=== PATIENT | female | born 1935 | race Caucasian/White ===

== ENCOUNTER 2018-06-19 13:06 | Outpatient (CLI) | payer MEDICARE ==
--- NOTE | 2018-06-19 16:00 | PET ---
PET CT: HISTORY: 82-year-old female with left breast cancer. Status post mastectomy 08/22/17. Exam requested for sami smyth. No history of chemo/radiation therapy. TECHNIQUE: PET scanning with CT attenuation correction was performed from the base of the brain through the prox imal thighs following the intravenous administration of 1 mCi [id number] in the right antecubital fossa. Imaging performed after an uptake interval of 50 minutes. COMPARISON: None. CORRELATION: None. CORRELATION: CT chest, abdomen, and pelvis of 06/13/17 and whole body bone scan of 01/03/17. FINDINGS: No aida hypermetabolism is seen in the neck, chest, axilla, abdomen, pelvis, or inguinal regions. No hypermetabolic pulmonary nodules, liver, adrenal, or skeletal lesions are identified. There is physiologic activity in the GI and tracts, and the visualized portions of the brain. A focal area of intense FDG localization is seen in the stomach with a SUV of 6.6. The CT scan used for attenuation correction demonstrates no evidence of pleural effusions or ascites. There is a left adrenal adenoma with attenuation values of 5.[address] on the [address] scan used for attenuation correction (noncontrast) and SUV of 2.2 on the PET scan. IMPRESSION: 1. No evidence of metastatic disease. 2. Focal hypermetabolic area in the stomach should be evaluated with endoscopy to exclude a second p rimary. POS: DEMETRI
== END 2018-06-19 13:07 | disposition home or self-care (01) ==
LOC: PET 13:06
PROVIDERS: ATTEND Internal Medicine Hematology & Oncology
DX: C50.912 Malignant neoplasm of unspecified site of left female breast (principal)
CPT/HCPCS: 78815; A9552

== ENCOUNTER 2019-07-06 11:54 | Observation (INO) | payer MEDICARE ==
[2019-07-06 12:33] LABS: #Eosinphils 0.1 thou/uL (0.0-0.7); #Lymphocytes 1.1 thou/uL (1.20-3.40); #Monocytes 0.6 thou/uL (0.11-0.59); %Basophils 0.2 % (0.0-1.0); %Eosinophils 1.2 % (0.0-10.0); %Lymphocytes 18.7 % (21.0-51.0); %Monocytes 10.6 % (0.0-10.0); %Neutrophils 69.1 % (42.0-75.0); Hemoglobin 7.9 g/dL (12.0-16.0); Mean Corpuscular HGB CONC 31.3 g/dL (32.0-36.0); Mean Corpuscular Hemoglobin 28.9 pg (27.0-31.0); Mean Corpuscular Volume 92.3 fL (78.0-98.0); Mean Platelet Volume 8.9 fL (7.4-10.4); Platelet Count 217 thou/uL (130-400); Red Blood Cell (RBC) Count 2.73 mill/uL (4.20-5.40); White Blood Cell (WBC) Count 5.8 thou/uL (4.8-10.8)
[2019-07-06 12:41] LABS: INR-International Normal Ratio 1.8
--- NOTE | 2019-07-06 12:41 | RAD ---
Portable frontal chest radiograph: 07/06/2019 COMPARISON: 02/14/2015 HISTORY: Low blood pressure, lethargy FINDINGS: Stable prominence of the cardiac silhouette. Stable multilead left-sided AICD. No focal con solidation or alveolar edema. IMPRESSION: Stable frontal chest radiograph.
--- NOTE | 2019-07-06 12:49 | CT ---
Head CT without contrast 07/06/2019: COMPARISON: 07/20/2015 HISTORY: Hypotension, lethargy TECHNIQUE: Axial CT imaging at 5 mm intervals from vertex through skull base without contrast FINDINGS: The visualized paranasal sinuses and mastoid air cells are well aerated. No displaced mary rial fracture. No intracranial hemorrhage, midline shift, or mass effect. White matter hypodensity again noted, evidence of small vessel disease. Associated moderate stable cerebral volume loss. IMPRESSION: Chronic findings as described above. No acute intracranial abnormality.
[2019-07-06 12:52] LABS: ALT (SGPT) 19 U/L (8-55); AST (SGOT) 31 U/L (5-34); Albumin 3.9 g/dL (3.4-4.8); Alkaline Phosphatase 80 U/L (40-110); Anion Gap 13 mmol/L (10-20); BUN (Urea Nitrogen) 36 mg/dL (9.8-20.1); Bilirubin, Total 1.2 mg/dL (0.2-1.2); CK (CPK) 377 U/L (29-168); Calc. Creatinine Clearance 0 mL/min (70-130); Calcium 9.1 mg/dL (7.8-10.44); Carbon Dioxide 29 mmol/L (23-31); Chloride 101 mmol/L (98-107); Estimated GFR-MDRD 32; Globulin 2.7 g/dL (2.4-3.5); Glucose 180 mg/dL (83-110); Potassium 3.3 mmol/L (3.5-5.1); Protein, Total 6.6 g/dL (6.0-8.3); Sodium 140 mmol/L (136-145)
[2019-07-06 13:38] LABS: Bacteria/HPF 2+ HPF (None Seen); Bilirubin Negative (Negative); Blood, Urine Negative (Negative); Clarity Clear (Clear); Glucose, Urine (Dipstick) Normal (Negative); Leukocyte 250 Leu/uL (Negative); Nitrite Negative (Negative); Protein, Urine (Dipstick) Negative (Neg-Trace); RBC/HPF 0-3 HPF (0-3); Squamous Epithelial 0-3 HPF (0-3); Urobilinogen Normal mg/dL (Less than 2)
--- NOTE | 2019-07-06 13:46 | ULT ---
LEFT LOWER EXTREMITY VENOUS DOPPLER: 07/06/2019 PROVIDED CLINICAL HISTORY: Left leg edema. FINDINGS: Ralph-scale and color Doppler sonography with spectral analysis was performed of the left common femor al, femoral, popliteal, posterior tibial, greater saphenous and profunda femoral veins, demonstrating a normal sonographic appearance to each. IMPRESSION: No sonographic evidence for left lower extremity deep venous thrombosis. POS: SWATHI
[2019-07-06] MEDS ORDERED: cefTRIAXone\\ROCEPHIN 1 GM VIAL ONE (15:34)
[2019-07-06] MEDS ORDERED: Ondansetron ODT 4 MG TAB PO PRN (16:00)
[2019-07-06] MEDS ORDERED: Acetaminophen 325 MG TAB PO PRN (16:00)
[2019-07-06 16:57] LABS: Troponin I Less than 0.010 ng/mL (< 0.028)
[2019-07-06 19:06] LABS: Troponin I 0.032 ng/mL (< 0.028)
[2019-07-06 19:40] VITALS: BMI 22.8
[2019-07-06] MEDS ORDERED: HumaLOG 300 UNITS/3 ML VIAL SC PRN (21:00)
[2019-07-06] MEDS ORDERED: Dextrose 50% Abboject 50 ML SYRINGE IVP PRN (21:00)
[2019-07-06] MEDS ORDERED: Dextrose 5% in Water 1,000 ML IV PRN (21:00)
[2019-07-06] MEDS: Apixaban 2.5 MG TAB PO SCH (21:10)
[2019-07-06] MEDS: Sodium Chloride 0.9% 1,000 ML IV SCH (21:12)
[2019-07-07 05:25] LABS: #Eosinphils 0.1 thou/uL (0.0-0.7); #Lymphocytes 1.4 thou/uL (1.20-3.40); #Monocytes 0.6 thou/uL (0.11-0.59); #Neutrophils 2.5 thou/uL (1.40-6.50); %Basophils 0.2 % (0.0-1.0); %Eosinophils 2.3 % (0.0-10.0); %Lymphocytes 31.5 % (21.0-51.0); Hemoglobin 6.9 g/dL (12.0-16.0); Mean Corpuscular HGB CONC 31.2 g/dL (32.0-36.0); Mean Platelet Volume 8.8 fL (7.4-10.4); Platelet Count 198 thou/uL (130-400); RBC Distribution Width 19.3 % (11.5-14.5); Red Blood Cell (RBC) Count 2.38 mill/uL (4.20-5.40); White Blood Cell (WBC) Count 4.6 thou/uL (4.8-10.8)
[2019-07-07 05:44] LABS: ALT (SGPT) 16 U/L (8-55); AST (SGOT) 24 U/L (5-34); Albumin 3.3 g/dL (3.4-4.8); Alkaline Phosphatase 62 U/L (40-110); Anion Gap 9 mmol/L (10-20); BUN (Urea Nitrogen) 30 mg/dL (9.8-20.1); Bilirubin, Total 0.7 mg/dL (0.2-1.2); Calc. Creatinine Clearance 34 mL/min (70-130); Calcium 8.5 mg/dL (7.8-10.44); Carbon Dioxide 30 mmol/L (23-31); Chloride 109 mmol/L (98-107); Estimated GFR-MDRD 44; Globulin 2.3 g/dL (2.4-3.5); Glucose 113 mg/dL (83-110); Magnesium 2.1 mg/dL (1.6-2.6); Protein, Total 5.6 g/dL (6.0-8.3); Sodium 145 mmol/L (136-145)
[2019-07-07] MEDS ORDERED: Potassium Chloride 20 MEQ TAB PO SCH ×2 (08:00→16:45)
[2019-07-07 08:15] LABS: Hemoglobin 7.1 g/dL (12.0-16.0)
[2019-07-07] MEDS ORDERED: Ferrous Sulfate 325 MG TAB PO SCH (09:00)
[2019-07-07] MEDS ORDERED: Digoxin 0.125 MG TAB PO SCH (09:00)
[2019-07-07] MEDS: Losartan 25 MG TAB PO SCH (09:34)
[2019-07-07] MEDS: Aspirin Chewable 81 MG TAB PO SCH (09:34)
[2019-07-07] MEDS: Apixaban 2.5 MG TAB PO SCH ×2 (09:34→20:28)
[2019-07-07] MEDS ORDERED: Docusate 100 MG CAP PO PRN (10:43)
[2019-07-07] MEDS: HumaLOG 300 UNITS/3 ML VIAL SC PRN ×2 (12:57→17:12)
[2019-07-07] MEDS ORDERED: Amiodarone 200 MG TAB PO SCH (14:45)
[2019-07-07] MEDS ORDERED: Polyethylene Glycol 3350 17 GM Packet PO SCH (16:00)
--- NOTE | 2019-07-07 16:41 | PDOC.HOSPP ---
- Subjective Encounter Date: 07/07/19 Subjective: afebrile and comfortably walking - Objective Vital Signs & Weight: Vital Signs (12 hours) Temp Pulse Resp BP BP Pulse Ox 07/07/19 16:28 98.3 F 60 16 131/62 95 07/07/19 12:14 97.5 F L 60 20 135/65 94 L 07/07/19 11:44 135/65 07/07/19 07:31 98.8 F 61 16 129/62 92 L Weight Weight 133 lb 8 oz I&O: 07/06/19 07/07/19 07/08/19 06:59 06:59 06:59 Intake Total 1109 960 Output Total 600 Balance 509 960 Result Diagrams: 07/07/19 08:06 07/07/19 04:51 Additional Labs: Accuchecks 07/07/19 07/07/19 07/06/19 13:56 12:32 20:17 POC Glucose 435 H 449 H 230 H EKG Reviewed by me: Yes Hospitalist ROS - Review of Systems Other: no c/o weakness - Medication Medications: Active Medications Generic Name Dose Route Start Last Admin Trade Name Freq PRN Reason Stop Dose Admin Amiodarone HCl 200 mg 07/07/19 14:45 07/07/19 15:23 Cordarone PO 07/07/19 16:45 200 mg NOW YANI Administration Apixaban 2.5 mg 07/06/19 21:00 07/07/19 09:34 Eliquis PO 2.5 mg BID YANI Administration Aspirin 81 mg 07/07/19 09:00 07/07/19 09:34 Aspirin Chewable PO 81 mg DAILY YANI Administration Digoxin 0.125 mg 07/07/19 09:00 07/07/19 09:35 Lanoxin PO Not Given DAILY YANI Ferrous Sulfate 325 mg 07/07/19 09:00 07/07/19 09:34 Feosol PO 325 mg DAILY YANI Administration Sodium Chloride 1,000 mls @ 50 mls/hr 07/06/19 16:00 07/06/19 21:12 Normal Saline 0.9% IV 1,000 mls .Q20H YANI Administration Insulin Human Lispro 0 units 07/06/19 21:00 07/07/19 12:57 Humalog SC 10 unit .MODERATE SLIDING SC PRN Administration MODERATE SLIDING SCALE Protocol Insulin Human Lispro 0 units 07/06/19 21:00 07/06/19 21:11 Humalog SC 2 unit .BEDTIME SLIDING SC PRN Administration BEDTIME SLIDING SCALE Protocol Losartan Potassium 25 mg 07/07/19 09:00 07/07/19 09:34 Cozaar PO 25 mg DAILY YANI Administration Sodium Chloride 10 ml 07/06/19 16:00 07/06/19 21:13 Flush - Normal Saline IVF 10 ml Q12H PRN Administration Saline Flush - Exam Eye: PERRL, anicteric sclera ENT: normocephalic atraumatic, no oropharyngeal lesions, moist mucosa Neck: supple, symmetric, no JVD, no thyromegaly, no lymphadenopathy, no carotid bruit Heart: RRR, no murmur, no gallops, no rubs, normal peripheral pulses Respiratory: CTAB, no wheezes, no rales, no ronchi, normal chest expansion, no tachypnea, normal percussion Gastrointestinal: soft, non-tender, non-distended, normal bowel sounds, no palpable masses, no hepatomegaly, no splenomegaly, no bruit Extremities: no cyanosis, no clubbing, no edema Skin: normal turgor, no lesions, no rashes Neurological: cranial nerve grossly intact, normal sensation to touch, no weakness, no focal deficits, no new deficit Musculoskeletal: normal tone, normal strength, no muscle wasting Psychiatric: normal affect, normal behavior, A&O x 3 Hosp A/P (1) HTN (hypertension) Code(s): I10 - ESSENTIAL (PRIMARY) HYPERTENSION Status: Acute Plan: well controlled. (2) Afib Code(s): I48.91 - UNSPECIFIED ATRIAL FIBRILLATION Status: Acute Plan: chronic with h/o pacemaker and aicd combo placement. (3) Anemia Code(s): D64.9 - ANEMIA, UNSPECIFIED Status: Acute Qualifiers: Anemia type: iron deficiency Iron deficiency anemia type: inadequate dietary iron intake Qualified Code(s): D50.8 - Other iron deficiency anemias Plan: will transfuse one dose of iv venofer today. (4) CHF (congestive heart failure) Code(s): I50.9 - HEART FAILURE, UNSPECIFIED Status: Acute Qualifiers: Heart failure type: systolic Plan: h/o aicd placement with eliquis use. (5) Diabetes 1.5, managed as type 2 Code(s): E13.9 - OTHER SPECIFIED DIABETES MELLITUS WITHOUT COMPLICATIONS Status: Acute - Plan old records reviewed/req, plan discussed w/ family, PT/OT 1.One episode of asymptomatic nsvt. 2.paced rhythm,patient ambulating well with out any fall risk. 3.h/o iron deficiency anemia will transfuse iv venofer once. 4.Discharge plan in am.
[2019-07-07] MEDS ORDERED: IRON SUCROSE COMPLEX 100 MG/5 ML SLOW IVP SCH (16:45)
[2019-07-07] MEDS: Sodium Chloride 0.9% 1,000 ML IV SCH (17:14)
[2019-07-07] MEDS ORDERED: Insulin Glargine 24 UNITS in Pre-Filled Syringe SC SCH (21:00)
[2019-07-07] MEDS ORDERED: Temazepam 15 MG CAP PO PRN (22:12)
[2019-07-08 05:22] LABS: #Eosinphils 0.1 thou/uL (0.0-0.7); #Lymphocytes 1.7 thou/uL (1.20-3.40); #Monocytes 0.6 thou/uL (0.11-0.59); #Neutrophils 3.2 thou/uL (1.40-6.50); %Basophils 0.8 % (0.0-1.0); %Eosinophils 2.6 % (0.0-10.0); %Lymphocytes 29.6 % (21.0-51.0); %Monocytes 10.9 % (0.0-10.0); %Neutrophils 56.1 % (42.0-75.0); Hemoglobin 7.5 g/dL (12.0-16.0); Mean Corpuscular HGB CONC 30.8 g/dL (32.0-36.0); Mean Corpuscular Hemoglobin 28.8 pg (27.0-31.0); Mean Corpuscular Volume 93.5 fL (78.0-98.0); Mean Platelet Volume 9.1 fL (7.4-10.4); Platelet Count 204 thou/uL (130-400); RBC Distribution Width 19.6 % (11.5-14.5); Red Blood Cell (RBC) Count 2.59 mill/uL (4.20-5.40); White Blood Cell (WBC) Count 5.6 thou/uL (4.8-10.8)
[2019-07-08 05:48] LABS: ALT (SGPT) 16 U/L (8-55); AST (SGOT) 23 U/L (5-34); Albumin 3.4 g/dL (3.4-4.8); Alkaline Phosphatase 66 U/L (40-110); Anion Gap 10 mmol/L (10-20); BUN (Urea Nitrogen) 23 mg/dL (9.8-20.1); Bilirubin, Total 0.8 mg/dL (0.2-1.2); Calc. Creatinine Clearance 35 mL/min (70-130); Calcium 8.5 mg/dL (7.8-10.44); Carbon Dioxide 27 mmol/L (23-31); Chloride 108 mmol/L (98-107); Estimated GFR-MDRD 44; Globulin 2.5 g/dL (2.4-3.5); Glucose 146 mg/dL (83-110); Potassium 4.1 mmol/L (3.5-5.1); Protein, Total 5.9 g/dL (6.0-8.3); Sodium 141 mmol/L (136-145)
[2019-07-08] MEDS ORDERED: Potassium Chloride 20 MEQ TAB PO SCH (08:00)
--- NOTE | 2019-07-08 08:37 | HP ---
REASON FOR ADMISSION: Confusion. HISTORY OF PRESENT ILLNESS: This is a very pleasant 83-year-old female, who was brought in by the patient's family members today with complaints of confusion, that was abrupt in nature, but generalized weakness since last 5 days. She was evaluated by the ER physician with CT of the head as well as lower- extremity Doppler to rule out any evidence of intracranial pathology or evidence of DVT. Evaluations by this radiology reports did not show any evidence of acuity. The patient on my evaluation at bedtime was more alert and oriented, though was complaining of generalized weakness. The patient lives alone at home, usually is active, but in the recent past, according to the patient's daughters, she has been complaining of generalized weakness with occasional confusion states. The patient's family did mention about possibility of memory care unit placement in the future with the possibility of dementia evaluation. At this point of time, their main concern would physical debility, and also at the same time, there was one episode of her systolic blood pressure being around 65 mmHg, but then on initial evaluation in the emergency room, the patient's blood pressure was 100/70 mmHg, and at this point of time, was absolutely normal at 136/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 PAST MEDICAL HISTORY: 1. Cardiomyopathy with an echocardiogram that was ordered for further evaluation of the same. The patient does have an AICD pacemaker combo. 2. Chronic atrial fibrillation with pacemaker placement. The patient is currently on Eliquis and rate-controlled medications with digoxin. 3. Benign essential hypertension. 4. Diabetes mellitus, type 2. ALLERGIES: NO KNOWN DRUG ALLERGIES. FAMILY HISTORY: No history of coronary artery disease or hypertension. SOCIAL HISTORY: The patient denies tobacco, alcohol or recreational drug abuse. HOME MEDICATIONS: 1. Eliquis 2.5 mg b.i.d. 2. Losartan 25 mg daily. 3. Digoxin 0.125 mg daily. 4. Ferrous sulfate 325 mg daily. 5. Aspirin 81 mg daily. 6. Pantoprazole 40 mg daily. IMMUNIZATION HISTORY: Up-to-date. REVIEW OF SYSTEMS: Except as documented, all systems reviewed are negative. PHYSICAL EXAMINATION: GENERAL: This is an 83-year-old female, lying in her hospital bed, not in acute distress. The patient is alert and oriented x3. No acute distress noted. VITAL SIGNS: Blood pressure 136/69 mmHg, heart rate of 85 per minute, respiratory rate of 16 per minute, and saturation 100% on room air, has an airway, which is clear. HEENT: Atraumatic and normocephalic. NECK: Supple. No bruits. No lymphadenopathy. CVS: S1 and S2. Paced rhythm. CHEST: Bilateral air entry present. No rhonchi. No wheeze. ABDOMEN: Soft and nontender. Bowel sounds are present. No organomegaly. EXTREMITIES: No cyanosis. No icterus. No pallor. NEUROLOGIC: The patient is alert and oriented x3. No focal motor or sensory deficits noted. HEMATOLOGIC: No ecchymosis or petechiae. PSYCHIATRIC: No depression or anxiety. DIAGNOSTIC STUDIES: WBCs 5.8, hemoglobin 7.9, hematocrit 25.2, and platelets 217. CT of the head has been reviewed. Volume loss has been noted. Other than that , no acute intracranial abnormality noted. Chest x-ray normal. Lower extremity Doppler does not show any evidence of DVT. Sodium 140, potassium 3.3, chloride 101, carbon dioxide 29, anion gap 13, creatinine 1.55, and calcium 9.1. AST 31 and ALT 19. Albumin 3.9. Urinalysis has been reviewed. Stool occult blood test negative. ASSESSMENT: 1. Single episode of hypotension, likely drug induced. At this point of time, the patient's blood pressure parameters are completely normal. We will hold the patient's antihypertensive medications at this point of time. 2. History of severe cardiomyopathy. Ejection fraction of 15% to 20% with automatic implantable cardioverter-defibrillator placement. 3. Chronic atrial fibrillation, on Eliquis and digoxin with history of pacemaker placement. 4. Osteoarthritis. 5. Physical debility. Physical therapy and occupation therapy have been activated. 6. Hypokalemia. We will supplement potassium. 7. Anemia of chronic disease with hemoglobin of 7.9. The patient's stool guaiac evaluation is negative. 8. History of chronic kidney disease, likely stage 2 to 3. We will further review CBC and CMP evaluations in a.m. 9. No evidence of urinary tract infection noted. 10. 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 PLAN: Discussed in detail about the diagnosis, treatment, and followup with the patient as well as the patient's family. I advised about alf facility placement after PT/OT evaluation based on recommendations. DVT and GI prophylaxis will be continued as the patient is currently on Eliquis. I have advised the patient's family regarding a long-term care. At this point of time, they would prefer the patient to be transitioned to alf facility if possible and long-term will be evaluated after family discussion. I advised about outpatient neurology evaluation for dementia. At this point of time, we will closely monitor though the patient is more alert and oriented. Advanced directives, she is a full code. Discharge planning will depend on further hospital course. At this point of time, I expect the patient will be admitted to the hospitalist service for less than 2 midnights. Job ID: [id number] [facility]PITALWolf
[2019-07-08] MEDS ORDERED: Polyethylene Glycol 3350 17 GM Packet PO SCH (09:00)
[2019-07-08] MEDS ORDERED: Latanoprost 0.005% Ophth Soln 2.5 ml Bottle EA EYE SCH (09:00)
[2019-07-08] MEDS ORDERED: Carvedilol 25 MG TAB PO SCH (09:00)
[2019-07-08] MEDS ORDERED: Insulin Glargine 24 UNITS in Pre-Filled Syringe 1 EACH SC SCH (09:00)
[2019-07-08] MEDS ORDERED: Multivit, Therapeutic 1 TAB PO SCH (09:00)
[2019-07-08] MEDS ORDERED: Non-Formulary Item 1 EACH (Insulin Glargine,Hum.Rec.Anlog [Lantus Solostar] 24 UNIT) SQ SCH (09:00)
[2019-07-08] MEDS ORDERED: Calcium Carbonate 600 MG TAB PO SCH (09:00)
[2019-07-08] MEDS ORDERED: Folic Acid 1 MG TAB PO SCH (09:00)
[2019-07-08] MEDS ORDERED: Amiodarone 200 MG TAB PO SCH (09:00)
[2019-07-08] MEDS ORDERED: Torsemide 100 MG TAB PO SCH (09:00)
[2019-07-08] MEDS ORDERED: Thiamine 100 MG TAB PO SCH (09:00)
[2019-07-08] MEDS: Aspirin Chewable 81 MG TAB PO SCH (09:41)
[2019-07-08] MEDS: Losartan 25 MG TAB PO SCH (09:41)
[2019-07-08] MEDS: Apixaban 2.5 MG TAB PO SCH (09:42)
--- NOTE | 2019-07-08 10:33 | DIS ---
DATE OF ADMISSION: 07/06/2019 DATE OF DISCHARGE: 07/08/2019 SIGNIFICANT DIAGNOSTICS: CT of the head chronic findings as described above. No acute intracranial abnormalities were noted. DISCHARGE DIAGNOSES: 1. Benign essential hypertension. 2. Chronic atrial fibrillation. 3. Anemia of chronic disease with iron deficiency. 4. Congestive heart failure with ejection fraction of 15% to 20% in 2014, currently preliminarily she has an ejection fraction of 30%. 5. Diabetes mellitus type 2. HOSPITAL COURSE: This is a very pleasant 83-year-old female who was brought in to the hospital at [place] with initial complaints of confusion that the patient has been experiencing since 5 days more so to the last 24 hours with abrupt incidence, was concerning, so the patient's family brought the patient to the emergency room at [facility]. The patient was evaluated with CT of the head which did not show any evidence of intracranial abnormalities except for evidence of volume loss. The patient does have chronic history of atrial fibrillation along with multiple comorbidities including benign essential hypertension, hyperlipidemia, iron-deficiency anemia, diabetes mellitus type 2. The patient was continued on her home medications and review on echocardiogram and 48-hour telemetry evaluation was done showing no evidence of acute EKG changes except for 1 episode of nonsustained ventricular tachycardia for over 1 to 2 seconds. The patient was asymptomatic. Hemodynamically, the patient was stable. There was an initial admission with possibility of hypertension at home. The patient does take antihypertensives, unfortunately does not monitor her blood pressure readings and have notified the patient's family regarding monitoring blood pressure prior to antihypertensive intake. The patient was advised followup with her primary director market intelligence as well as primary care physician as scheduled. The patient was given a dose of Venofer because of anemia, which looks more chronic. The patient unfortunately could not tolerate oral iron supplements and she had a history of significant irritation and then was given Venofer at this point of time. The patient has been advised to follow up with irrigation foreman as an outpatient for scheduled Venofer transfusions along with possibility of Procrit. The patient remained hemodynamically optimized without any episodes of confusion or any episodes of low blood pressure and was advised discharge planning. Hemodynamically optimized and discharged. DISPOSITION: Discharged to home. PHYSICAL EXAMINATION: CVS: S1 and S2. CHEST: Bilateral air entry present. ABDOMEN: Soft. EXTREMITIES: No cyanosis. ALLERGIES: SULFA. ACTIVITY: As tolerated to fall precautions. DISCHARGE MEDICATIONS: 1. Eliquis 2.5 mg b.i.d. 2. Amiodarone 200 mg daily. 3. Aspirin 81 mg daily. 4. Calcium carbonate 600 mg daily. 5. Coreg 12.5 mg daily. 6. Folic acid 1 mg daily. 7. Docusate 100 mg daily. 8. Latanoprost as scheduled. 9. Losartan 25 mg daily. 10. Multivitamin 1 tablet daily. 11. Pantoprazole 40 mg daily. 12. MiraLAX 17 g daily. 13. K-Dur 20 mEq daily. 14. Torsemide 100 mg daily. 15. Insulin glargine 24 units at bedtime. DISCHARGE PLAN: The patient has been advised and educated about the diagnosis, treatment, and followup. The patient has been advised about followup care with Hematology, primary care physician as well as Cardiology as scheduled. The whole discharge process including discharge coordination took me more than 35 minutes. Job ID: [id number]
[2019-07-08 11:57] VITALS: BP 129/62; TEMP 98.9
[2019-07-08] MEDS ORDERED: Cephalexin 250 MG CAP PO SCH (13:00)
[2019-07-08] MEDS ORDERED: Cephalexin 250 MG/5 ML Oral Suspension PO SCH (13:00)
[2019-07-08] MEDS: HumaLOG 300 UNITS/3 ML VIAL SC PRN (14:05)
== END 2019-07-08 16:59 | disposition home health service (06) ==
LOC: ERS 11:54 → 2SW 16:06
PROVIDERS: ADMIT Student in an Organized Health Care Education/Training Program; ATTEND Student in an Organized Health Care Education/Training Program
DX: R41.0 Disorientation, unspecified (principal); R53.1 Weakness; I95.9 Hypotension, unspecified; I42.9 Cardiomyopathy, unspecified; I48.20 Chronic atrial fibrillation, unspecified; I13.0 Hypertensive heart and chronic kidney disease with heart failure and stage 1 through stage 4 chronic kidney disease, or unspecified chronic kidney disease; E11.22 Type 2 diabetes mellitus with diabetic chronic kidney disease; N18.3 Chronic kidney disease, stage 3 (moderate); I50.21 Acute systolic (congestive) heart failure; E87.6 Hypokalemia; M19.90 Unspecified osteoarthritis, unspecified site; D50.8 Other iron deficiency anemias; Z79.01 Long term (current) use of anticoagulants; Z79.4 Long term (current) use of insulin; Z79.899 Other long term (current) drug therapy; Z88.2 Allergy status to sulfonamides; Z95.0 Presence of cardiac pacemaker; Z95.5 Presence of coronary angioplasty implant and graft
CPT/HCPCS: 70450; 71045; 80053 ×2; 82274; 82550; 82962 ×3; 83605; 83735 ×2; 84484 ×2; 85014; 85018; 85025 ×2; 85610; 85652; 85730; 87077; 87086; 87186; 93005; 93306; 93971; 96361 ×2; 96365; 96375; 97116; 97139 ×3; 99285; G0378 ×4; 36415; 36416; 81003; 81015; 84443; J0696; J1756; J1815

== ENCOUNTER 2020-03-03 14:31 | Inpatient (IN) | payer MEDICARE, OTHER ==
[~2020-03-03 14:31] MED LIST: Iopamidol-370 76% 500 ML 1 ML ONE
[2020-03-03 15:13] LABS: #Eosinphils 0.1 thou/uL (0.0-0.7); #Lymphocytes 1.4 thou/uL (1.20-3.40); #Monocytes 0.6 thou/uL (0.11-0.59); #Neutrophils 4.6 thou/uL (1.40-6.50); %Basophils 0.1 % (0.0-1.0); %Eosinophils 2.1 % (0.0-10.0); %Lymphocytes 20.8 % (21.0-51.0); %Monocytes 9.3 % (0.0-10.0); %Neutrophils 67.6 % (42.0-75.0); Hemoglobin 6.4 g/dL (12.0-16.0); Mean Corpuscular HGB CONC 31.1 g/dL (32.0-36.0); Mean Corpuscular Hemoglobin 30.6 pg (27.0-31.0); Mean Corpuscular Volume 98.7 fL (78.0-98.0); Mean Platelet Volume 8.6 fL (7.4-10.4); Platelet Count 359 thou/uL (130-400); RBC Distribution Width 22.9 % (11.5-14.5); Red Blood Cell (RBC) Count 2.09 mill/uL (4.20-5.40); White Blood Cell (WBC) Count 6.8 thou/uL (4.8-10.8)
[2020-03-03 15:30] LABS: Anisocytosis SLIGHT = 6-15 cells (100X) (0-5/hpf); Hypochromia SLIGHT = 6-15 cells (100X) (0-5/hpf); MDiff Complete? YES; Ovalocytes SLIGHT = 2-5 cells (100X) (0-1/hpf); Platelet Morphology Comment Appears Adequate; Polychromasia SLIGHT = 2-3 cells (100X) (0-2/hpf); Schistocytes SLIGHT = 2-5 cells (100X) (0-1/hpf); Target Cells SLIGHT = 2-5 cells (100X) (0-1/hpf); Tear Drops SLIGHT = 2-5 cells (100X) (0-1/hpf)
[2020-03-03 15:32] LABS: ALT (SGPT) 25 U/L (8-55); AST (SGOT) 27 U/L (5-34); Albumin 3.3 g/dL (3.4-4.8); Alkaline Phosphatase 98 U/L (40-110); Anion Gap 14 mmol/L (10-20); BUN (Urea Nitrogen) 43 mg/dL (9.8-20.1); Calc. Creatinine Clearance 0 mL/min (70-130); Calcium 8.3 mg/dL (7.8-10.44); Carbon Dioxide 24 mmol/L (23-31); Chloride 104 mmol/L (98-107); Estimated GFR-MDRD 33; Globulin 2.7 g/dL (2.4-3.5); Glucose 133 mg/dL (83-110); Potassium 3.5 mmol/L (3.5-5.1); Sodium 138 mmol/L (136-145)
--- NOTE | 2020-03-03 15:51 | RAD ---
EXAM: 2 views of the right elbow HISTORY: Weakness and fluid retention for 2 weeks. Elbow injury. COMPARISON: None FINDINGS: No elbow effusion is seen. There is no evidence of acute fracture or dislocation. No signi ficant degenerative changes are seen. There is a wound along the posterior aspect of the elbow with adjacent soft tissue swelling. No radiopaque foreign body is seen. IMPRESSION: No evidence of acute osseous abnormality.
--- NOTE | 2020-03-03 15:56 | CT ---
EXAM: CT brain without contrast HISTORY: Altered mental status COMPARISON: 07/06/2019 TECHNIQUE: Multiple contiguous axial images were obtained and a CT of the brain without contrast. FINDINGS: There are scattered hypodensities in the subcortical and periventricular white matter consi stent with small vessel ischemic disease. There is no evidence of hydrocephalus, intracranial hemorrhage, or extra-axial fluid collection. The calvarium and overlying soft tissues are unremarkable. The visualized paranasal sinuses and masto id air cells are well aerated. IMPRESSION: No evidence of acute intracranial abnormality
--- NOTE | 2020-03-03 15:59 | RAD ---
EXAM: ABDOMEN TWO VIEWS CHEST ONE VIEW: 03/03/20 HISTORY: Altered mental status, weakness. Fluid retention for two weeks. COMPARISON: Chest, abdomen and pelvic CT scan . FINDINGS: Left ICD. Cardiomegaly with bilateral vascular congestion and small bilateral pleural effusions. No e vidence for free intraperitoneal air. Solid fecal material throughout the colon including the rectum. Lumbar spine spondylosis. No overt calculus. No large or small bowel obstruction. IMPRESSION: Cardiomegaly with bilateral vascular congestion and small bilateral pleural effusions concerning for congestive heart failure. Solid fecal material in the colon including the rectum, evidence for constipation. POS: RRE
[2020-03-03] MEDS ORDERED: Furosemide 40 MG/4 ML VIAL ONE (16:24)
[2020-03-03] MEDS ORDERED: Vancomycin 1 GM/200 ML BAG ONE (16:24)
[2020-03-03 16:25] LABS: INR-International Normal Ratio 1.6; PTT 37.7 sec (22.9-36.1); Prothrombin Time 19.1 sec (12.0-14.7)
[2020-03-03 17:03] LABS: Lactic Acid 1.4 mmol/L (0.5-2.2)
[2020-03-03 17:29] LABS: Bilirubin Negative (Negative); Blood, Urine Negative (Negative); Clarity Clear (Clear); Glucose, Urine (Dipstick) Normal (Negative); Ketone, Urine Negative (Negative); Leukocyte Negative Leu/uL (Negative); Nitrite Negative (Negative); Protein, Urine (Dipstick) Negative (Neg-Trace); Urobilinogen Normal mg/dL (Less than 2)
--- NOTE | 2020-03-03 18:08 | CT ---
EXAM: CT Upper Ext Rt W Con PROVIDED CLINICAL HISTORY: Injury to right elbow. Evaluate for abscess. COMPARISON: None FINDINGS: There is a soft tissue defect seen involving the posterior medial aspect most proximal forearm likely related to patient's history of injury and wound/laceration in this region. A defined fluid collection is not appreciated. However, there is prominence of the soft tissues involving the medial aspect of the proximal right forearm distal to the soft tissue defect. Exact etiology for the significant soft tissue prominence in this region is uncertain, given the significant size of the sof t tissue defect/laceration, this could be retracted musculature and tendons secondary to laceration. Hemorrhage in this region is also a possibility. There is generalized heterogeneity throu ghout this area of soft tissue prominence, but there is significant artifact extending through this region which may account for this heterogeneity. While a defined fluid collection is not delineated t o suggest an abscess, myositis cannot be excluded based on this exam. A 5 mm osseous appearing density/calcification is seen just medial to the diaphysis of the ulna. Exac t etiology for this structure is uncertain. No definitive donor site is seen to suggest this represents an avulsion injury. Radiopaque foreign body is a possibility. Subcutaneous edema seen along the right lateral chest and involving the upper abdomen. No displaced fracture is seen involving the limited visualized elbow, and there is no dislocation. No osseous destruction is appreciated. IMPRESSION: 1. Soft tissue defect posteromedial proximal right forearm with soft tissue prominence distal to the area of soft tissue defect/presumed laceration and greater anteromedially. Fat planes within the musculature in this region is not able to be delineated, but findings may be related to retracted mus culature and tendons as well as associated hemorrhage. Myositis would not be able to be excluded based on provided images given significant heterogeneity and artifact through this region. 2. Small 5 mm radiopaque density/calcific density just medial to the mid diaphysis of the ulna. This could represent a calcification, but a tiny radiopaque foreign body is a possibility. There is no donor site in this region to suggest this represents and a bulging injury. 3. Above findings discussed with Dr. Odom in the emergency department on 03/03/2020 at 1303.
[2020-03-04] MEDS ORDERED: Dextrose 5% in Water 1,000 ML IV PRN (00:42)
[2020-03-04] MEDS ORDERED: hydrALAZINE 20 MG/ML VIAL SLOW IVP PRN (00:42)
[2020-03-04] MEDS ORDERED: Ondansetron ODT 4 MG TAB PO PRN (00:42)
[2020-03-04] MEDS ORDERED: Ondansetron PF 4 MG/2 ML Vial IVP PRN (00:42)
[2020-03-04] MEDS ORDERED: Vancomycin HCl 1 GM in Sodium Chloride 0.9% 250 ML 250 ML IVPB SCH (00:45)
--- NOTE | 2020-03-04 03:01 | CON ---
DATE OF CONSULTATION: 03/03/2020 CHIEF COMPLAINT: Status post fall with arm wound. HISTORY OF PRESENT ILLNESS: Ms. Damon is an 84-year-old female, whom I am seeing in the emergency department. She does not have family at the bedside. I was told she has had several falls recently in confusion as well as weakness. She presented to the emergency department tonight. She fell approximately one week ago during which she lacerated her arm. She had a large amount of swelling and bleeding at the time. She has improved somewhat since then, but has developed a chronic wound at this point. She has been found to have significant anemia and is going to come in to the hospital for transfusion and further monitoring and workup. I was consulted to evaluate the patient's wound. PAST MEDICAL HISTORY: Cardiomyopathy, atrial fibrillation with history of pacemaker placement, hypertension, diabetes, and anemia. ALLERGIES: NO KNOWN DRUG ALLERGIES. FAMILY MEDICAL HISTORY: I am unable to obtain. REVIEW OF SYSTEMS: Positive for mild right arm pain. Otherwise, she denies positive review of systems. No chest pain or shortness of breath. SOCIAL HISTORY: The patient denies tobacco, alcohol, or drug use. PHYSICAL EXAMINATION: VITAL SIGNS: Stable. The patient is normotensive, 98% on room air. HEENT: She is lying supine, in no apparent distress. She is talkative and answers questions appropriately. RESPIRATORY: Breathing comfortably. ABDOMEN: Soft, nontender, nondistended. MUSCULOSKELETAL: The patient's right arm has a deep skin tear and laceration down to the level of fascia. There is exposed subcutaneous tissue as well. The wound is approximately 4 cm x 4 cm in diameter. There is a large hematoma distal to the wound. There is no gross purulence, but there is some surrounding erythema. She is able to flex and extend the digits distally. She has a palpable radial pulse. IMAGING: X-rays of the right elbow are reviewed, which show a large soft tissue defect consistent with her open wound. There is no obvious fracture or other bony deformity. IMPRESSION: Right forearm hematoma and open wound in an elderly female with chronic anemia as well as other multiple medical problems. PLAN: At this point, the patient is going to be admitted to the hospital. She will have workup of her conditions and she is receiving a blood transfusion. She will need to go to the operating room tomorrow for irrigation and debridement of her forearm. I will need to evacuate the hematoma and clean the wound. At that point, I would like the wound care team to place a wound VAC on this patient's arm. She will have a hard time healing this large wound given her age and poor skin quality. She is aware, it will take quite some time to fully heal. She should be n.p.o. at midnight. I have reviewed our plan with her and she wants to proceed. Job ID: [id number]
[2020-03-04] MEDS: cefTRIAXone\\ROCEPHIN 2 GM in Sodium Chloride 0.9% 100 ML IVPB SCH (04:08)
[2020-03-04 04:44] LABS: Anion Gap 13 mmol/L (10-20); BUN (Urea Nitrogen) 39 mg/dL (9.8-20.1); Calc. Creatinine Clearance 33 mL/min (70-130); Calcium 8.3 mg/dL (7.8-10.44); Carbon Dioxide 25 mmol/L (23-31); Chloride 106 mmol/L (98-107); Estimated GFR-MDRD 34; Glucose 264 mg/dL (83-110); Potassium 3.6 mmol/L (3.5-5.1); Sodium 140 mmol/L (136-145)
[2020-03-04 05:10] LABS: Hemoglobin 7.4 g/dL (12.0-16.0); Mean Corpuscular HGB CONC 31.6 g/dL (32.0-36.0); Mean Corpuscular Hemoglobin 30.5 pg (27.0-31.0); Mean Corpuscular Volume 96.7 fL (78.0-98.0); Mean Platelet Volume 8.5 fL (7.4-10.4); Platelet Count 321 thou/uL (130-400); RBC Distribution Width 20.6 % (11.5-14.5); Red Blood Cell (RBC) Count 2.44 mill/uL (4.20-5.40); White Blood Cell (WBC) Count 6.8 thou/uL (4.8-10.8)
[2020-03-04 05:21] LABS: Anisocytosis MODERATE=16-30 cells (100X) (0-5/hpf); Band 17 % (5-11); Eosinophils 3 % (0-10); Lymphocytes 18 % (21-51); MDiff Complete? YES; Monocytes 6 % (0-10); Myelocyte 1 % (0-0); Neutrophil 55 % (42-75); Nucleated RBC 2 % (0); Platelet Morphology Comment Appears Adequate; Polychromasia MODERATE = 3-4 cells (100X) (0-2/hpf)
--- NOTE | 2020-03-04 07:22 | HP ---
PRIMARY CARE PROVIDER: Dr. Carlos Mai. CHIEF COMPLAINT: General weakness and right arm wound. HISTORY OF PRESENT ILLNESS: This is an 84-year-old female who presents to [facility] after family prompted her to seek medical attention due to a large wound on her right upper extremity. The patient apparently fell one week prior to this evaluation, resulting in laceration to the right upper extremity. The patient's [id number] had been taking care of the wound with compression bandages, however, noticed that the wound was enlarging and not healing. The family was also concerned of questionable altered mental status and confusion over the last 2 to 3 days and concerned about urinary tract infection. The history is obtained after review of electronic medical record and emergency room reports as the patient is unable to provide a coherent history. In the emergency room, the patient underwent general evaluation with large right upper extremity wound noted on exam. CT of the right upper extremity showed a soft tissue defect. The patient received vancomycin 1 g IV piggyback in addition to Lasix 40 mg x1. The patient was also typed and crossmatched, receiving 1 unit of packed red blood cells after initial hemoglobin at 6.4. PAST MEDICAL HISTORY: 1. Chronic macrocytic anemia. 2. Cardiomyopathy. 3. Chronic atrial fibrillation with pacemaker placement on chronic anticoagulation with Eliquis. 4. Hypertension. 5. Diabetes mellitus, type 2. 6. History of falls. PAST SURGICAL HISTORY: 1. Status post AICD placement. 2. Status post hysterectomy. 3. Status post colonoscopy with polypectomy. 4. Status post cardiac stent placement. CURRENT MEDICATIONS: 1. Amiodarone 100 mg p.o. daily. 2. Eliquis 2.5 mg p.o. b.i.d. 3. Calcium carbonate 600 mg p.o. daily. 4. Carvedilol 12.5 mg p.o. daily. 5. Cranberry extract 500 mg p.o. daily. 6. Glargine insulin 24 units subcutaneously q.a.m. 7. Xalatan 0.005% one drop to each eye daily. 8. Losartan 25 mg p.o. daily. 9. Multivitamin one tablet p.o. daily. 10. Protonix 40 mg p.o. daily. 11. MiraLAX 17 g p.o. daily. 12. Klor-Con 20 mEq p.o. daily. 13. Thiamine 100 mg p.o. daily. 14. Folic acid 1 mg p.o. daily. ALLERGIES: TO SULFA. FAMILY HISTORY: No inheritable disease per patient report. SOCIAL HISTORY: Resides in [place], [place]. No alcohol, tobacco, or illicit drug use. Ambulates with a rolling walker or cane. History of falls with right upper extremity laceration/wound. REVIEW OF SYSTEMS: CONSTITUTIONAL: Negative for weight loss or gain, ability to conduct usual activities. SKIN: Negative for rash, itching. EYES: Negative for double vision, pain. ENT/MOUTH: Negative for nose bleeding, neck stiffness, pain, tenderness. CARDIOVASCULAR: Negative for palpitations, dyspnea on exertion, orthopnea. RESPIRATORY: Negative for shortness of breath, wheezing, cough, hemoptysis, fever or night sweats. GASTROINTESTINAL: Negative for poor appetite, abdominal pain, heartburn, nausea , vomiting, constipation, or diarrhea. GENITOURINARY: Negative for urgency, frequency, dysuria, nocturia. MUSCULOSKELETAL: Negative for pain, swelling. NEUROLOGIC/PSYCHIATRIC: Negative for anxiety, depression. ALLERGY/IMMUNOLOGIC: Negative for skin rash, bleeding tendency. Otherwise, negative except as stated per HPI. PHYSICAL EXAMINATION: VITAL SIGNS: On admission, blood pressure 140/66, pulse 71, respiratory rate 20 , temperature 97.6 degrees Fahrenheit, and O2 saturation 99% on room air. GENERAL APPEARANCE: This is an 84-year-old female, alert and oriented x2, pleasant, responsive, in no acute distress. HEENT: Pupils are equal, round, reactive to light and accommodation. Extraocular muscles are intact. No scleral icterus. No conjunctival injection. Nares are patent. OP is clear. Teeth in fair repair. NECK: Supple. No cervical adenopathy. No thyromegaly. No carotid bruits. No JVD noted. Cervical spine with full active and passive range of motion. No meningeal signs noted. CHEST: Diminished breath sounds in the bases bilaterally. CARDIOVASCULAR EXAM: S1 and S2 with irregular rate and rhythm. ABDOMEN: Rounded, soft, nontender, and nondistended. Bowel sounds are positive in all 4 quadrants. There is no hepatosplenomegaly. No abdominal bruits. No rebound or guarding appreciated. EXTREMITIES: Warm and dry with fair turgor. No clubbing, cyanosis, or asymmetric edema appreciated. Pulses palpable distally at the dorsalis pedis, posterior tibial, and popliteal arteries bilaterally. Capillary refill less than 2 seconds. NEUROLOGIC: Cranial nerves 2 through 12 are grossly intact. No focal or lateralizing signs appreciated. SKIN: Right upper extremity with large wound to the proximal forearm distal to the olecranon with open ulceration with exposure of subcutaneous tissue and muscle layer. Large hematoma noted on the distal aspect of the forearm and distally to the wound. Approximate opening of the wound 3 x 3 cm. Neurovascularly intact distally of bilateral upper extremities. PERTINENT LABORATORY AND X-RAY FINDINGS: Sodium 138, potassium 3.5, chloride 104, CO2 of 24, BUN 43, creatinine 1.50, estimated GFR 33, glucose 133, lactic acid level 1.4, calcium 8.3. Total bilirubin 2.0, AST 27, ALT 25, alkaline phosphatase 98. Troponin I negative x1. BNP 1394 previously noted 1945 on 07/23/2015. Procalcitonin 0.09. CBC showed a white blood cell count of 6.8, hemoglobin 6.4, hematocrit 21, platelet count 359 with normal differential. PT is 19.1, INR 1.6 , PTT 38. Urinalysis negative. Acute abdominal series dated 03/03/2020, showed bilateral vascular prominence with small bilateral pleural effusions. Fecal material noted in the colon. Two views of the right elbow dated 03/03/2020, showed no acute osseous process. CT of the brain without contrast dated 03/03/2020, showed no acute intracranial process. CT of the right upper extremity dated 03/03/2020 , showed soft tissue defect in the proximal right forearm. Small 5 mm radiopaque density likely representing calcification. CT of the right upper extremity dated 03/03/2020, showed findings similar to previous radiologic studies. EKG dated 03/03/2020, by my interpretation shows electronic ventricular pacer in the 60s. ASSESSMENT AND PLAN: 1. Open wound to the right upper extremity, status post mechanical fall. We will continue local wound care and consult wound care services. Continue Rocephin 2 g IV q.24 hours with additional vancomycin 1 g IV q.12 hours. 2. Hematoma of the right upper extremity. Suspect multifactorial process including recent fall and direct trauma to the right upper extremity. Hold Eliquis. Orthopedic surgery consult pending. 3. Metabolic encephalopathy. Improved after supportive management and initiation of IV antibiotic therapy. Continue general supportive management. 4. Acute on chronic anemia. Status post 1 unit of packed red blood cells. Continue serial H and H monitoring. 5. Acute on chronic kidney disease. Avoid nephrotoxic agents and limit contrast exposure. Repeat creatinine in the a.m. 6. Prophylaxis. Sequential compression devices while in bed. Pepcid 20 mg p.o. b.i.d. PT evaluation pending. 7. Code status, full. Surrogate medical decision maker is the patient's son. Job ID: [id number] MTDD
[2020-03-04] MEDS ORDERED: Carvedilol 25 MG TAB PO SCH (08:00)
[2020-03-04] MEDS ORDERED: CRANBERRY 500 MG PO SCH (09:00)
[2020-03-04] MEDS ORDERED: Prevnar 13-Val Conj/PF 0.5 ML SYRINGE IM ONE (09:00)
[2020-03-04] MEDS ORDERED: Torsemide 100 MG TAB PO SCH (09:00)
[2020-03-04] MEDS: Famotidine 20 MG TAB PO SCH (10:08)
[2020-03-04] MEDS: Amiodarone 200 MG TAB PO SCH (10:09)
[2020-03-04] MEDS: Calcium Carbonate 600 MG TAB PO SCH (10:09)
[2020-03-04] MEDS: Multivit, Therapeutic 1 TAB PO SCH (10:09)
[2020-03-04] MEDS: Thiamine 100 MG TAB PO SCH (10:10)
[2020-03-04] MEDS: Latanoprost 0.005% Ophth Soln 2.5 ml Bottle EA EYE SCH (10:10)
[2020-03-04] MEDS: Folic Acid 1 MG TAB PO SCH (10:10)
[2020-03-04] MEDS: Losartan 25 MG TAB PO SCH (10:10)
[2020-03-04] MEDS: Polyethylene Glycol 3350 17 GM Packet PO SCH (10:11)
--- NOTE | 2020-03-04 10:11 | PDOC.HOSPP ---
- Subjective Encounter Date: 03/04/20 Encounter Time: 10:45 Subjective: Ms. Damon is an 84 y/o F who presented to ED due to large wound on right upper extremity. Patient was not a reliable historian and was unable to answer many questions during interview. Pain stated she was in a great deal of pain that comes and goes, but is unable to quantify a pain level. - Objective Vital Signs & Weight: Vital Signs (12 hours) Temp Pulse Resp BP Pulse Ox 03/04/20 08:47 98.4 F 61 16 137/63 97 03/04/20 04:06 97.6 F 70 20 141/63 H 96 03/03/20 22:40 99 03/03/20 22:22 99 Weight Weight 166 lb 9.6 oz Result Diagrams: 03/04/20 04:14 03/04/20 04:14 Hospitalist ROS - Review of Systems ROS unobtainable: due to mental status - Medication Medications: Active Medications Generic Name Dose Route Start Last Admin Trade Name Freq PRN Reason Stop Dose Admin Ceftriaxone Sodium 2 gm/ 100 mls @ 200 mls/hr 03/04/20 02:00 03/04/20 04:08 Sodium Chloride IVPB 100 mls 0200 YANI Administration - Exam General Appearance: awake alert Neck: supple, symmetric, no JVD, no carotid bruit Heart: RRR, no murmur, no gallops, no rubs, normal peripheral pulses Respiratory: CTAB, no wheezes, no rales, no ronchi Gastrointestinal: soft, non-tender, normal bowel sounds Extremities: no cyanosis, no clubbing, 1+ LE edema (Left leg edema worse than right) Psychiatric: normal behavior, not oriented Hosp A/P - Plan DVT proph w/SCDs Open wound right upper extremity Hematoma rightupper extremity metabolic encephalopathy Anemia acute on chronic kidney disease Open wound: provide continued wound care, continue vancomycin Hematoma: hold patient's eliquis Anemia: monitor patient's H and H Acute on chronic kidney disease: avoid nephrotoxic medications, monitor patient' s Creatinine and BUN Surgical prophylaxis: ceftriaxone and cefazolin
[2020-03-04 14:30] LABS: SARS-CoV-2 MS2 Positive; SARS-CoV-2 N Gene Negative; SARS-CoV-2 S Gene Negative; SARS-CoV-2 by NAA Not Detected (NotDetected); SARS-CoV-2 orf1ab Negative
[2020-03-04] MEDS ORDERED: CEFAZOLIN 2 GM in Premix Bag 1 BAG IVPB SCH (15:00)
[2020-03-04] MEDS ORDERED: Vancomycin 1 GM in Premix Bag 1 BAG IVPB SCH (17:00)
[2020-03-04] MEDS ORDERED: Fentanyl 100 MCG/2 ML VIAL ONE (17:02)
[2020-03-04 18:21] LABS: Hemoglobin 7.3 g/dL (12.0-16.0)
[2020-03-04] MEDS: HumaLOG 300 UNITS/3 ML VIAL SC PRN (20:50)
--- NOTE | 2020-03-04 21:52 | PRG ---
DATE OF SERVICE: 03/04/2020 SUBJECTIVE: Ms. Damon is an 84-year-old female, who is being consulted for her right arm wound. She has a deep tear of the lateral arm down to the fascia level. There is a large hematoma. I have planned to do a surgery today on the patient to washout this wound, evacuate the large hematoma, and place a wound VAC. I am seeing the patient in the preoperative area and after discussion with her family, they do not want her to have surgery. We have agreed to try bedside wound care. I will ask the wound care nursing team to see the patient tomorrow for this. I do think she may have a problem with this wound and is at high risk for infection and other complications without a surgical debridement, but we will stick with this plan. Job ID: [id number]
[2020-03-05] MEDS: cefTRIAXone\\ROCEPHIN 2 GM in Sodium Chloride 0.9% 100 ML IVPB SCH (02:44)
[2020-03-05 05:24] LABS: Band 10 % (5-11); Hemoglobin 7.1 g/dL (12.0-16.0); Hypochromia SLIGHT = 6-15 cells (100X) (0-5/hpf); Lymphocytes 13 % (21-51); MDiff Complete? YES; Mean Corpuscular HGB CONC 31.2 g/dL (32.0-36.0); Mean Corpuscular Hemoglobin 30.7 pg (27.0-31.0); Mean Corpuscular Volume 98.4 fL (78.0-98.0); Mean Platelet Volume 8.8 fL (7.4-10.4); Monocytes 4 % (0-10); Neutrophil 73 % (42-75); Platelet Count 291 thou/uL (130-400); Platelet Morphology Comment Appears Adequate; RBC Distribution Width 21.8 % (11.5-14.5); Red Blood Cell (RBC) Count 2.31 mill/uL (4.20-5.40); White Blood Cell (WBC) Count 6.6 thou/uL (4.8-10.8)
[2020-03-05 05:27] LABS: ALT (SGPT) 26 U/L (8-55); AST (SGOT) 29 U/L (5-34); Albumin 3.2 g/dL (3.4-4.8); Alkaline Phosphatase 83 U/L (40-110); Anion Gap 12 mmol/L (10-20); BUN (Urea Nitrogen) 27 mg/dL (9.8-20.1); Bilirubin, Total 1.3 mg/dL (0.2-1.2); Calc. Creatinine Clearance 36 mL/min (70-130); Calcium 8.1 mg/dL (7.8-10.44); Carbon Dioxide 26 mmol/L (23-31); Chloride 105 mmol/L (98-107); Estimated GFR-MDRD 37; Globulin 2.7 g/dL (2.4-3.5); Glucose 216 mg/dL (83-110); Potassium 3.2 mmol/L (3.5-5.1); Protein, Total 5.9 g/dL (6.0-8.3); Sodium 140 mmol/L (136-145)
[2020-03-05] MEDS: HumaLOG 300 UNITS/3 ML VIAL SC PRN ×3 (06:39→17:13)
[2020-03-05] MEDS: Amiodarone 200 MG TAB PO SCH (08:24)
[2020-03-05] MEDS: Carvedilol 6.25 MG TAB PO SCH ×2 (08:24→16:02)
[2020-03-05] MEDS: Folic Acid 1 MG TAB PO SCH (08:25)
[2020-03-05] MEDS: Famotidine 20 MG TAB PO SCH (08:25)
[2020-03-05] MEDS: Thiamine 100 MG TAB PO SCH (08:25)
[2020-03-05] MEDS: Calcium Carbonate 600 MG TAB PO SCH (08:25)
[2020-03-05] MEDS: Latanoprost 0.005% Ophth Soln 2.5 ml Bottle EA EYE SCH (08:25)
[2020-03-05] MEDS: Multivit, Therapeutic 1 TAB PO SCH (08:26)
[2020-03-05] MEDS: Polyethylene Glycol 3350 17 GM Packet PO SCH ×2 (08:26→22:08)
--- NOTE | 2020-03-05 08:55 | PDOC.HOSPP ---
- Subjective Encounter Date: 03/05/20 Encounter Time: 11:30 Subjective: Patient seen and examined for medical management throughout care of patient's right forearm wound. Patient was agitated and disoriented x3. No new complaints. No overnight events. - Objective Vital Signs & Weight: Vital Signs (12 hours) Temp Pulse Resp BP Pulse Ox 03/05/20 07:31 98.4 F 62 17 134/63 95 03/05/20 04:00 99.4 F 63 20 135/62 98 03/04/20 23:58 98.9 F 68 18 128/63 91 L Weight Admit Weight 166 lb 9.6 oz Weight 165 lb 3.2 oz I&O: 03/04/20 03/05/20 03/06/20 06:59 06:59 06:59 Intake Total 350 Output Total 2750 1700 Balance -2400 -1700 Result Diagrams: 03/05/20 15:55 03/05/20 04:23 Radiology Reviewed by me: Yes (KUB - constipation) EKG Reviewed by me: Yes (Tele Paced) Hospitalist ROS - Review of Systems ROS unobtainable: due to mental status - Medication Medications: Active Medications Generic Name Dose Route Start Last Admin Trade Name Freq PRN Reason Stop Dose Admin Amiodarone HCl 100 mg 03/04/20 09:00 03/05/20 08:24 Cordarone PO 100 mg DAILY YANI Administration Calcium Carbonate 600 mg 03/04/20 09:00 03/05/20 08:25 Caltrate PO 600 mg DAILY YANI Administration Carvedilol 6.25 mg 03/05/20 08:00 03/05/20 08:24 Coreg PO 6.25 mg BID-WM YANI Administration Famotidine 20 mg 03/04/20 09:00 03/05/20 08:25 Pepcid PO 20 mg DAILY YANI Administration Folic Acid 1 mg 03/04/20 09:00 03/05/20 08:25 Folvite PO 1 mg DAILY YANI Administration Ceftriaxone Sodium 2 gm/ 100 mls @ 200 mls/hr 03/04/20 02:00 03/05/20 02:44 Sodium Chloride IVPB 100 mls 0200 YANI Administration Vancomycin HCl 1 gm/ Device 200 mls @ 200 mls/hr 03/04/20 17:00 03/04/20 19: 57 IVPB 200 mls 1700 YANI Administration Insulin Human Lispro 0 units 03/04/20 00:42 03/05/20 06:39 Humalog SC 4 unit .MODERATE SLIDING SC PRN Administration Moderate Correctional Scale Insulin Human Lispro 0 units 03/04/20 00:42 03/04/20 20:50 Humalog SC 4 unit .BEDTIME SLIDING SC PRN Administration Bedtime Correctional Scale Latanoprost 1 drop 03/04/20 09:00 03/05/20 08:25 Xalatan 0.005% Ophth Soln EA EYE 1 drp DAILY YANI Administration Losartan Potassium 25 mg 03/04/20 09:00 03/04/20 10:10 Cozaar PO 25 mg DAILY YANI Administration Multivitamins 1 tab 03/04/20 09:00 03/05/20 08:26 Theragran PO 1 tab DAILY YANI Administration Polyethylene Glycol 8.5 gm 03/04/20 09:00 03/05/20 08:26 Miralax PO 8.5 gm DAILY YANI Administration Potassium Chloride 20 meq 03/04/20 08:00 03/05/20 08:24 Klor-Con PO 20 meq QAM-WM YANI Administration Thiamine HCl 100 mg 03/04/20 09:00 03/05/20 08:25 Thiamine PO 100 mg DAILY YANI Administration Torsemide 100 mg 03/04/20 09:00 03/04/20 10:11 Demadex PO 100 mg DAILY YANI Administration - Exam General Appearance: awake alert Neck: supple, symmetric, no JVD, no carotid bruit Heart: RRR, no murmur, no gallops, no rubs Respiratory: CTAB, no wheezes, no rales, no ronchi Extremities: no cyanosis, no clubbing, 2+ LE edema Psychiatric: not oriented Hosp A/P - Plan continue antibiotics, DVT proph w/SCDs Gen weakness/Near syncope causing fall vs Mech fall - POA Infected wound right upper extremity with Hematoma due to fall Toxic metabolic encephalopathy - POA Anemia prob due to acute blood loss -transfusing PRN -completed iron infusion x1 BHARAT on CKD 3 Hypokalemia Par Afib - Eliquis on hold Physical deconditioning DM2 Chronic systolic HF Anemia of chronic disease Constipation PLAN: Cont IV Ceftriaxone/Vancomycin Cont monitoring Vancomycin level Cont wound care - family declined gen anaesthesia Eliquis on hold due to Anemia Monitor patient's H and H - Transfuse PRN Completed x1 IV iron infusion Replace Potassium Restart Lantus at 10 units BID Cont moderate sliding scale Consult EP due to prob arrhythmia causing fall per family -awaiting EP recommendation Cont Torsemide Cont Losartan Avoid nephrotoxic medications Cont Julian at dc per family req PT recommended Inpt Rehab - awaiting CM recommendation Consult ID for concern of wound infection
[2020-03-05] MEDS ORDERED: Iron, Sodium Ferric Gluconate 250 MG in Sodium Chloride 0.9% 250 ML 250 ML IVPB SCH (10:45)
[2020-03-05] MEDS ORDERED: Losartan 25 MG TAB PO SCH (12:00)
[2020-03-05] MEDS: Lorazepam 2 MG/ML VIAL SLOW IVP PRN (12:46)
[2020-03-05] MEDS ORDERED: Insulin Glargine 10 UNITS in Pre-Filled Syringe 1 EACH SC SCH ×2 (14:00→21:00)
[2020-03-05] MEDS: Torsemide 20 MG TAB PO SCH (14:19)
[2020-03-05 16:09] LABS: Hemoglobin 7.7 g/dL (12.0-16.0)
[2020-03-05 16:26] LABS: Vancomycin, Trough 9.7 ug/mL
[2020-03-05] MEDS: Temazepam 15 MG CAP PO PRN (22:03)
[2020-03-05] MEDS: Senokot S 8.6-50 MG TAB PO SCH (22:03)
[2020-03-05] MEDS: Saccharomyces boulardii 250 MG CAP PO SCH (22:04)
[2020-03-06] MEDS: cefTRIAXone\\ROCEPHIN 2 GM in Sodium Chloride 0.9% 100 ML IVPB SCH (02:55)
[2020-03-06] MEDS: Lorazepam 2 MG/ML VIAL SLOW IVP PRN (02:55)
[2020-03-06 04:51] LABS: ALT (SGPT) 24 U/L (8-55); AST (SGOT) 26 U/L (5-34); Albumin 2.9 g/dL (3.4-4.8); Alkaline Phosphatase 73 U/L (40-110); Anion Gap 11 mmol/L (10-20); BUN (Urea Nitrogen) 20 mg/dL (9.8-20.1); Band 14 % (5-11); Bilirubin, Total 1.1 mg/dL (0.2-1.2); Calc. Creatinine Clearance 45 mL/min (70-130); Calcium 7.9 mg/dL (7.8-10.44); Carbon Dioxide 28 mmol/L (23-31); Chloride 108 mmol/L (98-107); Eosinophils 8 % (0-10); Estimated GFR-MDRD 49; Globulin 2.5 g/dL (2.4-3.5); Lymphocytes 25 % (21-51); MDiff Complete? YES; Mean Corpuscular HGB CONC 31.4 g/dL (32.0-36.0); Mean Corpuscular Hemoglobin 31.2 pg (27.0-31.0); Mean Corpuscular Volume 99.5 fL (78.0-98.0); Mean Platelet Volume 8.6 fL (7.4-10.4); Monocytes 7 % (0-10); Neutrophil 46 % (42-75); Platelet Count 250 thou/uL (130-400); Platelet Morphology Comment Appears Adequate; Protein, Total 5.4 g/dL (6.0-8.3); RBC Distribution Width 21.5 % (11.5-14.5); Red Blood Cell (RBC) Count 2.23 mill/uL (4.20-5.40); Sodium 144 mmol/L (136-145); White Blood Cell (WBC) Count 6.1 thou/uL (4.8-10.8)
[2020-03-06 04:56] LABS: Glucose 37 mg/dL (83-110); Potassium 2.8 mmol/L (3.5-5.1)
[2020-03-06] MEDS: Dextrose 50% Abboject 50 ML SYRINGE SLOW IVP PRN ×2 (05:00→11:36)
[2020-03-06] MEDS: Potassium Chloride 20 MEQ in Premix Bag 1 BAG IVPB SCH ×2 (05:36→09:39)
--- NOTE | 2020-03-06 06:52 | CON ---
DATE OF CONSULTATION: 03/05/2020 REASON FOR CONSULTATION: Right forearm wound with possible infection. HISTORY OF PRESENT ILLNESS: An 84-year-old with history of coronary artery disease with AICD, type 2 diabetes, and hypertension, who had fall episode about a week before admission in her home and she sustained a laceration to the right upper extremity. This was localized to the proximal forearm. The family members dressed the wound after cleaning it, but due to lack of improvement plus the development of some confusional state, she was brought in. In the emergency room, the patient had a BP 170/70, pulse 79, temperature 97.8, and O2 saturation 98% on room air and she had an irregular heart rate with a holosystolic murmur. She is described as oriented to self only. Other findings included a white cell count 6.8, hemoglobin 6.4, platelets 359, 67% neutrophils, and 20% lymphocytes. INR was 1.6. Sodium 138 and creatinine was 1.5, which is higher than baseline a bit, but not by much. Bilirubin 2.0. Transaminases and alkaline phosphatase were normal. BNP was high at 1300. Albumin 3.3. Procalcitonin 0.09. Urinalysis was essentially normal. COVID test was negative on 03/03. She had an upper extremity CT scan yesterday , which demonstrated a soft tissue defect posterior medial proximal right forearm with soft tissue prominence. Small 5-mm radiopaque density distal diaphysis of the ulna. The patient was evaluated by Dr. Lyn. His assessment was right forearm hematoma and open wound, chronic anemia, so supposed to take her to the OR today for irrigation, debridement, and a negative pressure dressing placement. I have not yet had a chance of reviewing his transcribed surgical report. The patient is awake. She is unable to provide any meaningful history due to delirium plus administration of Ativan. She is somnolent at the moment, had been quite agitated before they gave her Ativan. According to the nurse, there has been no reported seizure activity. No headaches. No pain. No diarrhea. No respiratory symptoms. PAST MEDICAL HISTORY: 1. Hypertension. 2. Atrial fibrillation. 3. CHF with low EF at 15% to 20% with AICD in place. 4. Type 2 diabetes. 5. Prior episodes of confusional state, which led to admission last year, with no specific etiology identified. 6. She has a history of iron deficiency in the past. 7. She has had endoscopies by Dr. Heart including an EGD, which showed gastrointestinal bleeding polypectomy of a large pedunculated gastric polyp. There was no active bleeding during evaluation. He also performed a colonoscopy, no significant findings were observed. ALLERGY HISTORY: Sulfa drugs. SOCIAL HISTORY: She is retired. Lives with family members. Never smoker. CURRENT MEDICATION LIST: 1. Amiodarone. 2. Coreg. 3. Rocephin. 4. Pepcid. 5. Glucagon. 6. Insulin. 7. Temazepam. 8. Vancomycin. PHYSICAL EXAMINATION: VITAL SIGNS: T-max 99.4, blood pressure 140/100, pulse 60, respirations 16, and O2 saturation 94% to 98%. SKIN: With the deep wound in the proximal forearm close to the elbow posterior aspect, oval-shaped irregular wound measuring about 3.5 cm with fresh surface at the bottom. No bone exposure, not much in terms of erythema surrounding this area. The patient has a peripheral IV access and she is voiding with an indwelling Julian catheter. HEENT: Ocular movements are conjugate. No nystagmus. Sclerae are white. Pupils are equal. Oral cavity with no [place] teeth, dry oral mucosa. NECK: Supple. No jugular vein distention. LUNGS: Symmetric, clear breath sounds. HEART: S1 and S2. Regular rate and rhythm. No S3 or S4. ABDOMEN: Soft, not distended, nontender. No bladder distention noted. EXTREMITIES: No joint inflammatory activity. Moves extremities equally. NEUROLOGIC: She does not follow commands very well. LABORATORY DATA: Followup labs: White cell count 6.6, hemoglobin 7.1, and platelets 291. INR 1.6. IMAGING STUDIES: Have been discussed above. Brain CT was repeated at this time , did not show any acute cranial abnormality. She had a chest, abdomen, and pelvis CT in October of this year, no major abnormalities, mild third spacing of fluid, cardiomegaly, small volume pericardial fluid. ASSESSMENT: 1. Ischemic cardiomyopathy with decreased ejection fraction and automatic implantable cardioverter-defibrillator. 2. Cognitive issues, possible chronic cognitive function decline 3. Type 2 diabetes. 4. Episode of fall with laceration in the right forearm without healing. DISCUSSION: The patient had culture submitted from that wound and revealed Staph aureus and Strep. The quantitation was many Staphylococcus aureus and moderate Alpha Streptococcus. The Staphylococcus aureus is a methicillin-susceptible organism. The wound itself is not very remarkably inflamed and no purulence is noted. We will wait for the report from Dr. Lyn, but does not look like she is going to require long-term antimicrobial therapy unless unexpected findings are described in the surgical procedure. We will discontinue vancomycin, just leave her on Rocephin for now. Job ID: [id number] MTDD
--- NOTE | 2020-03-06 07:04 | CON ---
DATE OF CONSULTATION: 03/05/2020 This is an electrophysiology consultation. HISTORY OF PRESENT ILLNESS: I am seeing Ms. Damon at our [facility] as an electrophysiology training consultant. Her problems are; 1. Episode of fall, possible syncope. a. ICD interrogation revealed ongoing atrial fibrillation with controlled ventricular rate. No ventricular tachyarrhythmias to suggest arrhythmic origin. 2. Chronic systolic congestive heart failure with ischemic cardiomyopathy. a. History of severely reduced LVEF of 25% to 30% on last echo on file from 07/07/2019 with more severe MR, structurally normal aortic valve, severe TR, [id number] PI. 3. History of Bi-V ICD implant, currently with a Medtronic Viva XT COURT COMMISSIONER-D device with implant date December 2015. 4. Chronic atrial fibrillation with controlled ventricular rates. 5. History of ventricular arrhythmias, on amiodarone suppression. 6. History of breast cancer with metastasis. 7. History of coronary artery disease with prior coronary intervention. ALLERGIES: SULFA. MEDICATIONS: At home included; 1. Pantoprazole. 2. Temazepam. 3. Losartan. 4. Insulin. 5. Carvedilol 12.5 mg daily. 6. Polyethylene glycol. 7. Amiodarone. 8. Apixaban. 9. Torsemide. 10. Multivitamin. 11. Calcium. 12. Latanoprost. 13. Folic acid. 14. Cranberry. 15. Insulin. 16. Potassium chloride. 17. Thiamine. SUBJECTIVE: Ms. Damon is here with episode of falls with significant right upper extremity laceration and hematoma, which happened about a week prior to admission. She also had some altered mental status and confusion in the last 2 to 3 days. In the ER, she underwent general evaluation. CT of the right upper extremity showed soft tissue defect. IV vancomycin was given and the patient received a unit of blood. Since then, she still remains weak, more coherent though. She denies angina. No CHF like symptoms. No fever, chills, or cough. Rest of 12-point system otherwise unremarkable. PAST MEDICAL HISTORY: As above. The patient is followed in our clinic for ICD implant. She is followed by a member of congress in [place] for Cardiology care. She has a history of chronic kidney disease, chronic anemia, hypertension, type 2 diabetes as well. PAST SURGICAL HISTORY: Significant for ICD placement, hysterectomy, colonoscopy with polypectomy, cardiac stent placement. SOCIAL HISTORY: The patient resides in [place], [place]. Denies smoking, EtOH, or drug abuse. Ambulates with a rolling walker. FAMILY HISTORY: Not contributory. OBJECTIVE DATA: VITAL SIGNS: Blood pressure is 137/63, heart rate 61, respiratory rate 16, temperature 98.1 degrees Fahrenheit. GENERAL: Reveals an alert and oriented elderly lady, in no apparent distress. Some pallor is noted. NECK: Supple. Jugular veins are somewhat distended. CHEST: Coarse without crackles. HEART: Sounds are regular to rate and rhythm without any murmur or gallop. Left precordial ICD insertion site is well healed. ABDOMEN: Benign. Bowel sounds positive. EXTREMITIES: Lower extremities are without edema, clubbing, or cyanosis. Pulses are adequate. NEUROLOGIC: The patient is nonfocal. MUSCULOSKELETAL: No joint swelling or deformity, except for the right upper extremity hematoma. SKIN: Without rash with senile changes. DATABASE: ICD interrogation reviewed revealing a Medtronic Viva XT COURT COMMISSIONER-D device, longevity of 16 months. Lead impedances in normal range. Sensing 0.1 mV in the atrial fibrillatory waves and 7.1 mV R waves are noted. LV threshold is 1.375 V at 0.5 milliseconds. program is VVIR beats per minute. Chronic atrial fibrillation with intermittent undersensing is seen. Ventricular pacing though is 91.8%. No ventricular tachyarrhythmia noted of significance. Ventricular rates mostly controlled throughout the atrial fibrillation. measurements revealed an upward trend. Fluid overload episodes noted, most recently in December, improving by January 2020. The EKG reveals atrial fibrillation, ventricular pacing. atrial fibrillation. No ventricular tachyarrhythmia episodes. LABORATORY DATA: White cell count 6.6, hemoglobin 7.1, and platelet count is 291. Sodium 140, potassium 3.2, BUN is 27, and creatinine 1.35. ASSESSMENT AND PLAN: 1. Ms. Damon is a pleasant 84-year-old woman with prior history of congestive heart failure and ischemic cardiomyopathy, status post COURT COMMISSIONER ICD implant, who had a history of ventricular tachyarrhythmias as well, currently good suppression with low-dose amiodarone therapy, . She is here with recurrent falls and significant hematoma. 2. Regarding her falls, no ventricular tachyarrhythmias are seen and well controlled ventricular rates with her chronic atrial fibrillation is noted. I doubt arrhythmia as a likely contributor to her falls. The severe anemia though on the other hand is more likely to be a part of the cause. Origin of the anemia is unclear, possibly related to anemia of chronic disease; to some degree, the hematoma in the right upper extremity could be also contributing to it. Correction of anemia, possibly evaluating the bleeding sources might be considered. 3. Bi-V ICD, otherwise adequate function with adequate ventricular pacing. 4. History of congestive heart failure with severely reduced left ventricular ejection fraction, mild fluid overload trend. Optimize the volume status with diuretics if necessary. Monitor for orthostatic hypotension. 5. Elevated CHADS-VASc score with age, gender, congestive heart failure, cardiovascular disease, and hypertension. 6. High risk for stroke, questionable long-term anticoagulation candidate, hence falls. She may be considered for Watchman device implant in near future if recovers. These issues were discussed with her and her [id number] being present. We will continue to monitor her tomorrow. Thank you again for allowing me to participate in the care of this patient. Job ID: [id number]
[2020-03-06] MEDS ORDERED: EPOETIN ALFA-EPBX (ESRD) 40,000 UNIT/ML VIAL SC SCH (08:45)
--- NOTE | 2020-03-06 09:06 | PDOC.EP ---
- Subjective Date: 03/06/20 Time: 14:18 - Review of Systems Constitutional: reports: fever, malaise, weakness. denies: chills, sweats Respiratory: reports: SOB with excertion. denies: cough, sputum Cardiology: denies: chest pain, edema, heart racing Gastrointestinal: denies: abdominal pain, nausea, vomitting Musculoskeletal: denies: unstable gait - Objective Allergies/Adverse Reactions: Allergies Allergy/AdvReac Type Severity Reaction Status Date / Time Sulfa (Sulfonamide Allergy Verified 11/01/19 19:03 Antibiotics) Current Medications Acetaminophen (Tylenol) 1,000 mg PO Q6H PRN PRN Reason: Mild Pain (1-3) Amiodarone HCl (Cordarone) 100 mg PO DAILY [facility] Last Admin: 03/05/20 08:24 Dose: 100 mg Calcium Carbonate (Caltrate) 600 mg PO DAILY [facility] Last Admin: 03/05/20 08:25 Dose: 600 mg Carvedilol (Coreg) 6.25 mg PO BID-[facility] Last Admin: 03/05/20 16:02 Dose: 6.25 mg Dextrose/Water (Dextrose 50%) 25 gm SLOW IVP PRN PRN PRN Reason: Hypoglycemia Last Admin: 03/06/20 05:00 Dose: 25 gm Epoetin Rhys-epbx (Retacrit) 40,000 unit SC NOW [facility] Stop: 03/06/20 14:00 Famotidine (Pepcid) 20 mg PO DAILY [facility] Last Admin: 03/05/20 08:25 Dose: 20 mg Folic Acid (Folvite) 1 mg PO DAILY [facility] Last Admin: 03/05/20 08:25 Dose: 1 mg Glucagon (Glucagon) 1 mg IM PRN PRN PRN Reason: Hypoglycemia Hydralazine HCl (Apresoline) 10 mg SLOW IVP Q4H PRN PRN Reason: SBP > 180 and HR < 70 Ceftriaxone Sodium 2 gm/ (Sodium Chloride) 100 mls @ 200 mls/hr IVPB 0200 [facility] Last Admin: 03/06/20 02:55 Dose: 100 mls Dextrose/Water (D5w) 1,000 mls @ 0 mls/hr IV .Q0M PRN PRN Reason: Hypoglycemia Potassium Chloride 20 meq/ (Device) 100 mls @ 50 mls/hr IVPB Q2H [facility] Stop: 03/06/20 09:29 Last Admin: 03/06/20 05:36 Dose: 100 mls Insulin Human Lispro (Humalog) 0 units SC .BEDTIME SLIDING SC PRN PRN Reason: Bedtime Correctional Scale Last Admin: 03/04/20 20:50 Dose: 4 unit Insulin Human Lispro (Humalog) 0 units SC .MILD SLIDING SCALE PRN PRN Reason: Mild Correctional Scale Latanoprost (Xalatan 0.005% Ophth Soln) 1 drop EA EYE DAILY [facility] Last Admin: 03/05/20 08:25 Dose: 1 drp Lorazepam (Ativan) 0.25 mg SLOW IVP Q6H PRN PRN Reason: Anxiety/Agitation Last Admin: 03/06/20 02:55 Dose: 0.25 mg Losartan Potassium (Cozaar) 25 mg PO DAILY [facility] Last Admin: 03/04/20 10:10 Dose: 25 mg Multivitamins (Theragran) 1 tab PO DAILY [facility] Last Admin: 03/05/20 08:26 Dose: 1 tab Ondansetron HCl (Zofran Odt) 4 mg PO Q6H PRN PRN Reason: Nausea/Vomiting Ondansetron HCl (Zofran) 4 mg IVP Q6H PRN PRN Reason: Nausea/Vomiting Polyethylene Glycol (Miralax) 17 gm PO BID [facility] Last Admin: 03/05/20 22:08 Dose: Not Given Potassium Chloride (Klor-Con) 20 meq PO TID-WM [facility] Last Admin: 03/05/20 16:04 Dose: 20 meq Saccharomyces Boulardii (Florastor) 250 mg PO HS [facility] Last Admin: 03/05/20 22:04 Dose: 250 mg Senna/Docusate Sodium (Senokot S) 2 tab PO BID [facility] Last Admin: 03/05/20 22:03 Dose: 2 tab Sodium Chloride (Flush - Normal Saline) 10 ml IVF Q12HR [facility] Last Admin: 03/05/20 22:03 Dose: 10 ml Sodium Chloride (Flush - Normal Saline) 10 ml IVF PRN PRN PRN Reason: Saline Flush Temazepam (Restoril) 15 mg PO HSPRN PRN PRN Reason: Insomnia Last Admin: 03/05/20 22:03 Dose: 15 mg Thiamine HCl (Thiamine) 100 mg PO DAILY [facility] Last Admin: 03/05/20 08:25 Dose: 100 mg Torsemide (Demadex) 40 mg PO BID@0900,1400 [facility] Last Admin: 03/05/20 14:19 Dose: 40 mg Vital Signs & Weight: Vital Signs Temp Pulse Resp BP Pulse Ox 03/06/20 05:08 94 L 03/06/20 04:47 97.3 F L 60 13 124/61 87 L 03/05/20 21:56 97.4 F L 61 15 140/66 97 Admit Weight 166 lb 9.6 oz Weight 165 lb 3.2 oz I/O: I/O 03/05/20 03/06/20 03/07/20 06:59 06:59 06:59 Intake Total 350 1660 Output Total 2750 4700 Balance -2400 -3040 - Medication Contraindications No Anticoagulant reason: Medical contraindication (UE bleed) - Physical Exam General: appears well, no apparent distress, speech clear, affect appropriate Neck: supple neck, no JVD/HJR Cardiology: regular rate and rhythm Lungs: clear to auscultation, no wheezes, no rales, no rhonchi Neurology: grossly intact Abdomen: unremarkable, active bowel sounds, soft Extremities: warm Skin: device site stable w/o swelling Musculoskeletal: other (Right upper extremity hemaoma site in bandages.) - Chadsvasc Risk factors Congestive heart failure: 1 Hypertension: 1 Age >75: 2 Diabetes mellitus: 1 Vascular disease: 1 Female: 1 Risk Score: 7 - Labs Result Diagrams: 03/06/20 04:03 03/06/20 04:03 - EKG Interpretation EKG shows: Atrial fibrillation (BiV pacing) - Device Device: biventricular, defibrillator Device Result: Medtronic - Assessment/Plan Assessment/Plan: Ms. Damon is a pleasant 84-year-old woman with prior history of congestive heart failure and ischemic cardiomyopathy, status post FIRE SPRINKLER FITTER ICD implant, who had a history of ventricular tachyarrhythmias as well, currently good suppression with low-dose amiodarone therapy. She is here with recurrent falls and significant UE hematoma. 1. Episode of fall, possible syncope. a. ICD interrogation revealed ongoing atrial fibrillation with controlled ventricular rate. No ventricular tachyarrhythmias to suggest arrhythmic origin. 2. Chronic systolic congestive heart failure with ischemic cardiomyopathy. a. History of severely reduced LVEF of 25% to 30% on last echo on file from 07/07/2019 with more severe MR, structurally normal aortic valve, severe TR, [id number] PI. 3. History of Bi-V ICD implant, currently with a Medtronic Viva XT FIRE SPRINKLER FITTER-D device with implant date December 2015. 4. Chronic atrial fibrillation with controlled ventricular rates. 5. History of ventricular arrhythmias, on amiodarone suppression. 6. History of breast cancer with metastasis. 7. History of coronary artery disease with pr Plan:. 1.Regarding her falls, no ventricular tachyarrhythmias are seen and well controlled ventricular rates with her chronic atrial fibrillation is noted. I doubt arrhythmia as a likely contributor to her falls. The severe anemia though on the other hand is more likely to be a part of the cause. Origin of the anemia is unclear, possibly related to anemia of chronic disease; to some degree, the hematoma in the right upper extremity could be also contributing to it. Correction of anemia, possibly evaluating the bleeding sources might be considered. 2. Bi-V ICD, otherwise adequate function with adequate ventricular pacing. 3. History of congestive heart failure with severely reduced left ventricular ejection fraction, mild fluid overload trend. Optimize the volume status with diuretics if necessary. Monitor for orthostatic hypotension. 4. Elevated CHADS-VASc score with age, gender, congestive heart failure, cardiovascular disease, and hypertension. 6. High risk for stroke, questionable long-term anticoagulation candidate, hence falls. She may be considered for Watchman device implant in near future if recovers. 03/06/20 No new events. Contious to improve. EP/device-Arrhythmia status stable. Would sign off. Will follow in office regarding possible outpt Watchman device. Call if qustions.
[2020-03-06] MEDS: Carvedilol 6.25 MG TAB PO SCH ×2 (09:40→15:42)
[2020-03-06] MEDS: Amiodarone 200 MG TAB PO SCH (09:40)
[2020-03-06] MEDS: Polyethylene Glycol 3350 17 GM Packet PO SCH (09:41)
[2020-03-06] MEDS: Losartan 25 MG TAB PO SCH (09:41)
[2020-03-06] MEDS: Folic Acid 1 MG TAB PO SCH (09:41)
[2020-03-06] MEDS: Calcium Carbonate 600 MG TAB PO SCH (09:41)
[2020-03-06] MEDS: Multivit, Therapeutic 1 TAB PO SCH (09:41)
[2020-03-06] MEDS: Famotidine 20 MG TAB PO SCH (09:42)
[2020-03-06] MEDS: Thiamine 100 MG TAB PO SCH (09:42)
[2020-03-06] MEDS: Senokot S 8.6-50 MG TAB PO SCH ×2 (09:42→20:33)
[2020-03-06] MEDS: Latanoprost 0.005% Ophth Soln 2.5 ml Bottle EA EYE SCH (10:00)
[2020-03-06] MEDS: Torsemide 20 MG TAB PO SCH (10:03)
--- NOTE | 2020-03-06 10:44 | PDOC.HOSPP ---
- Subjective Encounter Date: 03/06/20 Encounter Time: 13:00 Subjective: Patient seen and examined for wound infection. Events noted. Mentation improving. No CP/SOB. Had BM. No new complaints. No overnight events - Objective Vital Signs & Weight: Vital Signs (12 hours) Temp Pulse Resp BP Pulse Ox 03/06/20 09:31 97.7 F 60 12 132/71 97 03/06/20 05:08 94 L 03/06/20 04:47 97.3 F L 60 13 124/61 87 L Weight Admit Weight 166 lb 9.6 oz Weight 165 lb 3.2 oz I&O: 03/05/20 03/06/20 03/07/20 06:59 06:59 06:59 Intake Total 350 1660 Output Total 2750 4700 Balance -2400 -3040 Result Diagrams: 03/06/20 16:49 03/06/20 16:49 Additional Labs: Accuchecks 03/06/20 03/05/20 03/05/20 05:41 20:37 16:27 POC Glucose 145 H 269 H 316 H 03/05/20 03/05/20 03/04/20 10:59 06:01 20:52 POC Glucose 306 H 224 H 320 H 03/04/20 03/04/20 11:07 06:15 POC Glucose 277 H 255 H EKG Reviewed by me: Yes (Tele paced) Hospitalist ROS - Review of Systems Respiratory: denies: cough, dry, shortness of breath, hemoptysis, SOB with excertion, pleuritic pain, sputum, wheezing, other Cardiovascular: denies: chest pain, palpitations, orthopnea, paroxysmal noc. dyspnea, edema, light headedness, other - Medication Medications: Active Medications Generic Name Dose Route Start Last Admin Trade Name Freq PRN Reason Stop Dose Admin Amiodarone HCl 100 mg 03/04/20 09:00 03/06/20 09:40 Cordarone PO 100 mg DAILY [facility] Administration Calcium Carbonate 600 mg 03/04/20 09:00 03/06/20 09:41 Caltrate PO 600 mg DAILY [facility] Administration Carvedilol 6.25 mg 03/05/20 08:00 03/06/20 09:40 Coreg PO 6.25 mg BID-WM [facility] Administration Dextrose/Water 25 gm 03/04/20 00:42 03/06/20 05:00 Dextrose 50% SLOW IVP 25 gm PRN PRN Administration Hypoglycemia Epoetin Rhys-epbx 40,000 unit 03/06/20 08:45 03/06/20 09:58 Retacrit SC 03/06/20 14:00 40,000 unit NOW [facility] Administration Famotidine 20 mg 03/04/20 09:00 03/06/20 09:42 Pepcid PO 20 mg DAILY [facility] Administration Folic Acid 1 mg 03/04/20 09:00 03/06/20 09:41 Folvite PO 1 mg DAILY [facility] Administration Ceftriaxone Sodium 2 gm/ 100 mls @ 200 mls/hr 03/04/20 02:00 03/06/20 02:55 Sodium Chloride IVPB 100 mls 0200 [facility] Administration Insulin Human Lispro 0 units 03/04/20 00:42 03/04/20 20:50 Humalog SC 4 unit .BEDTIME SLIDING SC PRN Administration Bedtime Correctional Scale Latanoprost 1 drop 03/04/20 09:00 03/06/20 10:00 Xalatan 0.005% Ophth Soln EA EYE 1 drp DAILY [facility] Administration Lorazepam 0.25 mg 03/05/20 12:41 03/06/20 02:55 Ativan SLOW IVP 0.25 mg Q6H PRN Administration Anxiety/Agitation Losartan Potassium 25 mg 03/04/20 09:00 03/06/20 09:41 Cozaar PO 25 mg DAILY [facility] Administration Multivitamins 1 tab 03/04/20 09:00 03/06/20 09:41 Theragran PO 1 tab DAILY [facility] Administration Polyethylene Glycol 17 gm 03/05/20 21:00 03/06/20 09:41 Miralax PO 17 gm BID [facility] Administration Potassium Chloride 20 meq 03/05/20 12:00 03/06/20 09:40 Klor-Con PO 20 meq TID-WM [facility] Administration Saccharomyces Boulardii 250 mg 03/05/20 21:00 03/05/20 22:04 Florastor PO 250 mg HS [facility] Administration Senna/Docusate Sodium 2 tab 03/05/20 21:00 03/06/20 09:42 Senokot S PO 2 tab BID [facility] Administration Sodium Chloride 10 ml 03/05/20 21:00 03/06/20 09:43 Flush - Normal Saline IVF 10 ml Q12HR [facility] Administration Temazepam 15 mg 03/04/20 00:42 03/05/20 22:03 Restoril PO 15 mg HSPRN PRN Administration Insomnia Thiamine HCl 100 mg 03/04/20 09:00 03/06/20 09:42 Thiamine PO 100 mg DAILY [facility] Administration Torsemide 40 mg 03/05/20 14:00 03/06/20 10:03 Demadex PO 40 mg BID@0900,1400 [facility] Administration - Exam General Appearance: NAD Neck: supple, no JVD Heart: RRR, no gallops Respiratory: no wheezes, no ronchi Gastrointestinal: non-tender, normal bowel sounds Extremities: no cyanosis Hosp A/P - Plan DVT proph w/SCDs Gen weakness/Near syncope causing fall vs Mech fall - POA Infected wound right upper extremity with Hematoma due to fall Toxic metabolic encephalopathy - POA Anemia prob due to acute blood loss -transfusing PRN -completed iron infusion x1 -Eliquis on hold due to Anemia -s/p IV iron infusion BHARAT on CKD 3 Hypokalemia Par Afib - Eliquis on hold Physical deconditioning DM2 - labile Chronic systolic HF Anemia of chronic disease Constipation PLAN: Cont IV Atbx - Ceftriaxone Vancomycin dced per ID ID input appreciated Cont wound care Monitor patient's H and H - Transfuse PRN Replace Potassium Hold Lantus Change sliding scale to mild EP input appreciated Hold Torsemide for now due to significant hypokalemia - restart in AM if repeat Potassium stable Cont Losartan Avoid nephrotoxic medications DC Julian Cont PT
[2020-03-06] MEDS ORDERED: Potassium Chloride 20 MEQ in Premix Bag 1 BAG IVPB SCH (13:30)
[2020-03-06] MEDS ORDERED: Potassium Chloride 20 MEQ/100 ML PREMIX BAG IVPB SCH (13:30)
--- NOTE | 2020-03-06 15:39 | PDOC.PALPN ---
Palliative Progress Note - Subjective Sleepy but arousable. Klwjbiqt-tv-eyl at bedside. Poor historian in relation to Review of systems, declines complaints other than right arm discomfort. - Objective Vital Signs: Vital Signs - Most Recent Temp Pulse Resp BP Pulse Ox 97.3 F L 62 18 128/61 99 03/06/20 15:14 03/06/20 15:14 03/06/20 15:14 03/06/20 15:14 03/06/20 15:14 - Physical Exam Constitutional: confusion, ill appearing HEENT: EOMI, moist MMs, PERRLA, sclera anicteric Respiratory: no wheezing, unlabored breathing, diminished lung sound Cardiovascular: RRR Gastrointestinal: soft, positive bowel sounds Genitourinary: salmeron catheter Musculoskeletal: diffuse muscle atrophy Deviation from normal: hematoma to right forearm Neurology: moves all 4 limbs, no focal deficits Skin: cap refill <2 seconds, bruising, fragile Deviation from normal: hematoma/ wound right forearm, mottled lower extrmities Deviation from normal: alert and oriented to self and place, delay in memory. Confusion - Assessment (1) Metabolic encephalopathy Code(s): G93.41 - METABOLIC ENCEPHALOPATHY Current Visit: Yes Status: Acute (2) Chronic kidney disease Code(s): N18.9 - CHRONIC KIDNEY DISEASE, UNSPECIFIED Current Visit: Yes Status: Acute (3) Palliative care encounter Code(s): Z51.5 - ENCOUNTER FOR PALLIATIVE CARE Current Visit: Yes Status: Acute (4) Anemia Code(s): D64.9 - ANEMIA, UNSPECIFIED Current Visit: No Status: Acute Qualifiers: Anemia type: iron deficiency Iron deficiency anemia type: inadequate dietary iron intake Qualified Code(s): D50.8 - Other iron deficiency anemias (5) CHF (congestive heart failure) Code(s): I50.9 - HEART FAILURE, UNSPECIFIED Current Visit: No Status: Acute Qualifiers: Heart failure type: systolic (6) Diabetes 1.5, managed as type 2 Code(s): E13.9 - OTHER SPECIFIED DIABETES MELLITUS WITHOUT COMPLICATIONS Current Visit: No Status: Acute (7) HTN (hypertension) Code(s): I10 - ESSENTIAL (PRIMARY) HYPERTENSION Current Visit: No Status: Acute - Plan Plan: Patient cheerful but confused. Visited with patient akomcqxs-ut-nbr at bedside. Patient lives in home close to her son and gwwsnaix-ll-hfj. Daughter stated that patient ate lunch today but required assistance and "took longer to eat". Goal: return to home setting as independently as possible. Discussed that to do this patient may need to have skilled care with pt/ot, discussed that she may not be strong enough for inpatient rehab. Further discussed that after rehab in a skilled setting that transition home with Home Health that has a PT/ OT component will be essential (They have used Home Health in the past / believes it was [facility]) also discussed that paid caregivers may be a consideration as patient continues to have weakness and falls. Discussed slow decline. Multiple safety measures have been put in place in home setting including safety bars in bathroom, walkers and canes in home, removal of rugs. Palliative Care will continue to assist with Patient and Family Goal of Care in hopes it is parallel with multiple morbidities and disease trajectory. Please also refer to Estee Zhang RNlinotypist notes in note section. [35] minutes spent on this encounter with >50% of the time in counseling and coordination of care. - ROS Non Response: due to mental status
--- NOTE | 2020-03-06 15:55 | PDOC.FMACP ---
Advance Care Planning - Problem (1) Metabolic encephalopathy Status: Acute Code(s): G93.41 - METABOLIC ENCEPHALOPATHY (2) Chronic kidney disease Status: Acute Code(s): N18.9 - CHRONIC KIDNEY DISEASE, UNSPECIFIED (3) Palliative care encounter Status: Acute Code(s): Z51.5 - ENCOUNTER FOR PALLIATIVE CARE (4) Anemia Status: Acute Code(s): D64.9 - ANEMIA, UNSPECIFIED Qualifiers: Anemia type: iron deficiency Iron deficiency anemia type: inadequate dietary iron intake Qualified Code(s): D50.8 - Other iron deficiency anemias (5) CHF (congestive heart failure) Status: Acute Code(s): I50.9 - HEART FAILURE, UNSPECIFIED Qualifiers: Heart failure type: systolic (6) Diabetes 1.5, managed as type 2 Status: Acute Code(s): E13.9 - OTHER SPECIFIED DIABETES MELLITUS WITHOUT COMPLICATIONS (7) HTN (hypertension) Status: Acute Code(s): I10 - ESSENTIAL (PRIMARY) HYPERTENSION - Note Participants: surrogate decision-maker, palliative care Summary: Palliative Care discussed Advanced Care Planning with daughter in law and patient. Patient was not able to participate fully secondary to confusion and lethargy. The diagnosis, prognosis and goals of care were discussed. Appropriate forms and documentation to accomplish the goals of care were discussed. All questions were answered. The bgnlxpor-yv-web states that Ms Damon has a MPOA and she will bring to the hospital next week. States that is lists her (Patient son and herself/uvsomxvi-mx-uzf as alternate) she is uncertain if Directive to Physicians is also with MPOA. Discussed resuscitation status and for now the family wishes for Ms Damon to remain with full resuscitative measures. The Palliative Care Team will assist with completion of any outstanding forms that are identified. Time Spent (mins): 20
[2020-03-06] MEDS: HumaLOG 300 UNITS/3 ML VIAL SC PRN ×2 (16:40→20:41)
[2020-03-06 16:57] LABS: Hemoglobin 8.4 g/dL (12.0-16.0)
[2020-03-06 17:32] LABS: Anion Gap 15 mmol/L (10-20); BUN (Urea Nitrogen) 17 mg/dL (9.8-20.1); Calc. Creatinine Clearance 39 mL/min (70-130); Calcium 8.5 mg/dL (7.8-10.44); Carbon Dioxide 22 mmol/L (23-31); Chloride 107 mmol/L (98-107); Estimated GFR-MDRD 42; Glucose 238 mg/dL (83-110); Potassium 4.4 mmol/L (3.5-5.1); Sodium 140 mmol/L (136-145)
--- NOTE | 2020-03-06 18:34 | CON ---
DATE OF CONSULTATION: REASON FOR CONSULTATION: Anemia. HISTORY OF PRESENT ILLNESS: Ms. 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 She had a mastectomy and axillary lymph node dissection. She refused any adjuvant treatment and has been monitored by Dr. Ramos for the past several years. She had a recent scan in October, which showed no evidence of cancer. In late 2018, she had acute onset of anemia with probable GI bleed. She required blood transfusions. She also has anemia of chronic renal insufficiency. She was started on Procrit injections, receiving 40,000 units every month. Her last injection, however, was in September. Her hemoglobin has been hovering around 10 or 11. She presented to the emergency room on this visit with complaints of a wound to her right upper extremity after a fall. She was also having confusion. In the emergency room, she had a brain CT, which was negative for any acute process. Her CBC showed a hemoglobin of 6.4. She was transfused 1 unit of packed RBC and has been in the low 7s since that time. She has been seen by Dr. Vázquez and Dr. Moreau and is on appropriate antibiotics. She remains pleasantly confused at this time. She was seen at bedside with her [id number] present. PAST MEDICAL HISTORY: 1. Triple-negative invasive ductal carcinoma of the breast. 2. Anemia of chronic renal insufficiency. 3. History of UTIs. 4. Congestive heart failure. 5. Atrial fibrillation. 6. Diabetes mellitus. 7. Hypertension. 8. Arthritis. PAST SURGICAL HISTORY: 1. Mastectomy. 2. Pacemaker placement. 3. Hysterectomy. 4. Cardiac stent. ALLERGIES: NO KNOWN DRUG ALLERGIES. HOME MEDICATIONS: 1. Amiodarone. 2. Eliquis. 3. Calcium. 4. Carvedilol. 5. Insulin. 6. Losartan. 7. Protonix. 8. MiraLAX. 9. Potassium. 10. Temazepam. 11. Thiamin. 12. Furosemide. 13. Folic acid. FAMILY HISTORY: Noncontributory. SOCIAL HISTORY: . Has two children. No alcohol, tobacco, or illicit drug use. REVIEW OF SYSTEMS: A 10-point review of systems is negative except for noted in HPI. PHYSICAL EXAMINATION: VITAL SIGNS: Temperature 96.2, pulse is 62, respiratory rate 14, blood pressure is 130/60. She is 98% on room air. GENERAL: This is a well-developed, well-nourished female, in no acute distress. HEENT: Normocephalic, atraumatic. Pupils are equal and reactive to light. NECK: Supple. CV: Regular rate and rhythm. LUNGS: Clear. ABDOMEN: Soft and nontender. EXTREMITIES: No clubbing or cyanosis. NEUROLOGIC: Nonfocal. PSYCH: She is confused and oriented to person only. PERTINENT LABS AND X-RAYS: Current WBCs are 6.1, hemoglobin 7, hematocrit 22.2, platelet count 250,000. She has 46% neutrophils, 14% bands, 15% lymphocytes. PT is 19.1, INR is 1.6, and PTT is 37.7. Sodium 144, potassium 2.8, chloride 108, CO2 is 28, BUN is 20, creatinine 1.06, calcium 7.9, magnesium 2, ferritin 116, total bilirubin is 1.1, AST is 26, ALT is 24, alkaline phosphatase is 73, serum total protein is 5.4, albumin 2.9, globulin 2.5. Urine was negative for bacteria. COVID was negative. Radiology, per HPI. ASSESSMENT: 1. Acute on chronic anemia. 2. History of triple-negative breast cancer. 3. Toxic metabolic encephalopathy. DISCUSSION: The patient has been seen by Infectious Disease and is on appropriate antibiotics. Wound care is being done. She has been transfused 1 unit, but has been hovering around 7 since admission. She is due for her 40,000 units of Procrit that was ordered and has been given today. Should see improvement over the next several days of her hemoglobin. She has also been given a dose of IV iron, which should help her hemoglobin rise as well. We would recommend a daily CBC and we will continue to monitor her values remotely. Thank you for the consult. Job ID: [id number]
[2020-03-06] MEDS: Saccharomyces boulardii 250 MG CAP PO SCH (20:32)
[2020-03-07] MEDS ORDERED: Lorazepam 2 MG/ML VIAL SLOW IVP SCH (02:15)
[2020-03-07] MEDS: cefTRIAXone\\ROCEPHIN 2 GM in Sodium Chloride 0.9% 100 ML IVPB SCH (02:16)
[2020-03-07] MEDS: HumaLOG 300 UNITS/3 ML VIAL SC PRN ×4 (02:26→22:57)
[2020-03-07 04:41] LABS: #Eosinphils 0.5 thou/uL (0.0-0.7); #Lymphocytes 1.7 thou/uL (1.20-3.40); #Monocytes 0.6 thou/uL (0.11-0.59); #Neutrophils 5.1 thou/uL (1.40-6.50); %Basophils 0.1 % (0.0-1.0); %Eosinophils 6.7 % (0.0-10.0); %Lymphocytes 21.6 % (21.0-51.0); %Monocytes 7.4 % (0.0-10.0); %Neutrophils 64.2 % (42.0-75.0); Hemoglobin 8.2 g/dL (12.0-16.0); Mean Corpuscular HGB CONC 29.5 g/dL (32.0-36.0); Mean Corpuscular Hemoglobin 29.8 pg (27.0-31.0); Mean Platelet Volume 8.9 fL (7.4-10.4); Platelet Count 291 thou/uL (130-400); RBC Distribution Width 21.9 % (11.5-14.5); Red Blood Cell (RBC) Count 2.74 mill/uL (4.20-5.40); White Blood Cell (WBC) Count 7.9 thou/uL (4.8-10.8)
[2020-03-07 04:58] LABS: ALT (SGPT) 26 U/L (8-55); AST (SGOT) 27 U/L (5-34); Albumin 3.2 g/dL (3.4-4.8); Alkaline Phosphatase 87 U/L (40-110); Anion Gap 11 mmol/L (10-20); BUN (Urea Nitrogen) 18 mg/dL (9.8-20.1); Bilirubin, Total 1.2 mg/dL (0.2-1.2); Calc. Creatinine Clearance 38 mL/min (70-130); Calcium 8.8 mg/dL (7.8-10.44); Carbon Dioxide 28 mmol/L (23-31); Chloride 106 mmol/L (98-107); Estimated GFR-MDRD 41; Globulin 2.8 g/dL (2.4-3.5); Glucose 160 mg/dL (83-110); Potassium 4.2 mmol/L (3.5-5.1); Sodium 141 mmol/L (136-145)
--- NOTE | 2020-03-07 07:28 | PDOC.HOSPP ---
- Subjective Encounter Date: 03/07/20 Encounter Time: 09:45 Subjective: Patient seen and examined for gen weakness and RUE wound. Didn't sleep well last night. No new complaints. No overnight events - Objective Vital Signs & Weight: Vital Signs (12 hours) Temp Pulse Resp BP Pulse Ox 03/07/20 04:45 97.5 F L 62 14 126/60 98 03/06/20 20:00 97.8 F 91 14 118/61 97 Weight Admit Weight 166 lb 9.6 oz Weight 165 lb 3.2 oz I&O: 03/06/20 03/07/20 03/08/20 06:59 06:59 06:59 Intake Total 1660 1200 Output Total 4700 1400 Balance -3040 -200 Result Diagrams: 03/07/20 04:18 03/07/20 04:18 Additional Labs: Accuchecks 03/07/20 03/07/20 03/06/20 05:47 02:29 20:36 POC Glucose 165 H 202 H 287 H 03/06/20 03/06/20 03/06/20 16:06 13:50 12:06 POC Glucose 255 H 197 H 156 H 03/06/20 03/06/20 11:34 10:41 POC Glucose 62 L 50 L* Microbiology 03/03/20 17:15 Urine salmeron catheter Urine Culture - Final NO GROWTH AT 48 HOURS 03/03/20 16:33 Arm - Pending Bacterial Culture - Final Staphylococcus aureus 03/03/20 16:35 Venous blood - Left Hand Blood Culture - Preliminary NO GROWTH AT 48 HOURS 03/03/20 16:06 Venous blood - Left Hand Blood Culture - Preliminary NO GROWTH AT 48 HOURS EKG Reviewed by me: Yes (biventricular pacing) Hospitalist ROS - Review of Systems ROS unobtainable: due to mental status - Medication Medications: Active Medications Generic Name Dose Route Start Last Admin Trade Name Freq PRN Reason Stop Dose Admin Amiodarone HCl 100 mg 03/04/20 09:00 03/06/20 09:40 Cordarone PO 100 mg DAILY YANI Administration Calcium Carbonate 600 mg 03/04/20 09:00 03/06/20 09:41 Caltrate PO 600 mg DAILY YANI Administration Carvedilol 6.25 mg 03/05/20 08:00 03/06/20 15:42 Coreg PO 6.25 mg BID-WM YANI Administration Dextrose/Water 25 gm 03/04/20 00:42 03/06/20 11:36 Dextrose 50% SLOW IVP 25 gm PRN PRN Administration Hypoglycemia Famotidine 20 mg 03/04/20 09:00 03/06/20 09:42 Pepcid PO 20 mg DAILY YANI Administration Folic Acid 1 mg 03/04/20 09:00 03/06/20 09:41 Folvite PO 1 mg DAILY YANI Administration Ceftriaxone Sodium 2 gm/ 100 mls @ 200 mls/hr 03/04/20 02:00 03/07/20 02:16 Sodium Chloride IVPB 100 mls 0200 YANI Administration Insulin Human Lispro 0 units 03/04/20 00:42 03/07/20 02:26 Humalog SC 2 unit .BEDTIME SLIDING SC PRN Administration Bedtime Correctional Scale Insulin Human Lispro 0 units 03/06/20 08:29 03/07/20 06:11 Humalog SC 2 unit .MILD SLIDING SCALE PRN Administration Mild Correctional Scale Latanoprost 1 drop 03/04/20 09:00 03/06/20 10:00 Xalatan 0.005% Ophth Soln EA EYE 1 drp DAILY YANI Administration Losartan Potassium 25 mg 03/04/20 09:00 03/06/20 09:41 Cozaar PO 25 mg DAILY YANI Administration Multivitamins 1 tab 03/04/20 09:00 03/06/20 09:41 Theragran PO 1 tab DAILY YANI Administration Potassium Chloride 20 meq 03/05/20 12:00 03/06/20 15:42 Klor-Con PO 20 meq TID-WM YANI Administration Saccharomyces Boulardii 250 mg 03/05/20 21:00 03/06/20 20:32 Florastor PO 250 mg HS YANI Administration Senna/Docusate Sodium 1 tab 03/06/20 21:00 03/06/20 20:33 Senokot S PO 1 tab BID YANI Administration Sodium Chloride 10 ml 03/05/20 21:00 03/06/20 20:33 Flush - Normal Saline IVF 10 ml Q12HR YANI Administration Temazepam 15 mg 03/04/20 00:42 03/05/20 22:03 Restoril PO 15 mg HSPRN PRN Administration Insomnia Thiamine HCl 100 mg 03/04/20 09:00 07/24/20 09:42 Thiamine PO 100 mg DAILY YANI Administration - Exam Neck: no JVD Heart: RRR, no murmur, no gallops, no rubs, normal peripheral pulses Respiratory: CTAB, no wheezes, no rales, no ronchi, normal chest expansion, no tachypnea, normal percussion Gastrointestinal: soft, non-tender, non-distended, normal bowel sounds, no palpable masses, no hepatomegaly, no splenomegaly, no bruit Hosp A/P - Plan DVT proph w/SCDs Gen weakness/Near syncope causing fall vs Mech fall - POA MSSA Staph infection of RUE wound with Hematoma (due to fall) Toxic metabolic encephalopathy - POA Anemia prob due to acute blood loss -transfusing PRN -completed iron infusion x1 -Eliquis on hold due to Anemia -s/p IV iron infusion BHARAT on CKD 3 Hypokalemia Par Afib - Eliquis on hold -Evaluated by EP this admission - no new recs Physical deconditioning DM2 - labile -Lantus on hold Chronic systolic HF -compensated Anemia of chronic disease Constipation PLAN: Cont IV Ceftriaxone Cont wound care Change sliding scale to mild Restart Torsemide at 20 mg BID Cont fluid restriction Cont Potassium replacement Cont Losartan Avoid nephrotoxic medications Cont PT AM labs
[2020-03-07] MEDS: Amiodarone 200 MG TAB PO SCH (08:46)
[2020-03-07] MEDS: Calcium Carbonate 600 MG TAB PO SCH (08:46)
[2020-03-07] MEDS: Thiamine 100 MG TAB PO SCH (08:46)
[2020-03-07] MEDS: Latanoprost 0.005% Ophth Soln 2.5 ml Bottle EA EYE SCH (08:46)
[2020-03-07] MEDS: Multivit, Therapeutic 1 TAB PO SCH (08:46)
[2020-03-07] MEDS: Famotidine 20 MG TAB PO SCH (08:46)
[2020-03-07] MEDS: Folic Acid 1 MG TAB PO SCH (08:46)
[2020-03-07] MEDS: Polyethylene Glycol 3350 17 GM Packet PO SCH (08:47)
[2020-03-07] MEDS: Losartan 25 MG TAB PO SCH (08:47)
[2020-03-07] MEDS: Senokot S 8.6-50 MG TAB PO SCH ×2 (08:47→21:55)
[2020-03-07] MEDS: Carvedilol 6.25 MG TAB PO SCH ×2 (08:47→15:27)
[2020-03-07] MEDS: Torsemide 20 MG TAB PO SCH ×2 (08:49→15:27)
[2020-03-07] MEDS: Temazepam 15 MG CAP PO PRN (21:55)
[2020-03-07] MEDS: Saccharomyces boulardii 250 MG CAP PO SCH (21:55)
[2020-03-08] MEDS: cefTRIAXone\\ROCEPHIN 2 GM in Sodium Chloride 0.9% 100 ML IVPB SCH (02:32)
[2020-03-08 04:52] LABS: #Basophils 0.1 thou/uL (0.0-0.2); #Eosinphils 0.5 thou/uL (0.0-0.7); #Lymphocytes 1.8 thou/uL (1.20-3.40); #Monocytes 0.6 thou/uL (0.11-0.59); #Neutrophils 3.7 thou/uL (1.40-6.50); %Basophils 0.8 % (0.0-1.0); %Eosinophils 7.7 % (0.0-10.0); %Lymphocytes 27.2 % (21.0-51.0); %Monocytes 8.9 % (0.0-10.0); %Neutrophils 55.4 % (42.0-75.0); Hemoglobin 8.2 g/dL (12.0-16.0); Mean Corpuscular HGB CONC 30.9 g/dL (32.0-36.0); Mean Platelet Volume 9.4 fL (7.4-10.4); Platelet Count 267 thou/uL (130-400); RBC Distribution Width 22.1 % (11.5-14.5); Red Blood Cell (RBC) Count 2.65 mill/uL (4.20-5.40); White Blood Cell (WBC) Count 6.6 thou/uL (4.8-10.8)
[2020-03-08 05:13] LABS: Albumin 3.4 g/dL (3.4-4.8); Anion Gap 15 mmol/L (10-20); BUN (Urea Nitrogen) 21 mg/dL (9.8-20.1); BUN/Creatinine Ratio 16.94; Calc. Creatinine Clearance 39 mL/min (70-130); Calcium 9.2 mg/dL (7.8-10.44); Carbon Dioxide 26 mmol/L (23-31); Chloride 105 mmol/L (98-107); Estimated GFR-MDRD 41; Glucose 221 mg/dL (83-110); Phosphorus 3.5 mg/dL (2.3-4.7); Potassium 3.9 mmol/L (3.5-5.1); Sodium 142 mmol/L (136-145)
[2020-03-08] MEDS: HumaLOG 300 UNITS/3 ML VIAL SC PRN ×4 (06:23→20:56)
[2020-03-08] MEDS: Carvedilol 6.25 MG TAB PO SCH ×2 (08:45→16:24)
[2020-03-08] MEDS: Amiodarone 200 MG TAB PO SCH (08:46)
[2020-03-08] MEDS: Calcium Carbonate 600 MG TAB PO SCH (08:46)
[2020-03-08] MEDS: Losartan 25 MG TAB PO SCH (08:47)
[2020-03-08] MEDS: Senokot S 8.6-50 MG TAB PO SCH ×2 (08:47→20:45)
[2020-03-08] MEDS: Thiamine 100 MG TAB PO SCH (08:47)
[2020-03-08] MEDS: Folic Acid 1 MG TAB PO SCH (08:47)
[2020-03-08] MEDS: Polyethylene Glycol 3350 17 GM Packet PO SCH (08:47)
[2020-03-08] MEDS: Famotidine 20 MG TAB PO SCH (08:47)
[2020-03-08] MEDS: Multivit, Therapeutic 1 TAB PO SCH (08:47)
[2020-03-08] MEDS: Torsemide 20 MG TAB PO SCH ×2 (08:48→13:12)
[2020-03-08] MEDS: Latanoprost 0.005% Ophth Soln 2.5 ml Bottle EA EYE SCH (08:55)
--- NOTE | 2020-03-08 09:16 | PDOC.HOSPP ---
- Subjective Encounter Date: 03/08/20 Encounter Time: 12:30 Subjective: Patient seen and examined for Anemia and RUE infection/hematoma. Some RUE discomfort. No CP/SOB. No new complaints. No overnight events - Objective Vital Signs & Weight: Vital Signs (12 hours) Temp Pulse Resp BP Pulse Ox 03/08/20 07:19 97.9 F 60 18 131/65 98 03/08/20 03:01 97.6 F 65 18 150/65 H 96 Weight Admit Weight 166 lb 9.6 oz Weight 165 lb 3.2 oz I&O: 03/07/20 03/08/20 03/09/20 06:59 06:59 06:59 Intake Total 1200 880 Output Total 1400 Balance -200 880 Result Diagrams: 03/08/20 04:12 03/08/20 04:12 Additional Labs: Accuchecks 03/08/20 03/07/20 03/07/20 06:11 20:34 17:58 POC Glucose 270 H 243 H 151 H 03/07/20 12:36 POC Glucose 254 H Microbiology 03/03/20 17:15 Urine salmeron catheter Urine Culture - Final NO GROWTH AT 48 HOURS 03/03/20 16:33 Arm - Pending Bacterial Culture - Final Staphylococcus aureus 03/03/20 16:35 Venous blood - Left Hand Blood Culture - Preliminary NO GROWTH AT 48 HOURS 03/03/20 16:06 Venous blood - Left Hand Blood Culture - Preliminary NO GROWTH AT 48 HOURS EKG Reviewed by me: Yes (Tele paced) Hospitalist ROS - Review of Systems Respiratory: denies: cough, dry, shortness of breath, hemoptysis, SOB with excertion, pleuritic pain, sputum, wheezing, other Cardiovascular: denies: chest pain, palpitations, orthopnea, paroxysmal noc. dyspnea, edema, light headedness, other - Medication Medications: Active Medications Generic Name Dose Route Start Last Admin Trade Name Freq PRN Reason Stop Dose Admin Amiodarone HCl 100 mg 03/04/20 09:00 03/08/20 08:46 Cordarone PO 100 mg DAILY YANI Administration Calcium Carbonate 600 mg 03/04/20 09:00 03/08/20 08:46 Caltrate PO 600 mg DAILY YANI Administration Carvedilol 6.25 mg 03/05/20 08:00 03/08/20 08:45 Coreg PO 6.25 mg BID-WM YANI Administration Dextrose/Water 25 gm 03/04/20 00:42 03/06/20 11:36 Dextrose 50% SLOW IVP 25 gm PRN PRN Administration Hypoglycemia Famotidine 20 mg 03/04/20 09:00 03/08/20 08:47 Pepcid PO 20 mg DAILY YANI Administration Folic Acid 1 mg 03/04/20 09:00 03/08/20 08:47 Folvite PO 1 mg DAILY YANI Administration Ceftriaxone Sodium 2 gm/ 100 mls @ 200 mls/hr 03/04/20 02:00 03/08/20 02:32 Sodium Chloride IVPB 100 mls 0200 YANI Administration Insulin Human Lispro 0 units 03/04/20 00:42 03/07/20 22:57 Humalog SC 2 unit .BEDTIME SLIDING SC PRN Administration Bedtime Correctional Scale Insulin Human Lispro 0 units 03/06/20 08:29 03/08/20 06:23 Humalog SC 4 unit .MILD SLIDING SCALE PRN Administration Mild Correctional Scale Latanoprost 1 drop 03/04/20 09:00 03/08/20 08:55 Xalatan 0.005% Ophth Soln EA EYE 1 drp DAILY YANI Administration Losartan Potassium 25 mg 03/04/20 09:00 03/08/20 08:47 Cozaar PO 25 mg DAILY YANI Administration Multivitamins 1 tab 03/04/20 09:00 03/08/20 08:47 Theragran PO 1 tab DAILY YANI Administration Polyethylene Glycol 17 gm 03/07/20 09:00 03/08/20 08:47 Miralax PO 17 gm DAILY YANI Administration Potassium Chloride 20 meq 03/05/20 12:00 03/08/20 08:45 Klor-Con PO 20 meq TID-WM YANI Administration Saccharomyces Boulardii 250 mg 03/05/20 21:00 03/07/20 21:55 Florastor PO 250 mg HS YANI Administration Senna/Docusate Sodium 1 tab 03/06/20 21:00 03/08/20 08:47 Senokot S PO 1 tab BID YANI Administration Sodium Chloride 10 ml 03/05/20 21:00 03/08/20 08:47 Flush - Normal Saline IVF 10 ml Q12HR YANI Administration Temazepam 15 mg 03/04/20 00:42 03/07/20 21:55 Restoril PO 15 mg HSPRN PRN Administration Insomnia Thiamine HCl 100 mg 03/04/20 09:00 03/08/20 08:47 Thiamine PO 100 mg DAILY YANI Administration Torsemide 20 mg 03/07/20 09:00 03/08/20 08:48 Demadex PO 20 mg BID@0900,1400 YANI Administration - Exam General Appearance: NAD Neck: supple, no JVD Heart: no gallops, no rubs Respiratory: no wheezes, no rales Gastrointestinal: non-tender, normal bowel sounds Extremities: no cyanosis Neurological: no new deficit Hosp A/P - Plan Gen weakness/Near syncope causing fall vs Mech fall MSSA Staph infection of RUE wound with Hematoma (due to fall) -on IV Ceftriaxone Toxic metabolic encephalopathy - multifactorial Anemia prob due to acute blood loss -s/p 1 unit PRBC -completed iron infusion x1 -Eliquis on hold due to Anemia -s/p IV iron infusion BHARAT on CKD 3 Hypokalemia -replaced Par Afib - Eliquis on hold -Evaluated by EP this admission - no new recs Physical deconditioning DM2 - labile -Lantus on hold Chronic systolic HF -compensated Anemia of chronic disease Constipation PLAN: 03/08 Cont IV Atbx Cont wound care Cont Torsemide with fluid restriction Cont Potassium Cont other meds as above Restart Eliquis when ok with Ortho/HH stable AM labs [facility] eval 03/07 Cont IV Ceftriaxone Cont wound care Change sliding scale to mild Restart Torsemide at 20 mg BID Cont fluid restriction Cont Potassium replacement Cont Losartan Avoid nephrotoxic medications Cont PT AM labs
[2020-03-08] MEDS: Saccharomyces boulardii 250 MG CAP PO SCH (20:45)
[2020-03-08] MEDS: Temazepam 15 MG CAP PO PRN (20:45)
[2020-03-09] MEDS: cefTRIAXone\\ROCEPHIN 2 GM in Sodium Chloride 0.9% 100 ML IVPB SCH (01:43)
[2020-03-09 04:04] LABS: #Eosinphils 0.6 thou/uL (0.0-0.7); #Lymphocytes 1.9 thou/uL (1.20-3.40); #Monocytes 0.6 thou/uL (0.11-0.59); #Neutrophils 4.6 thou/uL (1.40-6.50); %Basophils 0.4 % (0.0-1.0); %Eosinophils 7.6 % (0.0-10.0); %Lymphocytes 24.7 % (21.0-51.0); %Monocytes 7.2 % (0.0-10.0); %Neutrophils 60.1 % (42.0-75.0); Hemoglobin 8.2 g/dL (12.0-16.0); Mean Corpuscular Hemoglobin 31.1 pg (27.0-31.0); Mean Platelet Volume 9.6 fL (7.4-10.4); Platelet Count 250 thou/uL (130-400); RBC Distribution Width 22.7 % (11.5-14.5); Red Blood Cell (RBC) Count 2.65 mill/uL (4.20-5.40); White Blood Cell (WBC) Count 7.7 thou/uL (4.8-10.8)
[2020-03-09 04:22] LABS: Albumin 3.2 g/dL (3.4-4.8); Anion Gap 15 mmol/L (10-20); BUN (Urea Nitrogen) 21 mg/dL (9.8-20.1); BUN/Creatinine Ratio 18.92; Calc. Creatinine Clearance 37 mL/min (70-130); Calcium 8.6 mg/dL (7.8-10.44); Carbon Dioxide 24 mmol/L (23-31); Chloride 102 mmol/L (98-107); Estimated GFR-MDRD 47; Glucose 162 mg/dL (83-110); Magnesium 1.8 mg/dL (1.6-2.6); Phosphorus 3.7 mg/dL (2.3-4.7); Potassium 3.9 mmol/L (3.5-5.1); Sodium 137 mmol/L (136-145)
[2020-03-09] MEDS: HumaLOG 300 UNITS/3 ML VIAL SC PRN ×2 (05:30→17:50)
[2020-03-09] MEDS ORDERED: Magnesium 2 GM/50 ML 2 GM in Premix Bag 1 BAG IVPB SCH (08:45)
--- NOTE | 2020-03-09 09:54 | PDOC.HOSPP ---
- Subjective Encounter Date: 03/09/20 Encounter Time: 11:50 Subjective: Patient was assessed for wound of the right arm. Some confusion earlier - better now. Family at bedside. No overnight events. - Objective Vital Signs & Weight: Vital Signs (12 hours) Temp Pulse Resp BP Pulse Ox 03/09/20 08:30 97.2 F L 65 17 151/71 H 98 03/09/20 03:55 97.5 F L 65 16 121/57 L 98 03/09/20 00:00 61 Weight Admit Weight 166 lb 9.6 oz Weight 143 lb 6.4 oz I&O: 03/08/20 03/09/20 03/10/20 06:59 06:59 06:59 Intake Total 880 1320 Balance 880 1320 Result Diagrams: 03/09/20 03:48 03/09/20 03:48 Additional Labs: Accuchecks 03/09/20 03/09/20 03/08/20 05:32 02:11 20:48 POC Glucose 179 H 170 H 348 H 03/08/20 03/08/20 17:32 10:48 POC Glucose 296 H 268 H EKG Reviewed by me: Yes (Ventricular paced) Hospitalist ROS - Review of Systems ROS unobtainable: due to mental status - Medication Medications: Active Medications Generic Name Dose Route Start Last Admin Trade Name Freq PRN Reason Stop Dose Admin Amiodarone HCl 100 mg 03/04/20 09:00 03/08/20 08:46 Cordarone PO 100 mg DAILY YANI Administration Calcium Carbonate 600 mg 03/04/20 09:00 03/08/20 08:46 Caltrate PO 600 mg DAILY YANI Administration Carvedilol 6.25 mg 03/05/20 08:00 03/08/20 16:24 Coreg PO 6.25 mg BID-WM YANI Administration Dextrose/Water 25 gm 03/04/20 00:42 03/06/20 11:36 Dextrose 50% SLOW IVP 25 gm PRN PRN Administration Hypoglycemia Famotidine 20 mg 03/04/20 09:00 03/08/20 08:47 Pepcid PO 20 mg DAILY YANI Administration Folic Acid 1 mg 03/04/20 09:00 03/08/20 08:47 Folvite PO 1 mg DAILY YANI Administration Ceftriaxone Sodium 2 gm/ 100 mls @ 200 mls/hr 03/04/20 02:00 07/27/20 01:43 Sodium Chloride IVPB 100 mls 0200 YANI Administration Insulin Human Lispro 0 units 03/04/20 00:42 03/08/20 20:56 Humalog SC 4 unit .BEDTIME SLIDING SC PRN Administration Bedtime Correctional Scale Insulin Human Lispro 0 units 03/06/20 08:29 03/09/20 05:30 Humalog SC 2 unit .MILD SLIDING SCALE PRN Administration Mild Correctional Scale Latanoprost 1 drop 03/04/20 09:00 03/08/20 08:55 Xalatan 0.005% Ophth Soln EA EYE 1 drp DAILY YANI Administration Losartan Potassium 25 mg 03/04/20 09:00 03/08/20 08:47 Cozaar PO 25 mg DAILY YANI Administration Multivitamins 1 tab 03/04/20 09:00 03/08/20 08:47 Theragran PO 1 tab DAILY YANI Administration Polyethylene Glycol 17 gm 03/07/20 09:00 03/08/20 08:47 Miralax PO 17 gm DAILY YANI Administration Potassium Chloride 20 meq 03/05/20 12:00 03/08/20 16:24 Klor-Con PO 20 meq TID-WM YANI Administration Saccharomyces Boulardii 250 mg 03/05/20 21:00 03/08/20 20:45 Florastor PO 250 mg HS YANI Administration Senna/Docusate Sodium 1 tab 03/06/20 21:00 03/08/20 20:45 Senokot S PO 1 tab BID YANI Administration Sodium Chloride 10 ml 03/05/20 21:00 03/08/20 20:45 Flush - Normal Saline IVF 10 ml Q12HR YANI Administration Temazepam 15 mg 03/04/20 00:42 03/08/20 20:45 Restoril PO 15 mg HSPRN PRN Administration Insomnia Thiamine HCl 100 mg 03/04/20 09:00 03/08/20 08:47 Thiamine PO 100 mg DAILY YANI Administration Torsemide 20 mg 03/07/20 09:00 03/08/20 13:12 Demadex PO 20 mg BID@0900,1400 YANI Administration - Exam General Appearance: awake alert Heart: RRR, no murmur, no gallops, no rubs, normal peripheral pulses Respiratory: CTAB, no wheezes, no rales, no ronchi, normal chest expansion, no tachypnea, normal percussion Gastrointestinal: soft, non-tender, non-distended, normal bowel sounds, no palpable masses, no hepatomegaly, no splenomegaly, no bruit, no guarding, no rigidity Extremities: no cyanosis, no clubbing Extremities - other findings: RUE dressing + Hosp A/P - Plan DVT proph w/SCDs Gen weakness/Near syncope causing fall vs Mech fall MSSA Staph infection of RUE wound with Hematoma (due to fall) -on IV Ceftriaxone Toxic metabolic encephalopathy - multifactorial Anemia prob due to acute blood loss -s/p 1 unit PRBC -completed iron infusion x1 -Eliquis on hold due to Anemia -s/p IV iron infusion BHARAT on CKD 3 Hypokalemia -replaced Par Afib - Eliquis on hold -Evaluated by EP this admission - no new recs Physical deconditioning DM2 - labile -Lantus on hold Chronic systolic HF -compensated Anemia of chronic disease Constipation Hypomagnesemia PLAN: 03/09 Cont IV Atbx for wound infection Change Atbx to Keflex 500 mg PO TID x 2 weeks per ID Mentation improving Replace Magnesium Hb stable Restart Eliquis when ok with Ortho/HH stable Add Lantus 10 units daily Await response from [facility] regarding Inpt Rehab 03/08 Cont IV Atbx Cont wound care Cont Torsemide with fluid restriction Cont Potassium Cont other meds as above Restart Eliquis when ok with Ortho/HH stable AM labs SNF eval 03/07 Cont IV Ceftriaxone Cont wound care Change sliding scale to mild Restart Torsemide at 20 mg BID Cont fluid restriction Cont Potassium replacement Cont Losartan Avoid nephrotoxic medications Cont PT AM labs
[2020-03-09] MEDS: Carvedilol 6.25 MG TAB PO SCH ×2 (09:58→16:22)
[2020-03-09] MEDS: Famotidine 20 MG TAB PO SCH (09:59)
[2020-03-09] MEDS: Calcium Carbonate 600 MG TAB PO SCH (09:59)
[2020-03-09] MEDS: Amiodarone 200 MG TAB PO SCH (09:59)
[2020-03-09] MEDS: Losartan 25 MG TAB PO SCH (10:00)
[2020-03-09] MEDS: Latanoprost 0.005% Ophth Soln 2.5 ml Bottle EA EYE SCH (10:00)
[2020-03-09] MEDS ORDERED: Insulin Glargine 10 UNITS in Pre-Filled Syringe 1 EACH SC SCH (10:00)
[2020-03-09] MEDS: Polyethylene Glycol 3350 17 GM Packet PO SCH (10:00)
[2020-03-09] MEDS: Folic Acid 1 MG TAB PO SCH (10:00)
[2020-03-09] MEDS: Torsemide 20 MG TAB PO SCH ×2 (10:00→13:23)
[2020-03-09] MEDS: Multivit, Therapeutic 1 TAB PO SCH (10:00)
[2020-03-09] MEDS: Senokot S 8.6-50 MG TAB PO SCH ×2 (10:00→20:58)
[2020-03-09] MEDS: Thiamine 100 MG TAB PO SCH (10:00)
[2020-03-09] MEDS: Acetaminophen 500 MG TAB PO PRN (11:53)
[2020-03-09] MEDS: Saccharomyces boulardii 250 MG CAP PO SCH (20:58)
[2020-03-10] MEDS: cefTRIAXone\\ROCEPHIN 2 GM in Sodium Chloride 0.9% 100 ML IVPB SCH (01:05)
[2020-03-10] MEDS: Temazepam 15 MG CAP PO PRN ×2 (02:00→21:09)
[2020-03-10 05:55] LABS: #Basophils 0.1 thou/uL (0.0-0.2); #Eosinphils 0.5 thou/uL (0.0-0.7); #Lymphocytes 1.8 thou/uL (1.20-3.40); #Monocytes 0.5 thou/uL (0.11-0.59); #Neutrophils 4.6 thou/uL (1.40-6.50); %Basophils 0.8 % (0.0-1.0); %Eosinophils 6.4 % (0.0-10.0); %Lymphocytes 24.5 % (21.0-51.0); %Monocytes 6.5 % (0.0-10.0); %Neutrophils 61.8 % (42.0-75.0); Hemoglobin 8.1 g/dL (12.0-16.0); Mean Corpuscular HGB CONC 30.9 g/dL (32.0-36.0); Mean Corpuscular Hemoglobin 30.7 pg (27.0-31.0); Mean Corpuscular Volume 99.2 fL (78.0-98.0); Mean Platelet Volume 9.3 fL (7.4-10.4); Platelet Count 250 thou/uL (130-400); RBC Distribution Width 22.5 % (11.5-14.5); Red Blood Cell (RBC) Count 2.65 mill/uL (4.20-5.40); White Blood Cell (WBC) Count 7.4 thou/uL (4.8-10.8)
[2020-03-10 06:17] LABS: Albumin 2.9 g/dL (3.4-4.8); Anion Gap 12 mmol/L (10-20); BUN (Urea Nitrogen) 19 mg/dL (9.8-20.1); BUN/Creatinine Ratio 15.57; Calc. Creatinine Clearance 34 mL/min (70-130); Calcium 8.2 mg/dL (7.8-10.44); Carbon Dioxide 28 mmol/L (23-31); Chloride 103 mmol/L (98-107); Estimated GFR-MDRD 42; Glucose 166 mg/dL (83-110); Magnesium 2.1 mg/dL (1.6-2.6); Phosphorus 3.3 mg/dL (2.3-4.7); Potassium 3.6 mmol/L (3.5-5.1); Sodium 139 mmol/L (136-145)
[2020-03-10] MEDS: Insulin Glargine 10 UNITS in Pre-Filled Syringe 1 EACH SC SCH (08:56)
[2020-03-10] MEDS: Carvedilol 6.25 MG TAB PO SCH ×2 (08:56→16:40)
[2020-03-10] MEDS: Amiodarone 200 MG TAB PO SCH (08:58)
[2020-03-10] MEDS: Folic Acid 1 MG TAB PO SCH (09:00)
[2020-03-10] MEDS: Calcium Carbonate 600 MG TAB PO SCH (09:00)
[2020-03-10] MEDS: Multivit, Therapeutic 1 TAB PO SCH (09:01)
[2020-03-10] MEDS: Cyanocobalamin (Vitamin B-12) 1,000 MCG TAB PO SCH (09:01)
[2020-03-10] MEDS: Latanoprost 0.005% Ophth Soln 2.5 ml Bottle EA EYE SCH (09:01)
[2020-03-10] MEDS: Losartan 25 MG TAB PO SCH (09:01)
[2020-03-10] MEDS: Famotidine 20 MG TAB PO SCH (09:01)
[2020-03-10] MEDS: Senokot S 8.6-50 MG TAB PO SCH ×2 (09:02→21:09)
[2020-03-10] MEDS: Torsemide 20 MG TAB PO SCH ×2 (09:02→14:16)
[2020-03-10] MEDS: Thiamine 100 MG TAB PO SCH (09:02)
[2020-03-10] MEDS: Polyethylene Glycol 3350 17 GM Packet PO SCH (09:02)
[2020-03-10] MEDS: Cephalexin 250 MG CAP PO SCH ×2 (14:16→21:09)
--- NOTE | 2020-03-10 15:18 | PDOC.HOSPP ---
- Subjective Encounter Date: 03/10/20 Encounter Time: 14:15 Subjective: Patient seen and examined for RUE infection. No new complaints. No overnight events - Objective Vital Signs & Weight: Vital Signs (12 hours) Temp Pulse Resp BP BP Pulse Ox 03/10/20 12:00 98.4 F 68 18 148/68 H 97 03/10/20 08:56 156/66 H 03/10/20 08:50 97.6 F 62 16 156/66 H 96 03/10/20 08:00 96 Weight Admit Weight 166 lb 9.6 oz Weight 143 lb 6.4 oz I&O: 03/09/20 03/10/20 03/11/20 06:59 06:59 06:59 Intake Total 1320 470 Output Total 220 Balance 1320 250 Result Diagrams: 03/10/20 05:30 03/10/20 05:30 Additional Labs: Accuchecks 03/10/20 03/10/20 03/09/20 11:10 08:08 21:01 POC Glucose 210 H 168 H 195 H 03/09/20 17:12 POC Glucose 247 H Hospitalist ROS - Review of Systems Respiratory: denies: cough, dry, shortness of breath, hemoptysis, SOB with excertion, pleuritic pain, sputum, wheezing, other Cardiovascular: denies: chest pain, palpitations, orthopnea, paroxysmal noc. dyspnea, edema, light headedness, other - Medication Medications: Active Medications Generic Name Dose Route Start Last Admin Trade Name Freq PRN Reason Stop Dose Admin Acetaminophen 1,000 mg 03/04/20 00:42 03/09/20 11:53 Tylenol PO 1,000 mg Q6H PRN Administration Mild Pain (1-3) Amiodarone HCl 100 mg 03/04/20 09:00 03/10/20 08:58 Cordarone PO 100 mg DAILY YANI Administration Calcium Carbonate 600 mg 03/04/20 09:00 03/10/20 09:00 Caltrate PO 600 mg DAILY YANI Administration Carvedilol 6.25 mg 03/05/20 08:00 03/10/20 08:56 Coreg PO 6.25 mg BID-WM YANI Administration Cephalexin 500 mg 03/10/20 15:00 03/10/20 14:16 Keflex PO 500 mg TID YANI Administration Cyanocobalamin 1,000 mcg 03/10/20 09:00 03/10/20 09:01 Vitamin B-12 PO 1,000 mcg DAILY YANI Administration Dextrose/Water 25 gm 03/04/20 00:42 03/06/20 11:36 Dextrose 50% SLOW IVP 25 gm PRN PRN Administration Hypoglycemia Folic Acid 1 mg 03/04/20 09:00 03/10/20 09:00 Folvite PO 1 mg DAILY YANI Administration Insulin Glargine 10 units/ 0.1 mls @ 0 mls/hr 03/10/20 09:00 03/10/20 08:56 Miscellaneous Medication SC 0.1 mls QAM YANI Administration Insulin Human Lispro 0 units 03/04/20 00:42 03/08/20 20:56 Humalog SC 4 unit .BEDTIME SLIDING SC PRN Administration Bedtime Correctional Scale Latanoprost 1 drop 03/04/20 09:00 03/10/20 09:01 Xalatan 0.005% Ophth Soln EA EYE 1 drp DAILY YANI Administration Losartan Potassium 25 mg 03/04/20 09:00 03/10/20 09:01 Cozaar PO 25 mg DAILY YANI Administration Multivitamins 1 tab 03/04/20 09:00 03/10/20 09:01 Theragran PO 1 tab DAILY YANI Administration Polyethylene Glycol 17 gm 03/07/20 09:00 03/10/20 09:02 Miralax PO 17 gm DAILY YANI Administration Potassium Chloride 20 meq 03/05/20 12:00 03/10/20 11:56 Klor-Con PO 20 meq TID-WM YANI Administration Saccharomyces Boulardii 250 mg 03/05/20 21:00 03/09/20 20:58 Florastor PO 250 mg HS YANI Administration Senna/Docusate Sodium 1 tab 03/06/20 21:00 03/10/20 09:02 Senokot S PO 1 tab BID YANI Administration Sodium Chloride 10 ml 03/05/20 21:00 03/10/20 09:02 Flush - Normal Saline IVF 10 ml Q12HR YANI Administration Temazepam 15 mg 03/04/20 00:42 03/10/20 02:00 Restoril PO 15 mg HSPRN PRN Administration Insomnia Thiamine HCl 100 mg 03/04/20 09:00 03/10/20 09:02 Thiamine PO 100 mg DAILY YANI Administration Torsemide 20 mg 03/07/20 09:00 03/10/20 14:16 Demadex PO 20 mg BID@0900,1400 YANI Administration - Exam General Appearance: NAD Neck: supple, no JVD Heart: no gallops, no rubs Respiratory: no wheezes, no ronchi Gastrointestinal: soft, non-distended Extremities: no cyanosis Hosp A/P - Plan plan discussed w/ family Gen weakness/Near syncope causing fall vs Mech fall MSSA Staph infection of RUE wound with Hematoma (due to fall) -on IV Ceftriaxone Toxic metabolic encephalopathy - multifactorial Anemia prob due to acute blood loss -s/p 1 unit PRBC -completed iron infusion x1 -s/p IV iron infusion BHARAT on CKD 3 Hypokalemia -replaced Par Afib -Evaluated by EP this admission - no new recs Physical deconditioning DM2 - labile -Lantus on hold Chronic systolic HF -compensated Anemia of chronic disease Constipation Hypomagnesemia PLAN: 03/10 Will continue oral Keflex Await residential facility placement Resume anticoagulation for atrial fibrillation - I verified with orthopedic service Continue other medications as above Recheck hemoglobin and hematocrit in a.m. 03/09 Cont IV Atbx for wound infection Change Atbx to Keflex 500 mg PO TID x 2 weeks per ID Mentation improving Replace Magnesium Hb stable Restart Eliquis when ok with Ortho/HH stable Add Lantus 10 units daily Await response from [facility] regarding Inpt Rehab 03/08 Cont IV Atbx Cont wound care Cont Torsemide with fluid restriction Cont Potassium Cont other meds as above Restart Eliquis when ok with Ortho/HH stable AM labs SNF eval 03/07 Cont IV Ceftriaxone Cont wound care Change sliding scale to mild Restart Torsemide at 20 mg BID Cont fluid restriction Cont Potassium replacement Cont Losartan Avoid nephrotoxic medications Cont PT AM labs
[2020-03-10] MEDS: HumaLOG 300 UNITS/3 ML VIAL SC PRN (16:46)
[2020-03-10] MEDS: Acetaminophen 500 MG TAB PO PRN (18:00)
[2020-03-10] MEDS ORDERED: Insulin Glargine 10 UNITS in Pre-Filled Syringe 1 EACH SC SCH (21:00)
[2020-03-10] MEDS: Apixaban 2.5 MG TAB PO SCH (21:09)
[2020-03-10] MEDS: Saccharomyces boulardii 250 MG CAP PO SCH (21:09)
[2020-03-11 04:05] LABS: Hemoglobin 7.9 g/dL (12.0-16.0); Platelet Count 246 thou/uL (130-400)
[2020-03-11] MEDS: Acetaminophen 500 MG TAB PO PRN (05:06)
[2020-03-11] MEDS: Polyethylene Glycol 3350 17 GM Packet PO SCH (09:08)
[2020-03-11] MEDS: Insulin Glargine 10 UNITS in Pre-Filled Syringe 1 EACH SC SCH ×2 (09:09→09:24)
[2020-03-11] MEDS: Senokot S 8.6-50 MG TAB PO SCH ×2 (09:09→20:44)
[2020-03-11] MEDS: Folic Acid 1 MG TAB PO SCH (09:10)
[2020-03-11] MEDS: Amiodarone 200 MG TAB PO SCH (09:10)
[2020-03-11] MEDS: Multivit, Therapeutic 1 TAB PO SCH (09:10)
[2020-03-11] MEDS: Carvedilol 6.25 MG TAB PO SCH ×2 (09:10→19:19)
[2020-03-11] MEDS: Cyanocobalamin (Vitamin B-12) 1,000 MCG TAB PO SCH (09:10)
[2020-03-11] MEDS: Losartan 25 MG TAB PO SCH (09:11)
[2020-03-11] MEDS: Thiamine 100 MG TAB PO SCH (09:12)
[2020-03-11] MEDS: Torsemide 20 MG TAB PO SCH ×2 (09:13→14:51)
[2020-03-11] MEDS: Cephalexin 250 MG CAP PO SCH ×3 (09:13→20:44)
[2020-03-11] MEDS: Apixaban 2.5 MG TAB PO SCH ×2 (09:13→20:45)
[2020-03-11] MEDS: Calcium Carbonate 600 MG TAB PO SCH (09:14)
[2020-03-11] MEDS: Latanoprost 0.005% Ophth Soln 2.5 ml Bottle EA EYE SCH (09:27)
--- NOTE | 2020-03-11 11:26 | RAD ---
Abdomen 2 views INDICATION: History of abdominal pain Comparison prior exam dated March 03, 2020 FINDINGS: There is a fluid and gas filled loop of small bowel within the central abdomen with a small air-fluid level. There is a moderate amount of retained stool within the colon. No suspicious calcifications evident. There is an AICD in place. There is scattered degenerative and osteoarthritic change. IMPRESSION: Mildly prominent fluid and gas filled loops small bowel within the central abdomen is non specific and may reflect sequela of a regional ileus or a mild partial small bowel obstruction. There is a moderate amount retained stool within the colon.
[2020-03-11] MEDS ORDERED: Fleet Enema 133 ML BOT PR PRN (11:39)
[2020-03-11] MEDS ORDERED: Bisacodyl 10 MG SUPP PR SCH (11:45)
[2020-03-11] MEDS ORDERED: Magnesium Citrate 300 ML BOT PO SCH (11:45)
[2020-03-11] MEDS: HumaLOG 300 UNITS/3 ML VIAL SC PRN ×2 (12:01→16:08)
--- NOTE | 2020-03-11 12:27 | PDOC.HOSPP ---
- Subjective Encounter Date: 03/11/20 Encounter Time: 08:00 Subjective: Patient was seen and examined for right upper extremity wound. She is complaining of right lower quadrant abdominal pain. No nausea or vomiting. Had a small bowel movement earlier - Objective Vital Signs & Weight: Vital Signs (12 hours) Temp Pulse Resp BP BP Pulse Ox 03/11/20 09:10 121/60 03/11/20 08:00 97.4 F L 60 20 136/61 93 L Weight Admit Weight 166 lb 9.6 oz Weight 143 lb 6.4 oz I&O: 03/10/20 03/11/20 03/12/20 06:59 06:59 06:59 Intake Total 470 1450 550 Output Total 220 Balance 250 1450 550 Result Diagrams: 03/11/20 03:45 03/10/20 05:30 Additional Labs: Accuchecks 03/11/20 03/11/20 03/10/20 11:15 08:03 21:13 POC Glucose 275 H 235 H 247 H 03/10/20 16:28 POC Glucose 313 H Radiology Reviewed by me: Yes (KUB showed constipation with ileus) Hospitalist ROS - Review of Systems Cardiovascular: denies: chest pain, palpitations, orthopnea, paroxysmal noc. dyspnea, edema, light headedness, other Gastrointestinal: reports: abdominal pain, constipation. denies: nausea, vomiting, diarrhea, melena, hematochezia, other - Medication Medications: Active Medications Generic Name Dose Route Start Last Admin Trade Name Freq PRN Reason Stop Dose Admin Acetaminophen 1,000 mg 03/04/20 00:42 03/10/20 18:00 Tylenol PO 1,000 mg Q6H PRN Administration Mild Pain (1-3) Apixaban 2.5 mg 03/10/20 21:00 03/11/20 09:13 Eliquis PO 2.5 mg BID YANI Administration Calcium Carbonate 600 mg 03/04/20 09:00 03/11/20 09:14 Caltrate PO 600 mg DAILY YANI Administration Carvedilol 6.25 mg 03/05/20 08:00 03/11/20 09:10 Coreg PO 6.25 mg BID-WM YANI Administration Cephalexin 500 mg 03/10/20 15:00 03/11/20 09:13 Keflex PO 500 mg TID YANI Administration Cyanocobalamin 1,000 mcg 03/10/20 09:00 03/11/20 09:10 Vitamin B-12 PO 1,000 mcg DAILY YANI Administration Dextrose/Water 25 gm 03/04/20 00:42 03/06/20 11:36 Dextrose 50% SLOW IVP 25 gm PRN PRN Administration Hypoglycemia Folic Acid 1 mg 03/04/20 09:00 03/11/20 09:10 Folvite PO 1 mg DAILY YANI Administration Insulin Glargine 10 units/ 0.1 mls @ 0 mls/hr 03/10/20 09:00 03/11/20 09:24 Miscellaneous Medication SC 0.1 mls QAM YANI Administration Insulin Glargine 10 units/ 0.1 mls @ 0 mls/hr 03/10/20 21:00 03/10/20 21:09 Miscellaneous Medication SC 0.1 mls HS YANI Administration Insulin Human Lispro 0 units 03/04/20 00:42 03/08/20 20:56 Humalog SC 4 unit .BEDTIME SLIDING SC PRN Administration Bedtime Correctional Scale Insulin Human Lispro 0 units 03/10/20 11:24 03/11/20 12:01 Humalog SC 4 unit .MILD SLIDING SCALE PRN Administration Mild Correctional Scale Latanoprost 1 drop 03/04/20 09:00 03/11/20 09:27 Xalatan 0.005% Oph Soln EA EYE 1 drp DAILY YANI Administration Losartan Potassium 25 mg 03/04/20 09:00 03/11/20 09:11 Cozaar PO 25 mg DAILY YANI Administration Multivitamins 1 tab 03/04/20 09:00 03/11/20 09:10 Theragran PO 1 tab DAILY YANI Administration Pantoprazole Sodium 40 mg 03/10/20 21:00 03/10/20 21:09 Protonix PO 40 mg HS YANI Administration Polyethylene Glycol 17 gm 03/07/20 09:00 03/11/20 09:08 Miralax PO 17 gm DAILY YANI Administration Potassium Chloride 20 meq 03/05/20 12:00 03/11/20 09:09 Klor-Con PO 20 meq TID-WM YANI Administration Saccharomyces Boulardii 250 mg 03/05/20 21:00 03/10/20 21:09 Florastor PO 250 mg HS YANI Administration Senna/Docusate Sodium 1 tab 03/06/20 21:00 03/11/20 09:09 Senokot S PO 1 tab BID YANI Administration Sodium Chloride 10 ml 03/05/20 21:00 03/11/20 09:12 Flush - Normal Saline IVF 10 ml Q12HR YANI Administration Temazepam 15 mg 03/04/20 00:42 03/10/20 21:09 Restoril PO 15 mg HSPRN PRN Administration Insomnia Thiamine HCl 100 mg 03/04/20 09:00 03/11/20 09:12 Thiamine PO 100 mg DAILY YANI Administration Torsemide 20 mg 03/07/20 09:00 03/11/20 09:13 Demadex PO 20 mg BID@0900,1400 YANI Administration - Exam General Appearance: NAD Neck: supple, no JVD Heart: RRR, no gallops Respiratory: no rales, no ronchi Gastrointestinal: soft, non-distended, no guarding, no rigidity, tender to palpation (Mainly in the right lower quadrant) Extremities: no cyanosis, no clubbing Neurological: no new deficit Hosp A/P - Plan plan discussed w/ family (afshin) Gen weakness/Near syncope causing fall vs Mech fall MSSA Staph infection of RUE wound with Hematoma (due to fall) -Completed IV Ceftriaxone. Now on Keflex Toxic metabolic encephalopathy - multifactorial Anemia prob due to acute blood loss -s/p 1 unit PRBC -s/p IV iron infusion BHARAT on CKD 3 Hypokalemia -replaced Par Afib -Evaluated by EP this admission - no new recs Physical deconditioning DM2 - labile Chronic systolic HF -compensated Anemia of chronic disease Constipation with ileus Hypomagnesemia PLAN: 03/11 KUB reviewed. The abdominal pain is probably due to constipation. Will add mag citrate with Dulcolax suppository. Will discontinue amiodarone per electrophysiology. I discussed with electrophysiology earlier today. Continue Keflex. Lantus restarted yesterday. Await insurance approval for correction facility. Continue other medications as above AM labs 03/10 Will continue oral Keflex Await correction facility placement Resume anticoagulation for atrial fibrillation - I verified with orthopedic service Continue other medications as above Increase Lantus to 15 units HS Recheck hemoglobin and hematocrit in a.m. 03/09 Cont IV Atbx for wound infection Change Atbx to Keflex 500 mg PO TID x 2 weeks per ID Mentation improving Replace Magnesium Hb stable Restart Eliquis when ok with Ortho/HH stable Add Lantus 10 units daily Await response from [employer] regarding Inpt Rehab 03/08 Cont IV Atbx Cont wound care Cont Torsemide with fluid restriction Cont Potassium Cont other meds as above Restart Eliquis when ok with Ortho/HH stable AM labs SNF eval 03/07 Cont IV Ceftriaxone Cont wound care Change sliding scale to mild Restart Torsemide at 20 mg BID Cont fluid restriction Cont Potassium replacement Cont Losartan Avoid nephrotoxic medications Cont PT AM labs
[2020-03-11 12:58] VITALS: BMI 22.4
--- NOTE | 2020-03-11 15:54 | PDOC.PALPN ---
Palliative Progress Note - Subjective Complains of abdominal discomfort. Mild lethargy, weakness. - Objective Vital Signs: Vital Signs - Most Recent Temp Pulse Resp BP Pulse Ox 97.4 F L 60 20 121/60 93 L 03/11/20 08:00 03/11/20 08:00 03/11/20 08:00 03/11/20 09:10 03/11/20 08:00 - Physical Exam Constitutional: ill appearing HEENT: moist MMs Respiratory: no wheezing, unlabored breathing Cardiovascular: RRR Gastrointestinal: soft Genitourinary: incontinent Musculoskeletal: no cyanosis, diffuse muscle atrophy Neurology: moves all 4 limbs Skin: cap refill <2 seconds, fragile Psychiatric: normal mood - Assessment (1) Metabolic encephalopathy Code(s): G93.41 - METABOLIC ENCEPHALOPATHY Current Visit: Yes Status: Acute (2) Chronic kidney disease Code(s): N18.9 - CHRONIC KIDNEY DISEASE, UNSPECIFIED Current Visit: Yes Status: Acute (3) Palliative care encounter Code(s): Z51.5 - ENCOUNTER FOR PALLIATIVE CARE Current Visit: Yes Status: Acute (4) Anemia Code(s): D64.9 - ANEMIA, UNSPECIFIED Current Visit: No Status: Acute Qualifiers: Anemia type: iron deficiency Iron deficiency anemia type: inadequate dietary iron intake Qualified Code(s): D50.8 - Other iron deficiency anemias (5) CHF (congestive heart failure) Code(s): I50.9 - HEART FAILURE, UNSPECIFIED Current Visit: No Status: Acute Qualifiers: Heart failure type: systolic (6) Diabetes 1.5, managed as type 2 Code(s): E13.9 - OTHER SPECIFIED DIABETES MELLITUS WITHOUT COMPLICATIONS Current Visit: No Status: Acute (7) HTN (hypertension) Code(s): I10 - ESSENTIAL (PRIMARY) HYPERTENSION Current Visit: No Status: Acute - Plan Plan: Advanced directives addressed. Discussed Goal of care with patient family, Gabriella has been main point of contact. Family hopeful for eventual transition back to independent home setting. Discussed once home having home health with paid caregivers. Initial goal to transition to Rehab/Skilled setting to gain strength. Reviewed multiple morbidities and disease trajectory. Discussed "Hope for the best, plan for the worst" and to consider options if patient does not return to baseline and not able to safely return to independent home setting after skilled stay. Please also refer to Palliative Care notes in note section. Palliative care will sign off as Goal of Care identified and Directives addressed. If we can be of assistance in the future to readdress Goals, additional family support or assistance with Disease Trajectory, Complex Decision making please reconsult. [25] minutes spent on this encounter with >50% of the time in counseling and coordination of care. - ROS ENT: dry mouth Respiratory: shortness of breath with extertion Cardiology: other (denies chest pain or palpitations) Gastrointestinal: other (denies nausea or vomiting) Musculoskeletal: arthritis/arthralgias
--- NOTE | 2020-03-11 18:23 | PRG ---
DATE OF SERVICE: 03/11/2020 SUBJECTIVE: Ms. Damon is complaining of abdominal pain. She has been complaining of this abdominal pain for the past 2 days. She was treated with laxatives without improvement. The pain is centered around mid abdomen to lower. She also has back pain. She has no respiratory symptoms. No chest pain. She feels the bladder somewhat full, but she was able to void earlier. OBJECTIVE: VITAL SIGNS: She has been afebrile, O2 sats ranged from 93 to 95, and BP 120/60. GENERAL: She keeps her eyes closed, will open intermittently. She is able to answer questions, but keeps repeating "my belly hurts." LUNGS: Symmetric air entry. HEART: S1 and S2. Regular rate. ABDOMEN: Soft, mildly distended, did not have any guarding when I was palpating her abdomen. EXTREMITIES: No joint symptoms. No edema. Pulses 1+ in dorsalis pedis. Able to move extremities. LABORATORY DATA: Sodium 139 and creatinine 1.22, which is average over her admission. Albumin 2.9. White cell count 7.4, hemoglobin 8.1, and platelets 250. Abdominal x-ray with mildly prominent fluid and gas-filled loops of small bowel. ASSESSMENT AND DISCUSSION: 1. Ischemic cardiomyopathy. 2. Decreased ejection fraction. 3. Automatic implantable cardioverter-defibrillator. 4. Cognitive issues. 5. Type 2 diabetes. 6. Fall with laceration in the right forearm with hematoma, either colonization by Staph aureus or early cutaneous infection. 7. Now abdominal pain, which is somewhat diffuse. She does have a previous CT of abdomen in October of this year, which showed some pancreatic masses, so we will go ahead and repeat the CT abdomen and pelvis with contrast. Job ID: [id number]
[2020-03-11] MEDS: Saccharomyces boulardii 250 MG CAP PO SCH (20:45)
[2020-03-11] MEDS ORDERED: Insulin Glargine 15 UNITS in Pre-Filled Syringe 1 EACH SC SCH (21:00)
[2020-03-12 04:47] LABS: Hemoglobin 7.8 g/dL (12.0-16.0); Platelet Count 236 thou/uL (130-400)
[2020-03-12 05:14] LABS: Anion Gap 10 mmol/L (10-20); BUN (Urea Nitrogen) 21 mg/dL (9.8-20.1); Calc. Creatinine Clearance 42 mL/min (70-130); Calcium 9.1 mg/dL (7.8-10.44); Carbon Dioxide 30 mmol/L (23-31); Chloride 105 mmol/L (98-107); Estimated GFR-MDRD 54; Magnesium 2.3 mg/dL (1.6-2.6); Potassium 3.3 mmol/L (3.5-5.1); Sodium 142 mmol/L (136-145)
[2020-03-12 05:19] LABS: Glucose 53 mg/dL (83-110)
[2020-03-12] MEDS: Dextrose 50% Abboject 50 ML SYRINGE SLOW IVP PRN (05:25)
[2020-03-12 07:52] VITALS: TEMP 97.3
[2020-03-12] MEDS: Acetaminophen 500 MG TAB PO PRN (07:56)
[2020-03-12] MEDS: Carvedilol 6.25 MG TAB PO SCH (07:56)
[2020-03-12] MEDS: Apixaban 2.5 MG TAB PO SCH (08:02)
[2020-03-12] MEDS: Calcium Carbonate 600 MG TAB PO SCH (08:03)
[2020-03-12] MEDS: Cephalexin 250 MG CAP PO SCH (08:04)
[2020-03-12] MEDS: Cyanocobalamin (Vitamin B-12) 1,000 MCG TAB PO SCH (08:05)
[2020-03-12] MEDS: Losartan 25 MG TAB PO SCH (08:05)
[2020-03-12] MEDS: Latanoprost 0.005% Ophth Soln 2.5 ml Bottle EA EYE SCH (08:05)
[2020-03-12] MEDS: Multivit, Therapeutic 1 TAB PO SCH (08:05)
[2020-03-12] MEDS: Folic Acid 1 MG TAB PO SCH (08:05)
[2020-03-12] MEDS: Thiamine 100 MG TAB PO SCH (08:06)
[2020-03-12] MEDS: Senokot S 8.6-50 MG TAB PO SCH (08:07)
[2020-03-12] MEDS: Polyethylene Glycol 3350 17 GM Packet PO SCH (08:07)
[2020-03-12 08:08] VITALS: BP 121/60
[2020-03-12] MEDS: Torsemide 20 MG TAB PO SCH (08:08)
[2020-03-12] MEDS ORDERED: Potassium Chloride 20 MEQ/100 ML PREMIX BAG IVPB SCH (08:30)
--- NOTE | 2020-03-12 09:11 | CT ---
CT Abdomen Pelvis W WO con History: Pancreatic mass. History of breast cancer. Comparison: CT October 2019 Findings: Moderate bilateral layering pleural effusions are new from the comparison exam. Heart size is enlarged. There is enlarged. Numerous calcified granulomas. The appendix is normal. Increased length of the liver causes mild downward displacement of the right kidney. Aortic contour is nonaneurysmal. Moderate presacral edema likely third spacing. No dilated loops of large or small bowel. Calcified granulomas of the spleen. Mild hypertrophy of both adrenal glands with a fat-containing mas s left adrenal gland. No intrahepatic or extra hepatic biliary dilatation. Pancreas: Lobular hypodense mass of the pancreatic head/body junction has not increased in size. No s olid component. No internal septations. In the pancreatic tail is a second mass which is also cystic without internal enhancement measuring u p to 1.7 cm in size. No pancreatic ductal dilatation. No new suspicious pancreatic solid enhancing mass. Multilevel disc degeneration of the lumbar spine. Impression: Unchanged pancreatic tail and pancreatic body/tail pancreatic cysts without any solid com ponent, internal enhancement, or suspicious features. Per ACR white paper recommendations for patient's with pancreatic cystic structures greater than 80 years of presentation, a 2 year follow-up CT/MRI is recommended.
--- NOTE | 2020-03-12 10:05 | PDOC.MOPN ---
Interval History: ambulating in hallway with walker - Vital Signs Vital Signs: Vital Signs (12 hours) Temp Pulse Resp BP BP Pulse Ox 03/12/20 07:56 121/60 03/12/20 07:52 97.3 F L 65 18 127/71 96 03/12/20 04:00 97.6 F 62 16 107/64 96 03/11/20 23:51 97.7 F 58 L 16 124/60 97 Weight Admit Weight 166 lb 9.6 oz Weight 143 lb 6.4 oz - Physical Exam General: Alert Neurological: Normal gait (with walker), Normal speech - Labs Result Diagrams: 03/12/20 04:15 03/12/20 04:15 Lab results: Laboratory Results - last 24 hr 03/12/20 08:13: POC Glucose 120 H 03/12/20 06:00: POC Glucose 150 H 03/12/20 04:15: Hgb 7.8 L, Hct 25.6 L, Plt Count 236 03/12/20 04:15: Sodium 142, Potassium 3.3 L, Chloride 105, Carbon Dioxide 30, Anion Gap 10, BUN 21 H, Creatinine 0.98, Estimated GFR (MDRD) 54, Glucose 53 L* , Calcium 9.1, Magnesium 2.3 03/11/20 20:52: POC Glucose 266 H 03/11/20 15:34: POC Glucose 312 H 03/11/20 11:15: POC Glucose 275 H Status: lab reviewed by me A/P - Problem (1) Anemia Current Visit: Yes Code(s): D64.9 - ANEMIA, UNSPECIFIED Status: Chronic Qualifiers: - Plan Plan: continue weekly retacrit 40,000 units SC. due tomorrow CBC before retacrit, hold for hgb > 11.
[2020-03-12] MEDS ORDERED: Iopamidol 370 76% 100 ML VIAL ONE (10:45)
--- NOTE | 2020-03-12 13:29 | DIS ---
DATE OF ADMISSION: 03/03/2020 DATE OF DISCHARGE: 03/12/2020 [facility]GE DISPOSITION: [facility] FOLLOWUP: 1. With primary care physician, Dr. Carlos Mai in [place] in 1 week. 2. With Electrophysiology, Dr. Vázquez as scheduled. 3. With Orthopedic, Dr. Lyn. ALLERGIES: THE PATIENT IS ALLERGIC TO SULFA. THE PATIENT WAS SEEN AND EXAMINED ON THE DAY OF DISCHARGE. DENIES ANY NEW COMPLAINTS. NO CHEST PAIN, SHORTNESS OF BREATH, OR PALPITATIONS. MEDICATIONS: Discontinued this admission is amiodarone. Torsemide dose was reduced to 20 mg b.i.d. The patient will complete Keflex 500 mg 3 times daily for 2 weeks per Infectious Disease. The patient will continue carvedilol 6.25 mg b.i.d. All other home medications were left unchanged. BRIEF HOSPITAL COURSE: The patient is an 84-year-old female with atrial fibrillation, on anticoagulation, presented to the emergency room with generalized weakness along with altered mentation. The patient had a fall approximately 1 week prior to admission. She had a laceration to the right upper extremity. She was found to have a wound infection along with hematoma. The patient was evaluated by orthopedic surgeon who recommended surgical debridement. However, the family declined consent for anesthesia. For this reason, the wound was managed conservatively. The patient received wound care during this hospital stay. The patient was also evaluated by Infectious Disease who recommended to continue ceftriaxone while inpatient and to switch to Keflex 500 mg 3 times daily for 2 weeks at discharge. The patient had altered mentation that have significantly improved. The patient was found to have anemia probably secondary to acute blood loss from hematoma. She received blood transfusion along with IV iron this hospitalization. She was evaluated by Oncology Service and was also started on Procrit. The patient was found to have acute kidney injury with creatinine of 1.5 on admission that has improved to 0.98 at discharge. She also had some electrolyte abnormalities, which has been replaced. The patient was evaluated by Electrophysiology due to possible near syncope. Her device was interrogated and was functioning appropriately. Amiodarone was discontinued this admission. Torsemide dose has been reduced to 20 mg b.i.d. She will benefit from monitoring chemistries every 3 to 4 days. Overall, the patient has done well during this hospital stay. She had a delay in discharge due to insurance approval for inpatient rehab. However, the rehab was declined by insurance. She was approved at shelter facility today. FINAL DIAGNOSES: 1. Generalized weakness/near syncope causing recurrent falls. 2. Methicillin-sensitive Staphylococcus aureus infection in the right upper extremity with hematoma due to fall. The patient will continue Keflex for 2 weeks. She completed ceftriaxone during this hospital stay. 3. Toxic metabolic encephalopathy, improving. 4. Anemia due to acute blood loss, status post 1 unit of PRBC. She also received IV iron and Procrit. 5. History of pancreatic mass. The patient had a repeat CT scan of the abdomen that showed stable pancreatic mass. She will require a CT scan or MRI of the abdomen every 2 years. 6. Acute kidney injury on chronic kidney disease stage 3, improved. 7. Hypokalemia, replaced. 8. Paroxysmal atrial fibrillation. Anticoagulation was held initially due to hematoma. This has been restarted more than 48 hours ago without any new complications. 9. Physical deconditioning. 10. Labile diabetes mellitus type 2. 11. Chronic systolic heart failure, compensated. 12. Anemia of chronic disease. 13. Constipation with ileus, resolved. 14. Hypomagnesemia, replaced. TIME SPENT: Time coordinating the discharge of this patient was 37 minutes. Job ID: [id number]
[2020-03-13] MEDS ORDERED: EPOETIN ALFA-EPBX (ESRD) 40,000 UNIT/ML VIAL SC SCH (09:00)
== END 2020-03-12 16:00 | disposition swing bed (61) | DRG 604 ==
LOC: ERS 14:31 → ERHOLD 18:20 → 2NO 22:11 → ONC 03-09 16:45
PROVIDERS: ADMIT Internal Medicine; ATTEND Internal Medicine
PROC: 30233N1 Transfusion of Nonautologous Red Blood Cells into Peripheral Vein, Percutaneous Approach (ICD-10-PCS; principal; 2020-03-03)
PROC: 4B02XTZ Measurement of Cardiac Defibrillator, External Approach (ICD-10-PCS; 2020-03-05)
DX: S51.811A Laceration without foreign body of right forearm, initial encounter (principal); G92 Toxic encephalopathy; D62 Acute posthemorrhagic anemia; N17.9 Acute kidney failure, unspecified; I13.0 Hypertensive heart and chronic kidney disease with heart failure and stage 1 through stage 4 chronic kidney disease, or unspecified chronic kidney disease; I50.22 Chronic systolic (congestive) heart failure; K56.7 Ileus, unspecified; I42.9 Cardiomyopathy, unspecified; Z11.59 Encounter for screening for other viral diseases; S40.021A Contusion of right upper arm, initial encounter; B95.61 Methicillin susceptible Staphylococcus aureus infection as the cause of diseases classified elsewhere; K86.89 Other specified diseases of pancreas; N18.3 Chronic kidney disease, stage 3 (moderate); E87.6 Hypokalemia; I48.0 Paroxysmal atrial fibrillation; E11.22 Type 2 diabetes mellitus with diabetic chronic kidney disease; K59.00 Constipation, unspecified; D63.1 Anemia in chronic kidney disease; E83.42 Hypomagnesemia; I25.10 Atherosclerotic heart disease of native coronary artery without angina pectoris; I25.5 Ischemic cardiomyopathy; M19.90 Unspecified osteoarthritis, unspecified site; W18.30XA Fall on same level, unspecified, initial encounter; R29.6 Repeated falls; Z91.81 History of falling; Z79.899 Other long term (current) drug therapy; Z79.4 Long term (current) use of insulin; Z95.810 Presence of automatic (implantable) cardiac defibrillator; Z95.5 Presence of coronary angioplasty implant and graft; Z90.12 Acquired absence of left breast and nipple; Z79.01 Long term (current) use of anticoagulants; Z85.3 Personal history of malignant neoplasm of breast; Z88.2 Allergy status to sulfonamides; Z53.8 Procedure and treatment not carried out for other reasons
CPT/HCPCS: 36415; 36416; 36430; 51702; 70450; 74019; 74022; 74178; 80048; 80053; 80069; 80202; 81003; 83605; 83735; 83880; 84145; 84484; 85014; 85018; 85025; 85049; 85610; 85730; 86850; 86900; 86901; 87040; 87070; 87077; 87086; 87186; 87205; 87635; 93005; 96365; 96375; J0690; J0696; J1815; J1940; J2060; J2916; J3010; J3370; J3475; J3480; J3490; J7050; P9016; Q5105; Q9967; U0003

== ENCOUNTER 2020-05-11 15:31 | Inpatient (IN) | payer MEDICARE, OTHER ==
--- NOTE | 2020-05-11 16:38 | ULT ---
EXAM: Bilateral lower extremity venous ultrasound HISTORY: Evaluate for thrombus. Edema. COMPARISON: None TECHNIQUE: Multiplanar grayscale and color Doppler images were obtained in a bilateral lower extremit y venous ultrasound. Spectral analysis of the Doppler waveforms were performed. FINDINGS: The bilateral common femoral vein, profunda femoral veins, superficial femoral veins, and p opliteal veins are normal in appearance without visible thrombus. These vessels demonstrate normal compression, flow, and augmentation. The left posterior tibial veins, bilateral profunda femoral veins and bilateral greater saphenous vei ns are patent without evidence of DVT. The proximal right posterior tibial vein is patent. Mid and distal right posterior tibial vein are not visualized on the exam. There is soft tissue swelling in the distal left lower extremity. IMPRESSION: 1. No evidence of DVT in the visualized left or right lower extremity. 2. Soft tissue swelling the distal left lower extremity.
--- NOTE | 2020-05-11 17:26 | PDOC.HHP ---
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 She was recently admitted on 03/13/2020 and discharged on 03/26/2020 on account of multiple conditions including open wound on right elbow, ischemic cardiomyopathy. She lives alone with family nearby. This morning her daughter found her on the floor unresponsive and EMS was activated. She is unsure when she fell or how long she was on the ground. Her blood sugar was found to be 40 and she was given dextrose which restored her sugars. She was sent to [facility] ED where she was initially managed for sepsis with vancomycin and cefepime and IV fluids. She was transferred here for higher level care. Patient complains of general weakness. She also complains of bilateral leg wounds 1 noted a month ago on the right and the left occurred a week ago after she fell down. She also complains of pain in her left elbow. She denies any fevers or chills. She has mild hyponatremia of 147, BNP elevated at thousand 209 dropped from a previous level of 3000. Chest x-ray shows vascular congestion with small pleural effusions. CT scan of the head and neck showed no acute events There is air increased density in the right hilar region of unclear significance. Her urine had only 4+ bacteria however nitrate was positive digoxin level was 1.28 Hospitalist team was consulted to admit the patient. Hospitalist ROS - Review of Systems Constitutional: reports: weakness. denies: fever, chills, sweats Cardiovascular: denies: chest pain, palpitations, orthopnea, paroxysmal noc. dyspnea Gastrointestinal: denies: nausea, vomiting, abdominal pain Genitourinary: denies: dysuria, frequency, incontinence Neurological: denies: weakness, numbness, incoordination - Exam General Appearance: awake alert Heart - other findings: S1-S2 present. No murmurs gallops or rubs. Respiratory - other findings: Entry adequate bilaterally Gastrointestinal - other findings: Soft, nontender. Bowel sounds present normal. Extremities - other findings: Bilateral erythema of legs worse on the right. Neurological: cranial nerve grossly intact, no focal deficits Psychiatric: A&O x 3 Hospitalist H&P A/P - Plan Plan: 84-year-old female with history of breast cancer status post left mastectomy, type 2 diabetes mellitus, heart failure, A. fib presenting after she was found on the floor with hypoglycemic. She will be admitted on account of sepsis of possible urinary lung origin. Possible sepsis And hypothermia at initial presentation, altered mental status Cellulitis/UTI She received IV fluids and Vanco and cefepime in the outside facility. We will continue with antibiotics Hold IV fluids for now given history of heart failure and congestion on x-ray Follow-up on culturesurine and blood Close monitoring. Acute encephalopathy Likely secondary to hypoglycemia Currently resolved We will monitor. Urinary tract infection Mildly increased WBCs however nitrates positive as well. This will be covered on Vanco and cefepime Will await cultures. Bilateral lower limb cellulitis Continue antibiotics as above Wound care Right lung hilar infiltrate Noted on chest x-ray of unclear significance We will monitor this. Acute heart failure BNP elevated at thousand 209 from 3000 Mild hyponatremia Sodium 147 Possible hepatitis Alkaline phosphatase 112, AST 47 next UTI Hyponatremia Mild we will monitor Atrial fibrillation Continue apixaban History of breast cancer Anemia Hemoglobin stable above 11 Hypoglycemia Resolved Monitor glucose Generally poor clinical state. Physical therapy ordered Palliative care to reassesswas assessed on last admission DVT prophylaxistherapeutic on apixaban CODE STATUS full code
[2020-05-11] MEDS ORDERED: Acetaminophen 650 MG Suppository PR PRN (17:53)
[2020-05-11] MEDS ORDERED: Dextrose 5% in Water 1,000 ML IV PRN (17:53)
[2020-05-11] MEDS ORDERED: Dextrose 50% Abboject 50 ML SYRINGE SLOW IVP PRN (17:53)
[2020-05-11] MEDS: Sodium Chloride 0.9% 1,000 ML IV SCH (20:06)
[2020-05-11 20:40] VITALS: BMI 24.7
[2020-05-11] MEDS ORDERED: Vancomycin HCl 500 MG in Sodium Chloride 0.9% 100 ML IVPB SCH (21:30)
[2020-05-12] MEDS: diphenhydrAMINE 25 MG CAP PO PRN (00:12)
[2020-05-12] MEDS ORDERED: Vancomycin 1 GM in Premix Bag 1 BAG IVPB SCH ×2 (02:00→15:00)
[2020-05-12] MEDS: Cefepime 1 GM in Sodium Chloride 0.9% 100 ML IVPB SCH ×2 (02:39→14:14)
[2020-05-12] MEDS: Acetaminophen 325 MG TAB PO PRN (02:49)
[2020-05-12] MEDS ORDERED: hydrOXYzine 25 MG TAB PO PRN (03:54)
[2020-05-12 06:16] LABS: Anisocytosis MODERATE=16-30 cells (100X) (0-5/hpf); Band 17 % (5-11); Elliptocytes SLIGHT = 2-5 cells (100X) (0-1/hpf); Eosinophils 11 % (0-10); Hemoglobin 10.4 g/dL (12.0-16.0); Lymphocytes 16 % (21-51); MDiff Complete? YES; Macrocytosis SLIGHT = 6-15 cells (100X) (0-5/hpf); Mean Corpuscular HGB CONC 29.9 g/dL (32.0-36.0); Mean Corpuscular Hemoglobin 34.1 pg (27.0-31.0); Mean Platelet Volume 9.7 fL (7.4-10.4); Monocytes 5 % (0-10); Neutrophil 51 % (42-75); Platelet Count 195 thou/uL (130-400); RBC Distribution Width 24.7 % (11.5-14.5); Red Blood Cell (RBC) Count 3.06 mill/uL (4.20-5.40); White Blood Cell (WBC) Count 5.4 thou/uL (4.8-10.8)
[2020-05-12 06:23] LABS: Anion Gap 15 mmol/L (10-20); BUN (Urea Nitrogen) 26 mg/dL (9.8-20.1); Calc. Creatinine Clearance 36 mL/min (70-130); Calcium 8.3 mg/dL (7.8-10.44); Carbon Dioxide 22 mmol/L (23-31); Chloride 110 mmol/L (98-107); Estimated GFR-MDRD 42; Glucose 238 mg/dL (83-110); Potassium 3.8 mmol/L (3.5-5.1); Sodium 143 mmol/L (136-145)
[2020-05-12] MEDS: Sodium Chloride 0.9% 1,000 ML IV SCH ×2 (08:45→21:11)
[2020-05-12] MEDS ORDERED: Temazepam 15 MG CAP PO PRN (12:09)
[2020-05-12] MEDS: HumaLOG 300 UNITS/3 ML VIAL SC PRN ×2 (12:38→16:41)
[2020-05-12] MEDS ORDERED: Torsemide 20 MG TAB PO SCH (14:00)
--- NOTE | 2020-05-12 14:55 | PDOC.HOSPP ---
- Subjective Encounter Date: 05/12/20 Encounter Time: 14:51 Subjective: Patient was seen and examined in bed. She was noted to have some hallucinations overnight. She denies any chest pain or shortness of breath. Complains of bugs crawling on his skin. - Objective Vital Signs & Weight: Vital Signs (12 hours) Temp Pulse Resp BP BP Pulse Ox 05/12/20 12:00 97.4 F L 69 18 136/74 92 L 05/12/20 08:00 93 L 05/12/20 07:23 97.3 F L 66 20 146/77 H 92 L 05/12/20 04:00 98.2 F 61 20 152/74 H 93 L Weight Admit Weight 148 lb 8.96 oz Weight 148 lb 9 oz Result Diagrams: 05/12/20 05:20 05/12/20 05:20 Additional Labs: Accuchecks 05/12/20 11:48 POC Glucose 301 H Hospitalist ROS - Medication Medications: Active Medications Generic Name Dose Route Start Last Admin Trade Name Freq PRN Reason Stop Dose Admin Acetaminophen 650 mg 05/12/20 02:46 05/12/20 02:49 Acetaminophen 325 Mg Tab PO 650 mg Q4H PRN Administration Headache/Fever or Pain Diphenhydramine HCl 25 mg 05/12/20 00:02 05/12/20 00:12 Diphenhydramine 25 Mg Cap PO 25 mg Q6H PRN Administration Itching & Insomnia Sodium Chloride 1,000 mls @ 75 mls/hr 05/11/20 18:30 05/12/20 08:45 Normal Saline 0.9% IV 1,000 mls .[id number] YANI Administration Cefepime HCl 1 gm/ Sodium 100 mls @ 200 mls/hr 05/12/20 02:00 05/12/20 14:14 Chloride IVPB 100 mls 0200,1400 YANI Administration Insulin Human Lispro 0 units 05/11/20 17:53 05/12/20 12:38 Humalog 300 Units/3 Ml Vial SC 5 unit .MILD SLIDING SCALE PRN Administration Mild Correctional Scale - Exam General - other findings: Patient in bed, no acute distress Heart: RRR, no murmur, no gallops, no rubs Respiratory: no wheezes, no rales, no ronchi, normal chest expansion Gastrointestinal: soft, non-tender, non-distended, normal bowel sounds Extremities: no cyanosis, no clubbing, 1+ LE edema Extremities - other findings: Bilateral leg erythema worse on the right. Wound on right leg Psychiatric - other findings: Oriented to self but not place and time. Generally confused. Hosp A/P - Plan 84-year-old female with history of breast cancer status post left mastectomy, type 2 diabetes mellitus, dementia, heart failure, A. fib presenting after she was found on the floor with hypoglycemic. She will be admitted on account of sepsis of possible urinary lung origin or cellulitis source. Cellulitis significantly improved today. Urine growing presumptive Klebsiella/enterococcus. I had a discussion with her daughter who request oncology to come about her mother's management today given ongoing treatment. Possible sepsis And hypothermia at initial presentation, altered mental status Cellulitis/UTI Urine growing presumptive Klebsiella/enterococcus She received IV fluids and Vanco and cefepime in the outside facility. We will continue with antibiotics Will await failure susceptibility/characterization of cultures Close monitoring. Acute encephalopathy Likely secondary to hypoglycemia/sepsis Currently resolved We will monitor. Urinary tract infection Possible enterococcus/Klebsiella Mildly increased WBCs however nitrates positive as well. This will be covered on Vanco and cefepime Will await cultures. Bilateral lower limb cellulitis Continue antibiotics as above Wound care Right lung hilar infiltrate Noted on chest x-ray of unclear significance We will monitor this. Acute heart failure BNP elevated at 1209 from 3000 This may be significant improvement from previous Started home torsemide We will change to IV Lasix 40 mg daily Monitor urine output Monitor electrolytes Mild hypernatremia Sodium 147 at presentation [id number] today Continue monitor Possible hepatitis Alkaline phosphatase 112, AST 47 next Atrial fibrillation Continue apixaban History of breast cancer Status post left mastectomy Consult oncology Left arm edema Secondary to mastectomy Stable Anemia Hemoglobin stable above 11 Today 10.4 Continue monitoring Hypoglycemia Resolved Monitor glucose Delirium Likely secondary to sepsis/hospital stay Monitor closelyencourage orientation Consider Zyprexa patient cannot agitated. Dementia Having confusion and hallucinations We will monitor Generally poor clinical state. Physical therapy ordered Palliative care to reassesswas assessed on last admission DVT prophylaxistherapeutic on apixaban CODE STATUS full code
[2020-05-12 15:03] LABS: SARS-CoV-2 MS2 Positive; SARS-CoV-2 N Gene Negative; SARS-CoV-2 S Gene Negative; SARS-CoV-2 by NAA Not Detected (NotDetected); SARS-CoV-2 orf1ab Negative
[2020-05-12] MEDS ORDERED: Furosemide 40 MG/4 ML VIAL SLOW IVP SCH (16:00)
[2020-05-12] MEDS: Carvedilol 6.25 MG TAB PO SCH (16:40)
[2020-05-12] MEDS: Senokot S 8.6-50 MG TAB PO SCH (20:24)
[2020-05-12] MEDS: Apixaban 2.5 MG TAB PO SCH (20:24)
--- NOTE | 2020-05-12 20:42 | CON ---
DATE OF CONSULTATION: REASON FOR CONSULT: Breast cancer. HISTORY OF PRESENT ILLNESS: Ms. Damon is an 84-year-old female, who has a past medical history of triple-negative breast cancer, status post mastectomy, who presented to the emergency room for a fall and altered mental status. She underwent a brain and cervical spine CT, which showed no acute finding. She had 4+ bacteria in her urine with positive nitrite. She was admitted for altered mental status, started on empiric antibiotics. Patient was diagnosed with breast cancer in 2016. She underwent mastectomy with axillary lymph node dissection. She continues to have left lymphedema. She has been followed by our clinic for several years. She has a history of a chronic kidney disease and congestive heart failure with pacemaker placement. She receives Procrit injections every two weeks. Her last injection was on April 29. On admission, her hemoglobin was 11.7. She was seen at bedside and remains confused. She is oriented to person only. She has no complaints, except for lymphedema in her left arm. PAST MEDICAL HISTORY: 1. Triple negative breast cancer, status post bilateral mastectomy. 2. Congestive heart failure with pacemaker placement. 3. Atrial fibrillation. 4. Diabetes mellitus 2. 5. Anemia of chronic renal insufficiency. 6. History of urinary tract infections. 7. Arthritis. 8. Hypertension. PAST SURGICAL HISTORY: Bilateral mastectomy, hysterectomy, cardiac stent placement, and pacemaker placement. ALLERGIES: SULFA. HOME MEDICATIONS: 1. Potassium. 2. Lantus. 3. Losartan. 4. Temazepam. 5. Coreg. 6. Demadex. 7. Eliquis. 8. Folvite. 9. MiraLAX. 10. Protonix. 11. Retacrit. 12. B12. FAMILY HISTORY: Noncontributory. SOCIAL HISTORY: She is , has 2 children. Lives alone but close to a daughter. No alcohol, tobacco, or illicit drug use. REVIEW OF SYSTEMS: A 10-point review of systems is negative, except for noted in the HPI. PHYSICAL EXAMINATION: VITAL SIGNS: Temperature 97.4, pulse is 69, respiratory rate 18, BP is 136/74, and she is 92% on room air. GENERAL: A well-developed, well-nourished female, in no acute distress. HEENT: Normocephalic and atraumatic. Pupils are equal and reactive to light. NECK: Supple. CVS: Regular rate and rhythm. LUNGS: Clear. ABDOMEN: Soft and nontender. Bowel sounds are positive. EXTREMITIES: She has left upper extremity lymph edema. SKIN: She has edematous wounds on her bilateral lower extremities with dressings intact. NEUROLOGIC: Nonfocal. PSYCH: She is oriented to person only. PERTINENT LABS AND X-RAYS: Current WBCs are 5.4, hemoglobin 10.4, hematocrit 34.8, platelet count is 195,000, she has 51% neutrophils, 17% bands, and 16% lymphocytes. PT is 15.9, INR is 1.3. Sodium 143, potassium 3.8, chloride 110, CO2 is 22, BUN is 26, creatinine 1.21, calcium is 8.3, bilirubin is 1.6, AST is 47, ALT is 34, and alk phos is 112. Serum total protein is 6.7, albumin 3.9, globulin 2.8, and lipase 24. TSH is normal. Urine shows 4+ bacteria with positive nitrite. Radiology: Per HPI. ASSESSMENT: 1. Urinary tract infection. 2. Toxic metabolic encephalopathy. 3. History of triple-negative breast cancer. 4. Congestive heart failure. DISCUSSION: Patient has been treated with appropriate antibiotics and is receiving IV fluids. She had a Procrit shot on April 29. Her hemoglobin today is 10.4. We will recheck her CBC tomorrow and if needed can give her Procrit here. No further recommendations. Thank you for the consult. Job ID: [id number]
[2020-05-12] MEDS ORDERED: Insulin Glargine 12 UNITS in Pre-Filled Syringe 1 EACH SC SCH (21:00)
[2020-05-13] MEDS: Cefepime 1 GM in Sodium Chloride 0.9% 100 ML IVPB SCH ×2 (01:33→13:38)
[2020-05-13] MEDS: Acetaminophen 325 MG TAB PO PRN ×2 (01:34→21:47)
[2020-05-13] MEDS: diphenhydrAMINE 25 MG CAP PO PRN (01:34)
[2020-05-13] MEDS: Sodium Chloride 0.9% 1,000 ML IV SCH (06:07)
[2020-05-13 06:33] LABS: Anion Gap 19 mmol/L (10-20); BUN (Urea Nitrogen) 21 mg/dL (9.8-20.1); Calc. Creatinine Clearance 43 mL/min (70-130); Calcium 8.3 mg/dL (7.8-10.44); Carbon Dioxide 17 mmol/L (23-31); Chloride 111 mmol/L (98-107); Estimated GFR-MDRD 53; Glucose 176 mg/dL (83-110); Potassium 3.5 mmol/L (3.5-5.1); Sodium 143 mmol/L (136-145)
[2020-05-13 06:43] LABS: #Eosinphils 0.6 thou/uL (0.0-0.7); #Lymphocytes 1.5 thou/uL (1.20-3.40); #Monocytes 0.4 thou/uL (0.11-0.59); #Neutrophils 3.8 thou/uL (1.40-6.50); %Basophils 0.1 % (0.0-1.0); %Lymphocytes 23.3 % (21.0-51.0); %Monocytes 6.7 % (0.0-10.0); %Neutrophils 59.9 % (42.0-75.0); Anisocytosis MODERATE=16-30 cells (100X) (0-5/hpf); Hemoglobin 11.6 g/dL (12.0-16.0); MDiff Complete? YES; Macrocytosis SLIGHT = 6-15 cells (100X) (0-5/hpf); Mean Corpuscular HGB CONC 31.2 g/dL (32.0-36.0); Mean Corpuscular Hemoglobin 35.9 pg (27.0-31.0); Mean Platelet Volume 10.2 fL (7.4-10.4); Platelet Count 189 thou/uL (130-400); RBC Distribution Width 24.5 % (11.5-14.5); Red Blood Cell (RBC) Count 3.24 mill/uL (4.20-5.40); White Blood Cell (WBC) Count 6.4 thou/uL (4.8-10.8)
[2020-05-13] MEDS: Folic Acid 1 MG TAB PO SCH (08:01)
[2020-05-13] MEDS: Carvedilol 6.25 MG TAB PO SCH ×2 (08:01→16:30)
[2020-05-13] MEDS: Thiamine 100 MG TAB PO SCH (08:02)
[2020-05-13] MEDS: Polyethylene Glycol 3350 17 GM Packet PO SCH (08:02)
[2020-05-13] MEDS: Senokot S 8.6-50 MG TAB PO SCH ×2 (08:02→20:32)
[2020-05-13] MEDS: Apixaban 2.5 MG TAB PO SCH ×2 (08:02→20:33)
[2020-05-13] MEDS: Latanoprost 0.005% Ophth Soln 2.5 ml Bottle EA EYE SCH (09:43)
[2020-05-13] MEDS ORDERED: Sodium Chloride 0.9% 1,000 ML IV SCH (12:04)
[2020-05-13] MEDS: HumaLOG 300 UNITS/3 ML VIAL SC PRN ×2 (12:07→16:36)
[2020-05-13 14:31] LABS: Vancomycin, Trough 9.4 ug/mL
--- NOTE | 2020-05-13 14:35 | PDOC.HOSPP ---
- Subjective Encounter Date: 05/13/20 Encounter Time: 12:00 Subjective: Patient seen and examined for altered mentation due to UTI with cellulitis. Mentation slowly improving. No overnight events. No fever or chills reported. - Objective Vital Signs & Weight: Vital Signs (12 hours) Temp Pulse Resp BP BP BP Pulse Ox 05/13/20 08:01 168/78 H 05/13/20 08:00 94 L 05/13/20 07:18 96.9 F L 73 18 168/78 H 92 L 05/13/20 04:00 97.4 F L 62 20 135/80 92 L Weight Admit Weight 148 lb 8.96 oz Weight 148 lb 9 oz I&O: 05/12/20 05/13/20 05/14/20 06:59 06:59 06:59 Intake Total 1380 Balance 1380 Result Diagrams: 05/13/20 05:56 05/13/20 05:56 Additional Labs: Accuchecks 05/13/20 05/13/20 05/13/20 11:24 04:27 00:44 POC Glucose 245 H 172 H 175 H 05/12/20 05/12/20 05/11/20 19:02 16:20 20:42 POC Glucose 208 H 204 H 230 H Microbiology 05/11/20 14:23 Urine voided Urine Culture - Preliminary Klebsiella pneumoniae ssp pneu 05/11/20 13:30 Venous blood - Neck Blood Culture - Preliminary NO GROWTH AT 48 HOURS 05/11/20 13:05 Venous blood - Right Hand Blood Culture - Preliminary NO GROWTH AT 48 HOURS Radiology Reviewed by me: Yes (Chest x-raynegative for infiltrate) Hospitalist ROS - Review of Systems ROS unobtainable: due to mental status - Medication Medications: Active Medications Generic Name Dose Route Start Last Admin Trade Name Freq PRN Reason Stop Dose Admin Acetaminophen 650 mg 05/12/20 02:46 05/13/20 01:34 Acetaminophen 325 Mg Tab PO 650 mg Q4H PRN Administration Headache/Fever or Pain Apixaban 2.5 mg 05/12/20 21:00 05/13/20 08:02 Apixaban 2.5 Mg Tab PO 2.5 mg BID YANI Administration Carvedilol 6.25 mg 05/12/20 17:00 05/13/20 08:01 Carvedilol 6.25 Mg Tab PO 6.25 mg BID-WM YANI Administration Folic Acid 1 mg 05/13/20 09:00 05/13/20 08:01 Folic Acid 1 Mg Tab PO 1 mg DAILY YANI Administration Cefepime HCl 1 gm/ Sodium 100 mls @ 200 mls/hr 05/12/20 02:00 05/13/20 13:38 Chloride IVPB 100 mls 0200,1400 YANI Administration Vancomycin HCl 1 gm/ Device 200 mls @ 200 mls/hr 05/12/20 15:00 05/12/20 15:0 7 IVPB 200 mls 1500 YANI Administration Insulin Human Lispro 0 units 05/11/20 17:53 05/13/20 12:07 Humalog 300 Units/3 Ml Vial SC 3 unit .MILD SLIDING SCALE PRN Administration Mild Correctional Scale Latanoprost 1 drop 05/13/20 09:00 05/13/20 09:43 Latanoprost 0.005% Ophth Soln 2.5 Ml Bottle EA EYE 1 drp DAILY YANI Administration Pantoprazole Sodium 40 mg 05/13/20 09:00 05/13/20 08:01 Pantoprazole 40 Mg Tab PO 40 mg DAILY YANI Administration Polyethylene Glycol 17 gm 05/13/20 09:00 05/13/20 08:02 Polyethylene Glycol 3350 17 Gm Packet PO 17 gm DAILY YANI Administration Senna/Docusate Sodium 1 tab 05/12/20 21:00 05/13/20 08:02 Senokot S 8.6-50 Mg Tab PO 1 tab BID YANI Administration Sodium Chloride 10 ml 05/12/20 21:00 05/13/20 08:02 Flush - Normal Saline 10 Ml Syringe IVF 10 ml Q12HR YANI Administration Thiamine HCl 100 mg 05/13/20 09:00 05/13/20 08:02 Thiamine 100 Mg Tab PO 100 mg DAILY YANI Administration - Exam General Appearance: ill appearing Neck: supple, no JVD Heart: no gallops, no rubs Respiratory: no rales, no ronchi Gastrointestinal: non-tender, normal bowel sounds, no guarding Extremities: no cyanosis, no clubbing Extremities - other findings: Improving erythema in bilateral lower extremity Neurological: no new deficit Musculoskeletal: generalized weakness Hosp A/P (1) Toxic metabolic encephalopathy Code(s): G92 - TOXIC ENCEPHALOPATHY Status: Acute (2) Hypoglycemia associated with type 2 diabetes mellitus Code(s): E11.649 - TYPE 2 DIABETES MELLITUS WITH HYPOGLYCEMIA WITHOUT COMA Status: Acute (3) Sepsis Code(s): A41.9 - SEPSIS, UNSPECIFIED ORGANISM Status: Acute (4) UTI due to Klebsiella species Code(s): N39.0 - URINARY TRACT INFECTION, SITE NOT SPECIFIED; B96.89 - OTH BACTERIAL AGENTS THE CAUSE OF DISEASES CLASSD ELSWHR Status: Acute (5) Cellulitis of both lower extremities Code(s): L03.115 - CELLULITIS OF RIGHT LOWER LIMB; L03.116 - CELLULITIS OF LEFT LOWER LIMB Status: Acute (6) Anemia Code(s): D64.9 - ANEMIA, UNSPECIFIED Status: Chronic Qualifiers: Iron deficiency anemia type: inadequate dietary iron intake (7) CHF (congestive heart failure) Code(s): I50.9 - HEART FAILURE, UNSPECIFIED Status: Chronic Qualifiers: Heart failure type: systolic (8) DM2 (diabetes mellitus, type 2) Status: Chronic Qualifiers: Chronic kidney disease stage: stage 3 (moderate) (9) HTN (hypertension) Code(s): I10 - ESSENTIAL (PRIMARY) HYPERTENSION Status: Chronic (10) Afib Code(s): I48.91 - UNSPECIFIED ATRIAL FIBRILLATION Status: Acute - Plan plan discussed w/ family (Daughter) 05/13 Discussed extensively with patient's daughter over. Patient had blood sugar of 40 at home prior to admission. Lower extremity erythema is improving. Continue IV vancomycin with cefepime. Urine culture positive for Klebsiella. Continue wound care. Skilled facility evaluation. Continue other medications as above. Will discontinue IV Lasix and IV fluids. Continue physical therapy. Patient was probably not in acute congestive heart failure exacerbation on admission.
[2020-05-13] MEDS: Vancomycin 1.5 GRAM/300 ML BAG 1.5 GM in Premix Bag 1 BAG IVPB SCH (15:00)
[2020-05-13] MEDS ORDERED: Insulin Glargine 5 UNITS in Pre-Filled Syringe SC SCH (19:45)
[2020-05-14] MEDS: Acetaminophen 325 MG TAB PO PRN (01:47)
[2020-05-14] MEDS: Cefepime 1 GM in Sodium Chloride 0.9% 100 ML IVPB SCH ×2 (01:47→14:16)
[2020-05-14 06:14] LABS: Anion Gap 15 mmol/L (10-20); BUN (Urea Nitrogen) 20 mg/dL (9.8-20.1); Calc. Creatinine Clearance 46 mL/min (70-130); Calcium 8.7 mg/dL (7.8-10.44); Carbon Dioxide 22 mmol/L (23-31); Chloride 112 mmol/L (98-107); Estimated GFR-MDRD 57; Glucose 121 mg/dL (83-110); Magnesium 2.2 mg/dL (1.6-2.6); Phosphorus 2.7 mg/dL (2.3-4.7); Potassium 3.6 mmol/L (3.5-5.1); Sodium 145 mmol/L (136-145)
[2020-05-14 06:24] LABS: Band 12 % (5-11); Eosinophils 6 % (0-10); Hemoglobin 12.2 g/dL (12.0-16.0); Lymphocytes 26 % (21-51); MDiff Complete? YES; Mean Corpuscular HGB CONC 31.4 g/dL (32.0-36.0); Mean Corpuscular Hemoglobin 35.8 pg (27.0-31.0); Mean Platelet Volume 9.9 fL (7.4-10.4); Monocytes 12 % (0-10); Neutrophil 44 % (42-75); Platelet Count 217 thou/uL (130-400); RBC Distribution Width 24.4 % (11.5-14.5); Red Blood Cell (RBC) Count 3.42 mill/uL (4.20-5.40); White Blood Cell (WBC) Count 6.2 thou/uL (4.8-10.8)
[2020-05-14] MEDS: Carvedilol 6.25 MG TAB PO SCH ×2 (09:26→16:52)
[2020-05-14] MEDS: Cyanocobalamin (Vitamin B-12) 1,000 MCG TAB PO SCH (09:28)
[2020-05-14] MEDS: Saccharomyces boulardii 250 MG CAP PO SCH (09:28)
[2020-05-14] MEDS: Folic Acid 1 MG TAB PO SCH (09:28)
[2020-05-14] MEDS: Thiamine 100 MG TAB PO SCH (09:29)
[2020-05-14] MEDS: Multivit, Therapeutic 1 TAB PO SCH (09:29)
[2020-05-14] MEDS: Senokot S 8.6-50 MG TAB PO SCH ×2 (09:29→19:57)
[2020-05-14] MEDS: Latanoprost 0.005% Ophth Soln 2.5 ml Bottle EA EYE SCH (09:31)
[2020-05-14] MEDS: Apixaban 2.5 MG TAB PO SCH ×2 (09:43→20:13)
[2020-05-14] MEDS: Insulin Glargine 12 UNITS in Pre-Filled Syringe 1 EACH SC SCH (09:43)
[2020-05-14] MEDS: Polyethylene Glycol 3350 17 GM Packet PO SCH (10:13)
[2020-05-14] MEDS: HumaLOG 300 UNITS/3 ML VIAL SC PRN (13:12)
[2020-05-14] MEDS: Vancomycin 1.5 GRAM/300 ML BAG 1.5 GM in Premix Bag 1 BAG IVPB SCH (15:38)
--- NOTE | 2020-05-14 17:27 | CON ---
DATE OF CONSULTATION: 05/14/2020 REASON FOR CONSULTATION: Possible sepsis. HISTORY OF PRESENT ILLNESS: An 84-year-old whom I had seen in February of this year when she presented with a history of coronary artery disease with AICD in place, type 2 diabetes, hypertension, and a fall episode with a right forearm wound and some laceration. She had evidence of decreased ejection fraction and cognitive issues with dementia. Cultures were positive for Staph aureus or strep, but there is not a lot of inflammatory activity noted. She had some abdominal pain at the end of this stay in the hospital, but she had pancreatic cysts, which were unchanged on CT scan. Did not have any suspicious features. The patient was discharged on 03/26. She underwent AICD interrogation, which revealed ongoing atrial fibrillation, and no ventricular tachyarrhythmias were felt to contribute to her fall or confusional state. Consideration for long-term care was given, but the family preferred to bring her back home. She was discharged on Eliquis, losartan, temazepam, Coreg, MiraLAX, Retacrit, torsemide, latanoprost, pantoprazole, B12, and thiamine, so now she comes back, brought to the emergency room when she was found at home on the floor. The EMS was called and her glucose was 40. CT of head and spine did not show any fractures. Her urinalysis was abnormal. She was given IV broad-spectrum antimicrobial coverage with IV fluids and transferred. On arrival, BP 100/80, pulse 64, respirations 17, and O2 saturation 95. The exam showed clear breath sounds. The heart examination was not particularly remarkable. The abdomen exam was unremarkable. She had what is described as cellulitis of the shins, which actually do not agree with that statement as noted in my exam. Currently, Ms. Damon is in the hospital in the 4th floor. She keeps her eyes closed during the exam unless I asked her to open them. She is disoriented, thought that she was in [place] and quite a bit of delusional thinking process going on, very poor recollection of events. She denied any headaches. No sore throat, odynophagia, or dysphagia. No chest pain. No abdominal pain. No genitourinary symptoms. No joint symptoms. MEDICAL HISTORY: 1. Ischemic cardiomyopathy with AICD, EF 15% to 20%. 2. Recurrent falls. 3. Type 2 diabetes. 4. Confusional state. 5. Dementia. 6. Iron deficiency. 7. Hypertension. 8. AFib. 9. Endoscopies with GI bleed. 10. Polypectomy, pedunculated gastric polyp. 11. Pancreatic cysts. ALLERGY HISTORY: Sulfa drugs. SOCIAL HISTORY: Lives with family members. Never smoker. Retired. CURRENT MEDICATIONS: 1. Cefepime. 2. Insulin. 3. Latanoprost. 4. Pantoprazole. 5. Vancomycin. PHYSICAL EXAMINATION: VITAL SIGNS: Temperature normal in the hospital. BP 120/80, pulse 72, respirations 20, and O2 saturation 96 on room air. SKIN: Area of abrasion in the right leg anterior aspect and posterior aspect of the right forearm, probably from the fall. She has a shallow ulceration in the anterior chest area, probably from contusion in the home setting. Peripheral IV access. She is voiding in the diaper. No lymphadenopathy. HEENT: Keeps her eyes closed, but her sclerae appear normal. Pupils are about 1.5 mm, symmetric and reactive. Oral cavity not remarkable. NECK: Supple. No jugular vein distention. BACK: No back tenderness. LUNGS: Symmetric, clear breath sounds. HEART: Diminished heart sounds. S1 and S2 with irregular rate. ABDOMEN: Soft and not distended. No ascites. Question of bladder distention. No organomegaly. EXTREMITIES: No joint inflammatory activity. Pulses 1+ in dorsalis pedis. No edema. She is able to move extremities equally. NEUROLOGIC: She is awake, knows her name, but did not know where she was. She thought she was in [place] and overall the history taking is very limited because of her dementia. LABORATORY DATA: White cell count was 5.4 and now 6.2, hemoglobin 10.4, and platelets 195 with 17% bands, now 12% bands. Creatinine 0.99. The vancomycin trough 9.4. COVID was not detected. Urinalysis with 0 to 3 wbc's, Klebsiella pneumoniae in the urine, voided 75 to 1000 CFUs with a broad susceptibility profile. Chest x-ray, congestive heart failure. Venogram without any evidence of deep vein thrombosis. ASSESSMENT: 1. Ischemic cardiomyopathy with low EF with Automatic implantable cardioverter-defibrillator. 2. Dementia. 3. Type 2 diabetes. 4. Recurrent falls. 5. Bandemia. 6. Hypoglycemia. DISCUSSION: Differential diagnosis includes bacteremia associated with AICD or an alternate process. The urinary tract does not seem to have features that would suggest an invasive process. Monitor blood cultures. If they remain negative, discontinue antimicrobial therapy. Check postvoid residual of urinary bladder. If blood cultures are positive, then we will have to consider AICD colonization. If she does have urinary retention, we will have to be addressed accordingly. Job ID: [id number]
--- NOTE | 2020-05-14 18:15 | PDOC.HOSPP ---
- Subjective Encounter Date: 05/14/20 Encounter Time: 08:30 Subjective: Patient seen and examined for altered mentation. Remains confused. No significant change in clinical condition from yesterday. - Objective Vital Signs & Weight: Vital Signs (12 hours) Temp Pulse Resp BP BP Pulse Ox 05/14/20 16:52 149/80 H 05/14/20 09:26 125/87 05/14/20 08:00 96 05/14/20 07:11 97.6 F 72 20 125/87 96 Weight Admit Weight 148 lb 8.96 oz Weight 148 lb 9 oz I&O: 05/13/20 05/14/20 05/15/20 06:59 06:59 06:59 Intake Total 1380 1100 980 Balance 1380 1100 980 Result Diagrams: 05/14/20 05:33 05/14/20 05:33 Additional Labs: Accuchecks 05/14/20 05/14/20 05/14/20 15:46 11:22 06:05 POC Glucose 167 H 185 H 113 H 05/13/20 20:06 POC Glucose 207 H Microbiology 05/11/20 14:23 Urine voided Urine Culture - Final Klebsiella pneumoniae ssp pneu 05/11/20 13:30 Venous blood - Neck Blood Culture - Preliminary NO GROWTH AT 48 HOURS 05/11/20 13:05 Venous blood - Right Hand Blood Culture - Preliminary NO GROWTH AT 48 HOURS Laboratory Tests 05/12/20 05/14/20 05:20 05:33 Band Neuts % (Manual) 17 H 12 H Radiology Reviewed by me: Yes (Chest x-rayno infiltrate) Hospitalist ROS - Review of Systems ROS unobtainable: due to mental status - Medication Medications: Active Medications Generic Name Dose Route Start Last Admin Trade Name Freq PRN Reason Stop Dose Admin Acetaminophen 650 mg 05/12/20 02:46 05/14/20 01:47 Acetaminophen 325 Mg Tab PO 650 mg Q4H PRN Administration Headache/Fever or Pain Apixaban 2.5 mg 05/12/20 21:00 05/14/20 09:43 Apixaban 2.5 Mg Tab PO 2.5 mg BID YANI Administration Carvedilol 6.25 mg 05/12/20 17:00 05/14/20 16:52 Carvedilol 6.25 Mg Tab PO 6.25 mg BID-WM YANI Administration Cyanocobalamin 1,000 mcg 05/14/20 09:00 05/14/20 09:28 Cyanocobalamin (Vitamin B-12) 1,000 Mcg Tab PO 1,000 mcg DAILY YANI Administration Folic Acid 1 mg 05/13/20 09:00 05/14/20 09:28 Folic Acid 1 Mg Tab PO 1 mg DAILY YANI Administration Insulin Glargine 12 units/ 0.12 mls @ 0 mls/hr 05/14/20 09:00 05/14/20 09:43 Miscellaneous Medication SC 0.12 mls QAM YANI Administration Insulin Human Lispro 0 units 05/11/20 17:53 05/14/20 13:12 Humalog 300 Units/3 Ml Vial SC 2 unit .MILD SLIDING SCALE PRN Administration Mild Correctional Scale Latanoprost 1 drop 05/13/20 09:00 05/14/20 09:31 Latanoprost 0.005% Ophth Soln 2.5 Ml Bottle EA EYE 1 drp DAILY YANI Administration Multivitamins 1 tab 05/14/20 09:00 05/14/20 09:29 Multivit, Therapeutic 1 Tab PO 1 tab DAILY YANI Administration Pantoprazole Sodium 40 mg 05/13/20 09:00 05/14/20 09:28 Pantoprazole 40 Mg Tab PO 40 mg DAILY YANI Administration Polyethylene Glycol 17 gm 05/13/20 09:00 05/14/20 10:13 Polyethylene Glycol 3350 17 Gm Packet PO Not Given DAILY YANI Saccharomyces Boulardii 250 mg 05/14/20 09:00 05/14/20 09:28 Saccharomyces Boulardii 250 Mg Cap PO 250 mg DAILY YANI Administration Senna/Docusate Sodium 1 tab 05/12/20 21:00 05/14/20 09:29 Senokot S 8.6-50 Mg Tab PO 1 tab BID YANI Administration Sodium Chloride 10 ml 05/12/20 21:00 05/14/20 10:14 Flush - Normal Saline 10 Ml Syringe IVF 10 ml Q12HR YANI Administration Thiamine HCl 100 mg 05/13/20 09:00 05/14/20 09:29 Thiamine 100 Mg Tab PO 100 mg DAILY YANI Administration - Exam General Appearance: ill appearing Heart: RRR, no gallops Respiratory: no wheezes, no rales Gastrointestinal: non-tender, non-distended, no guarding, no rigidity Extremities: no cyanosis, no clubbing Neurological: no new deficit Hosp A/P (1) Toxic metabolic encephalopathy Code(s): G92 - TOXIC ENCEPHALOPATHY Status: Acute (2) Hypoglycemia associated with type 2 diabetes mellitus Code(s): E11.649 - TYPE 2 DIABETES MELLITUS WITH HYPOGLYCEMIA WITHOUT COMA Status: Acute (3) Sepsis Code(s): A41.9 - SEPSIS, UNSPECIFIED ORGANISM Status: Acute (4) UTI due to Klebsiella species Code(s): N39.0 - URINARY TRACT INFECTION, SITE NOT SPECIFIED; B96.89 - OTH BACTERIAL AGENTS THE CAUSE OF DISEASES CLASSD ELSWHR Status: Acute (5) Cellulitis of both lower extremities Code(s): L03.115 - CELLULITIS OF RIGHT LOWER LIMB; L03.116 - CELLULITIS OF LEFT LOWER LIMB Status: Acute (6) Anemia Code(s): D64.9 - ANEMIA, UNSPECIFIED Status: Chronic Qualifiers: Iron deficiency anemia type: inadequate dietary iron intake (7) CHF (congestive heart failure) Code(s): I50.9 - HEART FAILURE, UNSPECIFIED Status: Chronic Qualifiers: Heart failure type: systolic (8) DM2 (diabetes mellitus, type 2) Status: Chronic Qualifiers: Chronic kidney disease stage: stage 3 (moderate) (9) HTN (hypertension) Code(s): I10 - ESSENTIAL (PRIMARY) HYPERTENSION Status: Chronic (10) Afib Code(s): I48.91 - UNSPECIFIED ATRIAL FIBRILLATION Status: Acute - Plan 05/14 Discontinue IV vancomycin and cefepime. Start IV ceftriaxone 1 g daily. Continue Lantus 12 units daily. IV fluids discontinued. Will consider starting IV fluids if patient has poor appetite we will start her on gentle IV hydration. Continue carvedilol, Eliquis and other medications as above. Patient is not on KRISTY inhibitor or ARB due to mild acute renal failure/dehydration on admission. Recheck labs including LFTs in a.m. Await long term facility placement. Infectious disease consult appreciated. 05/13 Discussed extensively with patient's daughter over. Patient had blood sugar of 40 at home prior to admission. Lower extremity erythema is improving. Continue IV vancomycin with cefepime. Urine culture positive for Klebsiella. Continue wound care. Skilled facility evaluation. Continue other medications as above. Will discontinue IV Lasix and IV fluids. Continue physical therapy. Patient was probably not in acute congestive heart failure exacerbation on admission. Other problems: History of pancreatic mass, history of AICD, physical deconditioning, history of MS SA right upper extremity infection in February 2020,
[2020-05-14] MEDS ORDERED: cefTRIAXone\\ROCEPHIN 1 GM in Sodium Chloride 0.9% 100 ML IVPB SCH ×2 (18:30→21:00)
[2020-05-14] MEDS: Sodium Chloride 0.9% 1,000 ML IV SCH (19:55)
[2020-05-15 05:48] LABS: ALT (SGPT) 28 U/L (8-55); AST (SGOT) 31 U/L (5-34); Albumin 3.4 g/dL (3.4-4.8); Alkaline Phosphatase 93 U/L (40-110); Anion Gap 15 mmol/L (10-20); BUN (Urea Nitrogen) 17 mg/dL (9.8-20.1); Bilirubin, Total 1.4 mg/dL (0.2-1.2); Calc. Creatinine Clearance 47 mL/min (70-130); Calcium 8.7 mg/dL (7.8-10.44); Carbon Dioxide 19 mmol/L (23-31); Chloride 114 mmol/L (98-107); Estimated GFR-MDRD 59; Glucose 122 mg/dL (83-110); Phosphorus 2.1 mg/dL (2.3-4.7); Potassium 3.2 mmol/L (3.5-5.1); Protein, Total 6.4 g/dL (6.0-8.3); Sodium 145 mmol/L (136-145)
[2020-05-15 05:52] LABS: Band 2 % (5-11); Eosinophils 5 % (0-10); Hemoglobin 12.8 g/dL (12.0-16.0); Hypochromia SLIGHT = 6-15 cells (100X) (0-5/hpf); Lymphocytes 13 % (21-51); MDiff Complete? YES; Mean Corpuscular HGB CONC 28.5 g/dL (32.0-36.0); Mean Platelet Volume 9.7 fL (7.4-10.4); Monocytes 11 % (0-10); Neutrophil 69 % (42-75); Nucleated RBC 1 % (0); Platelet Count 182 thou/uL (130-400); Platelet Morphology Comment Appears Adequate; RBC Distribution Width 24.4 % (11.5-14.5); Red Blood Cell (RBC) Count 3.89 mill/uL (4.20-5.40); White Blood Cell (WBC) Count 5.9 thou/uL (4.8-10.8)
[2020-05-15] MEDS: Latanoprost 0.005% Ophth Soln 2.5 ml Bottle EA EYE SCH (09:27)
[2020-05-15] MEDS: Carvedilol 6.25 MG TAB PO SCH ×2 (09:28→17:29)
[2020-05-15] MEDS: Apixaban 2.5 MG TAB PO SCH ×2 (09:28→21:36)
[2020-05-15] MEDS: Thiamine 100 MG TAB PO SCH (09:29)
[2020-05-15] MEDS: Polyethylene Glycol 3350 17 GM Packet PO SCH (09:29)
[2020-05-15] MEDS: Senokot S 8.6-50 MG TAB PO SCH ×2 (09:29→21:36)
[2020-05-15] MEDS: Insulin Glargine 12 UNITS in Pre-Filled Syringe 1 EACH SC SCH (09:29)
[2020-05-15] MEDS: Cyanocobalamin (Vitamin B-12) 1,000 MCG TAB PO SCH (09:29)
[2020-05-15] MEDS: Folic Acid 1 MG TAB PO SCH (09:29)
[2020-05-15] MEDS: Multivit, Therapeutic 1 TAB PO SCH (09:29)
[2020-05-15] MEDS: Saccharomyces boulardii 250 MG CAP PO SCH (09:29)
[2020-05-15] MEDS: HumaLOG 300 UNITS/3 ML VIAL SC PRN (11:51)
--- NOTE | 2020-05-15 13:55 | PRG ---
DATE OF SERVICE: 05/15/2020 SUBJECTIVE: Quite delusional as always talking to herself. Denies any respiratory symptoms or abdominal pain. No genitourinary symptoms. No diarrhea. OBJECTIVE: VITAL SIGNS: She has been afebrile here, BP 150/75, heart rate 64, O2 saturation 94%. GENERAL: Mumbling to herself with obvious delusional content. LUNGS: Clear. HEART: S1 and S2, regular rate. ABDOMEN: Soft. EXTREMITIES: Stasis dermatitis in lower extremities, but no evidence of cellulitis. Ulcer in the right anterior leg. LABORATORY DATA: Sodium 145, creatinine 0.91, phosphorus 2.1, bilirubin 1.4. Transaminases and alkaline phosphatase normal. CRP 2.35. White cell count 5.9, hemoglobin 12.8, platelets 182. MCV is quite high at 114 and 116. This is something new, which was not present before. The cultures are negative thus far. There is a urine culture with Klebsiella pneumoniae, but I do not think that this is meaningful for her presentation, particularly in the face of a fairly normal urinalysis except for some bacteriuria, but there is no pyuria. ASSESSMENT AND DISCUSSION: Automatic implantable cardioverter defibrillator, cardiomyopathy, dementia, type 2 diabetes, recurrent falls, bandemia, hypoglycemia, and macrocytosis. With negative blood cultures, we will go ahead and discontinue antimicrobial therapy. We need to workup the macrocytosis, which can be either megaloblastic or not. Check her copper, B12, and folate again. There is no evidence of hemolysis and liver disease does not seem to be an issue right now. Job ID: [id number]
--- NOTE | 2020-05-15 14:53 | PDOC.HOSPP ---
- Subjective Encounter Date: 05/15/20 Encounter Time: 10:15 Subjective: Patient seen and examined for altered mentation. Remains confused. No other overnight events. No fever or chills reported. - Objective Vital Signs & Weight: Vital Signs (12 hours) Temp Pulse Resp BP BP Pulse Ox 05/15/20 11:48 98.1 F 67 18 148/68 H 94 L 05/15/20 09:28 158/75 H 05/15/20 07:43 94 L 05/15/20 07:07 97.5 F L 64 22 H 158/75 H 94 L Weight Admit Weight 148 lb 8.96 oz Weight 148 lb 9 oz I&O: 05/14/20 05/15/20 05/16/20 06:59 06:59 06:59 Intake Total 1100 1580 Balance 1100 1580 Result Diagrams: 05/15/20 05:11 05/15/20 05:11 Additional Labs: Accuchecks 05/15/20 05/15/20 05/14/20 10:44 04:10 19:04 POC Glucose 226 H 108 H 162 H 05/14/20 15:46 POC Glucose 167 H Hospitalist ROS - Review of Systems ROS unobtainable: due to mental status - Medication Medications: Active Medications Generic Name Dose Route Start Last Admin Trade Name Freq PRN Reason Stop Dose Admin Acetaminophen 650 mg 05/12/20 02:46 05/14/20 01:47 Acetaminophen 325 Mg Tab PO 650 mg Q4H PRN Administration Headache/Fever or Pain Apixaban 2.5 mg 05/12/20 21:00 05/15/20 09:28 Apixaban 2.5 Mg Tab PO 2.5 mg BID YANI Administration Carvedilol 6.25 mg 05/12/20 17:00 05/15/20 09:28 Carvedilol 6.25 Mg Tab PO 6.25 mg BID-WM YANI Administration Cyanocobalamin 1,000 mcg 05/14/20 09:00 05/15/20 09:29 Cyanocobalamin (Vitamin B-12) 1,000 Mcg Tab PO 1,000 mcg DAILY YANI Administration Folic Acid 1 mg 05/13/20 09:00 05/15/20 09:29 Folic Acid 1 Mg Tab PO 1 mg DAILY YANI Administration Insulin Glargine 12 units/ 0.12 mls @ 0 mls/hr 05/14/20 09:00 05/15/20 09:29 Miscellaneous Medication SC 0.12 mls QAM YANI Administration Sodium Chloride 1,000 mls @ 30 mls/hr 05/14/20 18:30 05/14/20 19:55 Normal Saline 0.9% IV 1,000 mls .Q24H YANI Administration Insulin Human Lispro 0 units 05/11/20 17:53 05/15/20 11:51 Humalog 300 Units/3 Ml Vial SC 3 unit .MILD SLIDING SCALE PRN Administration Mild Correctional Scale Latanoprost 1 drop 05/13/20 09:00 05/15/20 09:27 Latanoprost 0.005% Ophth Soln 2.5 Ml Bottle EA EYE 1 drp DAILY YANI Administration Multivitamins 1 tab 05/14/20 09:00 05/15/20 09:29 Multivit, Therapeutic 1 Tab PO 1 tab DAILY YANI Administration Pantoprazole Sodium 40 mg 05/13/20 09:00 05/15/20 09:29 Pantoprazole 40 Mg Tab PO 40 mg DAILY YANI Administration Polyethylene Glycol 17 gm 05/13/20 09:00 05/15/20 09:29 Polyethylene Glycol 3350 17 Gm Packet PO 17 gm DAILY YANI Administration Saccharomyces Boulardii 250 mg 05/14/20 09:00 05/15/20 09:29 Saccharomyces Boulardii 250 Mg Cap PO 250 mg DAILY YANI Administration Senna/Docusate Sodium 1 tab 05/12/20 21:00 05/15/20 09:29 Senokot S 8.6-50 Mg Tab PO 1 tab BID YANI Administration Sodium Chloride 10 ml 05/12/20 21:00 05/15/20 09:33 Flush - Normal Saline 10 Ml Syringe IVF 10 ml Q12HR YANI Administration Thiamine HCl 100 mg 05/13/20 09:00 05/15/20 09:29 Thiamine 100 Mg Tab PO 100 mg DAILY YANI Administration - Exam General Appearance: ill appearing Heart: RRR, no gallops Respiratory: no wheezes, no ronchi Gastrointestinal: non-tender, non-distended, normal bowel sounds, no guarding, no rigidity Extremities: no cyanosis, no clubbing Hosp A/P (1) Toxic metabolic encephalopathy Code(s): G92 - TOXIC ENCEPHALOPATHY Status: Acute (2) Hypoglycemia associated with type 2 diabetes mellitus Code(s): E11.649 - TYPE 2 DIABETES MELLITUS WITH HYPOGLYCEMIA WITHOUT COMA Status: Acute (3) Sepsis Code(s): A41.9 - SEPSIS, UNSPECIFIED ORGANISM Status: Acute (4) UTI due to Klebsiella species Code(s): N39.0 - URINARY TRACT INFECTION, SITE NOT SPECIFIED; B96.89 - OTH BACTERIAL AGENTS THE CAUSE OF DISEASES CLASSD [id number] Status: Acute (5) Cellulitis of both lower extremities Code(s): L03.115 - CELLULITIS OF RIGHT LOWER LIMB; L03.116 - CELLULITIS OF LEFT LOWER LIMB Status: Acute (6) Anemia Code(s): D64.9 - ANEMIA, UNSPECIFIED Status: Chronic Qualifiers: Iron deficiency anemia type: inadequate dietary iron intake (7) CHF (congestive heart failure) Code(s): I50.9 - HEART FAILURE, UNSPECIFIED Status: Chronic Qualifiers: Heart failure type: systolic (8) DM2 (diabetes mellitus, type 2) Status: Chronic Qualifiers: Chronic kidney disease stage: stage 3 (moderate) (9) HTN (hypertension) Code(s): I10 - ESSENTIAL (PRIMARY) HYPERTENSION Status: Chronic (10) Afib Code(s): I48.91 - UNSPECIFIED ATRIAL FIBRILLATION Status: Chronic - Plan 05/15 Remains confused. Continue IV ceftriaxone with wound care. CT brain was negative on admission. Encephalopathy appears to be metabolic continue close monitoring infectious disease input appreciated. Replace potassium and phosphorus. CRP was 2.35. Continue carvedilol, Eliquis. Await [facility] facility [facility]. Attempted to call family with no response (Gabriella [phone]) 05/14 Discontinue IV vancomycin and cefepime. Start IV ceftriaxone 1 g daily. Continue Lantus 12 units daily. IV fluids discontinued. Will consider starting IV fluids if patient has poor appetite we will start her on gentle IV hydration. Continue carvedilol, Eliquis and other medications as above. Patient is not on KRISTY inhibitor or ARB due to mild acute renal failure/dehydration on admission. Recheck labs including LFTs in a.m. Await [facility] facility placement. Infectious disease consult appreciated. 05/13 Discussed extensively with patient's daughter over. Patient had blood sugar of 40 at home prior to admission. Lower extremity erythema is improving. Continue IV vancomycin with cefepime. Urine culture positive for Klebsiella. Continue wound care. Skilled facility evaluation. Continue other medications as above. Will discontinue IV Lasix and IV fluids. Continue physical therapy. Patient was probably not in acute congestive heart failure exacerbation on admission. Other problems: History of pancreatic mass, history of AICD, physical deconditioning, history of MSSA right upper extremity infection in February 2020,
[2020-05-15] MEDS: Sodium Chloride 0.9% 1,000 ML IV SCH (17:52)
[2020-05-16 06:27] LABS: Phosphorus 2.6 mg/dL (2.3-4.7)
[2020-05-16 06:34] LABS: ALT (SGPT) 22 U/L (8-55); AST (SGOT) 25 U/L (5-34); Albumin 3.3 g/dL (3.4-4.8); Alkaline Phosphatase 98 U/L (40-110); Anion Gap 11 mmol/L (10-20); BUN (Urea Nitrogen) 16 mg/dL (9.8-20.1); Bilirubin, Total 1.3 mg/dL (0.2-1.2); Calc. Creatinine Clearance 52 mL/min (70-130); Calcium 8.8 mg/dL (7.8-10.44); Carbon Dioxide 24 mmol/L (23-31); Chloride 112 mmol/L (98-107); Estimated GFR-MDRD 65; Globulin 2.8 g/dL (2.4-3.5); Glucose 108 mg/dL (83-110); Magnesium 2.1 mg/dL (1.6-2.6); Potassium 3.4 mmol/L (3.5-5.1); Protein, Total 6.1 g/dL (6.0-8.3); Sodium 144 mmol/L (136-145)
[2020-05-16] MEDS: Apixaban 2.5 MG TAB PO SCH ×2 (08:06→21:04)
[2020-05-16] MEDS: Saccharomyces boulardii 250 MG CAP PO SCH (08:06)
[2020-05-16] MEDS: Carvedilol 6.25 MG TAB PO SCH ×2 (08:06→17:22)
[2020-05-16] MEDS: Thiamine 100 MG TAB PO SCH (08:06)
[2020-05-16] MEDS: Senokot S 8.6-50 MG TAB PO SCH ×2 (08:07→21:04)
[2020-05-16] MEDS: Multivit, Therapeutic 1 TAB PO SCH (08:07)
[2020-05-16] MEDS: Polyethylene Glycol 3350 17 GM Packet PO SCH (08:07)
[2020-05-16] MEDS: Folic Acid 1 MG TAB PO SCH (08:07)
[2020-05-16] MEDS: Cyanocobalamin (Vitamin B-12) 1,000 MCG TAB PO SCH (08:07)
[2020-05-16] MEDS: Latanoprost 0.005% Ophth Soln 2.5 ml Bottle EA EYE SCH (08:08)
[2020-05-16] MEDS: HumaLOG 300 UNITS/3 ML VIAL SC PRN ×3 (11:36→21:05)
[2020-05-16] MEDS: Insulin Glargine 12 UNITS in Pre-Filled Syringe 1 EACH SC SCH (11:37)
--- NOTE | 2020-05-16 15:35 | PDOC.HOSPP ---
- Subjective Encounter Date: 05/16/20 Encounter Time: 11:10 Subjective: Patient is quite confused she is talking to herself. Not retaining with any meaningful conversation. - Objective Vital Signs & Weight: Vital Signs (12 hours) Temp Pulse Resp BP BP Pulse Ox 05/16/20 11:14 97.4 F L 59 L 16 166/75 H 96 05/16/20 08:06 152/80 H 05/16/20 08:00 95 05/16/20 07:26 97.2 F L 60 16 152/80 H 95 Weight Admit Weight 148 lb 8.96 oz Weight 148 lb 9 oz I&O: 05/15/20 05/16/20 05/17/20 06:59 06:59 06:59 Intake Total 1580 Balance 1580 Result Diagrams: 05/15/20 05:11 05/16/20 05:58 Additional Labs: Accuchecks 05/16/20 05/16/20 05/16/20 11:19 06:57 04:29 POC Glucose 199 H 93 66 L 05/15/20 05/15/20 20:24 16:21 POC Glucose 150 H 173 H Hospitalist ROS - Medication Medications: Active Medications Generic Name Dose Route Start Last Admin Trade Name Freq PRN Reason Stop Dose Admin Acetaminophen 650 mg 05/12/20 02:46 05/14/20 01:47 Acetaminophen 325 Mg Tab PO 650 mg Q4H PRN Administration Headache/Fever or Pain Apixaban 2.5 mg 05/12/20 21:00 05/16/20 08:06 Apixaban 2.5 Mg Tab PO 2.5 mg BID YANI Administration Carvedilol 6.25 mg 05/12/20 17:00 05/16/20 08:06 Carvedilol 6.25 Mg Tab PO 6.25 mg BID-WM YANI Administration Cyanocobalamin 1,000 mcg 05/14/20 09:00 05/16/20 08:07 Cyanocobalamin (Vitamin B-12) 1,000 Mcg Tab PO 1,000 mcg DAILY YANI Administration Folic Acid 1 mg 05/13/20 09:00 05/16/20 08:07 Folic Acid 1 Mg Tab PO 1 mg DAILY YANI Administration Insulin Glargine 12 units/ 0.12 mls @ 0 mls/hr 05/14/20 09:00 05/16/20 11:37 Miscellaneous Medication SC 0.12 mls QAM YANI Administration Sodium Chloride 1,000 mls @ 30 mls/hr 05/14/20 18:30 05/15/20 17:52 Normal Saline 0.9% IV Not Given .Q24H YANI Insulin Human Lispro 0 units 05/11/20 17:53 05/16/20 11:36 Humalog 300 Units/3 Ml Vial SC 2 unit .MILD SLIDING SCALE PRN Administration Mild Correctional Scale Latanoprost 1 drop 05/13/20 09:00 05/16/20 08:08 Latanoprost 0.005% Ophth Soln 2.5 Ml Bottle EA EYE 1 drp DAILY YANI Administration Multivitamins 1 tab 05/14/20 09:00 05/16/20 08:07 Multivit, Therapeutic 1 Tab PO 1 tab DAILY YANI Administration Pantoprazole Sodium 40 mg 05/13/20 09:00 05/16/20 08:07 Pantoprazole 40 Mg Tab PO 40 mg DAILY YANI Administration Polyethylene Glycol 17 gm 05/13/20 09:00 05/16/20 08:07 Polyethylene Glycol 3350 17 Gm Packet PO 17 gm DAILY YANI Administration Potassium Chloride 20 meq 05/16/20 08:00 05/16/20 08:07 Potassium Chloride 20 Meq Packet PO 20 meq QAM-WM YANI Administration Saccharomyces Boulardii 250 mg 05/14/20 09:00 05/16/20 08:06 Saccharomyces Boulardii 250 Mg Cap PO 250 mg DAILY YANI Administration Senna/Docusate Sodium 1 tab 05/12/20 21:00 05/16/20 08:07 Senokot S 8.6-50 Mg Tab PO 1 tab BID YANI Administration Sodium Chloride 10 ml 05/12/20 21:00 05/16/20 08:08 Flush - Normal Saline 10 Ml Syringe IVF Not Given Q12HR YANI Thiamine HCl 100 mg 05/13/20 09:00 05/16/20 08:06 Thiamine 100 Mg Tab PO 100 mg DAILY YANI Administration - Exam General Appearance: NAD General - other findings: Confused Eye: PERRL ENT: normocephalic atraumatic Neck: supple Heart: RRR Respiratory: CTAB Gastrointestinal: soft, normal bowel sounds Extremities: no edema Psychiatric: not oriented Hosp A/P - Plan (1) Toxic metabolic encephalopathy Code(s): G92 - TOXIC ENCEPHALOPATHY Status: Acute (2) Hypoglycemia associated with type 2 diabetes mellitus Code(s): E11.649 - TYPE 2 DIABETES MELLITUS WITH HYPOGLYCEMIA WITHOUT COMA Status: Acute (3) Sepsis due to UTI and present on admission. (5) Cellulitis of both lower extremities --Ceftriaxone (6) Anemia Code(s): D64.9 - ANEMIA, UNSPECIFIED Status: Chronic Qualifiers: Iron deficiency anemia type: inadequate dietary iron intake (7) CHF (congestive heart failure) Code(s): I50.9 - HEART FAILURE, UNSPECIFIED Status: Chronic Qualifiers: Heart failure type: systolic (8) DM2 (diabetes mellitus, type 2) Status: Chronic Qualifiers: Chronic kidney disease stage: stage 3 (moderate) (9) HTN (hypertension) Code(s): I10 - ESSENTIAL (PRIMARY) HYPERTENSION Status: Chronic (10) Afib Code(s): I48.91 - UNSPECIFIED ATRIAL FIBRILLATION Status: Chronic hx of pancreatic mass, history of AICD, physical deconditioning, history of MSSA right upper extremity infection in February 2020, Patient had blood sugar of 40 at home prior to admission. Lower extremity erythema is improving. Continue IV vancomycin with cefepime. Urine culture positive for Klebsiella. Continue wound care. -IV ceftriaxone will switch to p.o. antibiotics when ready to be discharged. Patient has ongoing confusion so may not be amenable for p.o. antibiotic right now. IV antibiotic both for urinary tract infection and cellulitis. long term facility placement.
[2020-05-16] MEDS ORDERED: Potassium Citrate 10 MEQ TAB PO SCH (15:45)
[2020-05-16] MEDS ORDERED: cefTRIAXone\\ROCEPHIN 1 GM in Sodium Chloride 0.9% 100 ML IVPB SCH (16:00)
[2020-05-16] MEDS: Sodium Chloride 0.9% 1,000 ML IV SCH (17:22)
[2020-05-16] MEDS: Acetaminophen 325 MG TAB PO PRN (21:04)
[2020-05-16] MEDS: Amoxicillin/Potassium Clav 500 MG TAB PO SCH (21:04)
[2020-05-17] MEDS: Latanoprost 0.005% Ophth Soln 2.5 ml Bottle EA EYE SCH (08:28)
[2020-05-17] MEDS: Folic Acid 1 MG TAB PO SCH (08:29)
[2020-05-17] MEDS: Polyethylene Glycol 3350 17 GM Packet PO SCH (08:29)
[2020-05-17] MEDS: Saccharomyces boulardii 250 MG CAP PO SCH (08:29)
[2020-05-17] MEDS: Amoxicillin/Potassium Clav 500 MG TAB PO SCH ×2 (08:29→21:17)
[2020-05-17] MEDS: Thiamine 100 MG TAB PO SCH (08:29)
[2020-05-17] MEDS: Apixaban 2.5 MG TAB PO SCH ×2 (08:29→21:17)
[2020-05-17] MEDS: Senokot S 8.6-50 MG TAB PO SCH ×2 (08:30→21:17)
[2020-05-17] MEDS: Multivit, Therapeutic 1 TAB PO SCH (08:30)
[2020-05-17] MEDS: Carvedilol 6.25 MG TAB PO SCH ×2 (08:30→16:43)
[2020-05-17] MEDS: Cyanocobalamin (Vitamin B-12) 1,000 MCG TAB PO SCH (08:38)
[2020-05-17] MEDS: Insulin Glargine 12 UNITS in Pre-Filled Syringe 1 EACH SC SCH (09:34)
[2020-05-17] MEDS ORDERED: cloNIDine 0.1 MG TAB PO PRN (13:29)
--- NOTE | 2020-05-17 13:31 | PDOC.HOSPP ---
- Subjective Encounter Date: 05/17/20 Encounter Time: 10:50 Subjective: Patient is sleeping. Her lower extremity cellulitis seems improved on preexisting chronic venous stasis related changes right more so than on the left leg. - Objective Vital Signs & Weight: Vital Signs (12 hours) Temp Pulse Resp BP BP BP Pulse Ox 05/17/20 08:30 153/76 H 05/17/20 08:11 97.5 F L 61 20 153/76 H 93 L 05/17/20 08:00 93 L 05/17/20 04:00 18 146/81 H Weight Admit Weight 148 lb 8.96 oz Weight 148 lb 9 oz I&O: 05/16/20 05/17/20 05/18/20 06:59 06:59 06:59 Intake Total 720 Balance 720 Result Diagrams: 05/15/20 05:11 05/16/20 05:58 Additional Labs: Accuchecks 05/17/20 05/16/20 05/16/20 04:43 20:22 15:34 POC Glucose 100 209 H 201 H Hospitalist ROS - Medication Medications: Active Medications Generic Name Dose Route Start Last Admin Trade Name Freq PRN Reason Stop Dose Admin Acetaminophen 650 mg 05/12/20 02:46 05/16/20 21:04 Acetaminophen 325 Mg Tab PO 650 mg Q4H PRN Administration Headache/Fever or Pain Amoxicillin/Clavulanate Potassium 500 mg 05/16/20 21:00 05/17/20 08:29 Amoxicillin/Potassium Clav 500 Mg Tab PO 500 mg Q12HR YANI Administration Apixaban 2.5 mg 05/12/20 21:00 05/17/20 08:29 Apixaban 2.5 Mg Tab PO 2.5 mg BID YANI Administration Carvedilol 6.25 mg 05/12/20 17:00 05/17/20 08:30 Carvedilol 6.25 Mg Tab PO 6.25 mg BID-WM YANI Administration Cyanocobalamin 1,000 mcg 05/14/20 09:00 05/17/20 08:38 Cyanocobalamin (Vitamin B-12) 1,000 Mcg Tab PO Not Given DAILY YANI Folic Acid 1 mg 05/13/20 09:00 05/17/20 08:29 Folic Acid 1 Mg Tab PO Not Given DAILY [facility] Insulin Glargine 12 units/ 0.12 mls @ 0 mls/hr 05/14/20 09:00 05/17/20 09:34 Miscellaneous Medication SC 0.12 mls QAM YANI Administration Sodium Chloride 1,000 mls @ 30 mls/hr 05/14/20 18:30 05/16/20 17:22 Normal Saline 0.9% IV Not Given .Q24H YANI Insulin Human Lispro 0 units 05/11/20 17:53 05/16/20 21:05 Humalog 300 Units/3 Ml Vial SC 3 unit .MILD SLIDING SCALE PRN Administration Mild Correctional Scale Latanoprost 1 drop 05/13/20 09:00 05/17/20 08:28 Latanoprost 0.005% Ophth Soln 2.5 Ml Bottle EA EYE 1 drp DAILY YANI Administration Multivitamins 1 tab 05/14/20 09:00 05/17/20 08:30 Multivit, Therapeutic 1 Tab PO Not Given DAILY YANI Pantoprazole Sodium 40 mg 05/13/20 09:00 05/17/20 08:30 Pantoprazole 40 Mg Tab PO Not Given DAILY YANI Polyethylene Glycol 17 gm 05/13/20 09:00 05/17/20 08:29 Polyethylene Glycol 3350 17 Gm Packet PO 17 gm DAILY YANI Administration Potassium Chloride 20 meq 05/16/20 08:00 05/17/20 08:29 Potassium Chloride 20 Meq Packet PO 20 meq QAM-WM YANI Administration Saccharomyces Boulardii 250 mg 05/14/20 09:00 05/17/20 08:29 Saccharomyces Boulardii 250 Mg Cap PO 250 mg DAILY YANI Administration Senna/Docusate Sodium 1 tab 05/12/20 21:00 05/17/20 08:30 Senokot S 8.6-50 Mg Tab PO 1 tab BID YANI Administration Sodium Chloride 10 ml 05/12/20 21:00 05/17/20 08:30 Flush - Normal Saline 10 Ml Syringe IVF Not Given Q12HR YANI Thiamine HCl 100 mg 05/13/20 09:00 05/17/20 08:29 Thiamine 100 Mg Tab PO 100 mg DAILY YANI Administration - Exam General Appearance: NAD, awake alert Eye: PERRL ENT: normocephalic atraumatic Neck: supple Heart: RRR Respiratory: CTAB, normal chest expansion Gastrointestinal: soft, normal bowel sounds Extremities - other findings: Her lower extremity cellulitis seems improved on preexisting chronic venous Skin: normal turgor Neurological: no new deficit Hosp A/P - Plan (1) Toxic metabolic encephalopathy Code(s): G92 - TOXIC ENCEPHALOPATHY Status: Acute (2) Hypoglycemia associated with type 2 diabetes mellitus Code(s): E11.649 - TYPE 2 DIABETES MELLITUS WITH HYPOGLYCEMIA WITHOUT COMA Status: Acute (3) Sepsis due to UTI and present on admission. (5) Cellulitis of both lower extremities --Ceftriaxone (6) Anemia Code(s): D64.9 - ANEMIA, UNSPECIFIED Status: Chronic Qualifiers: Iron deficiency anemia type: inadequate dietary iron intake (7) CHF (congestive heart failure) Code(s): I50.9 - HEART FAILURE, UNSPECIFIED Status: Chronic Qualifiers: Heart failure type: systolic (8) DM2 (diabetes mellitus, type 2) Status: Chronic Qualifiers: Chronic kidney disease stage: stage 3 (moderate) (9) HTN (hypertension) Code(s): I10 - ESSENTIAL (PRIMARY) HYPERTENSION Status: Chronic (10) Afib Code(s): I48.91 - UNSPECIFIED ATRIAL FIBRILLATION Status: Chronic hx of pancreatic mass, history of AICD, physical deconditioning, history of MSSA right upper extremity infection in February 2020, Patient had blood sugar of 40 at home prior to admission. Lower extremity erythema is improving. Continue IV vancomycin with cefepime. Urine culture positive for Klebsiella. Continue wound care. -IV ceftriaxone will switch to p.o. antibiotics when ready to be discharged. Patient has ongoing confusion so may not be amenable for p.o. antibiotic right now. IV antibiotic both for urinary tract infection and cellulitis. Her lower extremity cellulitis seems improved on preexisting chronic venous stasis related changes right more so than on the left leg. nursing home facility placement.
[2020-05-17] MEDS: Sodium Chloride 0.9% 1,000 ML IV SCH (16:44)
[2020-05-17] MEDS ORDERED: diphenhydrAMINE 25 MG CAP PO SCH (21:30)
[2020-05-18] MEDS: HumaLOG 300 UNITS/3 ML VIAL SC PRN ×2 (06:04→13:05)
[2020-05-18] MEDS: Acetaminophen 325 MG TAB PO PRN (06:12)
[2020-05-18] MEDS: Carvedilol 6.25 MG TAB PO SCH ×2 (09:31→16:02)
[2020-05-18] MEDS: Amoxicillin/Potassium Clav 500 MG TAB PO SCH ×2 (09:32→21:29)
[2020-05-18] MEDS: Apixaban 2.5 MG TAB PO SCH ×2 (09:32→21:27)
[2020-05-18] MEDS: Saccharomyces boulardii 250 MG CAP PO SCH (09:39)
[2020-05-18] MEDS: Polyethylene Glycol 3350 17 GM Packet PO SCH (09:42)
[2020-05-18] MEDS: Senokot S 8.6-50 MG TAB PO SCH ×2 (09:44→21:27)
[2020-05-18] MEDS: Cyanocobalamin (Vitamin B-12) 1,000 MCG TAB PO SCH (09:45)
[2020-05-18] MEDS: Folic Acid 1 MG TAB PO SCH (09:46)
[2020-05-18] MEDS: Thiamine 100 MG TAB PO SCH (09:49)
[2020-05-18] MEDS: Multivit, Therapeutic 1 TAB PO SCH (09:49)
[2020-05-18] MEDS: Insulin Glargine 12 UNITS in Pre-Filled Syringe 1 EACH SC SCH (09:50)
[2020-05-18] MEDS: Latanoprost 0.005% Ophth Soln 2.5 ml Bottle EA EYE SCH (09:50)
--- NOTE | 2020-05-18 12:28 | PDOC.HOSPP ---
- Subjective Encounter Date: 05/18/20 Encounter Time: 11:00 Subjective: Patient doing well. She is slightly better. Would still she is very confused she does not even remember her name. She is having her meals. More alert but not oriented at all. - Objective Vital Signs & Weight: Vital Signs (12 hours) Temp Pulse Resp BP Pulse Ox 05/18/20 09:45 96 05/18/20 07:58 97.3 F L 60 18 163/90 H 96 Weight Admit Weight 148 lb 8.96 oz Weight 148 lb 9 oz I&O: 05/17/20 05/18/20 05/19/20 06:59 06:59 06:59 Intake Total 720 1360 Balance 720 1360 Result Diagrams: 05/15/20 05:11 05/16/20 05:58 Additional Labs: Accuchecks 05/18/20 05/18/20 05/17/20 10:47 03:56 21:42 POC Glucose 186 H 163 H 196 H 05/17/20 05/17/20 15:57 11:53 POC Glucose 180 H 147 H Hospitalist ROS - Medication Medications: Active Medications Generic Name Dose Route Start Last Admin Trade Name Freq PRN Reason Stop Dose Admin Acetaminophen 650 mg 05/12/20 02:46 05/18/20 06:12 Acetaminophen 325 Mg Tab PO 650 mg Q4H PRN Administration Headache/Fever or Pain Amoxicillin/Clavulanate Potassium 500 mg 05/16/20 21:00 05/18/20 09:32 Amoxicillin/Potassium Clav 500 Mg Tab PO 500 mg Q12HR YANI Administration Apixaban 2.5 mg 05/12/20 21:00 05/18/20 09:32 Apixaban 2.5 Mg Tab PO 2.5 mg BID YANI Administration Carvedilol 6.25 mg 05/12/20 17:00 05/18/20 09:31 Carvedilol 6.25 Mg Tab PO 6.25 mg BID-WM YANI Administration Cyanocobalamin 1,000 mcg 05/14/20 09:00 05/18/20 09:45 Cyanocobalamin (Vitamin B-12) 1,000 Mcg Tab PO 1,000 mcg DAILY YANI Administration Folic Acid 1 mg 05/13/20 09:00 05/18/20 09:46 Folic Acid 1 Mg Tab PO 1 mg DAILY YANI Administration Insulin Glargine 12 units/ 0.12 mls @ 0 mls/hr 05/14/20 09:00 05/18/20 09:50 Miscellaneous Medication SC 0.12 mls QAM YANI Administration Sodium Chloride 1,000 mls @ 30 mls/hr 05/14/20 18:30 05/17/20 16:44 Normal Saline 0.9% IV Not Given .Q24H YANI Insulin Human Lispro 0 units 05/11/20 17:53 05/18/20 06:04 Humalog 300 Units/3 Ml Vial SC 2 unit .MILD SLIDING SCALE PRN Administration Mild Correctional Scale Latanoprost 1 drop 05/13/20 09:00 05/18/20 09:50 Latanoprost 0.005% Ophth Soln 2.5 Ml Bottle EA EYE 1 drp DAILY YANI Administration Multivitamins 1 tab 05/14/20 09:00 05/18/20 09:49 Multivit, Therapeutic 1 Tab PO Not Given DAILY YANI Pantoprazole Sodium 40 mg 05/13/20 09:00 05/18/20 09:39 Pantoprazole 40 Mg Tab PO 40 mg DAILY YANI Administration Polyethylene Glycol 17 gm 05/13/20 09:00 05/18/20 09:42 Polyethylene Glycol 3350 17 Gm Packet PO 17 gm DAILY YANI Administration Potassium Chloride 20 meq 05/16/20 08:00 05/18/20 09:32 Potassium Chloride 20 Meq Packet PO 20 meq QAM-WM YANI Administration Saccharomyces Boulardii 250 mg 05/14/20 09:00 05/18/20 09:39 Saccharomyces Boulardii 250 Mg Cap PO 250 mg DAILY YANI Administration Senna/Docusate Sodium 1 tab 05/12/20 21:00 05/18/20 09:44 Senokot S 8.6-50 Mg Tab PO 1 tab BID YANI Administration Sodium Chloride 10 ml 05/12/20 21:00 05/18/20 09:49 Flush - Normal Saline 10 Ml Syringe IVF Not Given Q12HR YANI Thiamine HCl 100 mg 05/13/20 09:00 05/18/20 09:49 Thiamine 100 Mg Tab PO Not Given DAILY YANI - Exam General Appearance: NAD, awake alert General - other findings: Quite confused still. But alert. Eye: PERRL ENT: normocephalic atraumatic Neck: supple Heart: RRR, normal peripheral pulses Respiratory: CTAB Gastrointestinal: soft, normal bowel sounds Neurological: no focal deficits Psychiatric: not oriented Hosp A/P - Plan (1) Toxic metabolic encephalopathy Code(s): G92 - TOXIC ENCEPHALOPATHY Status: Acute (2) Hypoglycemia associated with type 2 diabetes mellitus Code(s): E11.649 - TYPE 2 DIABETES MELLITUS WITH HYPOGLYCEMIA WITHOUT COMA Status: Acute (3) Sepsis due to UTI and present on admission. (5) Cellulitis of both lower extremities --Ceftriaxone (6) Anemia Code(s): D64.9 - ANEMIA, UNSPECIFIED Status: Chronic Qualifiers: Iron deficiency anemia type: inadequate dietary iron intake (7) CHF (congestive heart failure) Code(s): I50.9 - HEART FAILURE, UNSPECIFIED Status: Chronic Qualifiers: Heart failure type: systolic (8) DM2 (diabetes mellitus, type 2) Status: Chronic Qualifiers: Chronic kidney disease stage: stage 3 (moderate) (9) HTN (hypertension) Code(s): I10 - ESSENTIAL (PRIMARY) HYPERTENSION Status: Chronic (10) Afib Code(s): I48.91 - UNSPECIFIED ATRIAL FIBRILLATION Status: Chronic hx of pancreatic mass, history of AICD, physical deconditioning, history of MSSA right upper extremity infection in February 2020, Patient had blood sugar of 40 at home prior to admission. Lower extremity erythema is improving. Continue IV vancomycin with cefepime. Urine culture positive for Klebsiella. Continue wound care. -IV ceftriaxone will switch to p.o. antibiotics when ready to be discharged. Patient has ongoing confusion so may not be amenable for p.o. antibiotic right now. IV antibiotic both for urinary tract infection and cellulitis. Her lower extremity cellulitis seems improved on preexisting chronic venous stasis related changes right more so than on the left leg. custodial facility placement. No change from the above mgmt, other than the fact that she is more alert but still very confused and she cannot even recall her name. Her folate in the normal range however her vitamin B12 around 1999. Will check TSH and vitamin D hydroxy level.
[2020-05-18 14:05] LABS: Thyroid Stimulating Hormone 6.782 uIU/mL (0.35-4.94); Vitamin D, 25 Hydroxy 33.3 ng/ml (> 30.0)
[2020-05-18] MEDS ORDERED: diphenhydrAMINE 25 MG CAP PO SCH (20:30)
[2020-05-19 06:15] LABS: Hemoglobin 12.7 g/dL (12.0-16.0); Platelet Count 202 thou/uL (130-400)
[2020-05-19] MEDS: Cyanocobalamin (Vitamin B-12) 1,000 MCG TAB PO SCH (08:09)
[2020-05-19] MEDS: Multivit, Therapeutic 1 TAB PO SCH (08:09)
[2020-05-19] MEDS: Thiamine 100 MG TAB PO SCH (08:09)
[2020-05-19] MEDS: Senokot S 8.6-50 MG TAB PO SCH ×2 (08:09→20:49)
[2020-05-19] MEDS: Polyethylene Glycol 3350 17 GM Packet PO SCH (08:09)
[2020-05-19] MEDS: Saccharomyces boulardii 250 MG CAP PO SCH (08:09)
[2020-05-19] MEDS: Carvedilol 6.25 MG TAB PO SCH ×2 (08:10→16:56)
[2020-05-19] MEDS: Folic Acid 1 MG TAB PO SCH (08:10)
[2020-05-19] MEDS: Insulin Glargine 12 UNITS in Pre-Filled Syringe 1 EACH SC SCH (08:12)
[2020-05-19] MEDS: Amoxicillin/Potassium Clav 500 MG TAB PO SCH ×2 (08:51→20:50)
[2020-05-19] MEDS: Latanoprost 0.005% Ophth Soln 2.5 ml Bottle EA EYE SCH (08:52)
[2020-05-19] MEDS: Apixaban 2.5 MG TAB PO SCH ×2 (11:14→20:49)
--- NOTE | 2020-05-19 12:51 | PDOC.HOSPP ---
- Subjective Encounter Date: 05/19/20 Encounter Time: 11:10 Subjective: Patient is talking over the phone. She is not very comprehensible. Little bit gibberish. She does not have IV access. That I have addressed last evening with the evening nurse, that patient should have IV access while inpatient.. Patient is a hard stick- It appears they tried. - Objective Vital Signs & Weight: Vital Signs (12 hours) Temp Pulse Resp BP BP Pulse Ox 05/19/20 08:10 135/95 H 05/19/20 08:00 94 L 05/19/20 07:18 97.4 F L 66 22 H 135/98 H 94 L Weight Admit Weight 148 lb 8.96 oz Weight 148 lb 9 oz I&O: 05/18/20 05/19/20 05/20/20 06:59 06:59 06:59 Intake Total 1360 240 240 Balance 1360 240 240 Result Diagrams: 05/19/20 05:24 05/19/20 05:24 Additional Labs: Accuchecks 05/19/20 05/19/20 05/18/20 11:10 05:24 21:05 POC Glucose 174 H 114 H 204 H 05/18/20 16:14 POC Glucose 112 H Hospitalist ROS - Medication Medications: Active Medications Generic Name Dose Route Start Last Admin Trade Name Freq PRN Reason Stop Dose Admin Acetaminophen 650 mg 05/12/20 02:46 05/18/20 06:12 Acetaminophen 325 Mg Tab PO 650 mg Q4H PRN Administration Headache/Fever or Pain Amoxicillin/Clavulanate Potassium 500 mg 05/16/20 21:00 05/19/20 08:51 Amoxicillin/Potassium Clav 500 Mg Tab PO 500 mg Q12HR YANI Administration Apixaban 2.5 mg 05/12/20 21:00 05/19/20 11:14 Apixaban 2.5 Mg Tab PO 2.5 mg BID YANI Administration Carvedilol 6.25 mg 05/12/20 17:00 05/19/20 08:10 Carvedilol 6.25 Mg Tab PO 6.25 mg BID-WM YANI Administration Clonidine 0.1 mg 05/17/20 13:29 05/18/20 16:02 Clonidine 0.1 Mg Tab PO 0.1 mg Q4H PRN Administration SBP >150 Cyanocobalamin 1,000 mcg 05/14/20 09:00 05/19/20 08:09 Cyanocobalamin (Vitamin B-12) 1,000 Mcg Tab PO 1,000 mcg DAILY YANI Administration Folic Acid 1 mg 05/13/20 09:00 05/19/20 08:10 Folic Acid 1 Mg Tab PO 1 mg DAILY YANI Administration Insulin Glargine 12 units/ 0.12 mls @ 0 mls/hr 05/14/20 09:00 05/19/20 08:12 Miscellaneous Medication SC 0.12 mls QAM YANI Administration Insulin Human Lispro 0 units 05/11/20 17:53 05/18/20 13:05 Humalog 300 Units/3 Ml Vial SC 2 unit .MILD SLIDING SCALE PRN Administration Mild Correctional Scale Latanoprost 1 drop 05/13/20 09:00 05/19/20 08:52 Latanoprost 0.005% Ophth Soln 2.5 Ml Bottle EA EYE 1 drp DAILY YANI Administration Multivitamins 1 tab 05/14/20 09:00 05/19/20 08:09 Multivit, Therapeutic 1 Tab PO 1 tab DAILY YANI Administration Pantoprazole Sodium 40 mg 05/13/20 09:00 05/19/20 08:09 Pantoprazole 40 Mg Tab PO 40 mg DAILY YANI Administration Polyethylene Glycol 17 gm 05/13/20 09:00 05/19/20 08:09 Polyethylene Glycol 3350 17 Gm Packet PO 17 gm DAILY YANI Administration Potassium Chloride 20 meq 05/16/20 08:00 05/19/20 08:09 Potassium Chloride 20 Meq Packet PO 20 meq QAM-WM YANI Administration Saccharomyces Boulardii 250 mg 05/14/20 09:00 05/19/20 08:09 Saccharomyces Boulardii 250 Mg Cap PO 250 mg DAILY YANI Administration Senna/Docusate Sodium 1 tab 05/12/20 21:00 05/19/20 08:09 Senokot S 8.6-50 Mg Tab PO 1 tab BID YANI Administration Sodium Chloride 10 ml 05/12/20 21:00 05/19/20 08:52 Flush - Normal Saline 10 Ml Syringe IVF Not Given Q12HR YANI Thiamine HCl 100 mg 05/13/20 09:00 05/19/20 08:09 Thiamine 100 Mg Tab PO 100 mg DAILY YANI Administration - Exam General Appearance: NAD, awake alert General - other findings: Not oriented Eye: PERRL ENT: normocephalic atraumatic Neck: supple Heart: RRR Respiratory: CTAB, normal chest expansion Gastrointestinal: soft, normal bowel sounds Neurological: no focal deficits Psychiatric: not oriented Hosp A/P - Plan (1) Toxic metabolic encephalopathy Code(s): G92 - TOXIC ENCEPHALOPATHY Status: Acute (2) Hypoglycemia associated with type 2 diabetes mellitus Code(s): E11.649 - TYPE 2 DIABETES MELLITUS WITH HYPOGLYCEMIA WITHOUT COMA Status: Acute (3) Sepsis due to UTI and present on admission. (5) Cellulitis of both lower extremities --Ceftriaxone (6) Anemia Code(s): D64.9 - ANEMIA, UNSPECIFIED Status: Chronic Qualifiers: Iron deficiency anemia type: inadequate dietary iron intake (7) CHF (congestive heart failure) Code(s): I50.9 - HEART FAILURE, UNSPECIFIED Status: Chronic Qualifiers: Heart failure type: systolic (8) DM2 (diabetes mellitus, type 2) Status: Chronic Qualifiers: Chronic kidney disease stage: stage 3 (moderate) (9) HTN (hypertension) Code(s): I10 - ESSENTIAL (PRIMARY) HYPERTENSION Status: Chronic (10) Afib Code(s): I48.91 - UNSPECIFIED ATRIAL FIBRILLATION Status: Chronic hx of pancreatic mass, history of AICD, physical deconditioning, history of MSSA right upper extremity infection in February 2020, Patient had blood sugar of 40 at home prior to admission. Lower extremity erythema is improving. Continue IV vancomycin with cefepime. Urine culture positive for Klebsiella. Continue wound care. -IV ceftriaxone will switch to p.o. antibiotics when ready to be discharged. Patient has ongoing confusion so may not be amenable for p.o. antibiotic right now. IV antibiotic both for urinary tract infection and cellulitis. Her lower extremity cellulitis seems improved on preexisting chronic venous stasis related changes right more so than on the left leg. long term facility placement. No change from the above mgmt, other than the fact that she is more alert but still very confused and she cannot even recall her name. Her folate in the normal range however her vitamin B12 around 1999. Will check TSH and vitamin D hydroxy level.
--- NOTE | 2020-05-19 15:20 | PDOC.FMACP ---
Advance Care Planning - Problem (1) Cellulitis of both lower extremities Status: Acute Code(s): L03.115 - CELLULITIS OF RIGHT LOWER LIMB; L03.116 - CELLULITIS OF LEFT LOWER LIMB (2) Toxic metabolic encephalopathy Status: Acute Code(s): G92 - TOXIC ENCEPHALOPATHY (3) CHF (congestive heart failure) Status: Chronic Code(s): I50.9 - HEART FAILURE, UNSPECIFIED Qualifiers: Heart failure type: systolic (4) CKD (chronic kidney disease) stage 3, GFR 30-59 ml/min Status: Chronic Code(s): N18.3 - CHRONIC KIDNEY DISEASE, STAGE 3 (MODERATE) * DO NOT USE * (5) HTN (hypertension) Status: Chronic Code(s): I10 - ESSENTIAL (PRIMARY) HYPERTENSION (6) Palliative care encounter Status: Acute Code(s): Z51.5 - ENCOUNTER FOR PALLIATIVE CARE - Note Participants: family, surrogate decision-maker, palliative care Summary: Palliative Care has addressed Advanced Care Planning with patient family as patient is not decisional. The diagnosis, prognosis and goals of care were discussed. Appropriate forms and documentation to accomplish the goals of care were discussed. All questions were answered. *Addressed resuscitation status, daughter in law is requesting to revisit. *Daughter in law Gabriella is requesting Hospice for in home care, Case Management has sent referral. Please refer to Palliative Care notes in note section. Palliative Care will sign off as Goal of Care have been addressed and identified. If we can assist in the future please re consult our team. Time Spent (mins): 15
[2020-05-20] MEDS: Amoxicillin/Potassium Clav 500 MG TAB PO SCH ×2 (07:59→21:46)
[2020-05-20] MEDS: Latanoprost 0.005% Ophth Soln 2.5 ml Bottle EA EYE SCH (07:59)
[2020-05-20] MEDS: Carvedilol 6.25 MG TAB PO SCH ×2 (08:54→16:45)
[2020-05-20] MEDS: Thiamine 100 MG TAB PO SCH (08:55)
[2020-05-20] MEDS: Cyanocobalamin (Vitamin B-12) 1,000 MCG TAB PO SCH (08:56)
[2020-05-20] MEDS: Apixaban 2.5 MG TAB PO SCH ×2 (08:56→21:46)
[2020-05-20] MEDS: Senokot S 8.6-50 MG TAB PO SCH ×2 (08:56→21:46)
[2020-05-20] MEDS: Folic Acid 1 MG TAB PO SCH (08:56)
[2020-05-20] MEDS: Saccharomyces boulardii 250 MG CAP PO SCH (08:56)
[2020-05-20] MEDS: Multivit, Therapeutic 1 TAB PO SCH (08:56)
[2020-05-20] MEDS: Polyethylene Glycol 3350 17 GM Packet PO SCH (08:59)
[2020-05-20] MEDS: Insulin Glargine 12 UNITS in Pre-Filled Syringe 1 EACH SC SCH (09:06)
--- NOTE | 2020-05-20 12:35 | PDOC.HOSPP ---
- Subjective Encounter Date: 05/20/20 Encounter Time: 11:10 Subjective: Patient is sleeping. She is not arousable at this time. I talked to the caseworker intake. Palliative note reviewed. Plan to send her home with home hospice. being set up today. Probably discharge home tomorrow - Objective Vital Signs & Weight: Vital Signs (12 hours) Temp Pulse Resp BP BP BP Pulse Ox 05/20/20 08:54 137/69 05/20/20 08:00 93 L 05/20/20 07:49 97.4 F L 60 16 137/69 93 L 05/20/20 04:55 97.4 F L 60 16 142/80 H 95 05/20/20 04:00 97.4 F L 60 16 142/80 H 95 05/20/20 00:40 97.5 F L 68 16 139/83 94 L Weight Admit Weight 148 lb 8.96 oz Weight 148 lb 9 oz I&O: 05/19/20 05/20/20 05/21/20 06:59 06:59 06:59 Intake Total 240 720 Balance 240 720 Result Diagrams: 05/19/20 05:24 05/19/20 05:24 Additional Labs: Accuchecks 05/20/20 05/19/20 05/19/20 11:49 19:07 15:37 POC Glucose 110 H 179 H 167 H Hospitalist ROS - Medication Medications: Active Medications Generic Name Dose Route Start Last Admin Trade Name Freq PRN Reason Stop Dose Admin Acetaminophen 650 mg 05/12/20 02:46 05/18/20 06:12 Acetaminophen 325 Mg Tab PO 650 mg Q4H PRN Administration Headache/Fever or Pain Amoxicillin/Clavulanate Potassium 500 mg 05/16/20 21:00 05/20/20 07:59 Amoxicillin/Potassium Clav 500 Mg Tab PO 500 mg Q12HR YANI Administration Apixaban 2.5 mg 05/12/20 21:00 05/20/20 08:56 Apixaban 2.5 Mg Tab PO 2.5 mg BID YANI Administration Carvedilol 6.25 mg 05/12/20 17:00 05/20/20 08:54 Carvedilol 6.25 Mg Tab PO 6.25 mg BID-WM YANI Administration Clonidine 0.1 mg 05/17/20 13:29 05/18/20 16:02 Clonidine 0.1 Mg Tab PO 0.1 mg Q4H PRN Administration SBP >150 Cyanocobalamin 1,000 mcg 05/14/20 09:00 05/20/20 08:56 Cyanocobalamin (Vitamin B-12) 1,000 Mcg Tab PO 1,000 mcg DAILY YANI Administration Folic Acid 1 mg 05/13/20 09:00 05/20/20 08:56 Folic Acid 1 Mg Tab PO 1 mg DAILY YANI Administration Insulin Glargine 12 units/ 0.12 mls @ 0 mls/hr 05/14/20 09:00 05/20/20 09:06 Miscellaneous Medication SC 0.12 mls QAM YANI Administration Insulin Human Lispro 0 units 05/11/20 17:53 05/18/20 13:05 Humalog 300 Units/3 Ml Vial SC 2 unit .MILD SLIDING SCALE PRN Administration Mild Correctional Scale Latanoprost 1 drop 05/13/20 09:00 05/20/20 07:59 Latanoprost 0.005% Ophth Soln 2.5 Ml Bottle EA EYE 1 drp DAILY YANI Administration Multivitamins 1 tab 05/14/20 09:00 05/20/20 08:56 Multivit, Therapeutic 1 Tab PO 1 tab DAILY YANI Administration Pantoprazole Sodium 40 mg 05/13/20 09:00 05/20/20 08:56 Pantoprazole 40 Mg Tab PO 40 mg DAILY YANI Administration Polyethylene Glycol 17 gm 05/13/20 09:00 05/20/20 08:59 Polyethylene Glycol 3350 17 Gm Packet PO 17 gm DAILY YANI Administration Potassium Chloride 20 meq 05/16/20 08:00 05/20/20 08:57 Potassium Chloride 20 Meq Packet PO 20 meq QAM-WM YANI Administration Saccharomyces Boulardii 250 mg 05/14/20 09:00 05/20/20 08:56 Saccharomyces Boulardii 250 Mg Cap PO 250 mg DAILY YNAI Administration Senna/Docusate Sodium 1 tab 05/12/20 21:00 05/20/20 08:56 Senokot S 8.6-50 Mg Tab PO 1 tab BID YANI Administration Sodium Chloride 10 ml 05/12/20 21:00 05/20/20 08:57 Flush - Normal Saline 10 Ml Syringe IVF Not Given Q12HR YANI Thiamine HCl 100 mg 05/13/20 09:00 05/20/20 08:55 Thiamine 100 Mg Tab PO 100 mg DAILY YANI Administration - Exam General - other findings: Sleeping Eye: PERRL ENT: normocephalic atraumatic Neck: supple Heart: RRR, normal peripheral pulses Respiratory: CTAB, normal chest expansion Gastrointestinal: soft, normal bowel sounds Neurological: cranial nerve grossly intact, no focal deficits Hosp A/P - Plan (1) Toxic metabolic encephalopathy Code(s): G92 - TOXIC ENCEPHALOPATHY Status: Acute (2) Hypoglycemia associated with type 2 diabetes mellitus Code(s): E11.649 - TYPE 2 DIABETES MELLITUS WITH HYPOGLYCEMIA WITHOUT COMA Status: Acute (3) Sepsis due to UTI and present on admission. (5) Cellulitis of both lower extremities --Ceftriaxone (6) Anemia Code(s): D64.9 - ANEMIA, UNSPECIFIED Status: Chronic Qualifiers: Iron deficiency anemia type: inadequate dietary iron intake (7) CHF (congestive heart failure) Code(s): I50.9 - HEART FAILURE, UNSPECIFIED Status: Chronic Qualifiers: Heart failure type: systolic (8) DM2 (diabetes mellitus, type 2) Status: Chronic Qualifiers: Chronic kidney disease stage: stage 3 (moderate) (9) HTN (hypertension) Code(s): I10 - ESSENTIAL (PRIMARY) HYPERTENSION Status: Chronic (10) Afib Code(s): I48.91 - UNSPECIFIED ATRIAL FIBRILLATION Status: Chronic hx of pancreatic mass, history of AICD, physical deconditioning, history of MSSA right upper extremity infection in February 2020, Patient had blood sugar of 40 at home prior to admission. Lower extremity erythema is improving. Continue IV vancomycin with cefepime. Urine culture positive for Klebsiella. Continue wound care. -IV ceftriaxone will switch to p.o. antibiotics when ready to be discharged. Patient has ongoing confusion so may not be amenable for p.o. antibiotic right now. IV antibiotic both for urinary tract infection and cellulitis. Her lower extremity cellulitis seems improved on preexisting chronic venous stasis related changes right more so than on the left leg. [facility] facility placement. No change from the above mgmt, other than the fact that she is more alert but still very confused and she cannot even recall her name. Her folate in the normal range however her vitamin B12 around 1999. Will check TSH and vitamin D hydroxy level. 7th Hypothyroidism -Since her TSH is almost close to 7 I will start her on low-dose thyroxine supplement. Patient does not have any home regimen of thyroxine supplement in the past. Vitamin D level in the normal range; folate in the normal range however her vitamin B12 around 1999. talked to the caseworker intake. Palliative note reviewed. Plan to send her home with home hospice. being set up today. Probably discharge home tomorrow.
--- NOTE | 2020-05-20 16:54 | EKG ---
Test Reason : SEPSIS Blood Pressure : / mmHG Vent. Rate : 062 BPM Atrial Rate : 416 BPM P-R Int : 000 ms QRS Dur : 172 ms QT Int : 554 ms P-R-T Axes : 000 -07 118 degrees QTc Int : 562 ms Ventricular-paced rhythm with frequent Premature ventricular complexes Abnormal ECG Confirmed by TAYLOR MAHARAJ, ARNIE ([id number]), newspaper editor managing JUAN MIGUEL BARAHONA ([id number]) on 05/20/2020 4:53:43 PM Referred By: TAYLOR Confirmed By:ARNIE VAZQUEZ MD
[2020-05-21] MEDS: Levothyroxine Sodium 50 MCG TAB PO SCH (06:52)
[2020-05-21] MEDS ORDERED: Nortriptyline HCl 25 MG CAP ONE (07:31)
[2020-05-21] MEDS: Latanoprost 0.005% Ophth Soln 2.5 ml Bottle EA EYE SCH (08:16)
[2020-05-21] MEDS: Apixaban 2.5 MG TAB PO SCH ×2 (08:16→20:39)
[2020-05-21] MEDS: Polyethylene Glycol 3350 17 GM Packet PO SCH (08:16)
[2020-05-21] MEDS: Carvedilol 6.25 MG TAB PO SCH ×2 (08:17→16:08)
[2020-05-21] MEDS: Amoxicillin/Potassium Clav 500 MG TAB PO SCH ×2 (08:17→20:39)
[2020-05-21] MEDS: Saccharomyces boulardii 250 MG CAP PO SCH (08:17)
[2020-05-21] MEDS: Cyanocobalamin (Vitamin B-12) 1,000 MCG TAB PO SCH (08:24)
[2020-05-21] MEDS: Folic Acid 1 MG TAB PO SCH (08:24)
[2020-05-21] MEDS: Multivit, Therapeutic 1 TAB PO SCH (08:25)
[2020-05-21] MEDS: Senokot S 8.6-50 MG TAB PO SCH ×2 (08:25→20:39)
[2020-05-21] MEDS: Thiamine 100 MG TAB PO SCH (08:25)
[2020-05-21] MEDS: Insulin Glargine 12 UNITS in Pre-Filled Syringe 1 EACH SC SCH (12:04)
--- NOTE | 2020-05-21 14:09 | PDOC.HOSPP ---
- Subjective Encounter Date: 05/21/20 Encounter Time: 11:10 Subjective: Patient is remained in the same condition not much conversation. She is still confused. Family does not want to take her home with home hospice set up. They want her to go to the jail facility. 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 - Objective Vital Signs & Weight: Vital Signs (12 hours) Temp Pulse Resp BP BP Pulse Ox 05/21/20 08:17 155/80 H 05/21/20 08:00 97.4 F L 65 20 155/80 H 96 Weight Admit Weight 148 lb 8.96 oz Weight 148 lb 9 oz I&O: 05/20/20 05/21/20 05/22/20 06:59 06:59 06:59 Intake Total 720 720 Balance 720 720 Result Diagrams: 05/19/20 05:24 05/19/20 05:24 Additional Labs: Accuchecks 05/21/20 05/20/20 05/20/20 11:36 20:56 15:50 POC Glucose 86 166 H 91 05/20/20 09:10 POC Glucose 119 H Hospitalist ROS - Medication Medications: Active Medications Generic Name Dose Route Start Last Admin Trade Name Freq PRN Reason Stop Dose Admin Acetaminophen 650 mg 05/12/20 02:46 05/18/20 06:12 Acetaminophen 325 Mg Tab PO 650 mg Q4H PRN Administration Headache/Fever or Pain Amoxicillin/Clavulanate Potassium 500 mg 05/16/20 21:00 05/21/20 08:17 Amoxicillin/Potassium Clav 500 Mg Tab PO 500 mg Q12HR YANI Administration Apixaban 2.5 mg 05/12/20 21:00 05/21/20 08:16 Apixaban 2.5 Mg Tab PO 2.5 mg BID YAIN Administration Carvedilol 6.25 mg 05/12/20 17:00 05/21/20 08:17 Carvedilol 6.25 Mg Tab PO 6.25 mg BID-WM YANI Administration Clonidine 0.1 mg 05/17/20 13:29 05/18/20 16:02 Clonidine 0.1 Mg Tab PO 0.1 mg Q4H PRN Administration SBP >150 Cyanocobalamin 1,000 mcg 05/14/20 09:00 05/21/20 08:24 Cyanocobalamin (Vitamin B-12) 1,000 Mcg Tab PO Not Given DAILY YANI Folic Acid 1 mg 05/13/20 09:00 05/21/20 08:24 Folic Acid 1 Mg Tab PO Not Given DAILY [facility] Insulin Glargine 12 units/ 0.12 mls @ 0 mls/hr 05/14/20 09:00 05/21/20 12:04 Miscellaneous Medication SC Not Given QAM YANI Insulin Human Lispro 0 units 05/11/20 17:53 05/18/20 13:05 Humalog 300 Units/3 Ml Vial SC 2 unit .MILD SLIDING SCALE PRN Administration Mild Correctional Scale Latanoprost 1 drop 05/13/20 09:00 05/21/20 08:16 Latanoprost 0.005% Ophth Soln 2.5 Ml Bottle EA EYE 1 drp DAILY YANI Administration Levothyroxine Sodium 50 mcg 05/21/20 06:00 05/21/20 06:52 Levothyroxine Sodium 50 Mcg Tab PO Not Given 0600 [facility] Multivitamins 1 tab 05/14/20 09:00 05/21/20 08:25 Multivit, Therapeutic 1 Tab PO Not Given DAILY YANI Pantoprazole Sodium 40 mg 05/13/20 09:00 05/21/20 08:25 Pantoprazole 40 Mg Tab PO Not Given DAILY [facility] Polyethylene Glycol 17 gm 05/13/20 09:00 05/21/20 08:16 Polyethylene Glycol 3350 17 Gm Packet PO 17 gm DAILY YANI Administration Potassium Chloride 20 meq 05/16/20 08:00 05/21/20 08:16 Potassium Chloride 20 Meq Packet PO 20 meq QAM-WM YANI Administration Saccharomyces Boulardii 250 mg 05/14/20 09:00 05/21/20 08:17 Saccharomyces Boulardii 250 Mg Cap PO Not Given DAILY YANI Senna/Docusate Sodium 1 tab 05/12/20 21:00 05/21/20 08:25 Senokot S 8.6-50 Mg Tab PO Not Given BID [facility] Sodium Chloride 10 ml 05/12/20 21:00 05/21/20 08:25 Flush - Normal Saline 10 Ml Syringe IVF Not Given Q12HR YANI Thiamine HCl 100 mg 05/13/20 09:00 05/21/20 08:25 Thiamine 100 Mg Tab PO Not Given DAILY YANI - Exam General Appearance: ill appearing General - other findings: Not oriented sleepy Eye: PERRL ENT: normocephalic atraumatic Neck: supple Heart: RRR Respiratory: CTAB, normal chest expansion Gastrointestinal: soft, normal bowel sounds Neurological: no new deficit Psychiatric: not oriented Hosp A/P - Plan (1) Toxic metabolic encephalopathy Code(s): G92 - TOXIC ENCEPHALOPATHY Status: Acute (2) Hypoglycemia associated with type 2 diabetes mellitus Code(s): E11.649 - TYPE 2 DIABETES MELLITUS WITH HYPOGLYCEMIA WITHOUT COMA Status: Acute (3) Sepsis due to UTI and present on admission. (5) Cellulitis of both lower extremities --Ceftriaxone (6) Anemia Code(s): D64.9 - ANEMIA, UNSPECIFIED Status: Chronic Qualifiers: Iron deficiency anemia type: inadequate dietary iron intake (7) CHF (congestive heart failure) Code(s): I50.9 - HEART FAILURE, UNSPECIFIED Status: Chronic Qualifiers: Heart failure type: systolic (8) DM2 (diabetes mellitus, type 2) Status: Chronic Qualifiers: Chronic kidney disease stage: stage 3 (moderate) (9) HTN (hypertension) Code(s): I10 - ESSENTIAL (PRIMARY) HYPERTENSION Status: Chronic (10) Afib Code(s): I48.91 - UNSPECIFIED ATRIAL FIBRILLATION Status: Chronic hx of pancreatic mass, history of AICD, physical deconditioning, history of MSSA right upper extremity infection in February 2020, Patient had blood sugar of 40 at home prior to admission. Lower extremity erythema is improving. Continue IV vancomycin with cefepime. Urine culture positive for Klebsiella. Continue wound care. -IV ceftriaxone will switch to p.o. antibiotics when ready to be discharged. Patient has ongoing confusion so may not be amenable for p.o. antibiotic right now. IV antibiotic both for urinary tract infection and cellulitis. Her lower extremity cellulitis seems improved on preexisting chronic venous stasis related changes right more so than on the left leg. assisted facility placement. No change from the above mgmt, other than the fact that she is more alert but still very confused and she cannot even recall her name. Her folate in the normal range however her vitamin B12 around 1999. Will check TSH and vitamin D hydroxy level. 7th Hypothyroidism -Since her TSH is almost close to 7 I will start her on low-dose thyroxine supplement. Patient does not have any home regimen of thyroxine supplement in the past. Vitamin D level in the normal range; folate in the normal range however her vitamin B12 around 1999. talked to the adult protective caseworker. Palliative note reviewed. Plan to send her home with home hospice. being set up today. Probably discharge home tomorrow. 8th Family does not want to take her home with home hospice set up. They want her to go to the jail facility. 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
[2020-05-22] MEDS: Levothyroxine Sodium 50 MCG TAB PO SCH (06:09)
[2020-05-22 07:30] VITALS: TEMP 97.6
[2020-05-22] MEDS: Latanoprost 0.005% Ophth Soln 2.5 ml Bottle EA EYE SCH (08:38)
[2020-05-22] MEDS: Insulin Glargine 12 UNITS in Pre-Filled Syringe 1 EACH SC SCH (08:39)
[2020-05-22] MEDS: Senokot S 8.6-50 MG TAB PO SCH (08:40)
[2020-05-22] MEDS: Carvedilol 6.25 MG TAB PO SCH (08:40)
[2020-05-22] MEDS: Saccharomyces boulardii 250 MG CAP PO SCH (08:40)
[2020-05-22] MEDS: Folic Acid 1 MG TAB PO SCH (08:40)
[2020-05-22] MEDS: Cyanocobalamin (Vitamin B-12) 1,000 MCG TAB PO SCH (08:40)
[2020-05-22] MEDS: Thiamine 100 MG TAB PO SCH (08:40)
[2020-05-22] MEDS: Multivit, Therapeutic 1 TAB PO SCH (08:40)
[2020-05-22] MEDS: Amoxicillin/Potassium Clav 500 MG TAB PO SCH (08:41)
[2020-05-22] MEDS: Polyethylene Glycol 3350 17 GM Packet PO SCH (08:41)
[2020-05-22] MEDS: Apixaban 2.5 MG TAB PO SCH (10:17)
[2020-05-22] MEDS: HumaLOG 300 UNITS/3 ML VIAL SC PRN (11:41)
[2020-05-22 11:47] VITALS: BP 144/70
--- NOTE | 2020-05-25 08:09 | DIS ---
DATE OF ADMISSION: 05/11/2020 DATE OF DISCHARGE: 05/22/2020 DISCHARGE DIAGNOSES: 1. Toxic metabolic encephalopathy. 2. Hypoglycemia and history of type 2 diabetes mellitus. 3. Sepsis due to urinary tract infection, present on admission. 4. Cellulitis of both lower extremities with pre-existing chronic venous stasis. 5. Congestive heart failure, stable, with pacemaker placement. 6. Hypertension. 7. History of automatic implantable cardioverter-defibrillator placement. 8. History of pancreatic mass. 9. History of methicillin-sensitive right upper extremity infection in February 2020. 10. History of triple negative breast cancer, status post bilateral mastectomy. 11. Atrial fibrillation. 12. Anemia of chronic renal insufficiency. 13. Arthritis. New diagnosis: 1. Hypothyroidism with TSH of 7.1, started on low-dose thyroxine supplement. CONSULTS: 1. Hematology with Mayela Christensen. 2. Dr. Moreau, Infectious Disease. DISCHARGE MEDICATIONS: 1. Levothyroxine 50 mcg daily. 2. Augmentin 500 mg twice a day for 5 days. 3. Torsemide 20 mg daily. 4. Temazepam 15 mg daily. 5. Protonix 40 mg daily. 6. Losartan 25 mg daily. 7. Folic acid 1 mg daily. 8. Vitamin B12, 1000 mcg daily. 9. Eliquis 2.5 mg daily. 10. Procrit 40,000 units every 7 days. 11. Lantus 12 units daily. 12. Thiamine 100 mg daily. 13. Coreg 6.25 twice a day. 14. Several stool softeners and other p.r.n.'s. PHYSICAL EXAMINATION: On the day of discharge, VITAL SIGNS: Temperature 97.6, pulse 69, blood pressure 144/70, and saturating 95% on room air. GENERAL: The patient is in baseline mentation/confused, but oriented to her name. She appears comfortable, not in any acute distress. CARDIOVASCULAR: Regular rate and rhythm without murmurs, rubs, or gallops. LUNGS: Clear to auscultation bilaterally without wheezing, rales, or rhonchi. ABDOMEN: Soft, nontender, nondistended. Good bowel sounds. EXTREMITIES: Without any pitting edema. HOSPITAL COURSE: A 84-year-old female with a history of triple negative breast cancer, status post mastectomy, pacemaker placement, anemia of kidney disease, atrial fibrillation on anticoagulation, presented with sepsis secondary to urinary tract infection and associated metabolic encephalopathy. Over the course of the time, clinically, she improved, but her mentation seems to be quite labile. Several workup done including B12, folate, vitamin D level, they all seems to be in the normal range. However, TSH is close to 7.1. In this regard, she started on low-dose thyroxine supplement. She did have methicillin-sensitive right upper extremity infection in February 2020, history of AICD placement. Her urine culture grew Klebsiella pneumonia for which ceftriaxone continued and switched to Augmentin at the time of discharge. Her lower extremity cellulitis improved with IV ceftriaxone. At some point, we discussed about a assisted facility along with hospice. Later, family decided not to set up with home hospice, but preferred assisted facility placement. The patient was discharged today to the assisted facility in clinically stable condition. DISCHARGE INSTRUCTIONS: Activity with supervision. Diabetic diet. Follow up with the primary care in 1 week after the rehab. She has also been considered for hospice as well during this hospitalization. Discharge time took over 35 minutes. Job ID: [id number] [facility]
== END 2020-05-22 14:11 | DRG 871 ==
LOC: ERS 15:31 → T4-B 16:53
PROVIDERS: ADMIT Student in an Organized Health Care Education/Training Program; ATTEND Student in an Organized Health Care Education/Training Program
DX: A41.59 Other Gram-negative sepsis (principal); G92 Toxic encephalopathy; N39.0 Urinary tract infection, site not specified; L03.115 Cellulitis of right lower limb; L03.116 Cellulitis of left lower limb; I13.0 Hypertensive heart and chronic kidney disease with heart failure and stage 1 through stage 4 chronic kidney disease, or unspecified chronic kidney disease; E87.1 Hypo-osmolality and hyponatremia; I50.22 Chronic systolic (congestive) heart failure; N17.9 Acute kidney failure, unspecified; Z51.5 Encounter for palliative care; Z20.828 Contact with and (suspected) exposure to other viral communicable diseases; I25.5 Ischemic cardiomyopathy; E11.22 Type 2 diabetes mellitus with diabetic chronic kidney disease; E11.649 Type 2 diabetes mellitus with hypoglycemia without coma; D63.1 Anemia in chronic kidney disease; N18.30 Chronic kidney disease, stage 3 unspecified; M19.90 Unspecified osteoarthritis, unspecified site; I25.10 Atherosclerotic heart disease of native coronary artery without angina pectoris; E86.0 Dehydration; I48.91 Unspecified atrial fibrillation; D50.9 Iron deficiency anemia, unspecified; Z95.810 Presence of automatic (implantable) cardiac defibrillator; Z88.2 Allergy status to sulfonamides; Z79.4 Long term (current) use of insulin; Z79.899 Other long term (current) drug therapy; Z85.3 Personal history of malignant neoplasm of breast
CPT/HCPCS: 36415; 36416; 80048; 80053; 80202; 82306; 82525; 82565; 82607; 82746; 83735; 84100; 84443; 85007; 85014; 85018; 85025; 85027; 85049; 86140; 87635; 93005; 93970; J0692; J0696; J1815; J1940; J3370; J3490; Q0163; U0003

== ENCOUNTER 2020-06-18 15:48 | Inpatient (IN) | payer MEDICARE ==
--- NOTE | 2020-06-18 16:27 | RAD ---
Chest one view HISTORY: Altered mental status. Chest pain. COMPARISON: 05/11/2020. FINDINGS: Cardiac silhouette is magnified and more enlarged than on the prior study. Pulmonary vascul ature remains engorged with bilateral perihilar and bibasilar infiltrates. Mediastinum is midline with a multi lead left subclavian cardiac electronic device. There is blunting of the left lateral costophrenic angle. No evidence of pneumothorax. IMPRESSION : Cardiomegaly. Slight progression of pulmonary vascular congestion. Probable small left pleural effusi on.
[2020-06-18] MEDS ORDERED: Acetaminophen 500 MG TAB ONE (16:28)
[2020-06-18 16:33] LABS: Hemoglobin 11.4 g/dL (12.0-16.0); Mean Corpuscular HGB CONC 32.9 g/dL (32.0-36.0); Mean Corpuscular Hemoglobin 37.6 pg (27.0-31.0); Mean Platelet Volume 9.9 fL (7.4-10.4); Platelet Count 242 thou/uL (130-400); RBC Distribution Width 22.8 % (11.5-14.5); Red Blood Cell (RBC) Count 3.04 mill/uL (4.20-5.40)
[2020-06-18 16:35] LABS: Bilirubin Negative (Negative); Blood, Urine Negative (Negative); Clarity Turbid (Clear); Glucose, Urine (Dipstick) Negative (Negative); Ketone, Urine Negative (Negative); Leukocyte Small (Negative); Nitrite Positive (Negative); Protein, Urine (Dipstick) Negative (Neg-Trace); Specific Gravity, Urine 1.015 (1.005-1.030); Urobilinogen 0.2 mg/dL (Less than 2)
[2020-06-18 16:39] LABS: RBC/HPF 0-3 HPF (0-3); WBC/HPF Greater Than 50 HPF (0-3)
[2020-06-18 16:40] LABS: Bacteria/HPF 4+ HPF (None Seen); Squamous Epithelial 0-3 HPF (0-3); Transitional Epithelial 0-3 HPF (None Seen)
[2020-06-18 16:53] LABS: Band 35 % (5-11); Lymphocytes 10 % (21-51); MDiff Complete? YES; Macrocytosis SLIGHT = 6-15 cells (100X) (0-5/hpf); Monocytes 10 % (0-10); Neutrophil 38 % (42-75); Nucleated RBC 1 % (0); Platelet Morphology Comment Appears Adequate; Polychromasia MODERATE = 3-4 cells (100X) (0-2/hpf); Reactive Lymphocytes 7 % (0-10); Schistocytes SLIGHT = 2-5 cells (100X) (0-1/hpf); Target Cells MODERATE= 6-15 cells (100X) (0-1/hpf); Tear Drops SLIGHT = 2-5 cells (100X) (0-1/hpf); White Blood Cell (WBC) Count 8.1 thou/uL (4.8-10.8)
[2020-06-18 17:16] LABS: ALT (SGPT) 21 U/L (8-55); AST (SGOT) 25 U/L (5-34); Albumin 3.6 g/dL (3.4-4.8); Alkaline Phosphatase 116 U/L (40-110); Anion Gap 14 mmol/L (10-20); BUN (Urea Nitrogen) 33 mg/dL (9.8-20.1); Bilirubin, Total 2.1 mg/dL (0.2-1.2); Calc. Creatinine Clearance 0 mL/min (70-130); Calcium 9.3 mg/dL (7.8-10.44); Carbon Dioxide 30 mmol/L (23-31); Chloride 103 mmol/L (98-107); Estimated GFR-MDRD 37; Globulin 3.1 g/dL (2.4-3.5); Glucose 97 mg/dL (83-110); Potassium 3.8 mmol/L (3.5-5.1); Protein, Total 6.7 g/dL (6.0-8.3); Sodium 143 mmol/L (136-145)
--- NOTE | 2020-06-18 17:52 | ULT ---
EXAM: Left lower extremity venous Doppler HISTORY: Left upper extremity pain and swelling. FINDINGS: Grayscale, color-flow, Doppler evaluation, spectral analysis of the left upper extremity venous struc tures is performed with 2-D imaging. There is normal flow seen in the left subclavian vein. There is normal luminal compressibility and fl ow seen in the left internal jugular, axillary, brachial, radial, and ulnar veins. There is normal luminal compressibility and flow seen in the left upper extremity cephalic and basili c veins. IMPRESSION: No evidence of a deep vein thrombosis in the visualized deep venous structures left upper extremity.
[2020-06-18] MEDS ORDERED: cefTRIAXone\\ROCEPHIN 2 GM VIAL ONE (18:23)
--- NOTE | 2020-06-18 18:23 | CT ---
CT HEAD WITHOUT IV CONTRAST COMPARISON: 05/11/2020 HISTORY: Altered mental status TECHNIQUE: Axial CT imaging at 5 mm intervals from vertex through skull base without contrast FINDINGS: There is decreased attenuation in the periventricular white matter which is nonspecific but likely re flective of chronic small vessel ischemic changes. Findings have not significantly progressed when compared to prior exam. There is mild cerebral volume loss. The ventricular system is normal in size, shape, and position for the degree of sulcal atrophy. There is no evidence of an acute infarction, hemorrhage, mass effect, or midline shift. Skull base has a normal CT appearance. Visualized paranasal sinuses are clear. Osseous structures appear intact. IMPRESSION: 1. No acute intracranial abnormality demonstrated. 2. Chronic small vessel ischemic changes and cerebral volume loss.
--- NOTE | 2020-06-18 18:49 | CT ---
CT ABDOMEN AND PELVIS WITH IV CONTRAST 06/18/2020 CLINICAL INFORMATION: Right lower quadrant pain and guarding. COMPARISON: 03/12/2020 Technique: Multiple contiguous axial CT images are obtained through the abdomen and pelvis with IV contrast. Cor onal reformatted images are provided. FINDINGS: Lower Chest: The heart remains markedly enlarged. There is partial visualization of the AICD leads. A pericardial effusion is again partially imaged and also present on the prior exam slightly increased from prior study. There is been interval increase in right pleural effusion with moderate s ize right pleural effusion. Small left pleural effusion is present. There is bibasilar areas of consolidation probably attributable to passive atelectasis. Calcified granulomas at the right lung ba se Vessels: Vascular calcifications are seen in the abdominal aorta and iliac arteries but Abdomen: Portal vein:Not well opacified on this exam due to arterial phase of imaging. Gallbladder: Question of mild wall thickening. Liver: Mildly enlarged measuring 18 cm in craniocaudal dimensions. No focal hepatic lesion is appreci ated. Calcified granuloma is noted in the left hepatic lobe. Spleen: Splenic granulomata present. Pancreas: Lobulated cystic pancreatic lesions associated with the body of the pancreas are again seen and were also seen on study of 10/23/2019. Tiny cystic lesion tail of pancreas is less well visualized on this examination. Adrenals: Mild fullness of the left adrenal gland is again noted. 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 This is unchanged compared to study on 11/05/2018. Kidneys: Right kidney is rotated. There is no hydronephrosis. Bowel: Evidence of colonic diverticulosis. Appendix: The appendix is visualized and normal in caliber. Peritoneum: There is mild nonspecific edema within the mesentery. Mesentery and Retroperitoneum: There is a rounded increased density structure measuring 1.2 cm a righ t hemipelvis which appears to represent a calcification and could potentially represent calcified lymph node. This is adjacent to the colon and could represent inspissated material within a diverticu lum. Abdominal Wall: Diffuse subcutaneous edema suggesting anasarca. There is an enlarged right inguinal l ymph node present measuring 1.2 cm in short axis dimension. Pelvis: Reproductive Organs: Evidence of hysterectomy. Bladder: within normal limits. Bones: Multilevel degenerative changes in the spine with evidence of osteopenia. IMPRESSION: 1. Marked cardiomegaly with partial visualization of a pericardial effusion which does appear slightl y larger in size compared to study of 03/12/2022. There is reflux of contrast into the hepatic veins suggesting heart dysfunction. 2. Moderately large right pleural effusion and consolidation right lung base probably to pass atelect asis. Small left pleural effusion is present. Pleural fluid at the right lung base is slightly larger in size, but the pleural fluid at the left lung base has improved. 3. Cystic pancreatic lesions. Follow-up MRI is recommended. 4. Suggestion of mild gallbladder wall thickening. This is overall nonspecific finding. This can be s een with cholecystitis in the correct clinical scenario, but other etiologies for gallbladder wall thickening such as hypoproteinemia or liver disease is a possibility. Gallbladder ultrasound may be h elpful for further evaluation. 5. Evidence of anasarca and mild edema in the mesentery with minimal amount of fluid adjacent to the right hepatic lobe. 6. Hepatomegaly. 7. Colonic diverticulosis. 8. Right inguinal lymphadenopathy
[2020-06-18] MEDS ORDERED: Furosemide 40 MG/4 ML VIAL ONE (19:30)
[2020-06-18] MEDS ORDERED: Ondansetron PF 4 MG/2 ML Vial IVP PRN (21:15)
[2020-06-18] MEDS ORDERED: Ondansetron ODT 4 MG TAB SL PRN (21:15)
[2020-06-18] MEDS ORDERED: Acetaminophen 325 MG TAB PO PRN (21:15)
[2020-06-18] MEDS ORDERED: Sodium Chloride 0.9% 1,000 ML IV SCH (21:15)
[2020-06-18] MEDS ORDERED: Morphine 2 MG/ML VIAL SLOW IVP PRN ×2 (21:44→22:24)
--- NOTE | 2020-06-18 22:10 | ULT ---
Exam: Right upper quadrant ultrasound: HISTORY: Right lower quadrant abdominal pain and guarding. Suggestion gallbladder wall thickening on recent CT abdomen. COMPARISON: CT abdomen and pelvis on 06/18/2020 FINDINGS: Liver: Enlarged in craniocaudal dimensions measuring 19 cm. Gallbladder: Evidence of gallbladder wall thickening with gallbladder wall measuring 0.5 cm in thickn ess. Trace pericholecystic fluid is seen, there is also evidence of small amount of free fluid adjacent to the liver. No gallbladder calculus is seen. Common bile duct: Common duct is normal in caliber for patient's age measuring 0.7 cm in diameter. Pancreas: Limited visualized portions of the pancreas demonstrate a normal sonographic appearance. Right kidney: Right kidney demonstrates a normal sonographic appearance. The right kidney measures 9 .4 cm in length. IVC: Distended and within normal limits where visualized. Moderate size right pleural effusion is partially imaged. IMPRESSION: 1. Gallbladder wall thickening without evidence of gallbladder calculi. Tiny amount of pericholecysti c fluid is seen, but there is also fluid seen adjacent to the liver which may account for this finding. Gallbladder wall thickening can be seen with cholecystitis in the correct clinical scenario, hypoproteinemia, secondary to liver disease versus other etiologies. 2. Common duct is normal in caliber for patient's age measuring 0.7 cm. 3. Moderate size right pleural effusion partially imaged. 4. Mild hepatomegaly.
[2020-06-18] MEDS ORDERED: Dextrose 5% in Water 1,000 ML IV PRN (22:25)
--- NOTE | 2020-06-18 22:28 | PDOC.EVN ---
Event Note - Event Note Event Note: RUQ sono did show evidence of cholecystitis, Dr Mondragon consulted, daughter was updated. will continue with current management.
[2020-06-18 23:22] VITALS: BMI 25.4
[2020-06-18] MEDS: Piperacillin/Tazobactam 4.5 GM in Sodium Chloride 0.9% 100 ML IVPB SCH (23:41)
[2020-06-19] MEDS: Dextrose 50% Abboject 50 ML SYRINGE SLOW IVP PRN ×2 (00:44→12:09)
[2020-06-19] MEDS ORDERED: Fentanyl 100 MCG/2 ML VIAL SLOW IVP SCH (01:00)
--- NOTE | 2020-06-19 01:41 | HP ---
REASON FOR ADMISSION: Change in mental status. HISTORY OF PRESENT ILLNESS: The patient is demented, unable to provide much information. She lives in a custodial and was noted to be confused. She was noted to be moaning and grabbing her right lower quadrant area. Also, she was noted to be hypoxic. She was brought to the ER. Her urine showed urinary tract infection. A CAT scan of the abdomen showed possible cholecystitis. When I go to examine her, she says that she does not feel well, but unable to pinpoint what is really bothering her. I did review her records and I see that she was recently in our hospital, discharge approximately one month ago, admitted with confusion and sepsis secondary to urine tract infection. Her TSH was 7.1. She was started on a low-dose thyroxine supplement. Her urine culture grew Klebsiella pneumoniae sensitive to ceftriaxone. There was a discussion about whether she needs to be on hospice with the family, but they opted for her to go to a retirement facility. PAST MEDICAL HISTORY: 1. Dementia. 2. Ischemic cardiomyopathy, EF of 25%. 3. Chronic kidney disease. 4. Status post mastectomy. 5. Diabetes, type 2. 6. High blood pressure. 7. Status post pacemaker placement. 8. Atrial fibrillation. 9. Status post hysterectomy. 10. Bilateral mastectomy. SOCIAL HISTORY: Unable to obtain due to her confusion. ALLERGIES: TO SULFA. FAMILY HISTORY: Unable to obtain due to her confusion. REVIEW OF SYSTEMS: Unable to obtain due to her confusion. PHYSICAL EXAMINATION: GENERAL: She is awake. She does not look comfortable, but cannot verbalize what is bothering her. VITAL SIGNS: Her blood pressure is 166/62, pulse of 80, saturating 100% on room air. HEENT: Head is nontraumatic, normocephalic. Pupils equal, reactive. Extraocular movements are intact. NECK: Supple. No adenopathy. No murmur. Thyroid is not palpable. Trachea is midline. No supraclavicular adenopathy. CARDIAC: S1, S2 distant. No displacement of PMI. LUNGS: Decreased air entry bilaterally. Fine expiratory wheezing bilaterally. Bowel sounds are positive. ABDOMEN: Distended. Tenderness on palpation of the right upper quadrant area. EXTREMITIES: No lower extremity edema. No cyanosis. NEURO: Cranial nerves appeared to be intact. She is moving all her four extremities. LABORATORY DATA: Blood work shows WBC of 8.1, hemoglobin of 11.4, platelets of 242, bands of 35%. Sodium of 143, potassium 3.8, creatinine 1.35, baseline around 0.83. Urinalysis positive for wbc's and nitrites. CT of the abdomen shows marked cardiomegaly with partial visualization of pericardial effusion, which does appear slightly larger in size compared to study in February , moderately large right pleural effusion and consolidation right lung base, probable atelectasis, small left pleural effusion is present, pleural fluid at the right lung base, slightly larger in size, pleural fluid at the left lung base is improved. Cystic pancreatic lesion. Followup MRI is recommended. Suggestion of mild gallbladder wall thickening. Overall nonspecific can be with cholecystitis in the correct clinical scenario, but other etiologies for gallbladder wall thickening such as hyperproteinemia or liver disease is possibility. Gallbladder ultrasound may be helpful for further evaluation. Evidence of anasarca and mild edema in the mesentery with minimal amount of fluid adjacent to the right hepatic lobe, hepatomegaly, colonic diverticulosis, and right inguinal lymphadenopathy. CT of the brain shows no acute intracranial abnormality, chronic small-vessel ischemic changes. Chest x-ray shows cardiomegaly with slight progression of pulmonary vascular congestion, probable small left pleural effusion, left lower extremity venous Doppler shows no evidence of deep vein thrombosis in the visualized deep venous structure left upper extremity. ASSESSMENT AND PLAN: This is an 84-year-old female patient presenting with confusion. She does have a urinary tract infection. She does have abdominal pain, maybe she has cholecystitis, also possibly fluid overloaded. Cardiac: The patient has history of congestive heart failure and appears to be possibly in congestive heart failure exacerbation. She did receive Lasix in the ER. We will continue with that. GI: The patient does complain of abdominal pain. We are awaiting an ultrasound of the right upper quadrant area to further investigate possible cholecystitis. We will provide her with morphine for pain. Keep her n.p.o. for now. Endocrinology: She has history of diabetes. We will have her on insulin sliding scale. For DVT prophylaxis, she will be on SCDs. She is already on Eliquis. Renal system, electrolytes: The patient does have worsening of her kidney function. We will monitor her electrolytes on a daily basis. We will hold off on her ARB. For her UTI, she will be on IV antibiotics. She did receive Rocephin in the ER. I am thinking of expanding her coverage and use IV Zosyn in case we are dealing with cholecystitis. I did call her daughter, Gabriella, and I spoke with her. She told me that the patient was reported today to have low oxygen level and lethargic and no energy with abdominal pain and daughter was concerned of swelling around her abdominal area and increased edema in her left upper extremity. She did inform me that her left upper extremity has been used for iron infusion and that might have exacerbated her chronic edema. Also, she told me that her abdominal pain started on Monday and she was given and felt better after then. Daughter noticed that on Monday, her left breast was extremely large. The daughter did tell me that the patient is a do not resuscitate. Job ID: [id number]
[2020-06-19] MEDS: Piperacillin/Tazobactam 4.5 GM in Sodium Chloride 0.9% 100 ML IVPB SCH ×3 (05:29→17:55)
[2020-06-19 07:17] LABS: Hemoglobin 10.8 g/dL (12.0-16.0); Mean Corpuscular HGB CONC 33.8 g/dL (32.0-36.0); Mean Corpuscular Hemoglobin 39.1 pg (27.0-31.0); Mean Platelet Volume 9.8 fL (7.4-10.4); Platelet Count 199 thou/uL (130-400); RBC Distribution Width 22.7 % (11.5-14.5); Red Blood Cell (RBC) Count 2.76 mill/uL (4.20-5.40); White Blood Cell (WBC) Count 5.4 thou/uL (4.8-10.8)
[2020-06-19 07:19] LABS: ALT (SGPT) 19 U/L (8-55); AST (SGOT) 25 U/L (5-34); Albumin 3.1 g/dL (3.4-4.8); Alkaline Phosphatase 95 U/L (40-110); Anion Gap 15 mmol/L (10-20); BUN (Urea Nitrogen) 25 mg/dL (9.8-20.1); Bilirubin, Total 1.8 mg/dL (0.2-1.2); Calc. Creatinine Clearance 40 mL/min (70-130); Calcium 8.6 mg/dL (7.8-10.44); Carbon Dioxide 26 mmol/L (23-31); Chloride 107 mmol/L (98-107); Estimated GFR-MDRD 49; Globulin 2.7 g/dL (2.4-3.5); Glucose 90 mg/dL (83-110); Potassium 3.5 mmol/L (3.5-5.1); Protein, Total 5.8 g/dL (6.0-8.3); Sodium 144 mmol/L (136-145)
[2020-06-19] MEDS ORDERED: Polyethylene Glycol 3350 17 GM Packet PO PRN (08:04)
[2020-06-19 08:08] LABS: #Eosinphils 0.2 thou/uL (0.0-0.7); #Lymphocytes 1.3 thou/uL (1.20-3.40); #Monocytes 0.6 thou/uL (0.11-0.59); #Neutrophils 3.2 thou/uL (1.40-6.50); %Basophils 0.7 % (0.0-1.0); %Lymphocytes 24.9 % (21.0-51.0); %Monocytes 11.5 % (0.0-10.0); %Neutrophils 59.9 % (42.0-75.0)
[2020-06-19 08:09] LABS: MDiff Complete? YES; Macrocytosis MODERATE=16-30 cells (100X) (0-5/hpf); Platelet Morphology Comment Appears Adequate; Polychromasia SLIGHT = 2-3 cells (100X) (0-2/hpf); Target Cells SLIGHT = 2-5 cells (100X) (0-1/hpf)
--- NOTE | 2020-06-19 08:09 | PDOC.HOSPP ---
- Subjective Encounter Date: 06/19/20 Encounter Time: 10:00 Subjective: Patient pleasantly demented. Denies complaints. Not oriented. - Objective Vital Signs & Weight: Vital Signs (12 hours) Temp Pulse Resp BP Pulse Ox 06/19/20 07:13 97.8 F 61 20 159/84 H 99 06/19/20 04:00 97.6 F 60 18 136/72 97 06/19/20 00:00 97.7 F 71 16 143/71 H 95 06/18/20 21:38 99 06/18/20 21:10 67 18 143/59 H 99 Weight Weight 148 lb 2.41 oz Result Diagrams: 06/19/20 06:26 06/19/20 06:26 Additional Labs: Accuchecks 06/19/20 06/19/20 04:26 00:27 POC Glucose 105 H 59 L* Hospitalist ROS - Review of Systems ROS unobtainable: due to mental status - Medication Medications: Active Medications Generic Name Dose Route Start Last Admin Trade Name Freq PRN Reason Stop Dose Admin Dextrose/Water 25 gm 06/18/20 22:25 06/19/20 00:44 Dextrose 50% Abboject 50 Ml Syringe SLOW IVP 25 gm PRN PRN Administration Hypoglycemia Piperacillin Sod/Tazobactam 100 mls @ 200 mls/hr 06/18/20 23:59 06/19/20 05:29 Sod 4.5 gm/ Sodium Chloride IVPB 100 mls Q6HR YANI Administration - Exam General Appearance: NAD, awake alert ENT: moist mucosa Heart: RRR, no murmur, no gallops, no rubs Respiratory: CTAB, no wheezes, no rales, no ronchi Gastrointestinal: soft, non-tender, non-distended, normal bowel sounds Extremities: no edema Extremities - other findings: left arm more bulky, but wrinkled without appreciative edema Psychiatric: not oriented Hosp A/P (1) UTI (urinary tract infection) Status: Acute (2) Abdominal pain Code(s): R10.9 - UNSPECIFIED ABDOMINAL PAIN Status: Acute (3) Acute on chronic systolic (congestive) heart failure Code(s): I50.23 - ACUTE ON CHRONIC SYSTOLIC (CONGESTIVE) HEART FAILURE Status: Acute (4) Chronic kidney disease, stage 2 (mild) Code(s): N18.2 - CHRONIC KIDNEY DISEASE, STAGE 2 (MILD) Status: Chronic (5) DM2 (diabetes mellitus, type 2) Status: Chronic Qualifiers: Chronic kidney disease stage: stage 3 (moderate) (6) HTN (hypertension) Code(s): I10 - ESSENTIAL (PRIMARY) HYPERTENSION Status: Chronic (7) Afib Code(s): I48.91 - UNSPECIFIED ATRIAL FIBRILLATION Status: Chronic Plan: with pacer, on chronic anticoagulation - Plan 84 year old woman, SNF resident, with dementia presents with complaints of abdominal pain and altered mental status. Abdominal pain Patient has thickened gallbladder wall on CT and U/S but likely due to CHF and edema, no evidence acute cholecystitis, her belly exam completely benign, and not likely a candidate for surgery anyway. Most likely pain is due to UTI. UTI Got Rocephin in the ER and now on Zosyn since 06/19/2020. Culture pending- growing back gram neg rods. Acute exacerbation of systolic CHF Patient with ECHO 06/2019 showing EF 25-30%. Repeat ECHO pending. Will consult c ardiology. Had high BP in ER, got both Lasix and fluids in ER. Will discontinue fluids and give IV Lasix BID for maybe one more day, though doesn't appear to be too volume overloaded. Transition back to home Torsemide in 1-2 days. Chronic renal failure Creatinine up a bit in ER, now normalized. Afib with pacemaker Continue home Eliquis DM Type 2 insulin dependent Patient had low blood sugar this morning, better now. Holding Lantus. Give SSI as needed. Dementia Advanced. Discussions about hospice made at last hospitalization but daughter opted for SNF. Will consult Palliative Care again. DVT Proph: Eliquis GI Proph: Protonix
[2020-06-19] MEDS ORDERED: FLU VACC QS2020-21(65YR UP)/PF 240 MCG/0.7 ML SYRINGE IM ONE (09:00)
[2020-06-19] MEDS ORDERED: EPOETIN ALFA-EPBX (ESRD) 40,000 UNIT/ML VIAL SC SCH (09:00)
[2020-06-19] MEDS: Folic Acid 1 MG TAB PO SCH (10:24)
[2020-06-19] MEDS: Cyanocobalamin (Vitamin B-12) 1,000 MCG TAB PO SCH (10:24)
[2020-06-19] MEDS: Apixaban 2.5 MG TAB PO SCH ×2 (10:24→20:16)
[2020-06-19] MEDS: Latanoprost 0.005% Ophth Soln 2.5 ml Bottle EA EYE SCH (10:25)
[2020-06-19] MEDS: Losartan 25 MG TAB PO SCH (10:25)
[2020-06-19] MEDS: Multivit, Therapeutic 1 TAB PO SCH (10:25)
[2020-06-19] MEDS: Senokot S 8.6-50 MG TAB PO SCH ×2 (10:25→20:16)
[2020-06-19] MEDS: Thiamine 100 MG TAB PO SCH (10:26)
[2020-06-19] MEDS: Furosemide 40 MG/4 ML VIAL SLOW IVP SCH (14:40)
[2020-06-19] MEDS: Calcium Carbonate 500 MG TAB PO SCH (14:41)
[2020-06-19 15:22] LABS: SARS-CoV-2 MS2 Positive; SARS-CoV-2 N Gene Negative; SARS-CoV-2 S Gene Negative; SARS-CoV-2 by NAA Not Detected (NotDetected); SARS-CoV-2 orf1ab Negative
[2020-06-19] MEDS: Carvedilol 6.25 MG TAB PO SCH (17:52)
[2020-06-19] MEDS ORDERED: Torsemide 20 MG TAB PO SCH (18:15)
--- NOTE | 2020-06-19 23:12 | CON ---
DATE OF CONSULTATION: HISTORY OF PRESENT ILLNESS: Emili Damon is an 84-year-old white female patient of Dr. Jc. She apparently has had stent placement and ischemic cardiomyopathy. She also has a biventricular ICD. She currently resides in a [place] [facility] and has dementia. She was admitted yesterday with altered mental status. Findings of urinary tract infection with urine growing gram-negative rods at the present time. Mrs. Damon denies any recent chest discomfort or shortness of breath, although I am uncertain of the accuracy of her history. PAST MEDICAL HISTORY: Ischemic cardiomyopathy with ejection fraction of 25% to 30%, chronic kidney disease, diabetes, hypertension, chronic atrial fibrillation, and hypercholesterolemia. OPERATIONS: AICD placement, hysterectomy, and bilateral mastectomy. MEDICATIONS: 1. Eliquis 2.5 b.i.d. 2. Carvedilol 6.25 b.i.d. 3. Insulin 12 units daily. 4. Folvite 1 mg daily. 5. Levothyroxine 50 mcg daily. 6. Losartan 25 daily. 7. Protonix 40 daily. 8. MiraLAX. 9. Senokot. 10. Torsemide 20 mg daily. 11. Temazepam 15 at bedtime. 12. Thiamine 100 mg daily. ALLERGIES: SULFA. SOCIAL HISTORY, FAMILY HISTORY, AND REVIEW OF SYSTEMS ETC. OF THE PATIENT IS UNABLE TO OBTAIN. PHYSICAL EXAMINATION: VITAL SIGNS: Blood pressure 158/79 and pulse of 78. HEENT: PERRL. NECK: Supple. CHEST: Clear. CARDIAC: S1 and S2 normal without any S3 or S4. There is a 2/6 to 3/6 holosystolic murmur at the apex. ABDOMEN: Normal bowel sounds without tenderness or organomegaly. EXTREMITIES: Revealed no clubbing, cyanosis, or edema. NEUROLOGICAL: The patient is demented. LABORATORY DATA: EKG reveals ventricular pacing. Echocardiogram revealed mild left ventricular enlargement, ejection fraction of 25% to 30%, moderately enlarged right ventricle, defibrillator wire in the right ventricle, severely dilated left atrium, moderately dilated right atrium, severe mitral regurgitation, severe tricuspid regurgitation, small pericardial effusion, and left pleural effusion. Hemoglobin 10.8, hematocrit 31.9, white count 5400, and platelets 199,000. Sodium 144, potassium 3.5, chloride 107, carbon dioxide 26, BUN 25, and creatinine 1.09. BNP 1889.4. IMAGING DATA: Chest x-ray reveals cardiomegaly and slight increase in pulmonary vascular congestion. Small left pleural effusion. IMPRESSION: 1. Mental status changes. 2. Probable urinary tract infection growing gram-negative rods. 3. Ischemic cardiomyopathy with ejection fraction of 25% to 30%. 4. Severe mitral regurgitation. 5. Status post biventricular ICD placement. 6. Hypertension. 7. Chronic atrial fibrillation. RECOMMENDATIONS: The patient currently is on appropriate antibiotics for her urinary tract infection until sensitivities return. Her ICD will be checked. With severe mitral regurgitation, severe tricuspid regurgitation, pleural effusion, pericardial effusion, and her current creatinine of 1.07, I feel that she probably needs to be on more diuretics and I will increase her torsemide to 20 mg b.i.d. Otherwise, no further recommendations at this time. Ultimately, her carvedilol may need to be increased with her current blood pressure. Job ID: [id number]
[2020-06-20] MEDS: Piperacillin/Tazobactam 4.5 GM in Sodium Chloride 0.9% 100 ML IVPB SCH ×4 (00:20→17:30)
[2020-06-20] MEDS: Levothyroxine Sodium 50 MCG TAB PO SCH (05:53)
[2020-06-20] MEDS: Furosemide 40 MG/4 ML VIAL SLOW IVP SCH ×2 (05:53→15:17)
[2020-06-20 06:18] LABS: Cardiac Risk 3.8 (Less than 4.5)
[2020-06-20] MEDS: Cyanocobalamin (Vitamin B-12) 1,000 MCG TAB PO SCH (08:46)
[2020-06-20] MEDS: Carvedilol 6.25 MG TAB PO SCH ×2 (08:46→17:32)
[2020-06-20] MEDS: Folic Acid 1 MG TAB PO SCH (08:46)
[2020-06-20] MEDS: Losartan 25 MG TAB PO SCH (08:46)
[2020-06-20] MEDS: Multivit, Therapeutic 1 TAB PO SCH (08:47)
[2020-06-20] MEDS: Latanoprost 0.005% Ophth Soln 2.5 ml Bottle EA EYE SCH (08:47)
[2020-06-20] MEDS: Thiamine 100 MG TAB PO SCH (08:47)
[2020-06-20] MEDS: Senokot S 8.6-50 MG TAB PO SCH ×2 (08:47→20:12)
[2020-06-20] MEDS: Torsemide 20 MG TAB PO SCH ×2 (09:27→15:17)
[2020-06-20] MEDS: Apixaban 2.5 MG TAB PO SCH ×2 (09:27→20:12)
[2020-06-20] MEDS: Calcium Carbonate 500 MG TAB PO SCH (11:37)
[2020-06-20] MEDS: HumaLOG 300 UNITS/3 ML VIAL SC PRN ×2 (11:52→17:32)
--- NOTE | 2020-06-20 18:51 | PDOC.HOSPP ---
- Subjective Encounter Date: 06/20/20 Encounter Time: 11:00 Subjective: Patient seen and examined for encephalopathy due to UTI. Denies any new complaints. No overnight events. - Objective Vital Signs & Weight: Vital Signs (12 hours) Temp Pulse Resp BP BP BP Pulse Ox 06/20/20 17:32 118/70 06/20/20 14:02 152/75 H 06/20/20 08:46 152/75 H 06/20/20 08:37 97.6 F 72 18 152/75 H 92 L Weight Admit Weight 148 lb 2.4 oz Weight 148 lb 2.41 oz I&O: 06/19/20 06/20/20 06/21/20 06:59 06:59 06:59 Intake Total 580 360 Output Total 900 Balance -320 360 Result Diagrams: 06/19/20 06:26 06/19/20 06:26 Additional Labs: Accuchecks 06/20/20 06/20/20 06/20/20 16:26 11:37 04:34 POC Glucose 249 H 238 H 174 H 06/20/20 06/19/20 00:25 19:37 POC Glucose 151 H 109 H Microbiology - Entire Visit 06/18/20 16:24 Venous blood - Left Hand Blood Culture - Preliminary NO GROWTH AT 48 HOURS 06/18/20 16:13 Venous blood - Right Hand Blood Culture - Preliminary NO GROWTH AT 48 HOURS 06/18/20 16:04 Urine Straight Catheter Urine Culture - Final Klebsiella pneumoniae ssp pneu Radiology Reviewed by me: Yes (Chest x-rayno infiltrate) Hospitalist ROS - Review of Systems ROS unobtainable: due to mental status - Medication Medications: Active Medications Generic Name Dose Route Start Last Admin Trade Name Freq PRN Reason Stop Dose Admin Apixaban 2.5 mg 06/19/20 09:00 06/20/20 09:27 Apixaban 2.5 Mg Tab PO 2.5 mg BID YANI Administration Calcium Carbonate 500 mg 06/19/20 09:00 06/20/20 11:37 Calcium Carbonate 500 Mg Tab PO 500 mg DAILY YANI Administration Carvedilol 6.25 mg 06/20/20 17:00 06/20/20 17:32 Carvedilol 6.25 Mg Tab PO 6.25 mg TID- YANI Administration Cyanocobalamin 1,000 mcg 06/19/20 09:00 06/20/20 08:46 Cyanocobalamin (Vitamin B-12) 1,000 Mcg Tab PO 1,000 mcg DAILY YANI Administration Dextrose/Water 25 gm 06/18/20 22:25 06/19/20 12:09 Dextrose 50% Abboject 50 Ml Syringe SLOW IVP 25 gm PRN PRN Administration Hypoglycemia Epoetin Rhys-epbx 40,000 unit 06/19/20 09:00 06/19/20 17:54 Epoetin Rhys-Epbx (Esrd) 40,000 Unit/Ml Vial SC 40,000 unit Q7DAYS YANI Administration Folic Acid 1 mg 06/19/20 09:00 06/20/20 08:46 Folic Acid 1 Mg Tab PO 1 mg DAILY YANI Administration Piperacillin Sod/Tazobactam 100 mls @ 200 mls/hr 06/18/20 23:59 06/20/20 17:30 Sod 4.5 gm/ Sodium Chloride IVPB 100 mls Q6HR YANI Administration Insulin Human Lispro 0 units 06/18/20 22:25 06/20/20 17:32 Humalog 300 Units/3 Ml Vial SC 3 units .MILD SLIDING SCALE PRN Administration Mild Correctional Scale Latanoprost 1 drop 06/19/20 09:00 06/20/20 08:47 Latanoprost 0.005% Ophth Soln 2.5 Ml Bottle EA EYE 1 applic DAILY YANI Administration Levothyroxine Sodium 50 mcg 06/20/20 06:00 06/20/20 05:53 Levothyroxine Sodium 50 Mcg Tab PO 50 mcg 0600 YANI Administration Losartan Potassium 25 mg 06/19/20 09:00 06/20/20 08:46 Losartan 25 Mg Tab PO 25 mg DAILY YANI Administration Multivitamins 1 tab 06/19/20 09:00 06/20/20 08:47 Multivit, Therapeutic 1 Tab PO 1 tab DAILY YANI Administration Pantoprazole Sodium 40 mg 06/19/20 09:00 06/20/20 08:47 Pantoprazole 40 Mg Tab PO 40 mg DAILY YANI Administration Senna/Docusate Sodium 1 tab 06/19/20 09:00 06/20/20 08:47 Senokot S 8.6-50 Mg Tab PO 1 tab BID YANI Administration Thiamine HCl 100 mg 06/19/20 09:00 06/20/20 08:47 Thiamine 100 Mg Tab PO 100 mg DAILY YANI Administration Torsemide 20 mg 06/20/20 09:00 06/20/20 15:17 Torsemide 20 Mg Tab PO 20 mg BID@0900,1400 YANI Administration - Exam General Appearance: NAD Heart: RRR, no gallops Respiratory: no wheezes, no ronchi Gastrointestinal: soft, non-tender, normal bowel sounds Extremities: no cyanosis Neurological: no new deficit Hosp A/P - Plan Toxic metabolic encephalopathy due to Klebsiella UTIPOA Acute on chronic systolic heart failure due to ischemic cardiomyopathy Hypertension Chronic atrial fibrillation on anticoagulation Status post AICD Severe mitral regurgitation CKD stage III Diabetes mellitus type 2 Plan: Discontinue IV Lasix. Will increase torsemide dose. Carvedilol dose increased. AICD interrogation. Check labs in a.m. Continue Zosyn for UTI. Continue other medications as above
[2020-06-20] MEDS: Temazepam 15 MG CAP PO PRN (20:12)
[2020-06-21] MEDS: Piperacillin/Tazobactam 4.5 GM in Sodium Chloride 0.9% 100 ML IVPB SCH ×2 (00:02→05:17)
[2020-06-21] MEDS: Levothyroxine Sodium 50 MCG TAB PO SCH (05:17)
[2020-06-21] MEDS: Senokot S 8.6-50 MG TAB PO SCH ×2 (09:55→19:46)
[2020-06-21] MEDS: Losartan 25 MG TAB PO SCH (09:56)
[2020-06-21] MEDS: Multivit, Therapeutic 1 TAB PO SCH (09:57)
[2020-06-21] MEDS: Thiamine 100 MG TAB PO SCH (09:57)
[2020-06-21] MEDS: Carvedilol 6.25 MG TAB PO SCH ×3 (09:57→17:53)
[2020-06-21] MEDS: Cyanocobalamin (Vitamin B-12) 1,000 MCG TAB PO SCH (09:57)
[2020-06-21] MEDS: Folic Acid 1 MG TAB PO SCH (09:58)
[2020-06-21 10:02] LABS: #Eosinphils 0.2 thou/uL (0.0-0.7); #Lymphocytes 1.1 thou/uL (1.20-3.40); #Monocytes 0.4 thou/uL (0.11-0.59); #Neutrophils 3.3 thou/uL (1.40-6.50); %Basophils 0.7 % (0.0-1.0); %Eosinophils 4.1 % (0.0-10.0); %Lymphocytes 21.2 % (21.0-51.0); %Monocytes 8.1 % (0.0-10.0); %Neutrophils 65.8 % (42.0-75.0); Hemoglobin 10.7 g/dL (12.0-16.0); Mean Corpuscular HGB CONC 32.9 g/dL (32.0-36.0); Mean Corpuscular Hemoglobin 37.8 pg (27.0-31.0); Mean Platelet Volume 9.7 fL (7.4-10.4); Platelet Count 182 thou/uL (130-400); Red Blood Cell (RBC) Count 2.82 mill/uL (4.20-5.40)
[2020-06-21] MEDS: Calcium Carbonate 500 MG TAB PO SCH (10:02)
[2020-06-21] MEDS: Latanoprost 0.005% Ophth Soln 2.5 ml Bottle EA EYE SCH (10:06)
[2020-06-21 10:26] LABS: ALT (SGPT) 17 U/L (8-55); AST (SGOT) 18 U/L (5-34); Albumin 3.1 g/dL (3.4-4.8); Alkaline Phosphatase 91 U/L (40-110); Anion Gap 12 mmol/L (10-20); BUN (Urea Nitrogen) 14 mg/dL (9.8-20.1); Bilirubin, Total 1.7 mg/dL (0.2-1.2); Calc. Creatinine Clearance 40 mL/min (70-130); Calcium 8.5 mg/dL (7.8-10.44); Carbon Dioxide 29 mmol/L (23-31); Chloride 103 mmol/L (98-107); Estimated GFR-MDRD 49; Globulin 2.8 g/dL (2.4-3.5); Glucose 294 mg/dL (83-110); Magnesium 1.8 mg/dL (1.6-2.6); Phosphorus 2.4 mg/dL (2.3-4.7); Potassium 3.3 mmol/L (3.5-5.1); Protein, Total 5.9 g/dL (6.0-8.3); Sodium 141 mmol/L (136-145)
[2020-06-21] MEDS: Torsemide 20 MG TAB PO SCH ×2 (12:24→12:46)
[2020-06-21] MEDS: Apixaban 2.5 MG TAB PO SCH ×2 (12:24→19:46)
[2020-06-21] MEDS: Piperacillin/Tazobactam 2.25 GM in Sodium Chloride 0.9% 100 ML IVPB SCH ×3 (12:27→23:51)
[2020-06-21] MEDS: HumaLOG 300 UNITS/3 ML VIAL SC PRN ×2 (12:29→16:43)
[2020-06-21] MEDS ORDERED: Potassium Chloride 20 MEQ TAB PO SCH ×2 (12:30→17:00)
--- NOTE | 2020-06-21 18:59 | PDOC.HOSPP ---
- Subjective Encounter Date: 06/21/20 Encounter Time: 15:30 Subjective: Patient seen and examined for encephalopathy. No overnight events. Denies any new complaints. - Objective Vital Signs & Weight: Vital Signs (12 hours) Temp Pulse Resp BP BP Pulse Ox 06/21/20 17:53 118/70 06/21/20 12:24 118/70 06/21/20 12:00 93 L 06/21/20 09:57 118/70 06/21/20 08:00 93 L 06/21/20 07:48 97.4 F L 70 20 161/61 H 91 L Weight Admit Weight 148 lb 2.4 oz Weight 148 lb 2.41 oz I&O: 06/20/20 06/21/20 06/22/20 06:59 06:59 06:59 Intake Total 580 1530 620 Output Total 900 650 Balance -320 880 620 Result Diagrams: 06/21/20 09:39 06/21/20 09:39 Additional Labs: Accuchecks 06/21/20 06/21/20 06/21/20 16:20 11:43 00:08 POC Glucose 307 H 353 H 152 H Hospitalist ROS - Review of Systems Respiratory: denies: cough, dry, shortness of breath, hemoptysis, SOB with excertion, pleuritic pain, sputum, wheezing, other Cardiovascular: denies: chest pain, palpitations, orthopnea, paroxysmal noc. d yspnea, edema, light headedness, other - Medication Medications: Active Medications Generic Name Dose Route Start Last Admin Trade Name Freq PRN Reason Stop Dose Admin Apixaban 2.5 mg 06/19/20 09:00 06/21/20 12:24 Apixaban 2.5 Mg Tab PO 2.5 mg BID YANI Administration Calcium Carbonate 500 mg 06/19/20 09:00 06/21/20 10:02 Calcium Carbonate 500 Mg Tab PO 500 mg DAILY YANI Administration Carvedilol 6.25 mg 06/20/20 17:00 06/21/20 17:53 Carvedilol 6.25 Mg Tab PO 6.25 mg TID-WM YANI Administration Cyanocobalamin 1,000 mcg 06/19/20 09:00 06/21/20 09:57 Cyanocobalamin (Vitamin B-12) 1,000 Mcg Tab PO 1,000 mcg DAILY YANI Administration Dextrose/Water 25 gm 11/05/20 22:25 06/19/20 12:09 Dextrose 50% Abboject 50 Ml Syringe SLOW IVP 25 gm PRN PRN Administration Hypoglycemia Epoetin Rhys-epbx 40,000 unit 06/19/20 09:00 06/19/20 17:54 Epoetin Rhys-Epbx (Esrd) 40,000 Unit/Ml Vial SC 40,000 unit Q7DAYS YANI Administration Folic Acid 1 mg 06/19/20 09:00 06/21/20 09:58 Folic Acid 1 Mg Tab PO 1 mg DAILY YANI Administration Piperacillin Sod/Tazobactam 100 mls @ 200 mls/hr 06/21/20 12:00 06/21/20 17:53 Sod 2.25 gm/ Sodium Chloride IVPB 100 mls Q6HR YANI Administration Insulin Human Lispro 0 units 06/18/20 22:25 06/21/20 16:43 Humalog 300 Units/3 Ml Vial SC 5 units .MILD SLIDING SCALE PRN Administration Mild Correctional Scale Latanoprost 1 drop 06/19/20 09:00 06/21/20 10:06 Latanoprost 0.005% Ophth Soln 2.5 Ml Bottle EA EYE 1 applic DAILY YANI Administration Levothyroxine Sodium 50 mcg 06/20/20 06:00 06/21/20 05:17 Levothyroxine Sodium 50 Mcg Tab PO 50 mcg 0600 YANI Administration Losartan Potassium 25 mg 06/19/20 09:00 06/21/20 09:56 Losartan 25 Mg Tab PO 25 mg DAILY YANI Administration Multivitamins 1 tab 06/19/20 09:00 06/21/20 09:57 Multivit, Therapeutic 1 Tab PO 1 tab DAILY YANI Administration Pantoprazole Sodium 40 mg 06/19/20 09:00 06/21/20 09:57 Pantoprazole 40 Mg Tab PO 40 mg DAILY YANI Administration Potassium Chloride 20 meq 06/21/20 17:00 06/21/20 17:53 Potassium Chloride 20 Meq Tab PO 06/21/20 19:00 20 meq 1700 YANI Administration Senna/Docusate Sodium 1 tab 06/19/20 09:00 06/21/20 09:55 Senokot S 8.6-50 Mg Tab PO 1 tab BID YANI Administration Sodium Chloride 10 ml 06/20/20 21:00 06/21/20 12:25 Flush - Normal Saline 10 Ml Syringe IVF 10 ml Q12HR YANI Administration Temazepam 15 mg 06/19/20 08:04 06/20/20 20:12 Temazepam 15 Mg Cap PO 15 mg HS PRN Administration Insomnia Thiamine HCl 100 mg 06/19/20 09:00 06/21/20 09:57 Thiamine 100 Mg Tab PO 100 mg DAILY YANI Administration Torsemide 20 mg 06/20/20 09:00 06/21/20 12:46 Torsemide 20 Mg Tab PO 20 mg BID@0900,1400 YANI Administration - Exam General Appearance: NAD Heart: RRR, no gallops Respiratory: no wheezes, no ronchi Gastrointestinal: soft, non-distended Extremities: no cyanosis Neurological: no new deficit Hosp A/P - Plan Toxic metabolic encephalopathy due to Klebsiella UTI Acute on chronic systolic heart failure due to ischemic cardiomyopathy Hypertension Hypomagnesemia Chronic atrial fibrillation on anticoagulation Abnormal LFTs probably due to passive hepatic congestion Status post AICD Severe mitral regurgitation CKD stage III Diabetes mellitus type 2 Plan: Continue torsemide. Replace potassium. Continue IV Zosyn for UTIchanged to Bactrim at discharge. Basic metabolic profile in a.m. [facility] if okay with cardiology. Echocardiogram showed ejection fraction 25 to 30%. Continue Eliquis for atrial fibrillation. Replace magnesium
[2020-06-21] MEDS ORDERED: Magnesium 2 GM/50 ML 2 GM in Premix Bag 1 BAG IVPB SCH (19:15)
[2020-06-21] MEDS: Temazepam 15 MG CAP PO PRN (19:46)
[2020-06-22] MEDS: Levothyroxine Sodium 50 MCG TAB PO SCH (05:14)
[2020-06-22] MEDS: Piperacillin/Tazobactam 2.25 GM in Sodium Chloride 0.9% 100 ML IVPB SCH ×2 (05:14→11:56)
[2020-06-22 06:35] LABS: Anion Gap 13 mmol/L (10-20); BUN (Urea Nitrogen) 13 mg/dL (9.8-20.1); Calc. Creatinine Clearance 43 mL/min (70-130); Calcium 8.6 mg/dL (7.8-10.44); Carbon Dioxide 30 mmol/L (23-31); Chloride 103 mmol/L (98-107); Estimated GFR-MDRD 53; Glucose 161 mg/dL (83-110); Potassium 3.5 mmol/L (3.5-5.1); Sodium 142 mmol/L (136-145)
[2020-06-22 07:35] VITALS: TEMP 97.3
[2020-06-22] MEDS ORDERED: Potassium Chloride 20 MEQ TAB PO SCH (08:00)
[2020-06-22] MEDS: Apixaban 2.5 MG TAB PO SCH (09:03)
[2020-06-22] MEDS: Senokot S 8.6-50 MG TAB PO SCH (09:03)
[2020-06-22] MEDS: Thiamine 100 MG TAB PO SCH (09:03)
[2020-06-22] MEDS: Multivit, Therapeutic 1 TAB PO SCH (09:03)
[2020-06-22] MEDS: Carvedilol 6.25 MG TAB PO SCH ×2 (09:04→11:57)
[2020-06-22] MEDS: Calcium Carbonate 500 MG TAB PO SCH (09:04)
[2020-06-22] MEDS: Folic Acid 1 MG TAB PO SCH (09:04)
[2020-06-22] MEDS: Cyanocobalamin (Vitamin B-12) 1,000 MCG TAB PO SCH (09:04)
[2020-06-22] MEDS: Losartan 25 MG TAB PO SCH (09:04)
[2020-06-22] MEDS: Latanoprost 0.005% Ophth Soln 2.5 ml Bottle EA EYE SCH (09:05)
[2020-06-22 09:07] VITALS: BP 118/70
[2020-06-22] MEDS: Torsemide 20 MG TAB PO SCH (09:07)
--- NOTE | 2020-06-22 22:13 | PDOC.DS.DS ---
Provider - Provider Date of Admission: 06/18/20 19:19 Date of Discharge: 06/22/20 Admitting Provider: Koby Jane Consultations: Cardiology Primary Care Physician: OUT OF TOWN Course - Hospital Course Hospital Course: Patient is a 84-year-old female with ischemic cardiomyopathy and dementia was brought in to the emergency room on 06/18 with altered mentation. Her workup was consistent with congestive heart failure exacerbation with UTI. Urinalysis showed > 50 WBCs with 4+ bacteria. Chest x-ray showed pulmonary vascular congestion. CT abdomen and pelvis was negative for acute findings. Please refer to the history and physical for further details. Patient was monitored on the medical floor with about diagnosis. She was placed on empiric IV antibiotics that was transitioned to oral at discharge. Patient remained afebrile during the hospital stay. Her WBC count remained normal. She also had 35 percent bandemia on admission that has resolved. COVID testing was negative. The patient was started on IV diuretics for congestive heart failure exacerbation. This has been transitioned to oral torsemide bid paracardial large. Eliquis dose was also increased to 5 mg bid per cardiology recommendation. Carvedilol dose was increased from 6.25 mg bid to tid. Final diagnosis: Generalized weakness/Toxic metabolic encephalopathy due to Klebsiella UTI Acute on chronic systolic heart failure due to ischemic cardiomyopathyTorsemide dose increased Hypertension Hypomagnesemia Chronic atrial fibrillation on anticoagulationEliquis and carvedilol dose increased Abnormal LFTs probably due to passive hepatic congestion Status post AICDAICD was interrogated this admission Severe mitral regurgitation CKD stage III Diabetes mellitus type 2 Physical deconditioning Resuscitation Status: 06/18/20 21:38 Resuscitation Status Routine Resuscitation Status: DNAR: NO Resuscitation Discussed with: Gabriella (daughter ) - Labs Lab Results: 06/21/20 09:39 06/22/20 06:08 Abnormal Lab Results - Last 48 hrs 06/21/20 09:39: Potassium 3.3 L, Total Bilirubin 1.7 H, Serum Total Protein 5.9 L, Albumin 3.1 L, Albumin/Globulin Ratio 1.1 L 06/21/20 09:39: RBC 2.82 L, Hgb 10.7 L, Hct 32.4 L, MCV 115.0 H, MCH 37.8 H, RDW 22.0 H, Lymphocytes # 1.1 L Microbiology - Entire Visit 06/18/20 16:24 Venous blood - Left Hand Blood Culture - Preliminary NO GROWTH AT 48 HOURS 06/18/20 16:13 Venous blood - Right Hand Blood Culture - Preliminary NO GROWTH AT 48 HOURS 06/18/20 16:04 Urine Straight Catheter Urine Culture - Final Klebsiella pneumoniae ssp pneu - Physical Exam Vitals: Vital Signs (12 hours) BP 06/22/20 11:57 118/70 Weight Admit Weight 148 lb 2.4 oz Weight 148 lb 2.41 oz Physical Exam: The patient was seen and examined on the day of discharge. Plan - Discharge Medications Prescriptions: Apixaban [Eliquis] 5 mg PO BID #60 tablet Potassium Chloride [Klor-Con 10] 10 meq PO DAILY #30 tab Nitrofurantoin Monohyd/M-Cryst [Macrobid] 100 mg PO BID #8 cap Home Medications: Medication Instructions Recorded Confirmed Type Losartan Potassium 25 mg PO DAILY 07/21/15 06/19/20 History Temazepam 15 mg PO HS PRN 07/21/15 06/19/20 History Latanoprost [Xalatan 0.005% Ophth 1 drop EA EYE DAILY 07/06/19 06/19/20 History Soln] Multivitamin [Multiple Vitamins] 1 tab PO DAILY 07/06/19 06/19/20 History Sennosides/Docusate Sodium 1 tab PO BID tab 03/10/20 06/19/20 Rx [Senokot S] Calcium Carbonate [Oscal-500] 500 mg PO DAILY tab 03/24/20 06/19/20 Rx Cyanocobalamin (Vitamin B-12) 1,000 mcg PO DAILY tab 03/24/20 06/19/20 Rx [Vitamin B-12] Epoetin Rhys-Epbx [Retacrit] 40,000 unit SC Q7DAYS vial 03/24/20 06/19/20 Rx Folic Acid [Folvite] 1 mg PO DAILY tab 03/24/20 06/19/20 Rx Pantoprazole [Protonix] 40 mg PO DAILY tab 03/24/20 06/19/20 Rx Thiamine 100 mg PO DAILY tab 03/24/20 06/19/20 Rx Insulin Glargine [Lantus] 12 units SC DAILY #0 05/22/20 06/19/20 Rx Levothyroxine Sodium [Synthroid] 50 mcg PO 0600 30 Days #30 tab 05/22/20 06/19/20 Rx Polyethylene Glycol 3350 [Miralax] 17 gm PO DAILY PRN 06/19/20 06/19/20 History Apixaban [Eliquis] 5 mg PO BID #60 tablet 06/22/20 Rx Carvedilol [Coreg] 6.25 mg PO TID-WM tab 06/22/20 Rx Nitrofurantoin Monohyd/M-Cryst 100 mg PO BID #8 cap 06/22/20 Rx [Macrobid] Potassium Chloride [Klor-Con 10] 10 meq PO DAILY #30 tab 06/22/20 Rx Torsemide [Demadex] 20 mg PO BID@0900,1400 tab 06/22/20 Rx Allergies: Sulfa (Sulfonamide Antibiotics) Allergy (Verified 05/11/20 20:33) Causes other family members to itch. Patient had no reaction, but family prefers for patient not to have it - Discharge Instructions Discharge Instructions:: DISCHARGE WEIGHT 148 LBS BMP EVERY WEEK X3, THEN EVERY TWO WEEKS - Follow up Plan Referrals: Joseluis Jc MD [Active] - Unknown,Unknown [MD Not on Staff] - Disposition: HOME
== END 2020-06-22 14:50 | DRG 291 ==
LOC: ERS 15:48 → T4-B 19:19 → UNDOADMIN 19:22
PROVIDERS: ADMIT Family Medicine; ATTEND Internal Medicine
DX: I13.0 Hypertensive heart and chronic kidney disease with heart failure and stage 1 through stage 4 chronic kidney disease, or unspecified chronic kidney disease (principal); I50.23 Acute on chronic systolic (congestive) heart failure; G92 Toxic encephalopathy; N39.0 Urinary tract infection, site not specified; I48.20 Chronic atrial fibrillation, unspecified; J90 Pleural effusion, not elsewhere classified; I31.3 Pericardial effusion (noninflammatory); Z66 Do not resuscitate; I25.10 Atherosclerotic heart disease of native coronary artery without angina pectoris; I25.5 Ischemic cardiomyopathy; B96.1 Klebsiella pneumoniae [K. pneumoniae] as the cause of diseases classified elsewhere; F03.90 Unspecified dementia, unspecified severity, without behavioral disturbance, psychotic disturbance, mood disturbance, and anxiety; R53.81 Other malaise; N18.30 Chronic kidney disease, stage 3 unspecified; Z20.828 Contact with and (suspected) exposure to other viral communicable diseases; E11.22 Type 2 diabetes mellitus with diabetic chronic kidney disease; E03.9 Hypothyroidism, unspecified; E83.42 Hypomagnesemia; Z79.4 Long term (current) use of insulin; Z79.899 Other long term (current) drug therapy; Z88.2 Allergy status to sulfonamides; Z90.710 Acquired absence of both cervix and uterus; Z95.5 Presence of coronary angioplasty implant and graft; Z95.0 Presence of cardiac pacemaker; Z90.13 Acquired absence of bilateral breasts and nipples; Z79.01 Long term (current) use of anticoagulants
CPT/HCPCS: 36415; 36416; 51701; 70450; 71045; 74177; 76705; 80048; 80053; 80061; 81003; 81015; 83690; 83735; 83880; 84100; 84443; 84484; 85025; 87040; 87077; 87086; 87186; 87635; 93005; 93306; 94760; 96365; 96375; J0696; J1940; J2270; J2543; J3010; J3475; J3490; Q5105; Q9967; U0003

== ENCOUNTER 2020-06-24 22:36 | Emergency (ER) | payer MEDICARE ==
[2020-06-24 23:21] LABS: Hemoglobin 10.3 g/dL (12.0-16.0); Mean Corpuscular HGB CONC 32.8 g/dL (32.0-36.0); Mean Corpuscular Hemoglobin 37.9 pg (27.0-31.0); Mean Platelet Volume 10.1 fL (7.4-10.4); Platelet Count 158 thou/uL (130-400); RBC Distribution Width 22.1 % (11.5-14.5); Red Blood Cell (RBC) Count 2.73 mill/uL (4.20-5.40)
[2020-06-24 23:23] LABS: INR-International Normal Ratio 1.5; PTT 44.4 sec (22.9-36.1); Prothrombin Time 18.1 sec (12.0-14.7)
--- NOTE | 2020-06-24 23:36 | CT ---
CT head noncontrast HISTORY: Fall. Injury. COMPARISON: 06/18/2020. FINDINGS: There is no evidence of acute intracranial hemorrhage or infarct. Diffuse cortical atrophy and chronic ischemic small vessel disease similar in appearance to the prior study. There is no mass effect or shift of midline structures. Scalp swelling/hematoma overlies the right oc cipital calvarium. IMPRESSION : No acute intracranial abnormalities are demonstrated.
[2020-06-24 23:40] LABS: ALT (SGPT) 12 U/L (8-55); AST (SGOT) 20 U/L (5-34); Albumin 3.5 g/dL (3.4-4.8); Alkaline Phosphatase 102 U/L (40-110); Anion Gap 15 mmol/L (10-20); BUN (Urea Nitrogen) 16 mg/dL (9.8-20.1); Bilirubin, Total 1.6 mg/dL (0.2-1.2); Calc. Creatinine Clearance 0 mL/min (70-130); Carbon Dioxide 27 mmol/L (23-31); Chloride 103 mmol/L (98-107); Estimated GFR-MDRD 46; Globulin 2.9 g/dL (2.4-3.5); Glucose 327 mg/dL (83-110); Potassium 3.2 mmol/L (3.5-5.1); Protein, Total 6.4 g/dL (6.0-8.3); Sodium 142 mmol/L (136-145)
[2020-06-24 23:43] LABS: Band 12 % (5-11); Eosinophils 1 % (0-10); Lymphocytes 23 % (21-51); MDiff Complete? YES; Macrocytosis SLIGHT = 6-15 cells (100X) (0-5/hpf); Metamyelocyte 1 % (0-0); Monocytes 8 % (0-10); Neutrophil 55 % (42-75); Polychromasia SLIGHT = 2-3 cells (100X) (0-2/hpf); White Blood Cell (WBC) Count 5.4 thou/uL (4.8-10.8)
[2020-06-25] MEDS ORDERED: Oxymetazoline HCl 0.05% (30 ML BOT) ONE (01:03)
== END 2020-06-25 01:35 ==
LOC: ERS 22:36
DX: S00.03XA Contusion of scalp, initial encounter (principal); R04.0 Epistaxis; I11.0 Hypertensive heart disease with heart failure; I50.9 Heart failure, unspecified; E11.9 Type 2 diabetes mellitus without complications; Z79.899 Other long term (current) drug therapy; X58.XXXA Exposure to other specified factors, initial encounter
CPT/HCPCS: 36415; 70450; 80053; 85025; 85610; 85730

== ENCOUNTER 2020-08-15 21:02 | Inpatient (IN) | payer MEDICARE ==
[2020-08-15 21:56] LABS: Hemoglobin 9.6 g/dL (12.0-16.0); Mean Corpuscular HGB CONC 30.6 g/dL (32.0-36.0); Mean Corpuscular Hemoglobin 35.8 pg (27.0-31.0); Mean Platelet Volume 11.2 fL (7.4-10.4); Platelet Count 123 thou/uL (130-400); Red Blood Cell (RBC) Count 2.67 mill/uL (4.20-5.40)
[2020-08-15 22:07] LABS: ALT (SGPT) 16 U/L (8-55); AST (SGOT) 34 U/L (5-34); Albumin 2.9 g/dL (3.4-4.8); Alkaline Phosphatase 105 U/L (40-110); Anion Gap 11 mmol/L (10-20); BUN (Urea Nitrogen) 45 mg/dL (9.8-20.1); Bilirubin, Total 0.9 mg/dL (0.2-1.2); Calc. Creatinine Clearance 0 mL/min (70-130); Carbon Dioxide 29 mmol/L (23-31); Chloride 99 mmol/L (98-107); Globulin 2.9 g/dL (2.4-3.5); Glucose 220 mg/dL (83-110); Potassium 4.8 mmol/L (3.5-5.1); Protein, Total 5.8 g/dL (6.0-8.3); Sodium 134 mmol/L (136-145)
[2020-08-15 22:23] LABS: Anisocytosis SLIGHT = 6-15 cells (100X) (0-5/hpf); Band 21 % (5-11); Lymphocytes 13 % (21-51); MDiff Complete? YES; Macrocytosis SLIGHT = 6-15 cells (100X) (0-5/hpf); Monocytes 4 % (0-10); Neutrophil 62 % (42-75); Nucleated RBC 1 % (0); Schistocytes SLIGHT = 2-5 cells (100X) (0-1/hpf); White Blood Cell (WBC) Count 4.9 thou/uL (4.8-10.8)
[2020-08-15] MEDS ORDERED: Pantoprazole 40 MG VIAL ONE (22:40)
[2020-08-15 22:45] LABS: Iron 21 ug/dL (50-170)
[2020-08-15] MEDS ORDERED: Pantoprazole 80 MG, Admixture Fee 1 EACH in Sodium Chloride 0.9% 100 ML IVPB SCH (23:15)
[2020-08-15 23:17] LABS: Bilirubin Negative (Negative); Blood, Urine Negative (Negative); Clarity Clear (Clear); Glucose, Urine (Dipstick) Normal (Negative); Ketone, Urine Negative (Negative); Leukocyte Negative Leu/uL (Negative); Nitrite Negative (Negative); Protein, Urine (Dipstick) Negative (Neg-Trace); Urobilinogen Normal mg/dL (Less than 2); pH, Urine 5.5 (5.0-9.0)
--- NOTE | 2020-08-15 23:17 | RAD ---
EXAM: CHEST ONE VIEW HISTORY: Covid positive COMPARISON: 06/18/2020 FINDINGS: Triple lead left subclavian acid device remains in place. Cardiac silhouette is markedly enlarged. Th ere are increased interstitial and patchy parenchymal opacities seen within the lungs bilaterally with greater patchy parenchymal opacities on the right. There is suggestion of pleural-based density along the right lateral chest and at the right lung base suggesting pleural effusion. Degenerative changes are again seen in the spine. IMPRESSION: 1. Increased interstitial and patchy parenchymal opacities greater on the right worrisome for infecti ous process. Covid pneumonia is a consideration. 2. Right pleural effusion. 3. Marked cardiomegaly.
[2020-08-15 23:23] LABS: INR-International Normal Ratio 1.2; PTT 36.5 sec (22.9-36.1); Prothrombin Time 15.1 sec (12.0-14.7)
[2020-08-15 23:56] LABS: Iron Binding Capacity, Total 183 mcg/dL (265-497)
[2020-08-16 00:56] VITALS: BMI 22.4
[2020-08-16] MEDS ORDERED: Ondansetron ODT 4 MG TAB SL PRN (01:15)
[2020-08-16] MEDS ORDERED: Sodium Chloride 0.9% 1,000 ML IV SCH (01:15)
[2020-08-16] MEDS ORDERED: Ondansetron PF 4 MG/2 ML Vial IVP PRN (01:15)
[2020-08-16] MEDS ORDERED: Acetaminophen 325 MG TAB PO PRN (01:15)
[2020-08-16] MEDS ORDERED: Dextrose 5% in Water 1,000 ML IV PRN (01:59)
[2020-08-16] MEDS ORDERED: Dextrose 50% Abboject 50 ML SYRINGE SLOW IVP PRN (01:59)
--- NOTE | 2020-08-16 05:00 | PDOC.HHP ---
Hospitalist HPI - History of Present Illness GI bleed History of Present Illness: This is an 84-year-old female patient with a history of dementia who was brought in from [facility] on account of weakness alteration in mental status and blood per rectum. She tested positive for Covid 4 days ago at her shelter. She was last discharged on 06/22/2020 after being managed for generalized weakness and Klebsiella UTI. She was noted to be in atrial flutter felt however earlier in the day she started not behaving as she normally would. Was subsequently observed that her stools were bloody. She was sent here for higher level care. At presentation BP was 115/66, pulse 82, respiratory 19, oxygen saturation 95 on nonrebreather. Labs showed mild anemia of 9.6 from a baseline of 10.3 on 06/24/2020. Platelet count 123. Chemistry showed mild hyponatremia of 134, creatinine 1.27 from a baseline of 1.12. D-dimer was not checked however INR was within normal limits at 1.2. Chest x-ray showed increased interstitial and patchy parenchymal opacities more on the right worrisome for Covid pneumonia. She had a right pleural effusion and marked cardiomegaly. Her Covid test is pending. She was started on pantoprazole for GI bleed. GI was consulted however no interventions at the moment. Hospitalist team consulted to admit. Patient was Not oriented to self place or person at the time of my evaluation. Hospitalist ROS - Review of Systems ROS unobtainable: due to mental status - Medication Medications: Active Medications Generic Name Dose Route Start Last Admin Trade Name Freq PRN Reason Stop Dose Admin Sodium Chloride 1,000 mls @ 100 mls/hr 08/16/20 01:15 08/16/20 02:54 Normal Saline 0.9% IV 08/16/20 11:10 1,000 mls .Q10H YANI Administration Hospitalist History - Social History Smoking Status: Never smoker Alcohol: reports: None Living Situation: Alf - Exam General - other findings: Patient awake however not oriented. Chronically ill looking Eye: PERRL, anicteric sclera Heart: RRR, no murmur, no gallops, no rubs Respiratory: CTAB, no wheezes, no rales, no ronchi Gastrointestinal: soft, non-tender, non-distended, normal bowel sounds Extremities: no cyanosis, no clubbing, no edema Psychiatric: not oriented, somnolent Hospitalist Results - Labs Result Diagrams: 08/15/20 21:34 08/15/20 21:34 Lab results: WBC 4.9 thou/uL (4.8-10.8) 08/15/20 21:34 Hgb 9.6 g/dL (12.0-16.0) L 08/15/20 21:34 Hct 31.2 % (36.0-47.0) L 08/15/20 21:34 MCV 117.0 fL (78.0-98.0) H 08/15/20 21:34 Plt Count 123 thou/uL (130-400) L 08/15/20 21:34 Band Neuts % (Manual) 21 % (5-11) H 08/15/20 21:34 Sodium 134 mmol/L (136-145) L 08/15/20 21:34 Potassium 4.8 mmol/L (3.5-5.1) 08/15/20 21:34 Chloride 99 mmol/L (98-107) 08/15/20 21:34 Carbon Dioxide 29 mmol/L (23-31) 08/15/20 21:34 BUN 45 mg/dL (9.8-20.1) H 08/15/20 21:34 Creatinine 1.27 mg/dL (0.6-1.1) H 08/15/20 21:34 Glucose 220 mg/dL (83-110) H 08/15/20 21:34 Calcium 8.0 mg/dL (7.8-10.44) 08/15/20 21:34 Total Bilirubin 0.9 mg/dL (0.2-1.2) 08/15/20 21:34 AST 34 U/L (5-34) 08/15/20 21:34 ALT 16 U/L (8-55) 08/15/20 21:34 Alkaline Phosphatase 105 U/L (40-110) 08/15/20 21:34 Serum Total Protein 5.8 g/dL (6.0-8.3) L 08/15/20 21:34 Albumin 2.9 g/dL (3.4-4.8) L 08/15/20 21:34 Urine Ketones Negative mg/dL (Negative) 08/15/20 23:08 Urine Blood Negative (Negative) 08/15/20 23:08 Urine Nitrite Negative (Negative) 08/15/20 23:08 Ur Leukocyte Esterase Negative Annita/uL (Negative) 08/15/20 23:08 Hospitalist H&P A/P - Plan Plan: This is an 84-year-old female patient with a history of dementia who presented from her nursing facility on account of altered mental status and bleeding per rectum. She will be admitted and monitored for H&H and transfuse as necessary. Anemia secondary to GI bleed H&H trend Protonix GI consulted. COVID-19 infection Start vitamins No steroids or remdesivir for now Consider plasma CKD Monitor CBC Avoid nephrotoxic agent Dementia VT prophylaxisLovenox
[2020-08-16 06:25] LABS: #Lymphocytes 0.8 thou/uL (1.20-3.40); #Monocytes 0.2 thou/uL (0.11-0.59); %Basophils 0.6 % (0.0-1.0); %Eosinophils 0.5 % (0.0-10.0); %Lymphocytes 15.7 % (21.0-51.0); %Monocytes 4.3 % (0.0-10.0); %Neutrophils 78.8 % (42.0-75.0); Hemoglobin 8.6 g/dL (12.0-16.0); Mean Corpuscular HGB CONC 31.4 g/dL (32.0-36.0); Mean Corpuscular Hemoglobin 36.4 pg (27.0-31.0); Mean Platelet Volume 10.8 fL (7.4-10.4); Platelet Count 138 thou/uL (130-400); RBC Distribution Width 18.8 % (11.5-14.5); Red Blood Cell (RBC) Count 2.36 mill/uL (4.20-5.40); White Blood Cell (WBC) Count 5.1 thou/uL (4.8-10.8)
[2020-08-16 06:42] LABS: Anion Gap 14 mmol/L (10-20); BUN (Urea Nitrogen) 43 mg/dL (9.8-20.1); Calc. Creatinine Clearance 39 mL/min (70-130); Carbon Dioxide 25 mmol/L (23-31); Chloride 102 mmol/L (98-107); Glucose 161 mg/dL (83-110); Potassium 4.3 mmol/L (3.5-5.1); Sodium 137 mmol/L (136-145)
[2020-08-16] MEDS ORDERED: Iopamidol-370 76% 500 ML 1 ML ONE (12:02)
[2020-08-16 13:25] LABS: Thyroid Stimulating Hormone 1.5947 uIU/mL (0.35-4.94)
[2020-08-16 13:27] LABS: Vitamin B12 Greater than 2000 pg/mL (211-911)
[2020-08-16 14:23] LABS: Hemoglobin 8.3 g/dL (12.0-16.0)
[2020-08-16] MEDS ORDERED: Pantoprazole 40 MG VIAL IVP SCH (15:15)
--- NOTE | 2020-08-16 16:32 | CT ---
CT abdomen and pelvis with IV contrast HISTORY: Abdominal pain. GI bleeding. Dyspnea. Metastatic breast cancer. COMPARISON: 06/18/2020 and multiple additional previous exams. FINDINGS: Partially visualized heart is enlarged. Bilateral pleural fluid, right greater than left, a nd basilar atelectasis have increased based on the images available. Calcified granulomata of the spleen are consistent with healed granulomatous disease. Minimal free fluid in the abdomen/pelvis. 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 Tiny pancreatic cystic lesions are less wel l visualized on the current exam. Gallbladder is decompressed. Relative wall thickening is nonspecific in the setting of intra-abdomina l fluid. Diverticula arise from the colon without adjacent inflammation. Prominent inflammatory changes now present at the base of the cecum, with fluid-filled lumen or diste ntion up to 1.4 cm and overall diameter 2.5 cm. Appendix is not inflamed. Prominent degenerative changes of the lumbar spine. Within the left side of the T12 vertebral body, a n irregular sclerotic lesion, now measuring up to 2.2 cm oblique diameter on the coronal images, has enlarged significantly since the 06/18/2020 exam and appeared since the 03/12/2020 study. IMPRESSION : Marked inflammation of the cecum (typhlitis?). Bilateral pleural fluid has increased. Small volume ascites now present. Enlarging sclerotic metastasis involving the T12 vertebral body.
--- NOTE | 2020-08-16 19:45 | PDOC.BPN ---
- Brief Progress Note Encounter Date: 08/16/20 Encounter Time: 15:00 F/u: COVID The patient was moaning and laying in bed. She reports pain in her abdomen. She does not speak much Spoke to daughter in law, she has history of breast cancer and had a mastectomy on her left side. General: alert, oriented x 2 CVS: RRR, no murmurs, rubs, gallops Lungs; CTAB Abdomen: very tender to palpation diffusely Extremites: no edema THis is an 84 year old female who presented with weakness, AMS and Gi bleeding #GI bleeding #Cecal inflammation- possible typhilitis - GI Consulted, Hb 8.3. CT abdomen shows marked inflammation of the cecum COVID - tested positive 6 days ago. Will monitor currently, she is on room air Pulmonary edema - will give one dose of IV lasix 20 mg T12 vertebral body metastases - enlarging on CT abdomen. May need further workup as an outpatient BHARAT - resolved, creatinine down to 1.04
[2020-08-16] MEDS ORDERED: Polyethylene Glycol 3350 17 GM Packet PO PRN (19:51)
[2020-08-16] MEDS ORDERED: Furosemide 20 MG/2 ML VIAL SLOW IVP SCH (20:00)
[2020-08-16] MEDS: metroNIDAZOLE 500 MG in Premix Bag 1 BAG IVPB SCH (20:52)
[2020-08-16] MEDS: cefTRIAXone\\ROCEPHIN 1 GM in Sodium Chloride 0.9% 100 ML IVPB SCH (20:52)
[2020-08-16] MEDS: Pantoprazole 40 MG VIAL IVP SCH (20:52)
--- NOTE | 2020-08-16 21:37 | CON ---
DATE OF CONSULTATION: 08/16/2020 CHIEF COMPLAINT: GI bleeding. HISTORY OF PRESENT ILLNESS: Ms. Damon is an 84-year-old woman who [facility] with red blood in the stool. Today, her stools have become black. The patient is currently not interactive in any way and unable to contribute to history. She apparently tested positive for COVID 4 days ago at the [facility], but her respiratory status seems to be okay at the moment. She had been on Eliquis at the [facility] due to her CHF, but her [id number] reports that the Eliquis has actually been held for the last few weeks and she was just on aspirin alone. She has a history of iron deficiency anemia, was evaluated in GI Clinic in August of 2019, and the decision was made to avoid any invasive procedures, which the patient's daughter holds to as well at this time. The patient did have an EGD back in 2012 that was negative except for hyperplastic polyp. Colonoscopy in 2013 was normal except for diverticulosis. In 2012, colonoscopy revealed a hyperplastic polyp in the cecum. PAST MEDICAL HISTORY: Advanced end-stage dementia, iron deficiency anemia, atrial fibrillation, CHF, breast cancer, diabetes mellitus, hypertension. PAST SURGICAL HISTORY: Mastectomy, hysterectomy, cardiac stent, pacemaker, AICD placement. MEDICATIONS: Prior to admission: 1. Torsemide. 2. Thiamin. 3. Temazepam. 4. Potassium. 5. MiraLAX. 6. Pantoprazole. 7. Multiple vitamin. 8. Losartan. 9. Levothyroxine. 10. Latanoprost eye drops. 11. Insulin. 12. Epoetin. 13. Folic acid. 14. Vitamin B12. 15. Carvedilol. 16. Calcium. The patient's [id number] reports that she has not been on apixaban lately, but actually on aspirin, however, I am not truly clear on what she is actually [facility] the [facility] regarding this. REVIEW OF SYSTEMS: Unobtainable as the patient is not interactive. PHYSICAL EXAMINATION: VITAL SIGNS: Temperature is 98.0, pulse 81, blood pressure 129/76. GENERAL: She is in no acute distress. She is sleeping on her side in the bed. Does not respond to verbal stimuli. LUNGS: Clear to auscultation bilaterally. HEART: Regular rate and rhythm. ABDOMEN: Soft, nontender, and nondistended. EXTREMITIES: 1+ lower extremity edema. She has black stool in her diaper, which is melenic. LABORATORY DATA: White blood cell count 5.1, hemoglobin 8.3, platelets 138. INR 1.2, creatinine 1.04. IMPRESSION: 1. Gastrointestinal bleed, which originally was red, now converted to black stool, most consistent with an upper gastrointestinal bleed. Bleeding appears to have slowed as she has only had one bowel movement today. She is a poor candidate for any type of invasive procedures and she and her [id number]-sgj had already decided a year ago that she does not wish to go under any endoscopy which they hold to currently based on my conversation with her medical power of deputy county attorney Gabriella today. 2. COVID-19 positive. 3. End-stage dementia. RECOMMENDATIONS: 1. Proton pump inhibitor will be started now. 2. Transfuse as necessary. 3. Hold aspirin or any other anticoagulation. 4. Consider palliative care consultation for goals of care. Job ID: [id number]
[2020-08-17] MEDS: metroNIDAZOLE 500 MG in Premix Bag 1 BAG IVPB SCH ×3 (04:52→19:48)
[2020-08-17] MEDS: Pantoprazole 40 MG VIAL IVP SCH ×2 (08:47→19:48)
[2020-08-17 10:41] LABS: #Lymphocytes 0.9 thou/uL (1.20-3.40); #Monocytes 0.3 thou/uL (0.11-0.59); #Neutrophils 2.9 thou/uL (1.40-6.50); %Basophils 0.3 % (0.0-1.0); %Eosinophils 0.5 % (0.0-10.0); %Lymphocytes 21.4 % (21.0-51.0); %Monocytes 7.4 % (0.0-10.0); %Neutrophils 70.5 % (42.0-75.0); Mean Corpuscular HGB CONC 31.9 g/dL (32.0-36.0); Mean Corpuscular Hemoglobin 36.7 pg (27.0-31.0); Mean Platelet Volume 9.5 fL (7.4-10.4); Platelet Count 167 thou/uL (130-400); Red Blood Cell (RBC) Count 1.92 mill/uL (4.20-5.40); White Blood Cell (WBC) Count 4.2 thou/uL (4.8-10.8)
--- NOTE | 2020-08-17 10:54 | PRG ---
DATE OF SERVICE: 08/17/2020 SUBJECTIVE: Ms. Damon did not have any bowel movements through the night, last night or this morning, but now she has a dark maroon liquidy stool in her diaper. She just moans and is unresponsive otherwise. OBJECTIVE: VITAL SIGNS: Temperature is 97.4, pulse 64, blood pressure 124/84. GENERAL: She is not interactive or responsive. She just moans. LUNGS: Clear to auscultation bilaterally. HEART: Regular rate and rhythm. ABDOMEN: Soft. There is no guarding. She has very dark red to black stool in the diaper. EXTREMITIES: No lower extremity edema. IMPRESSION: 1. Gastrointestinal bleed, which could be right-sided colon or upper gastrointestinal, given the more melenic type stool. She had a CT scan yesterday that showed some inflammatory changes around the cecum. She could have ischemia in that area, infectious or inflammatory process. There is no plan for upper or lower endoscopy or surgery for her. She and her caregiver decline more invasive intervention and she is an extremely poor candidate for any type of intervention anyway. 2. End-stage dementia, multiple admissions over the last year. 3. Metastatic breast cancer. RECOMMENDATIONS: 1. She is on antibiotics in light of the inflammatory changes noted in the colon. 2. Stool studies have been requested to rule out C diff or obvious infectious process. 3. Proton pump inhibitor. 4. Palliative care consultation. Job ID: [id number]
[2020-08-17 11:02] LABS: ALT (SGPT) 14 U/L (8-55); AST (SGOT) 27 U/L (5-34); Albumin 2.5 g/dL (3.4-4.8); Alkaline Phosphatase 88 U/L (40-110); Anion Gap 13 mmol/L (10-20); BUN (Urea Nitrogen) 32 mg/dL (9.8-20.1); Bilirubin, Total 0.8 mg/dL (0.2-1.2); Calc. Creatinine Clearance 47 mL/min (70-130); Calcium 7.8 mg/dL (7.8-10.44); Carbon Dioxide 27 mmol/L (23-31); Chloride 108 mmol/L (98-107); Globulin 2.5 g/dL (2.4-3.5); Glucose 156 mg/dL (83-110); Potassium 3.7 mmol/L (3.5-5.1); Sodium 144 mmol/L (136-145)
--- NOTE | 2020-08-17 11:18 | PDOC.HOSPP ---
- Subjective Encounter Date: 08/17/20 Encounter Time: 11:17 Subjective: Ms. Damon was seen today in follow-up of Abdominal pain and diarrhea. She will answer only a few questions, and moans during the entire encounter. - Objective Vital Signs & Weight: Vital Signs (12 hours) Temp Pulse Resp BP Pulse Ox 08/17/20 08:40 3 L 08/17/20 08:00 97.4 F L 64 18 124/84 93 L Weight Weight 138 lb 9.6 oz I&O: 08/16/20 08/17/20 08/18/20 06:59 06:59 06:59 Intake Total 500 Balance 500 Result Diagrams: 08/17/20 10:32 08/17/20 10:32 Additional Labs: Accuchecks 08/17/20 08/17/20 08/16/20 11:00 05:31 20:59 POC Glucose 166 H 136 H 140 H 08/16/20 11:20 POC Glucose 135 H Hospitalist ROS - Medication Medications: Active Medications Generic Name Dose Route Start Last Admin Trade Name Kiko PRN Reason Stop Dose Admin Metronidazole 500 mg/ Device 100 mls @ 100 mls/hr 08/16/20 22:00 08/17/20 04:52 IVPB 100 mls Q8HR YANI Administration Ceftriaxone Sodium 1 gm/ 100 mls @ 200 mls/hr 08/16/20 20:00 08/16/20 20:52 Sodium Chloride IVPB 100 mls Q24HR YANI Administration Pantoprazole Sodium 40 mg 08/16/20 21:00 08/17/20 08:47 Pantoprazole 40 Mg Vial IVP 40 mg Q12HR YANI Administration - Exam Eye: PERRL, anicteric sclera Heart: RRR, no murmur, no gallops, no rubs, normal peripheral pulses Respiratory: rales (+ faint rales at the bases) Gastrointestinal: soft (+ diffuse tenderness, bowel sounds are hypoactive) Extremities: no cyanosis, 1+ LE edema (+ palpable d.p. pulses bilaterally) Hosp A/P (1) Abdominal pain Code(s): R10.9 - UNSPECIFIED ABDOMINAL PAIN Status: Acute (2) DM2 (diabetes mellitus, type 2) Status: Chronic Qualifiers: Chronic kidney disease stage: stage 3 (moderate) (3) HTN (hypertension) Code(s): I10 - ESSENTIAL (PRIMARY) HYPERTENSION Status: Chronic (4) Anemia, macrocytic Code(s): D53.9 - NUTRITIONAL ANEMIA, UNSPECIFIED Status: Acute - Plan * Diarrhea and Me[place]- with findings on CT scan with marked inflammation in the cecum- Stool studies are pending. Continue Empiric antibiotics for possible typhilitis- continue Rocephin and Flagyl * HTN- blood pressure is stable * Chronic anticoagulation- Eliquis is on hold * DM- blood glucose is stable- continue SSI * Macrocytic anemia- her H&H has been trending down,- likely due to acute blood loss on top of the macrocytic anemia- B-12 levels are elevated, Folate is normal- transfuse as needed, and she may need outpatient work up
--- NOTE | 2020-08-17 14:43 | PDOC.FMACP ---
Advance Care Planning - Problem (1) Anemia, macrocytic Status: Acute Code(s): D53.9 - NUTRITIONAL ANEMIA, UNSPECIFIED (2) Abdominal pain Status: Acute Code(s): R10.9 - UNSPECIFIED ABDOMINAL PAIN (3) Acute on chronic systolic (congestive) heart failure Status: Acute Code(s): I50.23 - ACUTE ON CHRONIC SYSTOLIC (CONGESTIVE) HEART FAILURE (4) Metabolic encephalopathy Status: Acute Code(s): G93.41 - METABOLIC ENCEPHALOPATHY (5) Palliative care encounter Status: Acute Code(s): Z51.5 - ENCOUNTER FOR PALLIATIVE CARE - Note Participants: family, palliative care Summary: Palliative care revisited Advanced Care Planning. The diagnosis, prognosis and goals of care were discussed. Appropriate forms and documentation to accomplish the goals of care were discussed. All questions were answered. *Elected to transition to Hospice for comfort measures. *Confirmed prior OOHDNAR and MPOA *Gabriella TEMPLETON elected to seek a consult for HBV, choice letter on chart. Emotional support, therapeutic listening. Spiritual care involved. Time Spent (mins): 20
[2020-08-17] MEDS: cefTRIAXone\\ROCEPHIN 1 GM in Sodium Chloride 0.9% 100 ML IVPB SCH (19:49)
[2020-08-18] MEDS: Morphine 2 MG/ML VIAL SLOW IVP PRN ×4 (01:59→18:41)
[2020-08-18] MEDS: metroNIDAZOLE 500 MG in Premix Bag 1 BAG IVPB SCH ×3 (05:31→21:51)
[2020-08-18 06:30] LABS: #Monocytes 0.3 thou/uL (0.11-0.59); #Neutrophils 2.3 thou/uL (1.40-6.50); %Basophils 0.8 % (0.0-1.0); %Eosinophils 1.1 % (0.0-10.0); %Lymphocytes 27.3 % (21.0-51.0); %Monocytes 8.9 % (0.0-10.0); %Neutrophils 61.9 % (42.0-75.0); Hemoglobin 6.7 g/dL (12.0-16.0); Mean Corpuscular HGB CONC 31.5 g/dL (32.0-36.0); Mean Corpuscular Hemoglobin 36.3 pg (27.0-31.0); Mean Platelet Volume 9.1 fL (7.4-10.4); Platelet Count 205 thou/uL (130-400); RBC Distribution Width 19.3 % (11.5-14.5); Red Blood Cell (RBC) Count 1.83 mill/uL (4.20-5.40); White Blood Cell (WBC) Count 3.6 thou/uL (4.8-10.8)
[2020-08-18 07:03] LABS: Anion Gap 15 mmol/L (10-20); BUN (Urea Nitrogen) 32 mg/dL (9.8-20.1); Calc. Creatinine Clearance 47 mL/min (70-130); Calcium 7.9 mg/dL (7.8-10.44); Carbon Dioxide 24 mmol/L (23-31); Chloride 111 mmol/L (98-107); Glucose 158 mg/dL (83-110); Potassium 3.7 mmol/L (3.5-5.1); Sodium 146 mmol/L (136-145)
[2020-08-18] MEDS: Pantoprazole 40 MG VIAL IVP SCH ×2 (08:53→20:30)
[2020-08-18 16:47] LABS: Hemoglobin 8.8 g/dL (12.0-16.0); Mean Corpuscular Hemoglobin 35.7 pg (27.0-31.0); Mean Platelet Volume 8.9 fL (7.4-10.4); Platelet Count 225 thou/uL (130-400); RBC Distribution Width 20.6 % (11.5-14.5); Red Blood Cell (RBC) Count 2.46 mill/uL (4.20-5.40); White Blood Cell (WBC) Count 5.5 thou/uL (4.8-10.8)
--- NOTE | 2020-08-18 17:20 | PRG ---
DATE OF SERVICE: 08/18/2020 REASON FOR CONSULTATION: Hematochezia. SUBJECTIVE: Per nursing staff, the patient has not had any bowel movements overnight nor has she had any today. The nursing staff also denies that the patient has had any further episodes of hematochezia or even melena. Otherwise, her mental status remains unchanged with the patient fairly nonresponsive with increased moaning spontaneously. OBJECTIVE: VITAL SIGNS: Temperature 97.4, pulse 61, blood pressure 148/58, respiratory rate 18, saturating 100% on room air. GENERAL: The patient was lying in bed with increased moaning but in otherwise no distress. She is not interactive or responsive. CARDIOVASCULAR: Regular rate and rhythm. RESPIRATORY: Clear to auscultation bilaterally. ABDOMEN: Normoactive bowel sounds. Soft, nontender, nondistended. EXTREMITIES: Cachectic extremities with no cyanosis, clubbing, or edema. LABORATORY DATA: CBC with a white blood cell count of 3.6, hemoglobin 6.7, hematocrit 21.1, platelets 205. Chemistry with a sodium of 146, potassium 3.7, chloride 111, CO2 of 24, BUN 32, creatinine 0.85, glucose 158. Infectious stool studies were negative for Giardia, Cryptosporidium, C diff, Campylobacter, and E coli. Stool culture showed only normal colonic eduardo. IMAGING DATA: No current GI imaging is available for review. ASSESSMENT AND PLAN: 1. GI bleeding. The patient initially presented with more darker/melenic type stools with some inflammatory changes seen around the cecum. Over the next 24 hours, she began to have darker maroon type colored stools, but over the last 12 to 24 hours has not had any bloody bowel movements nor has she had any bowel movement at all. Upon review of the patient's chart, both in the inpatient and outpatient settings, endoscopic evaluation has been offered to both the patient and the patient's medical power of claim attorney and refused at both times. At this time, further evaluation with endoscopic management is not indicated. 2. End-stage dementia. 3. Metastatic breast cancer. RECOMMENDATIONS: 1. Would continue to trend her H and H and transfuse as necessary to maintain an H and H of 7/21. 2. Continue to monitor clinically for signs of active GI bleeding. 3. Would continue the patient on PPI 40 mg IV b.i.d. 4. We would avoid any NSAIDs or anticoagulation for the time being in light of recent GI bleed. 5. No endoscopic management is indicated at this time per the patient and medical power of claim attorney preference. 6. I agree with palliative care consultation and possible hospice evaluation. 7. We will continue to follow peripherally at this time. Please call with any questions. Job ID: [id number]
--- NOTE | 2020-08-18 19:41 | PDOC.HOSPP ---
- Subjective Encounter Date: 08/18/20 Encounter Time: 09:00 Subjective: F/u: GI bleeding The patient possibly had a bloody stool overnight per nursing staff. Her hemoglobin dropped to 6.7. She got a transfusion and hemoglobin improved to 8.7. The patient is not a candidate for EGD/colonoscopy The patient complains of abdominal pain. She denies shortness of breath cough. She does not think she had a bowel movement - Objective Vital Signs & Weight: Vital Signs (12 hours) Temp Pulse Pulse Resp BP BP BP 08/18/20 15:54 97.4 F L 61 18 148/58 H 08/18/20 13:20 97.3 F L 59 L 16 156/68 H 08/18/20 12:02 97.9 F 60 16 131/64 08/18/20 11:10 97.6 F 60 18 127/59 L 08/18/20 10:55 98.0 F 61 18 118/55 L 08/18/20 08:02 97.8 F 61 14 117/57 L 08/18/20 08:00 Pulse Ox 08/18/20 15:54 100 08/18/20 13:20 94 L 08/18/20 12:02 96 08/18/20 11:10 97 08/18/20 10:55 94 L 08/18/20 08:02 96 08/18/20 08:00 96 Weight Weight 138 lb 9.6 oz I&O: 08/17/20 08/18/20 08/19/20 06:59 06:59 06:59 Intake Total 500 350 Balance 500 350 Result Diagrams: 08/18/20 16:11 08/18/20 06:13 Additional Labs: Accuchecks 08/18/20 08/18/20 08/17/20 16:05 11:59 20:30 POC Glucose 154 H 161 H 162 H Hospitalist ROS - Review of Systems Constitutional: denies: fever, chills - Medication Medications: Active Medications Generic Name Dose Route Start Last Admin Trade Name Freq PRN Reason Stop Dose Admin Metronidazole 500 mg/ Device 100 mls @ 100 mls/hr 08/16/20 22:00 08/18/20 15:43 IVPB 100 mls Q8HR YANI Administration Ceftriaxone Sodium 1 gm/ 100 mls @ 200 mls/hr 08/16/20 20:00 08/17/20 19:49 Sodium Chloride IVPB 100 mls Q24HR YANI Administration Morphine Sulfate 1 mg 08/18/20 01:53 08/18/20 18:41 Morphine 2 Mg/Ml Vial SLOW IVP 1 mg Q4H PRN Administration Severe Pain (7-10) Pantoprazole Sodium 40 mg 08/16/20 21:00 08/18/20 08:53 Pantoprazole 40 Mg Vial IVP 40 mg Q12HR YANI Administration - Exam General Appearance: NAD, awake alert Eye: PERRL, anicteric sclera ENT: normocephalic atraumatic, no oropharyngeal lesions Neck: no JVD Heart: RRR, no murmur, no gallops, no rubs Respiratory: CTAB, no wheezes, no rales, no ronchi Gastrointestinal: soft, non-tender, non-distended, normal bowel sounds Extremities: no cyanosis, no clubbing, no edema Skin: normal turgor, no lesions, no rashes Neurological: cranial nerve grossly intact, normal sensation to touch, no weakness Psychiatric: normal affect, normal behavior, A&O x 3, oriented to person Hosp A/P - Plan THis is an 84 year old female who presented with weakness, AMS and Gi bleeding, found to have cecal inflammation #GI bleeding #Cecal inflammation- possible typhilitis - GI Consulted, Hb 8.3. CT abdomen shows marked inflammation of the cecum COVID - tested positive 6 days ago. Will monitor currently, she is on room air Right pleural effusion - s/p one dose of IV lasix 20 mg. Will repeat chest Xray prior to discharge T12 vertebral body metastases - enlarging on CT abdomen. May need further workup as an outpatient BHARAT - resolved, creatinine down to 1.04
[2020-08-18] MEDS: cefTRIAXone\\ROCEPHIN 1 GM in Sodium Chloride 0.9% 100 ML IVPB SCH (20:27)
[2020-08-18] MEDS: Lorazepam 2 MG/ML VIAL SLOW IVP PRN (21:51)
[2020-08-19] MEDS: Morphine 2 MG/ML VIAL SLOW IVP PRN ×2 (02:07→20:59)
[2020-08-19] MEDS: metroNIDAZOLE 500 MG in Premix Bag 1 BAG IVPB SCH ×3 (05:50→20:57)
[2020-08-19 06:33] LABS: Hemoglobin 8.8 g/dL (12.0-16.0); Mean Corpuscular HGB CONC 32.3 g/dL (32.0-36.0); Mean Platelet Volume 8.5 fL (7.4-10.4); Platelet Count 244 thou/uL (130-400); RBC Distribution Width 21.2 % (11.5-14.5); Red Blood Cell (RBC) Count 2.43 mill/uL (4.20-5.40); White Blood Cell (WBC) Count 4.4 thou/uL (4.8-10.8)
[2020-08-19 07:01] LABS: Anion Gap 16 mmol/L (10-20); BUN (Urea Nitrogen) 26 mg/dL (9.8-20.1); Calc. Creatinine Clearance 49 mL/min (70-130); Calcium 8.1 mg/dL (7.8-10.44); Carbon Dioxide 27 mmol/L (23-31); Chloride 114 mmol/L (98-107); Glucose 172 mg/dL (83-110); Potassium 3.9 mmol/L (3.5-5.1); Sodium 153 mmol/L (136-145)
--- NOTE | 2020-08-19 07:41 | ULT ---
ULTRASOUND DOPPLER DUPLEX VENOUS LEFT UPPER EXTREMITY: DATE: 08/19/2020 HISTORY: 84-year-old female with pitting edema of left upper extremity with pain TECHNIQUE: Grayscale, color-flow, and spectral analysis, of the left internal jugular, subclavian, axillary, bra chial, basilic, cephalic, radial, and ulnar, veins. Compression and release applied to all veins except the subclavian. FINDINGS: There is demonstration of blood flow in the subclavian vein. There is demonstration of blood flow and normal compressibility in all other veins except the radial vein, which is not imaged. There is significant soft tissue edema throughout the left upper extremity. IMPRESSION: 1. No deep venous thrombosis of left upper extremity identified. 2. Significant soft tissue edema in the left upper extremity
[2020-08-19] MEDS: Lorazepam 2 MG/ML VIAL SLOW IVP PRN ×2 (08:36→21:00)
[2020-08-19] MEDS: Pantoprazole 40 MG VIAL IVP SCH ×2 (08:36→20:58)
--- NOTE | 2020-08-19 10:32 | RAD ---
PORTABLE CHEST: HISTORY: Followup pleural effusion. COVID pneumonia. COMPARISON: 08/15/2020 study. FINDINGS: Heart size is enlarged. Internal defibrillator device is present. Right-sided pleural lung changes are felt to be fairly similar to the prior exam. Some of the parenchymal changes and pulmonary vascu lar engorgement are improved as compared to the prior examination. IMPRESSION: Cardiomegaly with persistent moderate right-sided effusion. Some of the right upper lobe parenchymal changes have improved. The pulmonary vascular engorgement has improved as compared to the prior brad dy. POS: [facility]
[2020-08-19] MEDS ORDERED: Furosemide 20 MG/2 ML VIAL SLOW IVP SCH (13:15)
[2020-08-19] MEDS ORDERED: Dextrose 5% in Water 1,000 ML IV SCH (13:15)
[2020-08-19 16:35] LABS: Hemoglobin 8.9 g/dL (12.0-16.0); Mean Corpuscular HGB CONC 31.2 g/dL (32.0-36.0); Mean Platelet Volume 8.2 fL (7.4-10.4); Platelet Count 240 thou/uL (130-400); Red Blood Cell (RBC) Count 2.55 mill/uL (4.20-5.40)
--- NOTE | 2020-08-19 16:54 | PDOC.HOSPP ---
- Subjective Encounter Date: 08/19/20 Encounter Time: 13:00 Subjective: F/u: GI bleed The patient had another bloody stool this afternoon. She is still moaning and not answering questions today. Speech saw her and recommended ice chips versus diet with risk of aspiration I called the son and he asked that I speak to his instead. Hospice has evaluated the patient and thought she would be appropriate based off of her congestive heart failure - Objective Vital Signs & Weight: Vital Signs (12 hours) Temp Pulse Resp BP Pulse Ox 08/19/20 08:00 97.6 F 66 20 136/74 95 Weight Weight 138 lb 9.6 oz I&O: 08/18/20 08/19/20 08/20/20 06:59 06:59 06:59 Intake Total 350 Balance 350 Result Diagrams: 08/19/20 16:18 08/19/20 06:18 Additional Labs: Accuchecks 08/19/20 08/19/20 08/19/20 15:28 11:50 06:02 POC Glucose 183 H 166 H 169 H 08/18/20 20:34 POC Glucose 177 H Hospitalist ROS - Review of Systems Constitutional: denies: fever, chills - Medication Medications: Active Medications Generic Name Dose Route Start Last Admin Trade Name Freq PRN Reason Stop Dose Admin Metronidazole 500 mg/ Device 100 mls @ 100 mls/hr 08/16/20 22:00 08/19/20 13:20 IVPB 100 mls Q8HR YANI Administration Ceftriaxone Sodium 1 gm/ 100 mls @ 200 mls/hr 08/16/20 20:00 08/18/20 20:27 Sodium Chloride IVPB 100 mls Q24HR YANI Administration Lorazepam 1 mg 08/18/20 21:11 08/19/20 08:36 Lorazepam 2 Mg/Ml Vial SLOW IVP 1 mg Q4H PRN Administration ANXIETY/AGITATION Morphine Sulfate 1 mg 08/18/20 01:53 08/19/20 02:07 Morphine 2 Mg/Ml Vial SLOW IVP 1 mg Q4H PRN Administration Severe Pain (7-10) Pantoprazole Sodium 40 mg 08/16/20 21:00 08/19/20 08:36 Pantoprazole 40 Mg Vial IVP 40 mg Q12HR YANI Administration - Exam General Appearance: NAD, awake alert Eye: PERRL, anicteric sclera ENT: normocephalic atraumatic, no oropharyngeal lesions Neck: no JVD Heart: RRR, no murmur, no gallops, no rubs Respiratory: CTAB, no wheezes, no rales, no ronchi Gastrointestinal: soft Gastrointestinal - other findings: mildly tender in lower quadrants Skin: normal turgor, no lesions, no rashes Neurological: cranial nerve grossly intact, normal sensation to touch, no weakness Musculoskeletal: normal tone, normal strength, no muscle wasting Hosp A/P - Plan Chest xray 08/19: cardiomegaly with persistent moderate right sided effusion. Pulmonary vascular congestion has improved from 08/15 ECHO: EF 25-30%, severe MR, severe TR THis is an 84 year old female who presented with weakness, AMS and Gi bleeding, found to have cecal inflammation #GI bleeding #Cecal inflammation- possible typhilitis - patient had a Hb of 6.7, s/p 1 unit of blood with improvement to Hb 8.9. CT abdomen shows marked inflammation of the cecum . Continue ceftriaxone and flagy l. She had another bleeding episode today. Will repeat CBC - stool cultures, C diff and ova and parasites negative. Family has refused EGD in the past, so no intervention per GI Acute systolic heart failure with severe MR and severe TR - ECHO is 25-30% with chest x ray showing pulmonary edema. Will administer IV lasix today Hypernatremia - sodium up to 153. Clinically appears more dry but due to pulmonary edema will order lasix and repeat BMP in the morning COVID - tested positive 6 days ago. Will monitor currently, she is on room air Right pleural effusion - s/p one dose of IV lasix 20 mg. 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 May need further workup as an outpatient, but not pam bettencourt candidate for chemo given her dementia Dementia - hospice consulted per family request BHARAT - resolved, creatinine down to 0.82
[2020-08-19] MEDS: cefTRIAXone\\ROCEPHIN 1 GM in Sodium Chloride 0.9% 100 ML IVPB SCH (20:58)
[2020-08-20] MEDS: Morphine 2 MG/ML VIAL SLOW IVP PRN ×4 (02:16→23:52)
[2020-08-20] MEDS: metroNIDAZOLE 500 MG in Premix Bag 1 BAG IVPB SCH ×3 (04:15→20:30)
[2020-08-20 06:32] LABS: Hemoglobin 8.9 g/dL (12.0-16.0); Mean Corpuscular HGB CONC 32.7 g/dL (32.0-36.0); Mean Corpuscular Hemoglobin 36.7 pg (27.0-31.0); Mean Platelet Volume 8.5 fL (7.4-10.4); Platelet Count 261 thou/uL (130-400); Red Blood Cell (RBC) Count 2.41 mill/uL (4.20-5.40); White Blood Cell (WBC) Count 4.7 thou/uL (4.8-10.8)
[2020-08-20 06:58] LABS: Anion Gap 19 mmol/L (10-20); BUN (Urea Nitrogen) 21 mg/dL (9.8-20.1); Calc. Creatinine Clearance 50 mL/min (70-130); Calcium 8.5 mg/dL (7.8-10.44); Carbon Dioxide 25 mmol/L (23-31); Chloride 116 mmol/L (98-107); Glucose 197 mg/dL (83-110); Potassium 3.8 mmol/L (3.5-5.1); Sodium 156 mmol/L (136-145)
[2020-08-20] MEDS: Pantoprazole 40 MG VIAL IVP SCH ×2 (08:31→20:31)
[2020-08-20] MEDS: Dextrose 5% in Water 1,000 ML IV SCH ×2 (11:49→23:24)
[2020-08-20 15:28] LABS: Anion Gap 18 mmol/L (10-20); BUN (Urea Nitrogen) 19 mg/dL (9.8-20.1); Calc. Creatinine Clearance 52 mL/min (70-130); Calcium 8.5 mg/dL (7.8-10.44); Carbon Dioxide 25 mmol/L (23-31); Chloride 118 mmol/L (98-107); Glucose 204 mg/dL (83-110); Potassium 3.7 mmol/L (3.5-5.1); Sodium 157 mmol/L (136-145)
--- NOTE | 2020-08-20 16:37 | RAD ---
EXAM: CHEST ONE VIEW HISTORY: Reevaluation of right pleural effusion. COMPARISON: 08/19/2020 and 08/15/2020 FINDINGS: Triple lead left subclavian AICD device remains in place. Heart is enlarged. Pulmonary vasculature do es appear mildly increased pleural and parenchymal lung changes on the right are again present which has an appearance suggestive of right pleural effusion and associated volume loss. Given differ ences in technique, pleural parenchymal changes at the right base not significantly. Left hemidiaphragm is not well delineated, and left pleural effusion, atelectasis, infiltrate left lung ba se excluded. IMPRESSION: 1. Overall stable pleural and parenchymal lung changes right lung base and right midlung zone which i s likely related to right pleural effusion and associated atelectasis. Superimposed infiltrate cannot be excluded. 2. Increased density left lung base which may represent left pleural effusion and atelectasis. Superi mposed infiltrate left lung base also cannot be excluded.
[2020-08-20] MEDS: Lorazepam 2 MG/ML VIAL SLOW IVP PRN (17:07)
--- NOTE | 2020-08-20 18:14 | PDOC.HOSPP ---
- Subjective Encounter Date: 08/20/20 Encounter Time: 13:00 Subjective: F/u: dehydratio, COVID + The patient received one dose lasix yesterday. Sodium has increased however. Starting D5W but sodium continues to go up . Patient still laying in bed, moaning. No bloody bowel movements overnight - Objective Vital Signs & Weight: Vital Signs (12 hours) Temp Pulse Resp BP Pulse Ox 08/20/20 16:00 64 18 100 08/20/20 10:00 98.7 F 66 16 132/70 96 08/20/20 07:57 64 16 135/78 97 Weight Admit Weight 138 lb 9.6 oz Weight 138 lb 9.6 oz I&O: 08/19/20 08/20/20 08/21/20 06:59 06:59 06:59 Intake Total 350 Balance 350 Result Diagrams: 08/20/20 05:35 08/20/20 14:52 Additional Labs: Accuchecks 08/19/20 21:19 POC Glucose 189 H Hospitalist ROS - Review of Systems Constitutional: denies: fever, chills - Medication Medications: Active Medications Generic Name Dose Route Start Last Admin Trade Name Freq PRN Reason Stop Dose Admin Metronidazole 500 mg/ Device 100 mls @ 100 mls/hr 08/16/20 22:00 08/20/20 14:26 IVPB 100 mls Q8HR YANI Administration Ceftriaxone Sodium 1 gm/ 100 mls @ 200 mls/hr 08/16/20 20:00 08/19/20 20:58 Sodium Chloride IVPB 100 mls Q24HR YANI Administration Dextrose/Water 1,000 mls @ 75 mls/hr 08/20/20 10:00 08/20/20 11:49 D5w IV 1,000 mls .[id number] YAIN Administration Lorazepam 1 mg 08/18/20 21:11 08/20/20 17:07 Lorazepam 2 Mg/Ml Vial SLOW IVP 1 mg Q4H PRN Administration ANXIETY/AGITATION Morphine Sulfate 1 mg 08/18/20 01:53 08/20/20 14:27 Morphine 2 Mg/Ml Vial SLOW IVP 1 mg Q4H PRN Administration Severe Pain (7-10) Pantoprazole Sodium 40 mg 08/16/20 21:00 08/20/20 08:31 Pantoprazole 40 Mg Vial IVP 40 mg Q12HR YANI Administration - Exam General Appearance: NAD, awake alert Eye: PERRL, anicteric sclera ENT: normocephalic atraumatic, no oropharyngeal lesions Neck: no JVD Heart: RRR, no murmur, no gallops, no rubs Respiratory: CTAB, no wheezes, no rales, no ronchi Gastrointestinal: soft, non-tender, non-distended, normal bowel sounds Extremities: no cyanosis, no clubbing, no edema Skin: normal turgor, no lesions, no rashes Hosp A/P - Plan Chest xray 08/19: cardiomegaly with persistent moderate right sided effusion. Pulmonary vascular congestion has improved from 08/15 ECHO: EF 25-30%, severe MR, severe TR THis is an 84 year old female who presented with weakness, AMS and Gi bleeding, found to have cecal inflammation #GI bleeding #Cecal inflammation- possible typhilitis - patient had a Hb of 6.7, s/p 1 unit of blood with improvement to Hb 8.9. CT abdomen shows marked inflammation of the cecum . -Continue ceftriaxone and flagyl. She had another bleeding episode 08/20. Repeat CBC stable - stool cultures, C diff and ova and parasites negative. Family has refused EGD in the past, so no intervention per GI Acute systolic heart failure with severe MR and severe TR - ECHO is 25-30% with chest x ray showing pulmonary edema. S/p one dose IV lasix 08/20. BNP is > 3000 - will repeat chest Xray today Hypernatremia - sodium up to 153. Received lasix due to elevated BMP. Started D5W today Dementia - hospice consulted per family request. She will be discharged to hospice on discharge COVID - tested positive 6 days ago. Will monitor currently, she is on room air Right pleural effusion - s/p one dose of IV lasix 20 mg. 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 May need further workup as an outpatient, but not likely candidate for chemo given her dementia BHARAT - resolved, creatinine down to 0.82
[2020-08-20] MEDS: cefTRIAXone\\ROCEPHIN 1 GM in Sodium Chloride 0.9% 100 ML IVPB SCH (20:31)
[2020-08-21] MEDS: Lorazepam 2 MG/ML VIAL SLOW IVP PRN ×2 (06:01→22:49)
[2020-08-21] MEDS: metroNIDAZOLE 500 MG in Premix Bag 1 BAG IVPB SCH ×3 (06:01→22:24)
[2020-08-21] MEDS: HumaLOG 300 UNITS/3 ML VIAL SC PRN ×4 (06:10→22:36)
[2020-08-21 06:28] LABS: Hemoglobin 9.1 g/dL (12.0-16.0); Mean Corpuscular HGB CONC 32.2 g/dL (32.0-36.0); Mean Corpuscular Hemoglobin 35.9 pg (27.0-31.0); Mean Platelet Volume 8.4 fL (7.4-10.4); Platelet Count 291 thou/uL (130-400); RBC Distribution Width 21.1 % (11.5-14.5); Red Blood Cell (RBC) Count 2.52 mill/uL (4.20-5.40); White Blood Cell (WBC) Count 5.1 thou/uL (4.8-10.8)
[2020-08-21 06:38] LABS: Anion Gap 17 mmol/L (10-20); BUN (Urea Nitrogen) 17 mg/dL (9.8-20.1); Calc. Creatinine Clearance 48 mL/min (70-130); Calcium 8.6 mg/dL (7.8-10.44); Carbon Dioxide 26 mmol/L (23-31); Chloride 116 mmol/L (98-107); Glucose 305 mg/dL (83-110); Potassium 3.7 mmol/L (3.5-5.1); Sodium 155 mmol/L (136-145)
[2020-08-21] MEDS: Pantoprazole 40 MG VIAL IVP SCH ×2 (08:35→22:24)
[2020-08-21] MEDS: Dextrose 5% in Water 1,000 ML IV SCH (10:50)
[2020-08-21 12:54] LABS: Anion Gap 16 mmol/L (10-20); BUN (Urea Nitrogen) 16 mg/dL (9.8-20.1); Calc. Creatinine Clearance 49 mL/min (70-130); Calcium 8.3 mg/dL (7.8-10.44); Carbon Dioxide 23 mmol/L (23-31); Chloride 117 mmol/L (98-107); Glucose 294 mg/dL (83-110); Potassium 4.2 mmol/L (3.5-5.1); Sodium 152 mmol/L (136-145)
--- NOTE | 2020-08-21 13:47 | PDOC.HOSPP ---
- Subjective Encounter Date: 08/21/20 Encounter Time: 13:30 Subjective: F/u: encephalopathy The patient is still sitting up in bed moaning. She is not eating any food Daughter wants her to be better hydrated before sending her to the skilled nursing. She would like to see her before discharge when she comes off isolation. She tested positive on August 11 I explained to her that she was moaning and not eating even when her sodium was normal earlier this admission, but she wants to give it a chance. She asked whether hospice would be able to feed her better at the skilled nursing. I e xplained that currently she is not safe for any oral intake and she will always be a diet with risk of aspiration due to her mental status. I explained to her that if she goes back to the skilled nursing on hospice, they will not force-feed her and she should not bring her back to the hospital if she gets dehydrated again and to just let nature takes its course since that is the purpose of hospice - Objective Vital Signs & Weight: Vital Signs (12 hours) Temp Pulse Resp BP Pulse Ox 08/21/20 07:37 97.7 F 68 18 113/66 92 L Weight Admit Weight 138 lb 9.6 oz Weight 138 lb 9.6 oz Result Diagrams: 08/21/20 05:36 08/21/20 12:18 Additional Labs: Accuchecks 08/21/20 08/20/20 08/20/20 05:40 20:09 16:38 POC Glucose 247 H 201 H 193 H 08/20/20 11:36 POC Glucose 198 H Hospitalist ROS - Review of Systems Constitutional: denies: fever, chills - Medication Medications: Active Medications Generic Name Dose Route Start Last Admin Trade Name Freq PRN Reason Stop Dose Admin Metronidazole 500 mg/ Device 100 mls @ 100 mls/hr 08/16/20 22:00 08/21/20 06:01 IVPB 100 mls Q8HR YANI Administration Ceftriaxone Sodium 1 gm/ 100 mls @ 200 mls/hr 08/16/20 20:00 08/20/20 20:31 Sodium Chloride IVPB 100 mls Q24HR YANI Administration Dextrose/Water 1,000 mls @ 75 mls/hr 08/20/20 10:00 08/21/20 10:50 D5w IV 1,000 mls .[id number] YANI Administration Insulin Human Lispro 0 units 08/16/20 01:59 08/21/20 12:45 Humalog 300 Units/3 Ml Vial SC 4 unit .MILD SLIDING SCALE PRN Administration Mild Correctional Scale Lorazepam 1 mg 08/18/20 21:11 08/21/20 06:01 Lorazepam 2 Mg/Ml Vial SLOW IVP 1 mg Q4H PRN Administration ANXIETY/AGITATION Morphine Sulfate 1 mg 08/18/20 01:53 08/20/20 23:52 Morphine 2 Mg/Ml Vial SLOW IVP 1 mg Q4H PRN Administration Severe Pain (7-10) Pantoprazole Sodium 40 mg 08/16/20 21:00 08/21/20 08:35 Pantoprazole 40 Mg Vial IVP 40 mg Q12HR YANI Administration - Exam General Appearance: NAD, awake alert Eye: PERRL, anicteric sclera ENT: normocephalic atraumatic, no oropharyngeal lesions Neck: supple, no JVD Heart: RRR, no murmur, no gallops, no rubs Respiratory: CTAB, no wheezes, no rales, no ronchi Gastrointestinal: soft, non-distended, normal bowel sounds Gastrointestinal - other findings: mild tenderness in lower quadrants Extremities: no cyanosis, no clubbing Skin: normal turgor, no lesions, no rashes Hosp A/P - Plan Chest xray 08/19: cardiomegaly with persistent moderate right sided effusion. Pulmonary vascular congestion has improved from 08/15 ECHO: EF 25-30%, severe MR, severe TR Chest X ray 08/20: stable lung changes with right pleural effusion with possible superimposed infiltrate. Increased density left lung base. THis is an 84 year old female who presented with weakness, AMS and Gi bleeding, found to have cecal inflammation #GI bleeding #Cecal inflammation- possible typhilitis - patient had a Hb of 6.7, s/p 1 unit of blood with improvement to Hb 8.9. CT abdomen shows marked inflammation of the cecum . -Continue ceftriaxone and flagyl day 12/18. She had another bleeding episode 08/20. Repeat CBC has remained stable - stool cultures, C diff and ova and parasites negative. Family has refused EGD in the past, so no intervention per GI #Acute hypoxic respiratory failure possibly from acute systolic heart failure vs pneumonia vs COVID #Severe MR and TR - she had chest X ray showing possible pulmonary edema and EF of 25-30% . She was given one dose lasix 08/20, but held further dose due to worsening hypernatremia - repeat chest X ray 08/21 shows possible bilateral infiltrates. Will add azithromycin for atypical coverage Hypernatremia - sodium improved to 152. Continue D5W for another day. Speech to re-evaluate tomorrow Dementia - hospice consulted per family request. 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 May need further workup as an outpatient, but not likely candidate for chemo given her dementia BHARAT - resolved Disposition: possible discharge to skilled nursing with hospice tomorrow when hypernatremia improves
[2020-08-21] MEDS ORDERED: Azithromycin 500 MG in Sodium Chloride 0.9% 250 ML 250 ML IVPB SCH (16:00)
[2020-08-21] MEDS: Morphine 2 MG/ML VIAL SLOW IVP PRN ×2 (18:39→22:26)
[2020-08-21] MEDS: cefTRIAXone\\ROCEPHIN 1 GM in Sodium Chloride 0.9% 100 ML IVPB SCH (22:23)
[2020-08-22] MEDS: Dextrose 5% in Water 1,000 ML IV SCH (02:01)
[2020-08-22] MEDS: metroNIDAZOLE 500 MG in Premix Bag 1 BAG IVPB SCH ×2 (05:08→14:41)
[2020-08-22 07:39] LABS: Hemoglobin 8.7 g/dL (12.0-16.0); Mean Corpuscular HGB CONC 32.1 g/dL (32.0-36.0); Mean Corpuscular Hemoglobin 35.6 pg (27.0-31.0); Mean Platelet Volume 8.4 fL (7.4-10.4); Platelet Count 271 thou/uL (130-400); RBC Distribution Width 20.7 % (11.5-14.5); Red Blood Cell (RBC) Count 2.45 mill/uL (4.20-5.40)
[2020-08-22 07:43] LABS: Anion Gap 14 mmol/L (10-20); BUN (Urea Nitrogen) 14 mg/dL (9.8-20.1); Calc. Creatinine Clearance 53 mL/min (70-130); Calcium 8.2 mg/dL (7.8-10.44); Carbon Dioxide 30 mmol/L (23-31); Chloride 116 mmol/L (98-107); Glucose 204 mg/dL (83-110); Potassium 3.3 mmol/L (3.5-5.1); Sodium 157 mmol/L (136-145)
[2020-08-22] MEDS: Pantoprazole 40 MG VIAL IVP SCH (07:55)
[2020-08-22] MEDS: Morphine 2 MG/ML VIAL SLOW IVP PRN ×2 (07:56→11:19)
[2020-08-22] MEDS ORDERED: Dextrose 5% in Water 1,000 ML IV SCH (09:38)
[2020-08-22] MEDS ORDERED: Potassium Chloride 20 MEQ/100 ML PREMIX BAG IVPB SCH (11:00)
[2020-08-22 12:30] VITALS: TEMP 97
[2020-08-22] MEDS: Lorazepam 2 MG/ML VIAL SLOW IVP PRN (12:41)
[2020-08-22] MEDS: HumaLOG 300 UNITS/3 ML VIAL SC PRN (12:47)
[2020-08-22 13:40] LABS: Anion Gap 12 mmol/L (10-20); BUN (Urea Nitrogen) 14 mg/dL (9.8-20.1); Calc. Creatinine Clearance 51 mL/min (70-130); Calcium 8.3 mg/dL (7.8-10.44); Carbon Dioxide 29 mmol/L (23-31); Chloride 117 mmol/L (98-107); Glucose 238 mg/dL (83-110); Potassium 3.8 mmol/L (3.5-5.1); Sodium 154 mmol/L (136-145)
--- NOTE | 2020-08-22 14:13 | PDOC.DS.DS ---
Provider - Provider Date of Admission: 08/15/20 23:35 Date of Discharge: 08/22/20 Admitting Provider: Jose Luis Menendez DO Consultations: Gastroentrology (Dr. Mike Jeter) Primary Care Physician: KALYAN POTTER Course - Hospital Course Hospital Course: Discharge Diagnoses: 1. Acute GI bleed 2. Cecal inflammation - possibly typhilitis 3. Acute hypoxic respiratory failure from acute systolic heart failure vs pneumonia 4. 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 Hypernatremia 6. Advanced Dementia 7. T3 vertebral body metastases 8. BHARAT Brief HPI: This is an 84 year old female who presented to the hospital with altered mental status, GI bleeding and weakness. She was tested positive for COVID on 08/11. CHest X ray showed increasing opacities concerning for COVID pneumonia. She was admitted for further workup: Hospital Course: Acute GI bleed/typhilitis: the patient was started on a protonix drip. She did have some bloody bowel movements while in the hospital and was transfused 2 units of PRBC. GI was consulted and recommended no intervention since family had refused intervention in the past and she has severe dementia. She did have a CT abdomen due to the patient moaning and was found to have cecal inflammation. C diff and stool cultures were negative. She did have positive stool cultures for proteus and strep agalactiae. She received IV ceftriaxone and flagyl for six days without improvement. She will be discharged on protonix if she is able to take pills, however speech has determined that she is unsafe for all solid and liquid foods. Family does not want a feeding tube. Hypernatremai: the patient had a sodium increase to 155. She was given D5W with innitial improvement to 152 but it increased bacfkf to 157 this morning. Her repeat BMP shows improvement to 154. The family agreed that they do not need to wait for her sodium to go back to normal since it is likely to keep fluctuating since she is not eating anything. Acute hypoxic respiratory failure from acute systolic heart failure vs pneumonia: the patient was placed on oxygen. She did receive IV ceftriaxone for six days. She did receive lasix once for her pleural effusion and possible pulmonary edema, however further lasix was discontinued due to the patient's dehydration and hypernatremia which responded to fluids. ECHO showed an EF of 25-30% with severe MR and TR. Her coreg was discontinued since the patient has poor oral intake and blood pressure is 140 without any medication. Lasix can be taken prn. T12 vertebral body metastases: this was noted incidentally on CT of the abdomen. She is not candidate for any chemotherapy or any further workup due to esvere dementia. Consider outpatient workup. BHARAT: creatinine improved to 1.27 to 0.8 with IV fluids on admission. Severe dementia: palliative care was consulted. The patient was made a DNR. Hospice evaluated the patient and they agreed to accept her back to custodial on hospice. Family was in agreement as well. Pertinent Studies: Chest X ray 08/15: intesrtitial and patchy parenchymal opacities greater on the right. Right pleural effusion. Marked cardiomegaly CT abdomen 08/16: marked cecal inflammation. Bilaterla pleural fluid has increased. Small volume ascites. Enlarging sclerotic metastasis involving T12. Vascular US: soft tissue edema in left upper extremity Chest X ray 08/19: cardiomegaly with persistent moderate right sided effusion. Improved pulomonary vascular engorgement Chest X ray 08/20: no acute disease. Increased density left lung base which may represent left pleural effusion and atelectasis. Chest X ray 08/20: overall stable pleural and parenchymal lung changes right lung base and right mid-lung zone which could be right pleural effusion and associated atelectasis. Superimposed infiltrate cannot be excluded. ECHO : EF 25-30%, severe MR, severe TR, small pericardial effusion. Enlarged right atrium size. Resuscitation Status: 08/16/20 01:56 Resuscitation Status Routine Resuscitation Status: DNAR: NO Resuscitation Discussed with: Documents on file - Labs Lab Results: 08/22/20 06:55 08/22/20 13:12 Abnormal Lab Results - Last 48 hrs 08/20/20 14:52: Sodium 157 H, Chloride 118 H 08/21/20 05:36: Sodium 155 H, Chloride 116 H 08/21/20 05:36: RBC 2.52 L, Hgb 9.1 L, Hct 28.1 L, MCV 111.0 H, MCH 35.9 H, RDW 21.1 H 08/21/20 12:18: Sodium 152 H, Chloride 117 H 08/22/20 06:55: Sodium 157 H, Potassium 3.3 L, Chloride 116 H 08/22/20 06:55: RBC 2.45 L, Hgb 8.7 L, Hct 27.2 L, MCV 111.0 H, MCH 35.6 H, RDW 20.7 H 08/22/20 13:12: Sodium 154 H, Chloride 117 H Microbiology - Entire Visit 08/16/20 12:20 Stool Stool Culture - Final Streptococcus agalactiae Gp. B Proteus mirabilis 08/16/20 12:20 Stool Campylobacter Antigen Assay - Final 08/16/20 12:20 Stool Shiga Toxin Test - Final 08/16/20 12:20 Stool Escherichia coli 0157 Culture - Final 08/16/20 12:20 Stool Rapid Parasite Screen - Final 08/16/20 12:20 Stool C. difficile GDH Antigen & Toxins - Final 08/15/20 22:15 Stool - Pending - Final - Physical Exam Vitals: Vital Signs (12 hours) Temp Pulse Resp BP Pulse Ox 08/22/20 12:00 97.0 F L 65 20 145/62 H 100 08/22/20 08:00 96.6 F L 60 20 151/77 H 100 08/22/20 07:55 100 08/22/20 04:00 97.8 F 60 20 149/77 H 99 Weight Admit Weight 138 lb 9.6 oz Weight 138 lb 9.6 oz Physical Exam: The patient was seen and examined on the day of discharge. General: patient is alert, awake, not oriented. Opens eyes, but does not talk or follow commands. Moans constantly when trying to move her CV: RRR, no murmurs, rubs, gallops Lungs: CTAB Abdomen: +BS, soft, nontender, nondistended Extremities: no edema Problem - Discharge Plan Plan of Treatment: THe patient will be discharged back to the custodial with hospice - Time spent with Patient (mins): 35 Plan - Discharge Medications Prescriptions: Azithromycin 250 mg PO DAILY #4 tablet Home Medications: Medication Instructions Recorded Confirmed Type Latanoprost [Xalatan 0.005% Ophth 1 drop EA EYE DAILY 07/06/19 08/16/20 History Soln] Multivitamin [Multiple Vitamins] 1 tab PO DAILY 07/06/19 08/16/20 History Sennosides/Docusate Sodium 1 tab PO BID tab 03/10/20 08/16/20 Rx [Senokot S] Calcium Carbonate [Oscal-500] 500 mg PO DAILY tab 03/24/20 08/16/20 Rx Cyanocobalamin (Vitamin B-12) 1,000 mcg PO DAILY tab 03/24/20 08/16/20 Rx [Vitamin B-12] Epoetin Rhys-Epbx [Retacrit] 40,000 unit SC Q7DAYS vial 03/24/20 08/16/20 Rx Folic Acid [Folvite] 1 mg PO DAILY tab 03/24/20 08/16/20 Rx Pantoprazole [Protonix] 40 mg PO DAILY tab 03/24/20 08/16/20 Rx Thiamine 100 mg PO DAILY tab 03/24/20 08/16/20 Rx Insulin Glargine [Lantus] 12 units SC DAILY #0 05/22/20 08/16/20 Rx Levothyroxine Sodium [Synthroid] 50 mcg PO 0600 30 Days #30 tab 05/22/20 08/16/20 Rx Potassium Chloride [Klor-Con 10] 10 meq PO DAILY #30 tab 06/22/20 08/16/20 Rx Azithromycin 250 mg PO DAILY #4 tablet 08/22/20 Rx Allergies: Sulfa (Sulfonamide Antibiotics) Allergy (Verified 05/11/20 20:33) Causes other family members to itch. Patient had no reaction, but family prefers for patient not to have it - Discharge Instructions Activity:: Activity as Tolerated Additional Dietary Instructions:: pureed diet with risk of aspiration - Follow up Plan Referrals: KALYAN POTTER [Primary Care Provider] - Disposition: HOME Quality - Care Measures CORE MEASURES:: N/A
[2020-08-22 16:20] VITALS: BP 115/68
--- NOTE | 2020-08-25 02:40 | PQF ---
CLINICAL DOCUMENTATION CLARIFICATION FORM: Dear : Pikny Patel Date / Time: 08/25/20238 Please exercise your independent, professional judgment in responding to the clarification form. Clinical indicators are provided on the bottom of this form for your review In your clinical opinion based on clinical findings below, can you please identify the etiology of GI bleeding if due to: Please check appropriate box(es): [ ] Typhlitis [ ] Adverse Effect of Aspirin [ ] Other diagnosis, please specify [ X ] Unable to determine Physician Signature: Date/Time: For continuity of documentation, please document condition throughout progress notes and discharge summary. Thank You. To be completed by CDI/Coding staff for physician review: Present Clinical Indicators - Signs / Symptoms / Labs Results and Location in Medical Record [x] RBC 2.67, Hgb 9.6, Hct 31.2 Laboratory 08/15 [x] CT Abdomen: Prominent inflammatory changes present at the base of Cecum. Diverticula arise from colon without adjacent inflammation Imaging Dr Calabrese 08/16 [x] BP 123/71, Pulse 69, Resp 22, Temp 97.5 Vital signs 08/15 [x] Presented with weakness alteration in mental status and blood per rectum H&P p1 08/15 DR Farnsworth [x] anemia 2/2 GI bleed H&P p3 08/15 DR Farnsworth [x] Pt taking aspirin Consult Dr Jeter 08/16 [x] Inflammed Cecum-Typhilitis Consult Dr Jeter 08/16 Present Risk Factors Results and Location in Medical Record [x] 84 year-old Female H&P p1 08/15 DR Farnsworth [x] Hx of breast cancer Consult Dr Jeter 08/16 [x] DM Consult Dr Jeter 08/16 [x] Inflammed Cecum-Typhilitis Consult Dr Jeter 08/16 Present Treatments Results and Location in Medical Record [x] IV Metronidazole 500 mg OCT 12 [x] IV Pantroprazole 80 mg OCT 12 [x] IVF NS 1L OCT 12 [x] GI consult Consult Dr Jeter 08/16 [x] RBC Blood bank 08/18 [x] Hold Aspirin and other anticoagulation Consult 08/16 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
== END 2020-08-22 16:39 | disposition hospice, home (50) | DRG 377 ==
LOC: ERS 21:02 → T4-B 23:35
PROVIDERS: ADMIT Emergency Medicine; ATTEND Internal Medicine
PROC: 8E0ZXY6 Isolation (ICD-10-PCS; 2020-08-16)
PROC: 30233N1 Transfusion of Nonautologous Red Blood Cells into Peripheral Vein, Percutaneous Approach (ICD-10-PCS; principal; 2020-08-18)
DX: K92.1 Melena (principal); J96.01 Acute respiratory failure with hypoxia; I50.23 Acute on chronic systolic (congestive) heart failure; U07.1 COVID-19; J12.89 Other viral pneumonia; G93.41 Metabolic encephalopathy; C79.51 Secondary malignant neoplasm of bone; I13.0 Hypertensive heart and chronic kidney disease with heart failure and stage 1 through stage 4 chronic kidney disease, or unspecified chronic kidney disease; N17.9 Acute kidney failure, unspecified; E87.0 Hyperosmolality and hypernatremia; D62 Acute posthemorrhagic anemia; Z66 Do not resuscitate; Z51.5 Encounter for palliative care; K52.89 Other specified noninfective gastroenteritis and colitis; I08.1 Rheumatic disorders of both mitral and tricuspid valves; F03.90 Unspecified dementia, unspecified severity, without behavioral disturbance, psychotic disturbance, mood disturbance, and anxiety; E03.9 Hypothyroidism, unspecified; I48.91 Unspecified atrial fibrillation; C50.919 Malignant neoplasm of unspecified site of unspecified female breast; N18.30 Chronic kidney disease, stage 3 unspecified; E11.22 Type 2 diabetes mellitus with diabetic chronic kidney disease; E86.0 Dehydration; Z95.810 Presence of automatic (implantable) cardiac defibrillator; Z90.12 Acquired absence of left breast and nipple; Z86.010 Personal history of colon polyps; Z90.710 Acquired absence of both cervix and uterus; Z79.899 Other long term (current) drug therapy; Z79.890 Hormone replacement therapy; Z79.4 Long term (current) use of insulin; Z79.01 Long term (current) use of anticoagulants
CPT/HCPCS: 36415; 36416; 36430; 51701; 71045; 74177; 80048; 80053; 81003; 82270; 82607; 82728; 82746; 83540; 83550; 84443; 85025; 85027; 85610; 85730; 86850; 86900; 86901; 87045; 87046; 87077; 87324; 87328; 87329; 87427; 87449; 93005; 96374; C9113; J0456; J0696; J1940; J2060; J2270; J3480; J3490; J7050; P9040; Q9967